=== PATIENT | male | born 1955 | race Caucasian/White ===

== ENCOUNTER 2017-10-18 12:24 | Inpatient (IN) | payer MEDICARE, SELFPAY ==
[2017-10-18] VITALS (15 sets, daily range): BP systolic 114–132; BP diastolic 56–67; PULSE 70–88; RESP 18–27; TEMP 36.5–37.1; O2SAT 87–94; BMI 20.9; BMI 19.6
--- NOTE | 2017-10-18 13:10 | EKG12_ITS ---
Test Reason : SOB Blood Pressure : / mmHG Vent. Rate : 078 BPM Atrial Rate : 078 BPM P-R Int : 126 ms QRS Dur : 072 ms QT Int : 394 ms P-R-T Axes : 058 000 065 degrees QTc Int : 449 ms Normal sinus rhythm Normal ECG Confirmed by NORM BARR, JARROD ([id number]), material expeditor DMITRI LOCKWOOD ([id number]) on 10/22/2017 3:07:42 PM Referred By: TINO Confirmed By:JARROD ZHENG MD
--- NOTE | 2017-10-18 13:15 | RAD_ITS ---
STUDY: X-RAY CHEST REASON FOR EXAM: Male, 62 years old. Shortness of breath/dyspnea. TECHNIQUE: Single AP portable view of the chest. COMPARISON: Comparison is made with prior study dated June 21, 2017. FINDINGS: EKG electrodes are seen. Mild increased linear markings with areas of confluence seen at both lung bases. This may represent bibasilar atelectasis and/or early infiltrates. Follow-up is recommended. There is no demonstrated pleural abnormality. Normal size heart. Normal mediastinum and shanna. Normal visualized pulmonary arteries. Normal visualized aortic arch and descending thoracic aorta. Normal visualized thoracic spine. Normal visualized ribs, clavicles, and shoulders. There is no demonstrated abnormality of the visualized soft tissue structures of the upper abdomen. RAD/Chest 1 View (Portable) IMPRESSION: Since prior study, there is evidence of increased linear markings with areas of confluence at the lung bases suggestive of bibasilar atelectasis and/or early infiltrates. Follow-up is recommended. Electronically Signed: García Landin MD at 14:38 EST Tel [phone], Service support ,
[2017-10-18] MEDS: 0.9% Normal Saline 1,000 ML 999 ML IV (13:29)
[2017-10-18] MEDS: Ipratropium/Albuterol Sulfate 3 ML AMPUL.NEB INHALATION ×3 (13:45→23:38)
[2017-10-18] MEDS: Albuterol 2.5 MG/3 ML VIAL.NEB. INHALATION ×2 (13:46→13:47)
[2017-10-18 13:53] LABS: Absolute Lymphocyte Count 0.96 X10^3/ul (0.83-4.51); Absolute Neutrophil Count 4.3 X10^3/uL (2.0-7.7); Basophil# 0.01 X10^3/uL; Basophil% 0.2 % (0-1); Hematocrit 41.7 % (40-54); Lymphocyte # 0.96 X10^3/ul (4.0); Mean Corp Hgb Conc 33.6 g/gl (32-36); Mean Corpuscular Hgb 34.4 pg (27.0-32.0); Mean Corpuscular Volume 102.5 fL (80-94); Mean Platelet Vol. 8.9 fl (6.2-12.0); Monocyte# 0.72 X10^3/uL; Neutrophil # 4.29 X10^3/uL (2.7-7.7); Neutrophil % 71.6 % (47-70); Platelet Count 157 K/mm3 (150-450); RBC Distribution Width CV 14.5 % (11.6-14.6); Red Blood Count 4.07 M/mm3 (4.6-6.2)
[2017-10-18 13:56] LABS: POSITIVE COUNT NO; POSITIVE DIFFERENTIAL NO; POSITIVE MORPHOLOGY NO
[2017-10-18 14:02] LABS: International Normalized Ratio 1.7; Prothrombin Time (Protime)PT. 18.9 SECONDS (11.7-14.9)
[2017-10-18 14:03] LABS: Partial Thromboplast Time 46.9 Seconds (24.1-36.2)
[2017-10-18 14:07] LABS: ALB/GLOB Ratio 0.8 RATIO (0.9-2.4); AST(SGOT) 30 U/L (15-37); Alanine Aminotransfer ALT/SGPT 23 U/L (12-78); Albumin, Serum 3.2 g/dL (3.4-5.0); Alkaline Phosphatase 52 U/L (45-117); Anion Gap 8 (5-15); BUN 22 mg/dL (7-18); BUN/Creat Ratio 20.8 RATIO (10-20); Calcium,Total 7.7 mg/dL (8.5-10.1); Chloride 108 mmol/L (98-107); Creatinine, Serum 1.06 mg/dL (0.70-1.30); EST Glomerular Filtration Rate 75 mL/min (>60); Est Glom Filt Rate - Afr Amer 90 mL/min (>60); Estimated Creatinine Clearance 64.03 ml/min; Globulin 3.9 g/dL (2.2-4.2); Glucose 97 mg/dL (70-110); Potassium 3.8 mmol/L (3.5-5.1); Protein, Total 7.1 g/dL (6.4-8.2); Sodium Level 140 mmol/L (136-145)
[2017-10-18 14:16] LABS: Lactic Acid 0.7 mmol/L (0.4-2.0)
[2017-10-18] MEDS: Oseltamivir Phosphate 75 MG Capsule PO ×2 (14:43→23:21)
[2017-10-18] MEDS: 0.9% Normal Saline 1,000 ML 150 ML IV (14:43)
[2017-10-18] MEDS: MethylPREDNISolone 125 MG/2 ML Vial IV (14:43)
[2017-10-18 15:10] LABS: Bacteria 0 SEEN /hpf (None Seen); Mucous, Urine 0 SEEN /hpf (<or=2+); Red Blood Cells-Urine 0 SEEN /hpf (0-5); Squamous Epithelial Cells - UA 0 SEEN /hpf (0-5); White Blood Cells 0 SEEN /hpf (0-5)
[2017-10-18 15:31] LABS: Color, Urine Yellow (Yellow); Glucose, Dipstick Normal (Normal); Ketone-Dipstick Negative (Negative); Leukocyte Esterase-Dipstick Negative /ul (Negative); Nitrite-Dipstick Negative (Negative); Occult Blood-Urine Negative /ul (Negative); Protein-Dipstick 30 mg/dl (Negative); Specific Gravity, Urine 1.025 (1.002-1.030); Urine Bilirubin Dipstick Negative (Negative); Urine Clarity Sl. Cloudy (Clear); Urine Urobilinogen 1 mg/dl (Normal)
--- NOTE | 2017-10-18 15:55 | ED.VISSUMM ---
- ER Visit Summary Date of Service: 10/18/17 Chief Complaint: Shortness of breath History of Present Illness: The patient is a 62 M who states that 4 days ago began to just feel weak. States he did not have any vomiting or diarrhea just felt like he did have an appetite. Started noticed that he had decreased urination. Then yesterday he began to have body aches and cough. He states by today he felt rattles in his chest. He denies any known fevers. Denies any rashes. He notes a history of COPD for which she wears 2 L of home O2. He is a smoker. He has had prior tracheostomy in the past due to traumatic brain injury. Physical Examination: 98.4 heart rate of 85 respirations are 22 blood pressure 132/65 pulse ox is 92% on 3 L Gen: Well-nourished well-developed appears frail and weak Head: Normocephalic atraumatic Eyes: Perrl EOMI ENT: TMs clear no rhinorrhea drains Neck: Supple no lymphadenopathy no JVD nontender CVS: Regular rate rhythm no murmurs normal S1-S2 Respiratory: No distress bilateral rhonchi and wheezing chest nontender Abdomen: Soft nontender nondistended normal bowel sounds no masses Back: Nontender Extremity: Nontender no edema Skin: Normal color no rash Neuro: alert orientated ?3 CN II-XII intact normal strength sensation reflexes gait cerebellar Test Results: Influenza swab was positive for a. Troponin 0 0.14. Lactic acid 0.7. White count of 6. EKG sinus at rate 78. Chest x-ray shows either atelectatic changes or bibasilar infiltrate. Emergency Department Course and Treatment: Cultures obtained. Patient received Rocephin and azithromycin. Patient received IV fluids. He also received breathing treatments include Tamiflu. Plan will be admission to the hospital. Impression: 1. Influenza A 2. Pneumonia 3. COPD exacerbation 4. Dehydration This note was generated with [employer] dictation software. It may contain incorrect words, spelling, and punctuation that were not noted in review of the chart prior to signing ED Disposition - Plan for ED Patient: Chief Complaint: Shortness of Breath Referrals: Phu Cooper MD [Primary Care Provider] -
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
--- NOTE | 2017-10-18 18:22 | ECHOD_ITS ---
Reason For Study: ARRHYTHMIA Procedure This was a 2D Doppler, Color Flow transthoracic echocardiogram. The exam was of fair technical quality due to diminished acoustic windows. The study was technically difficult. Exam performed portable in patient room. Left Ventricle Normal LV size. Left ventricular systolic function is normal. The estimated ejection fraction is 65 %. No regional wall motion abnormalities noted. Right Ventricle Normal RV size. Normal systolic function. Atria Normal left atrium. Normal right atrium. No doppler evidence for ASD. Mitral Valve There is no mitral annular calcification. Normal mitral valve. Trivial mitral valve insufficiency. Tricuspid Valve Normal tricuspid valve. Mild tricuspid valve insufficiency. Right ventricular systolic pressure estimated to be 28 mmHg. Aortic Valve Trisinus/trileaflet aortic valve. Mild focal aortic valve thickening. Pulmonic Valve The pulmonic valve is not well visualized. Trivial pulmonic valve insufficiency. Great Vessels Normal sized aortic root. Pericardium/Pleural No pericardial effusion. MMode/2D Measurements & Calculations LVIDd: 3.8 cm IVSd: 0.86 cm Ao root diam: 3.6 cm LVIDs: 1.9 cm LVPWd: 0.91 cm LA dimension: 3.9 cm FS: 49.7 % LAV(MOD-bp): 38.6 ml LA A4 area: 15.1 cm2 LAV(MOD-bp) Indexed: 21.7 ml/m2 LAV(MOD-sp2): 35.6 ml LAV(MOD-sp4): 34.8 ml Doppler Measurements & Calculations MV E max mamadou: 75.5 cm/sec Lat Peak E' Mamadou: 7.9 cm/sec Med Peak E' Mamadou: 8.6 cm/sec MV A max mamadou: 63.8 cm/sec E/E' lat: 9.5 E/E' med: 8.8 MV E/A: 1.2 Ao V2 max: 117.8 cm/sec LV V1 max: 96.4 cm/sec PA V2 max: 127.1 cm/sec Ao max P.5 mmHg LV V1 max P.7 mmHg TR max mamadou: 251.3 cm/sec TR max P.3 mmHg Interpretation Summary The study was technically difficult. Left ventricular systolic function is normal. The estimated ejection fraction is 65 %. Trivial mitral valve insufficiency. Mild tricuspid valve insufficiency. Mild focal aortic valve thickening. Trivial pulmonic valve insufficiency. Right ventricular systolic pressure estimated to be 28 mmHg. Ordering Physician: Juju Chew Referring Physician: CHAU ESCOBAR Performed By: Mariana Marcial RDCS, RVT
[2017-10-18 18:39] LABS: Cholesterol 99 mg/dL (200); High Density Lipoprotein 43 mg/dL; Magnesium 2.4 mg/dL (1.8-2.4); Triglycerides 62 mg/dL; Very Low Density Lipoprotein 12 mg/dL (5-40)
[2017-10-18] MEDS: APIXABAN 5 MG TABLET PO (23:20)
[2017-10-18] MEDS: Mirtazapine 15 MG Tablet PO (23:20)
[2017-10-18] MEDS: Famotidine 20 MG Tablet PO (23:20)
[2017-10-18] MEDS: guaiFENesin 600 MG Tablet 1200 MG PO (23:20)
[2017-10-18] MEDS: Gabapentin 300 MG Capsule PO (23:20)
[2017-10-18] MEDS: Senna/Docusate Sodium 1 Tablet PO (23:20)
[2017-10-18] MEDS: Atorvastatin Calcium 10 MG Tablet PO (23:21)
[2017-10-19] VITALS (14 sets, daily range): BP systolic 120–148; BP diastolic 56–76; PULSE 70–90; RESP 15–22; TEMP 36.1–36.7; O2SAT 88–93
[2017-10-19] MEDS: Ipratropium/Albuterol Sulfate 3 ML AMPUL.NEB INHALATION ×6 (03:16→22:54)
--- NOTE | 2017-10-19 05:55 | EKG12_ITS ---
Test Reason : AM EKG Blood Pressure : / mmHG Vent. Rate : 077 BPM Atrial Rate : 077 BPM P-R Int : 128 ms QRS Dur : 078 ms QT Int : 422 ms P-R-T Axes : 066 013 048 degrees QTc Int : 477 ms Normal sinus rhythm Normal ECG Confirmed by NORM BARR, JARROD ([id number]), features editor DMITRI LOCKWOOD ([id number]) on 10/22/2017 3:29:57 PM Referred By: JCARLOS Confirmed By:JARROD ZHENG MD
[2017-10-19] MEDS: 0.9% Normal Saline 1,000 ML 60 ML IV (06:27)
[2017-10-19] MEDS: Gabapentin 300 MG Capsule PO ×4 (07:46→22:49)
[2017-10-19] MEDS: Alendronate Sodium 70 MG Tablet PO (07:46)
[2017-10-19] MEDS: Senna/Docusate Sodium 1 Tablet PO ×2 (09:13→22:49)
[2017-10-19] MEDS: APIXABAN 5 MG TABLET PO ×2 (09:14→22:49)
[2017-10-19] MEDS: Oseltamivir Phosphate 75 MG Capsule PO ×2 (09:14→22:49)
[2017-10-19] MEDS: Famotidine 20 MG Tablet PO ×2 (09:14→22:49)
[2017-10-19] MEDS: guaiFENesin 600 MG Tablet 1200 MG PO ×2 (09:14→22:49)
[2017-10-19] MEDS: FLUoxetine 20 MG Capsule 40 MG PO (09:14)
--- NOTE | 2017-10-19 09:38 | CASEMGMT ---
Patient is from [facility]. FARHANA called [facility] and spoke with Bharati she had patient's insurance information and will fax it to FARHANA. FARHANA also called [facility] and notified them patient is here. Patient has [facility]. FARHANA to follow to assist in determining the appropriate d/c plan. Alisha BORGES
[2017-10-19] MEDS: Ceftriaxone 1 GM/50 ML BAG IV (10:24)
[2017-10-19] MEDS: 0.9% NaCl Peripheral Flush Adult/Peds IV (10:35)
--- NOTE | 2017-10-19 12:27 | PCM.PROGNOTE ---
<Promise Mckeon - Last Filed: 10/19/17 12:43> Subjective: Patient seen and examined. States he is feeling well. Denies shortness of breath. Denies fever, chills. Denies cough. Lungs with crackles and wheezes. Patient wishes to be discharged back to assisted living today however discussed with patient that I feel he would benefit for 1 more day in hospital for further antibiotic and steroid therapy. Patient is agreeable. - Physical Exam General: Alert, Oriented x3, Cooperative, No apparent distress HEENT: Atraumatic, PERRLA, EOMI, Normocephalic Neck: Supple, No JVD, Negative Carotid Bruits Lungs: Diminished, Wheezes, - - Crackles bases Cardiovascular: Regular rate, No murmurs Abdomen: Bowel Sounds Present, Soft, Non Tender, Non-Distended Extremities: No clubbing, No cyanosis, No edema, Capillary Refill Less than 3 Seconds Skin: No rashes, No breakdown Musculoskeletal: No Tenderness to Palpation of Joints or Extremities Neurological: Cranial nerves II-XII grossly intact Psych/Mental Status: Normal Affect, Appropriate Vital Signs Temp Pulse Resp BP Pulse Ox 98.0 F 86 16 123/60 H 93 10/19/17 09:00 10/19/17 11:12 10/19/17 11:12 10/19/17 09:00 10/19/17 11:12 Oxygen Flow Rate 5 Oxygen Delivery Method Nasal Cannula Weight: 60.4 kg Body Mass Index (BMI) 19.6 Intake and Output for Last 24 Hours 10/17/17 10/18/17 10/19/17 23:59 23:59 23:59 Intake Total 589 / 589 861 / 861 Output Total 275 / 275 200 / 200 Balance 314 / 314 661 / 661 Laboratory Tests Past 24 Hrs 10/18/17 10/18/17 10/19/17 19:04 22:50 04:46 Troponin I 0.10 H 0.08 H 0.06 Assessment/Plan 1. Acute COPD exacerbation secondary to acute influenza A and/or suspected community acquired pneumonia-patient positive for influenza A. Chest x-ray shows atelectatic changes or bibasilar infiltrates. Continue Tamiflu for 5 day course. Pulmonary consulted. Patient follows with Dr. Leigh. IV Zithromax and IV ceftriaxone discontinued and patient started on IV Levaquin per pulmonary recommendations. Continue albuterol and DuoNeb aerosols. Continue IV Solu-Medrol. Urine negative for strep and Legionella. Blood cultures pending. Oxygen 93% on 5 L nasal cannula. Continue oxygen supplementation to maintain O2 at or above 90%. Patient unable to produce sputum for sample. White count normal, patient afebrile. 2. Chronic hypoxic respiratory failure-treatment as noted above. Patient requiring more oxygen than he wears at baseline however patient is not in acute respiratory failure. 3. Hyperlipidemia-continue statin. 4. Depression-continue home Prozac, mirtazapine regimen. 5. GERD-continue omeprazole. 6. History of PE-continue Eliquis 7. Tobacco abuse-patient is a current pack per day smoker. Smoking cessation encouraged. Nicotine replacement patch if desired. 8. Osteoporosis-history of multiple vertebral fractures-continue Fosamax, vitamin D3 supplementation. 9. History of brain aneurysm status post TBI-history of possible clipping. 10. History of tracheostomy-status post TBI, resolved. 11. Chronic back pain secondary to suspected disc disease-continue Neurontin, PRN oxyir. 12. Indeterminate troponin- 0.14, 0.10, 0.08, 0.06. Patient denies chest pain. Suspect demand ischemia secondary to #1. EKG without evidence of ischemia. Echo pending. DVT prophylaxis-Eliquis. CODE STATUS-patient would like to remain full code. This patient was seen by IVIS Flores under the supervision of Dr. Vee. <Sally Vee - Last Filed: 10/19/17 16:14> - Physical Exam Vital Signs Temp Pulse Resp BP Pulse Ox 97.7 F L 89 20 H 126/56 H 92 10/19/17 15:00 10/19/17 15:00 10/19/17 15:00 10/19/17 15:00 10/19/17 15:00 Oxygen Flow Rate 5 Oxygen Delivery Method Nasal Cannula Weight: 60.4 kg Body Mass Index (BMI) 19.6 Intake and Output for Last 24 Hours 10/17/17 10/18/17 10/19/17 23:59 23:59 23:59 Intake Total 589 / 589 861 / 861 Output Total 275 / 275 200 / 200 Balance 314 / 314 661 / 661 Laboratory Tests Past 24 Hrs 10/18/17 10/18/17 10/19/17 19:04 22:50 04:46 Troponin I 0.10 H 0.08 H 0.06 Assessment/Plan Patient was seen and examined independently of next practitioner, Promise Mckeon. Patient complains of shortness of breath. Audible wheezes can be headphone the entrance to the room. Denies any dizziness or palpitation but admits to chest discomfort. Denies any fever or chills. Vitals reviewed, stable, remains on 4 L of oxygen. Labs reviewed, stable, influenza A positive, leukocytosis is due to steroids. Medications reviewed. Agree with Tamiflu, steroids, breathing treatments around the clock instead of as needed. Code Visit Inpatient E&M: 91120 Subs Hosp L2
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
--- NOTE | 2017-10-19 16:52 | CASEMGMT ---
Patient will likely be d/c tomorrow. FARHANA called [facility] and spoke with stan letting her know patient will likely be d/c over the weekend. She gave SW the phone number for RN to call report and asked that orders are faxed ahead of time. SW left a green sheet on chart as well as ambulette form. Plan: d/c back to [facility] [place]. Staff to set up transport. Ailsha ASHBY MSW
[2017-10-19] MEDS: Mirtazapine 15 MG Tablet PO (22:49)
[2017-10-19] MEDS: Atorvastatin Calcium 10 MG Tablet PO (22:49)
[2017-10-20] VITALS (18 sets, daily range): BP systolic 85–136; BP diastolic 43–76; PULSE 78–95; RESP 14–23; TEMP 36.4–37; O2SAT 92–95
[2017-10-20] MEDS: Ipratropium/Albuterol Sulfate 3 ML AMPUL.NEB INHALATION ×6 (03:19→22:11)
[2017-10-20] MEDS: 0.9% Normal Saline 1,000 ML 60 ML IV (03:20)
[2017-10-20 06:31] LABS: Hematocrit 36.6 % (40-54); Mean Corp Hgb Conc 32.8 g/gl (32-36); Mean Corpuscular Hgb 33.8 pg (27.0-32.0); Mean Corpuscular Volume 103.1 fL (80-94); Mean Platelet Vol. 8.9 fl (6.2-12.0); Platelet Count 157 K/mm3 (150-450); RBC Distribution Width CV 14.2 % (11.6-14.6); RBC Distribution Width SD 53.4 fl (35.1-43.9); Red Blood Count 3.55 M/mm3 (4.6-6.2); White Blood Count 11.3 K/mm3 (4.4-11.0)
[2017-10-20 06:46] LABS: Anion Gap 10 (5-15); BUN 23 mg/dL (7-18); BUN/Creat Ratio 27.7 RATIO (10-20); Calcium,Total 7.4 mg/dL (8.5-10.1); Chloride 116 mmol/L (98-107); Creatinine, Serum 0.83 mg/dL (0.70-1.30); EST Glomerular Filtration Rate 99 mL/min (>60); Est Glom Filt Rate - Afr Amer 120 mL/min (>60); Estimated Creatinine Clearance 76.81 ml/min; Glucose 140 mg/dL (70-110); Potassium 3.7 mmol/L (3.5-5.1); Sodium Level 147 mmol/L (136-145)
[2017-10-20 06:57] LABS: Scan Indicated on CBC? Y/N NO
[2017-10-20] MEDS: Famotidine 20 MG Tablet PO ×2 (09:37→22:14)
[2017-10-20] MEDS: guaiFENesin 600 MG Tablet 1200 MG PO ×2 (09:37→22:14)
[2017-10-20] MEDS: Gabapentin 300 MG Capsule PO ×4 (09:37→22:14)
[2017-10-20] MEDS: APIXABAN 5 MG TABLET PO ×2 (09:37→22:14)
[2017-10-20] MEDS: Senna/Docusate Sodium 1 Tablet PO ×2 (09:37→22:14)
[2017-10-20] MEDS: FLUoxetine 20 MG Capsule 40 MG PO (09:37)
[2017-10-20] MEDS: Oseltamivir Phosphate 75 MG Capsule PO ×2 (09:46→22:14)
--- NOTE | 2017-10-20 10:33 | PN_ITS ---
Patient Problems: Active and Suspected Problems Influenza A (Acute) Subjective: The patient was seen and examined at the bedside this morning. Events from the last 24 hours have been reviewed. The patient is currently afebrile, hemodynamically stable and maintaining appropriate oxygen saturations on 3 L/ min via nasal cannula. Objective: The patient's most recent lab work, culture data and imaging studies have all been personally reviewed. Echocardiogram from June 2016 revealed normal LV size and function with an ejection fraction of 65%. Pulmonary artery systolic pressure was estimated to be 51 mmHg. Blood and urine cultures are pending. Strep and urine Legionella antigens were both negative. Rapid influenza screen was notable for influenza A. Urine culture is positive for a gram-positive organism. Repeat surface echocardiogram completed October 19 revealed normal LV size and function with an ejection fraction of 65%. Right ventricular systolic pressure was estimated to be 28 mmHg. - Physical Exam General: Alert, Cooperative, No apparent distress HEENT: Atraumatic, PERRLA, Normocephalic Oral: Moist Mucosa Neck: Supple, No Nodes, Trachea Midline Lungs: No rhonchi, No wheeze, No rales, Diminished Cardiovascular: Regular rate, Regular Rhythm, Normal S1, Normal S2, No murmurs Abdomen: Bowel Sounds Present, Soft, Non Tender Extremities: No clubbing, No cyanosis, No edema Skin: No rashes, No breakdown Musculoskeletal: No Tenderness to Palpation of Joints or Extremities Lymphatic: No Cervical, Supraclavicular, or Inguinal Adenopathy Neurological: Neuro grossly intact Psych/Mental Status: Normal Affect Vital Signs Temp Pulse Resp BP Pulse Ox 97.5 F L 93 16 132/76 H 95 10/20/17 10:29 10/20/17 10:29 10/20/17 10:29 10/20/17 10:29 10/20/17 10:29 Oxygen Flow Rate 3 Oxygen Delivery Method Nasal Cannula Weight: 133 lb 2.547 oz Body Mass Index (BMI) 19.6 Intake and Output for Last 24 Hours 10/18/17 10/19/17 10/20/17 23:59 23:59 23:59 Intake Total 589 / 589 1525 / 1525 840 / 840 Output Total 275 / 275 200 / 200 400 / 400 Balance 314 / 314 1325 / 1325 440 / 440 Laboratory Tests Past 24 Hrs 10/20/17 10/20/17 05:20 05:20 WBC 11.3 H RBC 3.55 L Hgb 12.0 L Hct 36.6 L MCV 103.1 H MCH 33.8 H MCHC 32.8 RDW 14.2 RDW Differential 53.4 H Plt Count 157 MPV 8.9 Sodium 147 H Potassium 3.7 Chloride 116 H Carbon Dioxide 21.0 Anion Gap 10 BUN 23 H Creatinine 0.83 Estim Creat Clear Calc 76.81 Est GFR (MDRD) Af Amer 120 Est GFR (MDRD) Non-Af 99 BUN/Creatinine Ratio 27.7 H Glucose 140 H Calcium 7.4 L Clinical Impression(s) from Imaging Studies Chest X-Ray 10/18/17 13:15 IMPRESSION: Since prior study, there is evidence of increased linear markings with areas of confluence at the lung bases suggestive of bibasilar atelectasis and/or early infiltrates. Follow-up is recommended. Electronically Signed: García Landin MD at 14:38 EST Tel [phone], Service support , Assessment/Plan Active and Suspected Problems Influenza A (Acute) RECOMMENDATIONS: 1. Dual aerosol regimen, Tamiflu, antibiotics and steroids. 2. Wean supplemental oxygen as tolerated. 3. Perform walking oximetry study prior to consideration for discharge 4. Encourage incentive spirometer use and mobilize patient as tolerated 5. Please ensure that the patient follows up in the pulmonary medicine clinic within 2 weeks of his discharge from the hospital IMPRESSIONS: 1. Acute on chronic hypoxemic respiratory failure due to COPD with exacerbation secondary to influenza A/CAP Continue current supportive measures. Continue Levaquin to complete a 7 day treatment course. Continue Tamiflu ?5 days. Continue scheduled aerosol treatments along with steroids. The patient will likely require a prolonged steroid taper at discharge. Wean supplemental oxygen to maintain saturations at or above 90%. Encourage incentive spirometer use and mobilize patient as tolerated. A walking oximetry study should be completed prior to consideration for discharge from the hospital. The patient should follow-up with our nurse practitioner in the pulmonary medicine clinic within 2 weeks of his discharge. 2. Chronic tobacco dependence Smoking cessation strongly advised. Nicotine replacement therapy can be offered while inpatient. This note was generated with [employer] software. It may contain incorrect words, spelling, and punctuation that were not noted in checking the note before signing. Code Visit Inpatient E&M: 16350 Subs Hosp L2
--- NOTE | 2017-10-20 11:56 | PCM.PROGNOTE ---
<Promise Mckeon - Last Filed: 10/20/17 12:02> Patient Problems: Active and Suspected Problems Influenza A (Acute) Subjective: Patient seen and examined. States he is feeling well. Denies significant shortness of breath. Denies fever, chills. Denies productive cough. Denies chest pain. Denies other complaints. - Physical Exam General: Alert, Oriented x3, Cooperative, No apparent distress Neck: Supple, No JVD, Negative Carotid Bruits Lungs: Clear to auscultation, Diminished Cardiovascular: Regular rate, No murmurs Abdomen: Bowel Sounds Present, Soft, Non Tender, Non-Distended Extremities: No clubbing, No cyanosis, No edema, Capillary Refill Less than 3 Seconds Skin: No rashes, No breakdown Musculoskeletal: No Tenderness to Palpation of Joints or Extremities Neurological: Cranial nerves II-XII grossly intact, Neuro grossly intact Psych/Mental Status: Normal Affect, Appropriate Vital Signs Temp Pulse Resp BP Pulse Ox 97.5 F L 82 17 132/76 H 92 10/20/17 10:29 10/20/17 11:14 10/20/17 11:14 10/20/17 10:29 10/20/17 11:19 Oxygen Flow Rate 3 Oxygen Delivery Method Nasal Cannula Weight: 60.4 kg Body Mass Index (BMI) 19.6 Intake and Output for Last 24 Hours 10/18/17 10/19/17 10/20/17 23:59 23:59 23:59 Intake Total 589 / 589 1525 / 1525 840 / 840 Output Total 275 / 275 200 / 200 400 / 400 Balance 314 / 314 1325 / 1325 440 / 440 Laboratory Tests Past 24 Hrs 10/20/17 10/20/17 05:20 05:20 WBC 11.3 H RBC 3.55 L Hgb 12.0 L Hct 36.6 L MCV 103.1 H MCH 33.8 H MCHC 32.8 RDW 14.2 RDW Differential 53.4 H Plt Count 157 MPV 8.9 Sodium 147 H Potassium 3.7 Chloride 116 H Carbon Dioxide 21.0 Anion Gap 10 BUN 23 H Creatinine 0.83 Estim Creat Clear Calc 76.81 Est GFR (MDRD) Af Amer 120 Est GFR (MDRD) Non-Af 99 BUN/Creatinine Ratio 27.7 H Glucose 140 H Calcium 7.4 L Assessment/Plan Active and Suspected Problems Influenza A (Acute) 1. Acute COPD exacerbation secondary to acute influenza A and/or suspected community acquired pneumonia-patient positive for influenza A. Chest x-ray shows atelectatic changes or bibasilar infiltrates. Continue Tamiflu for 5 day course. Pulmonary consulted. Patient follows with Dr. Leigh. Continue IV Levaquin. Continue albuterol and DuoNeb aerosols. Continue IV Solu-Medrol. Urine negative for strep and Legionella. Blood cultures pending. Oxygen 92% on 3 L nasal cannula. Continue oxygen supplementation to maintain O2 at or above 90%. Patient unable to produce sputum for sample. Patient afebrile. White count previously normal, elevated today suspected due to IV steroids. 2. Chronic hypoxic respiratory failure-treatment as noted above. Patient requiring more oxygen than he wears at baseline however patient is not in acute respiratory failure. 3. Hyperlipidemia-continue statin. 4. Depression-continue home Prozac, mirtazapine regimen. 5. GERD-continue omeprazole. 6. History of PE-continue Eliquis 7. Tobacco abuse-patient is a current pack per day smoker. Smoking cessation encouraged. Nicotine replacement patch if desired. 8. Osteoporosis-history of multiple vertebral fractures-continue Fosamax, vitamin D3 supplementation. 9. History of brain aneurysm status post TBI-history of possible clipping. 10. History of tracheostomy-status post TBI, resolved. 11. Chronic back pain secondary to suspected disc disease-continue Neurontin, PRN oxyir. 12. Indeterminate troponin- 0.14, 0.10, 0.08, 0.06. Patient denies chest pain. Suspect demand ischemia secondary to #1. EKG without evidence of ischemia. Echocardiogram shows an estimated ejection fraction of 65%, mild tricuspid valve insufficiency, RVSP estimated to be 28. DVT prophylaxis-Eliquis. CODE STATUS-patient would like to remain full code. Discharge planning: Anticipate discharge back to assisted living facility tomorrow if continued clinical improvement. This patient was seen by IVIS Flores under the supervision of Dr. Vee. <Sally Vee - Last Filed: 10/20/17 14:30> - Physical Exam Vital Signs Temp Pulse Resp BP Pulse Ox 97.5 F L 82 17 132/76 H 92 10/20/17 10:29 10/20/17 11:14 10/20/17 11:14 10/20/17 10:29 10/20/17 11:19 Oxygen Flow Rate 3 Oxygen Delivery Method Nasal Cannula Weight: 60.4 kg Body Mass Index (BMI) 19.6 Intake and Output for Last 24 Hours 10/18/17 10/19/17 10/20/17 23:59 23:59 23:59 Intake Total 589 / 589 1525 / 1525 1540 / 1540 Output Total 275 / 275 200 / 200 400 / 400 Balance 314 / 314 1325 / 1325 1140 / 1140 Laboratory Tests Past 24 Hrs 10/20/17 10/20/17 05:20 05:20 WBC 11.3 H RBC 3.55 L Hgb 12.0 L Hct 36.6 L MCV 103.1 H MCH 33.8 H MCHC 32.8 RDW 14.2 RDW Differential 53.4 H Plt Count 157 MPV 8.9 Sodium 147 H Potassium 3.7 Chloride 116 H Carbon Dioxide 21.0 Anion Gap 10 BUN 23 H Creatinine 0.83 Estim Creat Clear Calc 76.81 Est GFR (MDRD) Af Amer 120 Est GFR (MDRD) Non-Af 99 BUN/Creatinine Ratio 27.7 H Glucose 140 H Calcium 7.4 L Assessment/Plan Patient was seen and examined independently of nurse practitioner. No new complaints. Feels his breathing is better. Vitals reviewed, stable, noted to be on 3 L of oxygen -which is his baseline. Physical exam and interval history as above. No wheezes heard on exam. We will reevaluate tomorrow and possibly discharge
[2017-10-20] MEDS: 0.9% NaCl Peripheral Flush Adult/Peds IV ×2 (15:47→22:14)
[2017-10-20] MEDS: Mirtazapine 15 MG Tablet PO (22:14)
[2017-10-20] MEDS: Atorvastatin Calcium 10 MG Tablet PO (22:14)
[2017-10-21] VITALS (8 sets, daily range): BP systolic 122–142; BP diastolic 60–69; PULSE 8–88; RESP 18–20; TEMP 36.7–36.8; O2SAT 92–93
[2017-10-21] MEDS: Ipratropium/Albuterol Sulfate 3 ML AMPUL.NEB INHALATION ×3 (02:46→10:39)
[2017-10-21] MEDS: 0.9% NaCl Peripheral Flush Adult/Peds IV (05:10)
[2017-10-21 07:32] LABS: Hematocrit 37.2 % (40-54); Hemoglobin 12.5 g/dl (13.0-16.5); Mean Corp Hgb Conc 33.6 g/gl (32-36); Mean Corpuscular Hgb 34.9 pg (27.0-32.0); Mean Corpuscular Volume 103.9 fL (80-94); Mean Platelet Vol. 9.2 fl (6.2-12.0); Platelet Count 162 K/mm3 (150-450); RBC Distribution Width CV 14.2 % (11.6-14.6); RBC Distribution Width SD 52.7 fl (35.1-43.9); Red Blood Count 3.58 M/mm3 (4.6-6.2); White Blood Count 12.5 K/mm3 (4.4-11.0)
[2017-10-21 07:47] LABS: Anion Gap 9 (5-15); BUN 26 mg/dL (7-18); BUN/Creat Ratio 33.1 RATIO (10-20); Calcium,Total 7.8 mg/dL (8.5-10.1); Chloride 116 mmol/L (98-107); Creatinine, Serum 0.79 mg/dL (0.70-1.30); EST Glomerular Filtration Rate 106 mL/min (>60); Est Glom Filt Rate - Afr Amer 128 mL/min (>60); Glucose 127 mg/dL (70-110); Potassium 3.7 mmol/L (3.5-5.1); Sodium Level 146 mmol/L (136-145)
[2017-10-21 07:52] LABS: Scan Indicated on CBC? Y/N NO
--- NOTE | 2017-10-21 08:14 | PN_ITS ---
Subjective: The patient was seen and examined at the bedside this morning. Events from the last 24 hours have been reviewed. The patient is currently afebrile, hemodynamically stable and maintaining appropriate oxygen saturations on 3-4 L/ min via nasal cannula. The patient is currently resting comfortably in his bedside recliner. No significant complaints. There are tentative plans for discharge home today. Objective: The patient's most recent lab work, culture data and imaging studies have all been personally reviewed. Echocardiogram from June 2016 revealed normal LV size and function with an ejection fraction of 65%. Pulmonary artery systolic pressure was estimated to be 51 mmHg. Blood cultures are pending. Urine culture revealed a gram-positive organism, which is yet to be speciated. Strep and urine Legionella antigens were both negative. Rapid influenza screen was notable for influenza A. Urine culture is positive for a gram-positive organism. Repeat surface echocardiogram completed October 19 revealed normal LV size and function with an ejection fraction of 65%. Right ventricular systolic pressure was estimated to be 28 mmHg. - Physical Exam General: Alert, Cooperative, No apparent distress HEENT: Atraumatic, PERRLA, Normocephalic Oral: Moist Mucosa, No Gingival or Mucosal Lesions/ Ulcerations Neck: Supple, No Nodes, Trachea Midline Lungs: No rhonchi, No wheeze, No rales, Diminished Cardiovascular: Regular rate, Regular Rhythm, Normal S1, Normal S2, No murmurs Abdomen: Bowel Sounds Present, Soft, Non Tender Extremities: No clubbing, No cyanosis, No edema Skin: No rashes, No breakdown Musculoskeletal: No Tenderness to Palpation of Joints or Extremities Lymphatic: No Cervical, Supraclavicular, or Inguinal Adenopathy Neurological: Neuro grossly intact Psych/Mental Status: Normal Affect, Appropriate Vital Signs Temp Pulse Resp BP Pulse Ox 98.0 F 88 18 135/68 H 92 10/21/17 05:10 10/21/17 07:00 10/21/17 05:10 10/21/17 05:10 10/21/17 05:10 Oxygen Flow Rate 4 Oxygen Delivery Method Nasal Cannula Weight: 133 lb 2.547 oz Body Mass Index (BMI) 19.6 Intake and Output for Last 24 Hours 10/19/17 10/20/17 10/21/17 23:59 23:59 23:59 Intake Total 1525 / 1525 1540 / 1540 180 / 180 Output Total 200 / 200 625 / 625 450 / 450 Balance 1325 / 1325 915 / 915 -270 / -270 Laboratory Tests Past 24 Hrs 10/21/17 10/21/17 06:15 06:15 WBC 12.5 H RBC 3.58 L Hgb 12.5 L Hct 37.2 L MCV 103.9 H MCH 34.9 H MCHC 33.6 RDW 14.2 RDW Differential 52.7 H Plt Count 162 MPV 9.2 Sodium 146 H Potassium 3.7 Chloride 116 H Carbon Dioxide 21.0 Anion Gap 9 BUN 26 H Creatinine 0.79 Estim Creat Clear Calc 80.70 Est GFR (MDRD) Af Amer 128 Est GFR (MDRD) Non-Af 106 BUN/Creatinine Ratio 33.1 H Glucose 127 H Calcium 7.8 L Clinical Impression(s) from Imaging Studies Chest X-Ray 10/18/17 13:15 IMPRESSION: Since prior study, there is evidence of increased linear markings with areas of confluence at the lung bases suggestive of bibasilar atelectasis and/or early infiltrates. Follow-up is recommended. Electronically Signed: García Landin MD at 14:38 EST Tel [phone], Service support , Assessment/Plan RECOMMENDATIONS: 1. Continue aerosol regimen, Tamiflu, antibiotics and steroids. Okay to transition to prednisone with plans for a taper at discharge. 2. Wean supplemental oxygen as tolerated. 3. Perform walking oximetry study prior to consideration for discharge 4. Encourage incentive spirometer use and mobilize patient as tolerated 5. Please ensure that the patient follows up in the pulmonary medicine clinic within 2 weeks of his discharge from the hospital IMPRESSIONS: 1. Acute on chronic hypoxemic respiratory failure due to COPD with exacerbation secondary to influenza A/CAP Continue current supportive measures. Continue Levaquin to complete a 7 day treatment course. Continue Tamiflu ?5 days. Continue scheduled aerosol treatments along with steroids. The patient can be transitioned over to prednisone with plans for a taper at discharge. Wean supplemental oxygen to maintain saturations at or above 90%. Encourage incentive spirometer use and mobilize patient as tolerated. A walking oximetry study should be completed prior to consideration for discharge from the hospital. The patient should follow-up with our nurse practitioner in the pulmonary medicine clinic within 2 weeks of his discharge. 2. Chronic tobacco dependence Smoking cessation strongly advised. Nicotine replacement therapy can be offered while inpatient. This note was generated with [facility] dictation software. It may contain incorrect words, spelling, and punctuation that were not noted in checking the note before signing. Code Visit Inpatient E&M: 39608 Subs Hosp L2
[2017-10-21] MEDS: Gabapentin 300 MG Capsule PO (09:02)
[2017-10-21] MEDS: guaiFENesin 600 MG Tablet 1200 MG PO (09:02)
[2017-10-21] MEDS: APIXABAN 5 MG TABLET PO (09:02)
[2017-10-21] MEDS: Famotidine 20 MG Tablet PO (09:03)
[2017-10-21] MEDS: Oseltamivir Phosphate 75 MG Capsule PO (09:03)
[2017-10-21] MEDS: FLUoxetine 20 MG Capsule 40 MG PO (09:03)
[2017-10-21] MEDS: Senna/Docusate Sodium 1 Tablet PO (09:03)
--- NOTE | 2017-10-21 10:24 | DCINST_ITS ---
- Discharge Diagnoses Current Active Problems: Current Active and Chronic Problems Influenza A (Acute) You will use the following diet at home:: Cardiac Discharge Activity: Return to Normal Activity Call your doctor if you observe: Fever of 101 or Higher, Shortness of breath, Dizziness, Fainting spells, Chest pain, Increased palpitations (irregular heartbeat) Additional Instructions: Continue supplemental oxygen to maintain O2 at or above 90%. Allergies/Adverse Reactions: Allergies latex Allergy (Verified 10/18/17 12:24) Rash naproxen sodium [From Aleve] Allergy (Verified 10/18/17 12:24) Rash Medications to take at Discharge Fluoxetine [Prozac] 40 mg PO DAILY 05/06/14 Gabapentin [Neurontin] 300 mg PO 4X/DAY 05/06/14 Omeprazole [Prilosec] 40 mg PO DAILY 03/15/16 Albuterol Aerosols [Ventolin Aerosols] 90 mcg INHALATION Q4H PRN PRN 04/02/16 Mirtazapine 30 mg PO QHS 04/02/16 Tiotropium [place] [Spiriva 18 MCG] 1 puff INHALATION DAILY 06/08/16 Acetaminophen [Tylenol] 500 - 1,000 mg PO Q6H PRN PRN 04/05/17 Alendronate Sodium [Fosamax] 70 mg PO FR 04/05/17 Apixaban [Eliquis] 5 mg PO BID 04/05/17 Atorvastatin Calcium [Lipitor] 10 mg PO QHS 04/05/17 Budesonide/Formoterol 160/4.5 [Symbicort 160/4.5 Mcg Inhaler (SP)] 2 puff IH BID 04/05/17 Oxycodone [Oxyir] 5 mg PO Q6H PRN PRN #20 tablet 04/07/17 Senna/Docusate Sodium [Senokot-S] 1 tablet PO BID 06/21/17 Umeclidinium [place] [Incruse Ellipta] 1 puff IH DAILY 06/21/17 Cholecalciferol (VIT D3) [Vitamin D3] 1,000 unit PO DAILYCM 10/18/17 Megestrol Acetate [Megace Suspension] 10 ml PO DAILY 10/18/17 Levofloxacin [Levaquin] 750 mg PO DAILY #4 tab 10/21/17 Oseltamivir Phosphate [Tamiflu] 75 mg PO BID #4 cap 10/21/17 Oxygen, Home [Home Oxygen] 2 lpm NASAL .CONT 10/21/17 Prednisone 10 mg PO DAILY #30 tab 10/21/17 The following prescriptions were given: Levofloxacin [Levaquin] 750 mg PO DAILY #4 tab Prednisone 10 mg PO DAILY #30 tab Oseltamivir Phosphate [Tamiflu] 75 mg PO BID #4 cap Primary Care Physician: Phu Cooper MD [Primary Care Provider] - Please follow up with your Primary Care Physician in: 1 Week Please Follow Up With: Nicolle Holman NP-C - Pulmonary Medicine [facility] When: 2 Weeks Proposed Discharge Date: 10/21/17
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
== END 2017-10-21 11:54 | disposition home or self-care (01) | DRG 194 ==
LOC: ED 14:05 → PCU 16:20
PROVIDERS: Nurse Practitioner Family; Admitting Provider Family Medicine; Emergency Provider Emergency Medicine; Family Provider Family Medicine; PCP Family Medicine; Visit Provider Internal Medicine
DX: J10.1 Influenza due to other identified influenza virus with other respiratory manifestations (principal); J96.11 Chronic respiratory failure with hypoxia; I24.8 Other forms of acute ischemic heart disease; J44.0 Chronic obstructive pulmonary disease with (acute) lower respiratory infection; J44.1 Chronic obstructive pulmonary disease with (acute) exacerbation; Z99.81 Dependence on supplemental oxygen; J18.9 Pneumonia, unspecified organism; E86.0 Dehydration; R62.7 Adult failure to thrive; E78.5 Hyperlipidemia, unspecified; M48.061 Spinal stenosis, lumbar region without neurogenic claudication; G89.29 Other chronic pain; M81.0 Age-related osteoporosis without current pathological fracture; K21.9 Gastro-esophageal reflux disease without esophagitis; F32.9 Major depressive disorder, single episode, unspecified; F41.9 Anxiety disorder, unspecified; F17.210 Nicotine dependence, cigarettes, uncomplicated; Z79.01 Long term (current) use of anticoagulants; Z79.899 Other long term (current) drug therapy; Z86.711 Personal history of pulmonary embolism; Z86.718 Personal history of other venous thrombosis and embolism; Z87.820 Personal history of traumatic brain injury
CPT/HCPCS: 36415; 71045; 80048; 80053; 80061; 81001; 83605; 83735; 84484; 85025; 85027; 85610; 85730; 87040; 87086; 87088; 87449; 87804; 93005; 93306; 94640; 94667; 94668; 97110; 97162; 97165; 97530; 97535; 97802; 99285; 99406; J7030; A4216; J0696

== ENCOUNTER 2017-12-19 14:02 | Emergency (ER) | payer MEDICARE, MEDICAID, SELFPAY ==
[2017-12-19 14:10] VITALS: BP 133/81; PULSE 76; RESP 20; TEMP 36.6; O2SAT 94; BMI 19.2
--- NOTE | 2017-12-19 14:13 | RAD_ITS ---
STUDY: X-RAY - PELVIS AND LEFT HIP REASON FOR EXAM: Male, 62 years old. Hip pain following a fall. TECHNIQUE: Radiological exam, hip, unilateral, with pelvis when performed; 2 or 3 views. COMPARISON: None. FINDINGS: There is a non-specific bowel gas pattern. Normal visualized soft tissue structures. Normal bilateral iliac wings, sacroiliac joints and visualized sacrum. Normal bilateral superior and inferior pubic rami. Normal pubic symphysis. Normal bilateral ischial tuberosities. The patient is status post right total hip replacement. There is good alignment. RAD/Hip 2-3 Views with Pelvis IMPRESSION: Status post right total hip replacement. No acute abnormality is seen. Electronically Signed: García Landin MD at 14:41 EST Tel [phone], Service support ,
--- NOTE | 2017-12-19 15:54 | ED.VISSUMM ---
- ER Visit Summary Date of Service: 12/19/17 Chief Complaint: Left hip pain after a fall History of Present Illness: The patient is a 62 M who presents with pain in his left hip that began after a fall 3 weeks ago. Patient states he lost his balance and fell onto his left side. Patient states he has been having some persistent pain in his left hip area. Patient states the pain is worse with any movement. Patient denies any weakness. Does admit to some tingling in his left foot. Patient denies any bowel or bladder changes. Patient denies any head injury or loss of consciousness. Patient denies any other injuries. Physical Examination: Vital signs are stable. Patient is afebrile. Patient is in no acute distress. There is tenderness over the left gluteal area and posterior left hip. There is no tenderness over the greater trochanter. There is no deformity noted. There is no shortening of the left lower extremity. Pedal pulses and posterior tibial pulses are equal bilaterally. There are no sensory deficits noted. Patient was able to roll onto his right hip and flex his left hip without any difficulty. Patient did have pain with internal and external rotation however of the left hip. Test Results: X-rays of the left hip and pelvis were obtained. There is no acute fracture noted. Emergency Department Course and Treatment: Patient was given an injection of 2 mg of morphine here. Patient was instructed to follow-up with his primary care physician at the [facility]. Patient understood and was agreeable with the plan. All questions were answered. Disposition: Discharged Impression: Left hip contusion This note was generated with [employer] dictation software. It may contain incorrect words, spelling, and punctuation that were not noted in review of the chart prior to signing ED Disposition - Plan for ED Patient: Disposition: Home or Assisted Living Chief Complaint: Lower Extremity Injury Diagnosis: Contusion of left hip region Referrals: Phu Cooper MD [Primary Care Provider] -
--- NOTE | 2017-12-19 16:04 | ED.DCSUM_ITS ---
- ER Visit Summary Date of Service: 12/19/17 Chief Complaint: Left hip pain after a fall History of Present Illness: The patient is a 62 M who presents with pain in his left hip that began after a fall 3 weeks ago. Patient states he lost his balance and fell onto his left side. Patient states he has been having some persistent pain in his left hip area. Patient states the pain is worse with any movement. Patient denies any weakness. Does admit to some tingling in his left foot. Patient denies any bowel or bladder changes. Patient denies any head injury or loss of consciousness. Patient denies any other injuries. Physical Examination: Vital signs are stable. Patient is afebrile. Patient is in no acute distress. There is tenderness over the left gluteal area and posterior left hip. There is no tenderness over the greater trochanter. There is no deformity noted. There is no shortening of the left lower extremity. Pedal pulses and posterior tibial pulses are equal bilaterally. There are no sensory deficits noted. Patient was able to roll onto his right hip and flex his left hip without any difficulty. Patient did have pain with internal and external rotation however of the left hip. Test Results: X-rays of the left hip and pelvis were obtained. There is no acute fracture noted. Emergency Department Course and Treatment: Patient was given an injection of 2 mg of morphine here. Patient was instructed to follow-up with his primary care physician at the [facility]. Patient understood and was agreeable with the plan. All questions were answered. Disposition: Discharged Impression: Left hip contusion This note was generated with [employer] dictation software. It may contain incorrect words, spelling, and punctuation that were not noted in review of the chart prior to signing ED Disposition - Plan for ED Patient: Disposition: Home or Assisted Living Chief Complaint: Lower Extremity Injury Diagnosis: Contusion of left hip region Referrals: Phu Cooper MD [Primary Care Provider] -
[2017-12-19 16:14] VITALS: BP 118/64; PULSE 67; RESP 14; O2SAT 96
== END 2017-12-19 17:01 | disposition home or self-care (01) ==
LOC: ED 16:25
PROVIDERS: Emergency Provider Emergency Medicine; Family Provider Family Medicine; PCP Family Medicine
DX: S70.02XA Contusion of left hip, initial encounter (principal); W19.XXXA Unspecified fall, initial encounter; Y93.9 Activity, unspecified; Y92.9 Unspecified place or not applicable; Y99.9 Unspecified external cause status; Z72.0 Tobacco use; Z79.899 Other long term (current) drug therapy
CPT/HCPCS: 73502; 96374; 99284

== ENCOUNTER → 2018-03-04 12:55 | Outpatient (CLI) | payer MEDICARE, MEDICAID, SELFPAY ==
[2017-10-20 10:29] VITALS: BP 132/76
[2017-11-16 10:14] VITALS: BP 135/78; BMI 19.2
--- NOTE | 2018-03-05 09:55 | PFT ---
INTRODUCTION: The patient is a 62-year-old male currently under the care of Dr. Leigh that presents for pulmonary function testing secondary to a diagnosis of COPD. Respiratory therapy reports good patient effort. Bronchodilators were used during testing. INTERPRETATION: Forced expiration spirometry demonstrates the presence of a moderately severe large airways obstructive ventilatory defect. There was no significant response to aerosolized bronchodilators. Spirograms are of good quality and do not plateau indicating slow emptying of the lungs. Body plethysmography was performed and reveals a decreased TLC to 4.6 L, 72% of predicted, indicative of a mild restrictive ventilatory impairment. The remainder of the lung volumes are symmetrically reduced. Diffusing capacity by single breath CO is severely reduced at 28% of predicted. IMPRESSION: These pulmonary function studies demonstrate the presence of an irreversible moderately severe mixed ventilatory defect with an associated severe reduction in diffusing capacity noted. When compared to previous pulmonary function studies dated October 2016 there has been significant improvement in the patient's FEV1, with little overall change in diffusing capacity.
--- NOTE | 2018-03-05 10:00 | PFT_ITS ---
INTRODUCTION: The patient is a 62-year-old male currently under the care of Dr. Leigh that presents for pulmonary function testing secondary to a diagnosis of COPD. Respiratory therapy reports good patient effort. Bronchodilators were used during testing. INTERPRETATION: Forced expiration spirometry demonstrates the presence of a moderately severe large airways obstructive ventilatory defect. There was no significant response to aerosolized bronchodilators. Spirograms are of good quality and do not plateau indicating slow emptying of the lungs. Body plethysmography was performed and reveals a decreased TLC to 4.6 L, 72% of predicted, indicative of a mild restrictive ventilatory impairment. The remainder of the lung volumes are symmetrically reduced. Diffusing capacity by single breath CO is severely reduced at 28% of predicted. IMPRESSION: These pulmonary function studies demonstrate the presence of an irreversible moderately severe mixed ventilatory defect with an associated severe reduction in diffusing capacity noted. When compared to previous pulmonary function studies dated October 2016 there has been significant improvement in the patient 's FEV1, with little overall change in diffusing capacity.
== END ==
PROVIDERS: Family Provider Family Medicine; PCP Family Medicine; Visit Provider Internal Medicine Critical Care Medicine
DX: J44.9 Chronic obstructive pulmonary disease, unspecified (principal); J96.11 Chronic respiratory failure with hypoxia
CPT/HCPCS: 94060; 94726; 94729

== ENCOUNTER → 2018-03-25 10:46 | Outpatient (CLI) | payer MEDICARE, MEDICAID, SELFPAY ==
[2017-10-20 10:29] VITALS: BP 132/76
[2017-11-16 10:14] VITALS: BP 135/78; BMI 19.2
--- NOTE | 2018-03-25 10:46 | DT_ITS ---
This patient was seen during an EMR downtime March 18, 2018 - March 25, 2018. This patient may have a combination of paper and electronic documentation or all paper documentation. All documentation is viewable within the e-chart portion of [facility] for each patient visit.
[2018-03-25 11:28] VITALS: PULSE 62; PULSE 67; PULSE 72; PULSE 82; PULSE 83; PULSE 84; PULSE 85; PULSE 86; O2SAT 91; O2SAT 92; O2SAT 95
--- NOTE | 2018-03-25 14:31 | WT_ITS ---
PSN 6 Minute Walk Test - 6 Minute Walk Test 6 Minute Walk Test: 6 Minute Walk Test PSN:6-Minute Walk Test Start: 03/25/18 11: 27 Freq: Status: Active Protocol: RESP.6MINW Document 03/25/18 11:28 SMB (Rec: 03/25/18 11:35 SMB [id number]) 6 Minute Walk Test Date Performed 03/25/18 Time Performed 10:54 Height 5 ft 9 in Weight: 58.967 kg Weight in Pounds 130.[address]: Epifanio Leigh Assistive device used: Walker Pre-test Oxygen Flow Rate (L/min) (L/min) 2 Oxygen Delivery Method Nasal Cannula Pulse Ox (%) 92 Pulse Rate (60-100 beats/min) 67 Dyspnea Juanito Scale (0-10) 0 Exertion Juanito Scale (6-20) 8 1st minute Oxygen Flow Rate (L/min) (L/min) 2 Oxygen Delivery Method Nasal Cannula Pulse Ox (%) 92 Pulse Rate (60-100 beats/min) 62 2nd minute Oxygen Flow Rate (L/min) (L/min) 2 Oxygen Delivery Method Nasal Cannula Pulse Ox (%) 92 Pulse Rate (60-100 beats/min) 82 3rd minute Oxygen Flow Rate (L/min) (L/min) 2 Oxygen Delivery Method Nasal Cannula Pulse Ox (%) 92 Pulse Rate (60-100 beats/min) 84 4th minute Oxygen Flow Rate (L/min) (L/min) 2 Oxygen Delivery Method Nasal Cannula Pulse Ox (%) 91 Pulse Rate (60-100 beats/min) 85 5th minute Oxygen Flow Rate (L/min) (L/min) 2 Oxygen Delivery Method Nasal Cannula Pulse Ox (%) 92 Pulse Rate (60-100 beats/min) 83 6th minute Oxygen Flow Rate (L/min) (L/min) 2 Oxygen Delivery Method Nasal Cannula Pulse Ox (%) 91 Pulse Rate (60-100 beats/min) 86 Post-test Oxygen Flow Rate (L/min) (L/min) 2 Oxygen Delivery Method Nasal Cannula Pulse Ox (%) 95 Pulse Rate (60-100 beats/min) 72 Dyspnea Juanito Scale (0-10) 0 Exertion Juanito Scale (6-20) 8 Full Laps Walked 10 Partial Lap, Number of Tiles Walked 30 Total Distance Walked (ft) 620 - Interpretation Interpretation: The patient was noted to be 88% on room air. The patient was then placed on 2 L nasal cannula with improvement in saturations to 92%. The patient then ambulated a total of 620 feet over the course of 6 minutes with the assistance of a walker in no breaks. No significant desaturation or tachycardia was noted. These findings are consistent with a respiratory limitation to exercise tolerance. - Recommendations Recommendations: The patient requires 2 L nasal cannula oxygen at all times.
== END ==
PROVIDERS: Family Provider Family Medicine; PCP Family Medicine; Visit Provider Internal Medicine Critical Care Medicine
DX: J44.9 Chronic obstructive pulmonary disease, unspecified (principal); J96.11 Chronic respiratory failure with hypoxia
CPT/HCPCS: 94618

== ENCOUNTER 2018-04-06 20:03 | Inpatient (IN) | payer MEDICARE, MEDICAID, SELFPAY ==
[2018-04-06] VITALS (11 sets, daily range): BP systolic 114–134; BP diastolic 64–84; PULSE 79–102; RESP 18–38; TEMP 36.3–36.7; O2SAT 90–98; BMI 22.0; BMI 21.2
--- NOTE | 2018-04-06 20:11 | EKG12_ITS ---
Test Reason : SOB Blood Pressure : / mmHG Vent. Rate : 083 BPM Atrial Rate : 083 BPM P-R Int : 138 ms QRS Dur : 084 ms QT Int : 362 ms P-R-T Axes : 058 -20 055 degrees QTc Int : 425 ms Normal sinus rhythm Normal ECG Confirmed by NICOLÁS BARR, RONAL ([id number]), editorial intern KAREN GAMBLE ([id number] on 04/09/2018 10:17:02 AM Referred By: DR MURRELL Confirmed By:RONAL MOZNON MD
--- NOTE | 2018-04-06 20:19 | ED.RN ---
NO OLD EKGS IN MUSE.
--- NOTE | 2018-04-06 20:21 | CT_ITS ---
STUDY: CTA CHEST REASON FOR EXAM: Male, 62 years old. Dyspnea and chest pain. RADIATION DOSAGE (If Supplied By Facility): CTDIvol = ( 9.16 ) mGy, DLP = ( 193.45 ) mGycm TECHNIQUE: The examination was performed with the intravenous administration of 100 ml of Isovue 370 contrast material. Post-processing of the angiographic images was performed, with multiplanar reformation and 3D reconstruction. Individualized dose optimization techniques were used for this CT. COMPARISON: Portable chest radiograph of October 18, 2017 FINDINGS: Normal enhancement of the main pulmonary artery and right and left pulmonary arteries. Normal enhancement of the bilateral peripheral pulmonary arteries. There is no demonstrated pulmonary embolism. Minimal plaque and mild elongation of the thoracic aorta without aneurysm or dissection. Normal heart and pericardium. Minimal coronary calcification. Minimal to shotty lymph nodes of the middle mediastinum and aortopulmonary window. Normal hilar regions. Bronchial thickening bilateral lower and middle lung zones. Severe emphysematous changes of the upper and mid lung jarvis. Focal broad linear atelectasis or fibrosis of the medial right middle lobe. Slight confluence infiltrates of the posterior right lower lobe and discrete transverse posterior linear opacity. Focal fibrotic changes of the lateral left upper lobe/lingula. Focal transverse linear opacity of the left lower lobe. Negative for pleural effusion. Normal chest wall structures. There are degenerative changes of thoracic spine. Demineralized osseous structures with 3 old mid thoracic compression deformities. Prior healed right upper rib fractures or sequelae of prior thoracotomy. Normal visualized upper abdomen. CT/CTA Chest W/WO Contrast IMPRESSION: Negative for pulmonary embolus. Atherosclerotic changes of the thoracic aorta without aneurysm or dissection. Atherosclerotic coronary calcifications. Minimal to shoddy lymph nodes of the middle mediastinum and aortopulmonary window. Severe emphysematous changes, fibrotic changes and bronchial thickening of the bilateral lower lobes. Focal broad linear atelectasis or fibrosis of the medial right middle lobe. Small confluent infiltrates of the posterior right lower lobe with additional linear atelectasis or scarring. Focal fibrotic changes of the left upper lobe/lingula. Focal transverse linear scarring or atelectasis of the left lower lobe. Negative for pleural effusion. Demineralized osseous structures with 3 old mid thoracic compression deformities. Prior healed or postsurgical left upper rib deformities. Electronically Signed: Ladonna Valle MD at 21:55 EDT , Service support ,
[2018-04-06 20:24] LABS: Absolute Lymphocyte Count 2.33 X10^3/ul (0.83-4.51); Absolute Neutrophil Count 5.4 X10^3/uL (2.0-7.7); Basophil# 0.02 X10^3/uL; Basophil% 0.2 % (0-1); Eosinophil# 0.27 X10^3/uL; Eosinophils% 3.1 % (0-5); Hematocrit 42.8 % (40-54); Hemoglobin 14.2 g/dl (13.0-16.5); Lymphocyte # 2.33 X10^3/ul (4.0); Lymphocyte % 26.9 % (19-41); Mean Corp Hgb Conc 33.2 g/gl (32-36); Mean Corpuscular Hgb 33.8 pg (27.0-32.0); Mean Corpuscular Volume 101.9 fL (80-94); Mean Platelet Vol. 8.9 fl (6.2-12.0); Monocyte# 0.63 X10^3/uL; Monocyte% 7.3 % (0-10); Neutrophil # 5.39 X10^3/uL (2.7-7.7); Neutrophil % 62.4 % (47-70); Platelet Count 204 K/mm3 (150-450); RBC Distribution Width CV 13.7 % (11.6-14.6); RBC Distribution Width SD 51.1 fl (35.1-43.9); White Blood Count 8.7 K/mm3 (4.4-11.0)
[2018-04-06 20:25] LABS: POSITIVE COUNT NO; POSITIVE DIFFERENTIAL NO; POSITIVE MORPHOLOGY NO
[2018-04-06] MEDS: Ipratropium/Albuterol Sulfate 3 ML AMPUL.NEB INHALATION ×2 (20:29→23:35)
[2018-04-06] MEDS: Albuterol 2.5 MG/3 ML VIAL.NEB. INHALATION ×2 (20:30→21:22)
[2018-04-06] MEDS: MethylPREDNISolone 125 MG/2 ML Vial IV (20:38)
[2018-04-06 20:48] LABS: Anion Gap 9 (5-15); BUN 22 mg/dL (7-18); BUN/Creat Ratio 16.2 RATIO (10-20); Calcium,Total 8.6 mg/dL (8.5-10.1); Chloride 108 mmol/L (98-107); Creatinine, Serum 1.36 mg/dL (0.70-1.30); EST Glomerular Filtration Rate 56 mL/min (>60); Est Glom Filt Rate - Afr Amer 68 mL/min (>60); Estimated Creatinine Clearance 52.62 ml/min; Glucose 103 mg/dL (74-106); Potassium 3.9 mmol/L (3.5-5.1); Sodium Level 144 mmol/L (136-145)
[2018-04-06 21:04] LABS: BNP,B-Type NATRIURETIC PEPTIDE 15.2 pg/mL (0-100)
[2018-04-06 21:11] LABS: Allen Test POS; Base Excess 0 mmol/L (-2 to +2); Bicarbonate 24.1 mmol/L (22-26); Blood Gas Specimen Type ART; O2 Delivery Device Nasal Can; PO2 60 mmHG (75-100); SITE R Radial; SO2 92 % (95-99); Time Given 2033; Total Carbon Dioxide 25 mmol/L; pCO2 35.8 mmHg (35-45); pH 7.44 (7.35-7.45)
[2018-04-06] MEDS: LORazepam 2 MG/ML Syringe 0.5 MG IV (21:13)
[2018-04-06 21:23] LABS: D-Dimer Quantitative (DVT/PE) < 0.27 FEU/ug/m (0.27-0.49)
[2018-04-06 21:29] LABS: International Normalized Ratio 1.1; Partial Thromboplast Time 32.4 Seconds (24.1-36.2); Prothrombin Time (Protime)PT. 13.9 SECONDS (11.7-14.9)
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
--- NOTE | 2018-04-06 22:21 | ED.VISSUMM ---
- ER Visit Summary Date of Service: 04/06/18 Chief Complaint: Chest pain History of Present Illness: The patient is a 62 M with increasing chest pain over the past 3 days. This is associated with shortness of breath and nausea. History is limited as the patient is short of breath. He has a history of AR, COPD, and high cholesterol. He is on home oxygen, 2 L. He is a smoker. EMS started him on CPAP, but he did not tolerate this. It hurt his head. This was discontinued on arrival to the emergency department. Physical Examination: Afebrile. Heart rate 102 and respiratory rate 37. 95% on 2 L nasal cannula. Normotensive. Patient is recumbent, but he is breathing rapidly and speaking in 1-2 word sentences. His 3 hours lungs are diminished throughout. Heart is tachycardic but regular. Skin is pale. Calves soft and supple. No edema. Strong equal pulses. Test Results: EKG showed sinus rhythm at a rate of 83. No sign of ischemia or infarction pattern. CBC unremarkable. BUN 22 and creatinine 1.36. Coags normal. Troponin normal. BNP normal. D-dimer negative. ABG showed a pH of 7.44, PO2 60, PCO2 35.8. CTA showed no evidence of PE or dissection. He has multiple degenerative and chronic findings. He does have a small right lower lobe infiltrate. Emergency Department Course and Treatment: Patient was placed on a monitor and nasal cannula oxygen. He was not tolerating CPAP and he was given a trial off of CPAP. He also received breathing treatments and Solu-Medrol while awaiting results. His workup started to come back and was all fairly unremarkable. He continued to breathe rapidly. He said that the medicines were not helping. He was given 0.5 mg of Ativan. The remainder of his labs and imaging came back unremarkable. I reevaluated the patient. He was sleeping comfortably. Breathing about 20/min. Vital signs otherwise remained stable. Patient will need further inpatient care. Hospitalist was contacted who will admit. I did cover him with Levaquin for COPD and pneumonia. He has remained stable and is not septic. Treatment Plan: As above Disposition: Admission Impression: 1. COPD 2. Community acquired pneumonia This note was generated with [employer] software. It may contain incorrect words, spelling, and punctuation that were not noted in review of the chart prior to signing ED Disposition - Plan for ED Patient: Chief Complaint: Shortness of Breath Referrals: Phu Cooper MD [Primary Care Provider] -
[2018-04-06] MEDS: 0.9% Normal Saline 1,000 ML 100 ML IV (23:27)
[2018-04-07] VITALS (15 sets, daily range): BP systolic 103–118; BP diastolic 51–67; PULSE 61–82; RESP 14–20; TEMP 36.3–36.6; O2SAT 92–96; BMI 21.3
[2018-04-07] MEDS: Ceftriaxone 1 GM/50 ML BAG IV (00:10)
[2018-04-07] MEDS: Ipratropium/Albuterol Sulfate 3 ML AMPUL.NEB INHALATION ×5 (03:48→20:28)
[2018-04-07] MEDS: Heparin Injection (Vial) 5,000 UNIT/ML VIAL 5000 UNIT SC (05:05)
[2018-04-07] MEDS: 0.9% NaCl Peripheral Flush Adult/Peds IV ×3 (05:06→21:44)
[2018-04-07 05:47] LABS: Color, Urine Yellow (Yellow); Glucose, Dipstick 100 mg/dl (Normal); Ketone-Dipstick 15 mg/dl (Negative); Leukocyte Esterase-Dipstick Negative /ul (Negative); Nitrite-Dipstick Negative (Negative); Occult Blood-Urine Negative /ul (Negative); Protein-Dipstick 15 mg/dl (Negative); Urine Bilirubin Dipstick Negative (Negative); Urine Clarity Clear (Clear); Urine Urobilinogen Normal (Normal)
--- NOTE | 2018-04-07 05:55 | RAD_ITS ---
STUDY: X-RAY CHEST REASON FOR EXAM: Male, 62 years old. Cough TECHNIQUE: 2 views COMPARISON: 10/18/2017 FINDINGS: Emphysematous changes in both lungs with no acute pneumonia or failure. There is blunting of the left costophrenic angle. The heart is normal in size. Normal visualized thoracic spine. Normal visualized ribs, clavicles, and shoulders. There is no demonstrated abnormality of the visualized soft tissue structures of the upper abdomen. RAD/Chest PA and Lateral IMPRESSION: Emphysematous changes in both lungs with blunting of the left costophrenic angle. No acute pneumonia. No failure Electronically Signed: Francis Alvarez, at 5:45 EDT Tel , Service support ,
[2018-04-07 06:30] LABS: ALB/GLOB Ratio 0.7 RATIO (0.9-2.4); AST(SGOT) 17 U/L (15-37); Alanine Aminotransfer ALT/SGPT 21 U/L (16-61); Alkaline Phosphatase 82 U/L (45-117); Anion Gap 9 (5-15); BUN 18 mg/dL (7-18); BUN/Creat Ratio 15.8 RATIO (10-20); Calcium,Total 8.1 mg/dL (8.5-10.1); Chloride 108 mmol/L (98-107); Creatinine, Serum 1.14 mg/dL (0.70-1.30); EST Glomerular Filtration Rate 69 mL/min (>60); Est Glom Filt Rate - Afr Amer 83 mL/min (>60); Estimated Creatinine Clearance 57.04 ml/min; Globulin 4.3 g/dL (2.2-4.2); Glucose 150 mg/dL (74-106); Protein, Total 7.3 g/dL (6.4-8.2); Sodium Level 142 mmol/L (136-145)
[2018-04-07 06:51] LABS: Absolute Lymphocyte Count 0.57 X10^3/ul (0.83-4.51); Basophil# 0.01 X10^3/uL; Basophil% 0.2 % (0-1); Hematocrit 38.7 % (40-54); Hemoglobin 13.2 g/dl (13.0-16.5); Lymphocyte # 0.57 X10^3/ul (4.0); Lymphocyte % 12.4 % (19-41); Mean Corp Hgb Conc 34.1 g/gl (32-36); Mean Corpuscular Hgb 34.7 pg (27.0-32.0); Mean Corpuscular Volume 101.8 fL (80-94); Mean Platelet Vol. 8.8 fl (6.2-12.0); Monocyte# 0.05 X10^3/uL; Monocyte% 1.1 % (0-10); Neutrophil # 3.95 X10^3/uL (2.7-7.7); Neutrophil % 86.3 % (47-70); Platelet Count 207 K/mm3 (150-450); RBC Distribution Width CV 13.3 % (11.6-14.6); RBC Distribution Width SD 48.3 fl (35.1-43.9); White Blood Count 4.6 K/mm3 (4.4-11.0)
[2018-04-07 06:57] LABS: Differential Indicated SCAN CRITERIA MET; POSITIVE COUNT NO; POSITIVE DIFFERENTIAL YES; POSITIVE MORPHOLOGY NO
[2018-04-07] MEDS: Budesonide Respules 0.5 MG/2 ML AMPUL.NEB. INHALATION ×2 (07:20→20:29)
[2018-04-07 07:45] LABS: Differential Comment SCANNED
[2018-04-07] MEDS: Gabapentin 300 MG Capsule PO ×4 (09:19→21:39)
[2018-04-07] MEDS: FLUoxetine 20 MG Capsule 40 MG PO (09:19)
[2018-04-07] MEDS: guaiFENesin 1,200 MG Tablet 1200 MG PO ×2 (09:20→21:39)
[2018-04-07] MEDS: Megestrol Acetate 400 MG/10 ML UDC PO (09:21)
[2018-04-07] MEDS: Pantoprazole Sodium 40 MG Tablet PO (09:23)
[2018-04-07] MEDS: Docusate Sodium 100 MG Capsule PO (09:23)
--- NOTE | 2018-04-07 10:50 | PN_ITS ---
Patient Problems: Active and Suspected Problems (Last Reviewed 04/02/18 @ 15:52 by IVIS Carrera) COPD exacerbation (Acute) Subjective: Patient seen and examined. Complains of shortness of breath and wet, nonproductive cough. Denies fever, chills. Denies other complaints. - Physical Exam General: Alert, Oriented x3, Cooperative HEENT: Atraumatic, PERRLA, EOMI, Normocephalic Oral: Moist Mucosa Neck: Supple, No JVD, Negative Carotid Bruits Lungs: Diminished, Rhonchi, Wheezes Cardiovascular: Regular rate, Regular Rhythm, Normal S1, Normal S2, No murmurs Abdomen: Bowel Sounds Present, Soft, Non Tender, Non-Distended Extremities: No clubbing, No cyanosis, No edema, Capillary Refill Less than 3 Seconds Skin: No rashes, No breakdown Musculoskeletal: No Tenderness to Palpation of Joints or Extremities Neurological: Cranial nerves II-XII grossly intact, Neuro grossly intact Psych/Mental Status: Normal Affect, Appropriate Vital Signs Temp Pulse Resp BP Pulse Ox 97.5 F L 72 18 110/55 L 94 04/07/18 09:10 04/07/18 09:10 04/07/18 09:10 04/07/18 09:10 04/07/18 09:10 Oxygen Flow Rate (L/min) 3 Oxygen Delivery Method Nasal Cannula Weight: 61.6 kg Body Mass Index (BMI) 21.2 Intake and Output for Last 24 Hours 04/05/18 04/06/18 04/07/18 23:59 23:59 23:59 Intake Total 77.2 / 77.2 662 / 662 Output Total 450 / 450 Balance 77.2 / 77.2 212 / 212 Microbiology Past 72 Hours 04/07/18 05:15 Streptococcus pneumoniae Antigen (M - Final Urine, Clean Catch 04/07/18 05:15 Legionella Antigen - Final Urine, Clean Catch 04/06/18 23:32 Influenza Types A,B Direct FA (MARIELY) - Final Mucosa - Nasopharyngeal Laboratory Tests Past 24 Hrs 04/07/18 04/07/18 04/07/18 05:15 05:45 05:45 WBC 4.6 RBC 3.80 L Hgb 13.2 Hct 38.7 L MCV 101.8 H MCH 34.7 H MCHC 34.1 RDW 13.3 RDW Differential 48.3 H Plt Count 207 MPV 8.8 Immature Gran % (Auto) 0.000 Neut % (Auto) 86.3 H Lymph % (Auto) 12.4 L [place] % (Auto) 1.1 Eos % (Auto) 0.0 Baso % (Auto) 0.2 Absolute Neuts (auto) 4.0 Absolute Lymphs (auto) 0.57 L Total Counted Not Reportable Differential Comment SCANNED Sodium 142 Potassium 4.0 Chloride 108 H Carbon Dioxide 25.0 Anion Gap 9 BUN 18 Creatinine 1.14 Estim Creat Clear Calc 57.04 Est GFR (MDRD) Af Amer 83 Est GFR (MDRD) Non-Af 69 BUN/Creatinine Ratio 15.8 Glucose 150 H Calcium 8.1 L Total Bilirubin 0.50 AST 17 ALT 21 Alkaline Phosphatase 82 Total Protein 7.3 Albumin 3.0 L Globulin 4.3 H Albumin/Globulin Ratio 0.7 L Urine Color Yellow Urine Clarity Clear Urine pH 5.0 Ur Specific [place] 1.010 Urine Protein 15 H Urine Glucose (UA) 100 H Urine Ketones 15 H Urine Occult Blood Negative Urine Nitrite Negative Urine Bilirubin Negative Urine Urobilinogen Normal Ur Leukocyte Esterase Negative Medical Necessity - Tobacco Use Smoking Status: Current every day smoker Assessment/Plan All Active Problems (Last Reviewed 04/02/18 @ 15:52 by Nicolle Holman, SAÚL-C) COPD exacerbation (Acute) Influenza A (Acute) Hip fracture requiring operative repair (Resolved) Pulmonary embolism (Resolved) Patient is a 62-year-old male admitted 04/06/2018 due to shortness of breath. He has a past medical history of stage III COPD, hyperlipidemia, chronic hypoxic respiratory failure, history of brain aneurysm status post TBI, depression, GERD, tobacco dependence, osteoporosis with multiple vertebral fractures, history of PE on chronic anticoagulation with Eliquis, history of tracheostomy secondary to TBI. 1. Acute on chronic hypoxic respiratory failure with exacerbation of COPD, secondary to community-acquired pneumonia-CT of chest on admission showed negative for pulmonary embolism, small infiltrate right lower lobe. Repeat chest x-ray this morning shows no acute infiltrate. Urine for strep and Legionella negative. Negative for influenza. Obtain complete respiratory panel. Blood culture pending. Obtain sputum culture if patient's cough becomes productive. Continue Mucinex 1200 mg twice daily. Albuterol and DuoNeb aerosols. IV Solu-Medrol. Patient chronically wears 2-3 L nasal cannula at baseline. Continue supplemental oxygen to maintain O2 at or above 90 %. Patient follows with Dr. Leigh/Nicolle Holman NP as outpatient. Continue IV azithromycin and IV Rocephin. IS/PEP. 2. Elevated creatinine-suspect secondary to mild dehydration, resolved with IV fluids. 3. Hyperlipidemia-continue statin. 4. Depression-continue home Prozac, mirtazapine regimen. 5. GERD-continue omeprazole. 6. History of PE-continue Eliquis. 7. Tobacco abuse-patient is a current pack per day smoker. Smoking cessation encouraged. Nicotine replacement patch. 8. Osteoporosis-history of multiple vertebral fractures-continue Fosamax, vitamin D3 supplementation. 9. History of brain aneurysm status post TBI-history of possible clipping. 10. History of tracheostomy-status post TBI, resolved. 11. Chronic back pain secondary to suspected disc disease-continue Neurontin. PT /OT. 12. Suspected protein calorie malnutrition-nutrition consult. DVT prophylaxis-Eliquis Discharge planning- CM consult regarding homegoing needs. At minimum, feel patient needs assistance with medications such as [facility]. PT/OT eval. This patient was seen by IVIS Flores under the supervision of Dr. Chew.
[2018-04-07] MEDS: APIXABAN 5 MG TABLET PO ×2 (13:16→21:40)
[2018-04-07] MEDS: 0.9% Normal Saline 1,000 ML 50 ML IV (16:12)
[2018-04-07] MEDS: Atorvastatin Calcium 10 MG Tablet PO (21:40)
[2018-04-07] MEDS: Mirtazapine 30 MG Tablet PO (21:40)
[2018-04-08] VITALS (12 sets, daily range): BP systolic 109–128; BP diastolic 54–77; PULSE 74–90; RESP 16–20; TEMP 36.3–36.6; O2SAT 91–94
[2018-04-08] MEDS: Ipratropium/Albuterol Sulfate 3 ML AMPUL.NEB INHALATION ×5 (03:45→19:45)
[2018-04-08] MEDS: 0.9% Normal Saline 1,000 ML 50 ML IV (06:13)
[2018-04-08 06:43] LABS: Anion Gap 7 (5-15); BUN 22 mg/dL (7-18); BUN/Creat Ratio 22.7 RATIO (10-20); Calcium,Total 8.6 mg/dL (8.5-10.1); Chloride 112 mmol/L (98-107); Creatinine, Serum 0.97 mg/dL (0.70-1.30); EST Glomerular Filtration Rate 83 mL/min (>60); Est Glom Filt Rate - Afr Amer 100 mL/min (>60); Estimated Creatinine Clearance 67.03 ml/min; Glucose 133 mg/dL (74-106); Sodium Level 144 mmol/L (136-145)
[2018-04-08] MEDS: Budesonide Respules 0.5 MG/2 ML AMPUL.NEB. INHALATION ×2 (07:12→19:54)
[2018-04-08] MEDS: Ceftriaxone 1 GM/50 ML BAG IV (09:43)
[2018-04-08] MEDS: guaiFENesin 1,200 MG Tablet 1200 MG PO ×2 (09:45→21:34)
[2018-04-08] MEDS: Gabapentin 300 MG Capsule PO ×4 (09:45→21:35)
[2018-04-08] MEDS: predniSONE 20 MG Tablet 40 MG PO (09:45)
[2018-04-08] MEDS: Pantoprazole Sodium 40 MG Tablet PO (09:46)
[2018-04-08] MEDS: APIXABAN 5 MG TABLET PO ×2 (09:46→21:34)
[2018-04-08] MEDS: FLUoxetine 20 MG Capsule 40 MG PO (09:46)
--- NOTE | 2018-04-08 12:45 | PCM.PROGNOTE ---
<Promise Mckeon - Last Filed: 04/08/18 12:57> Patient Problems: Active and Suspected Problems (Last Reviewed 04/02/18 @ 15:52 by Nicolle Holman NP-C) COPD exacerbation (Acute) Subjective: Patient seen and examined. Continues to complain of shortness of breath and persistent nonproductive cough. Denies fever, chills. Denies other complaints. - Physical Exam General: Alert, Oriented x3, Cooperative HEENT: Atraumatic, PERRLA, EOMI, Normocephalic Neck: Supple, No JVD, Negative Carotid Bruits Lungs: Diminished, Rhonchi, Wheezes Cardiovascular: Regular rate, Regular Rhythm, Normal S1, Normal S2, No murmurs Abdomen: Bowel Sounds Present, Soft, Non Tender, Non-Distended Extremities: No clubbing, No cyanosis, No edema, Capillary Refill Less than 3 Seconds Skin: No rashes, No breakdown Musculoskeletal: No Tenderness to Palpation of Joints or Extremities Neurological: Cranial nerves II-XII grossly intact, Neuro grossly intact Psych/Mental Status: Normal Affect, Appropriate Vital Signs Temp Pulse Resp BP Pulse Ox 97.3 F L 74 16 128/56 H 92 04/08/18 09:41 04/08/18 10:58 04/08/18 10:58 04/08/18 09:41 04/08/18 09:41 Oxygen Flow Rate (L/min) 4 Oxygen Delivery Method Nasal Cannula Weight: 61.6 kg Body Mass Index (BMI) 21.2 Intake and Output for Last 24 Hours 04/06/18 04/07/18 04/08/18 23:59 23:59 23:59 Intake Total 77.2 / 77.2 2103 / 2103 855 / 855 Output Total 675 / 675 550 / 550 Balance 77.2 / 77.2 1428 / 1428 305 / 305 Microbiology Past 72 Hours 04/07/18 10:52 Respiratory Panel (PCR) - Final Mucosa - Nose 04/07/18 05:15 Streptococcus pneumoniae Antigen (M - Final Urine, Clean Catch 04/07/18 05:15 Legionella Antigen - Final Urine, Clean Catch 04/06/18 23:32 Influenza Types A,B Direct FA (MARIELY) - Final Mucosa - Nasopharyngeal Laboratory Tests Past 24 Hrs 04/08/18 05:50 Sodium 144 Potassium 4.0 Chloride 112 H Carbon Dioxide 25.0 Anion Gap 7 BUN 22 H Creatinine 0.97 Estim Creat Clear Calc 67.03 Est GFR (MDRD) Af Amer 100 Est GFR (MDRD) Non-Af 83 BUN/Creatinine Ratio 22.7 H Glucose 133 H Calcium 8.6 Medical Necessity - Tobacco Use Smoking Status: Current every day smoker Assessment/Plan All Active Problems (Last Reviewed 04/02/18 @ 15:52 by Nicolle Holman NP-C) COPD exacerbation (Acute) Influenza A (Acute) Hip fracture requiring operative repair (Resolved) Pulmonary embolism (Resolved) Patient is a 62-year-old male admitted 04/06/2018 due to shortness of breath. He has a past medical history of stage III COPD, hyperlipidemia, chronic hypoxic respiratory failure, history of brain aneurysm status post TBI, depression, GERD, tobacco dependence, osteoporosis with multiple vertebral fractures, history of PE on chronic anticoagulation with Eliquis, history of tracheostomy secondary to TBI. 1. Acute on chronic hypoxic respiratory failure with exacerbation of COPD, secondary to community-acquired right lower lobe pneumonia and acute rhinovirus-CT of chest on admission showed negative for pulmonary embolism, small infiltrate right lower lobe. Repeat chest x-ray showed no acute infiltrate. Urine for strep and Legionella negative. Negative for influenza. Blood culture pending. Obtain sputum culture if patient's cough becomes productive. Continue Mucinex 1200 mg twice daily. Albuterol and DuoNeb aerosols. IV Solu-Medrol. Patient chronically wears 2-3 L nasal cannula at baseline. Continue supplemental oxygen to maintain O2 at or above 90%. Patient follows with Dr. Leigh/Nicolle Holman NP as outpatient. Continue IV Rocephin, IV azithromycin completed. IS/PEP. 2. Elevated creatinine-suspect secondary to mild dehydration, resolved with IV fluids. 3. Hyperlipidemia-continue statin. 4. Depression-continue home Prozac, mirtazapine regimen. 5. GERD-continue omeprazole. 6. History of PE-continue Eliquis. 7. Tobacco abuse-patient is a current pack per day smoker. Smoking cessation encouraged. Nicotine replacement patch. 8. Osteoporosis-history of multiple vertebral fractures-continue Fosamax, vitamin D3 supplementation. 9. History of brain aneurysm status post TBI-history of possible clipping. 10. History of tracheostomy-status post TBI, resolved. 11. Chronic back pain secondary to suspected disc disease-continue Neurontin. PT/OT. 12. Suspected protein calorie malnutrition-nutrition consult. DVT prophylaxis-Eliquis Discharge planning-currently resides at assisted living facility. May require additional care. Case management following. This patient was seen by Promise Mckeon NP-C under the supervision of Dr. Branch. <SarinaAsya E - Last Filed: 04/08/18 14:19> - Physical Exam Vital Signs Temp Pulse Resp BP Pulse Ox 97.3 F L 74 16 128/56 H 92 04/08/18 09:41 04/08/18 10:58 04/08/18 10:58 04/08/18 09:41 04/08/18 09:41 Oxygen Flow Rate (L/min) 4 Oxygen Delivery Method Nasal Cannula Weight: 135 lb 12.876 oz Body Mass Index (BMI) 21.2 Intake and Output for Last 24 Hours 04/06/18 04/07/18 04/08/18 23:59 23:59 23:59 Intake Total 77.2 / 77.2 2103 / 2103 855 / 855 Output Total 675 / 675 550 / 550 Balance 77.2 / 77.2 1428 / 1428 305 / 305 Microbiology Past 72 Hours 04/07/18 10:52 Respiratory Panel (PCR) - Final Mucosa - Nose 04/07/18 05:15 Streptococcus pneumoniae Antigen (M - Final Urine, Clean Catch 04/07/18 05:15 Legionella Antigen - Final Urine, Clean Catch 04/06/18 23:32 Influenza Types A,B Direct FA (MARIELY) - Final Mucosa - Nasopharyngeal Laboratory Tests Past 24 Hrs 04/08/18 05:50 Sodium 144 Potassium 4.0 Chloride 112 H Carbon Dioxide 25.0 Anion Gap 7 BUN 22 H Creatinine 0.97 Estim Creat Clear Calc 67.03 Est GFR (MDRD) Af Amer 100 Est GFR (MDRD) Non-Af 83 BUN/Creatinine Ratio 22.7 H Glucose 133 H Calcium 8.6 Assessment/Plan Hospitalist note: I am seeing this patient in conjunction with Promise Mckeon. I independently seen and examined the patient. Progress note above , laboratory data and imaging studies reviewed and I agree with above treatment plan. Patient seen and examined today. He is still complaining of shortness of breath and persistent nonproductive cough, no significant improvement. Denied chest pain or palpitations. He is still requiring 4 L of oxygen. His other vital signs are stable. - Physical Exam General: Alert, Oriented x3, Cooperative, dyspneic, tachypneic, shortness of breath. HEENT: Atraumatic, PERRLA, EOMI. Neck: Supple, No JVD, Negative Carotid Bruits, Trachea Midline, Thyroid Normal. Lungs: Decreased breath sounds bilateral, bilateral wheezes, rhonchi. Short of breath, dyspneic and tachypneic. Cardiovascular: Regular rate, Regular Rhythm, Normal S1, Normal S2, PMI Normal. Abdomen: Bowel Sounds Present, Soft, Non Tender, Non-Distended, No Hepato-splenomegaly. Extremities: No clubbing, No cyanosis, No edema Skin: No rashes, No breakdown Neurological: Neuro grossly intact Assessment and plan: #1 acute on chronic hypoxic respiratory failure: Secondary to COPD exacerbation and community acquired pneumonia. He is on IV antibiotics, bronchodilators and oral steroids. Still symptomatic, pulse ox is maintained on 4 L. He has been on 2 L oxygen at home. CTA chest negative for PE or dissection. Plan to continue same treatment. #2 community-acquired pneumonia: He is on IV Rocephin and Zithromax, completed course of IV Zithromax. Plan to continue same treatment. #3 COPD exacerbation: He is on bronchodilators, antibiotics and steroids. Plan as above. #4 other chronic medical problems: Stable, continue current medications as above. This note was generated with [employer] dictation software. It may contain incorrect words, spelling, and punctuation that were not noted in checking the note before signing. Code Visit Inpatient E&M: 55935 Subs Hosp L2
--- NOTE | 2018-04-08 12:57 | PN_ITS ---
<Promise Mckeon - Last Filed: 04/08/18 12:57> Patient Problems: Active and Suspected Problems (Last Reviewed 04/02/18 @ 15:52 by Nicolle Holman NP-C) COPD exacerbation (Acute) Subjective: Patient seen and examined. Continues to complain of shortness of breath and persistent nonproductive cough. Denies fever, chills. Denies other complaints. - Physical Exam General: Alert, Oriented x3, Cooperative HEENT: Atraumatic, PERRLA, EOMI, Normocephalic Neck: Supple, No JVD, Negative Carotid Bruits Lungs: Diminished, Rhonchi, Wheezes Cardiovascular: Regular rate, Regular Rhythm, Normal S1, Normal S2, No murmurs Abdomen: Bowel Sounds Present, Soft, Non Tender, Non-Distended Extremities: No clubbing, No cyanosis, No edema, Capillary Refill Less than 3 Seconds Skin: No rashes, No breakdown Musculoskeletal: No Tenderness to Palpation of Joints or Extremities Neurological: Cranial nerves II-XII grossly intact, Neuro grossly intact Psych/Mental Status: Normal Affect, Appropriate Vital Signs Temp Pulse Resp BP Pulse Ox 97.3 F L 74 16 128/56 H 92 04/08/18 09:41 04/08/18 10:58 04/08/18 10:58 04/08/18 09:41 04/08/18 09:41 Oxygen Flow Rate (L/min) 4 Oxygen Delivery Method Nasal Cannula Weight: 61.6 kg Body Mass Index (BMI) 21.2 Intake and Output for Last 24 Hours 04/06/18 04/07/18 04/08/18 23:59 23:59 23:59 Intake Total 77.2 / 77.2 2103 / 2103 855 / 855 Output Total 675 / 675 550 / 550 Balance 77.2 / 77.2 1428 / 1428 305 / 305 Microbiology Past 72 Hours 04/07/18 10:52 Respiratory Panel (PCR) - Final Mucosa - Nose 04/07/18 05:15 Streptococcus pneumoniae Antigen (M - Final Urine, Clean Catch 04/07/18 05:15 Legionella Antigen - Final Urine, Clean Catch 04/06/18 23:32 Influenza Types A,B Direct FA (MARIELY) - Final Mucosa - Nasopharyngeal Laboratory Tests Past 24 Hrs 04/08/18 05:50 Sodium 144 Potassium 4.0 Chloride 112 H Carbon Dioxide 25.0 Anion Gap 7 BUN 22 H Creatinine 0.97 Estim Creat Clear Calc 67.03 Est GFR (MDRD) Af Amer 100 Est GFR (MDRD) Non-Af 83 BUN/Creatinine Ratio 22.7 H Glucose 133 H Calcium 8.6 Medical Necessity - Tobacco Use Smoking Status: Current every day smoker Assessment/Plan All Active Problems (Last Reviewed 04/02/18 @ 15:52 by Nicolle Holman NP-C) COPD exacerbation (Acute) Influenza A (Acute) Hip fracture requiring operative repair (Resolved) Pulmonary embolism (Resolved) Patient is a 62-year-old male admitted 04/06/2018 due to shortness of breath. He has a past medical history of stage III COPD, hyperlipidemia, chronic hypoxic respiratory failure, history of brain aneurysm status post TBI, depression, GERD, tobacco dependence, osteoporosis with multiple vertebral fractures, history of PE on chronic anticoagulation with Eliquis, history of tracheostomy secondary to TBI. 1. Acute on chronic hypoxic respiratory failure with exacerbation of COPD, secondary to community-acquired right lower lobe pneumonia and acute rhinovirus- CT of chest on admission showed negative for pulmonary embolism, small infiltrate right lower lobe. Repeat chest x-ray showed no acute infiltrate. Urine for strep and Legionella negative. Negative for influenza. Blood culture pending. Obtain sputum culture if patient's cough becomes productive. Continue Mucinex 1200 mg twice daily. Albuterol and DuoNeb aerosols. IV Solu- Medrol. Patient chronically wears 2-3 L nasal cannula at baseline. Continue supplemental oxygen to maintain O2 at or above 90%. Patient follows with Dr. Leigh/Nicolle Holman NP as outpatient. Continue IV Rocephin, IV azithromycin completed. IS/PEP. 2. Elevated creatinine-suspect secondary to mild dehydration, resolved with IV fluids. 3. Hyperlipidemia-continue statin. 4. Depression-continue home Prozac, mirtazapine regimen. 5. GERD-continue omeprazole. 6. History of PE-continue Eliquis. 7. Tobacco abuse-patient is a current pack per day smoker. Smoking cessation encouraged. Nicotine replacement patch. 8. Osteoporosis-history of multiple vertebral fractures-continue Fosamax, vitamin D3 supplementation. 9. History of brain aneurysm status post TBI-history of possible clipping. 10. History of tracheostomy-status post TBI, resolved. 11. Chronic back pain secondary to suspected disc disease-continue Neurontin. PT /OT. 12. Suspected protein calorie malnutrition-nutrition consult. DVT prophylaxis-Eliquis Discharge planning-currently resides at assisted living facility. May require additional care. Case management following. This patient was seen by Promise Mckeon NP-C under the supervision of Dr. Branch. <SarinaAsya E - Last Filed: 04/08/18 14:19> - Physical Exam Vital Signs Temp Pulse Resp BP Pulse Ox 97.3 F L 74 16 128/56 H 92 04/08/18 09:41 04/08/18 10:58 04/08/18 10:58 04/08/18 09:41 04/08/18 09:41 Oxygen Flow Rate (L/min) 4 Oxygen Delivery Method Nasal Cannula Weight: 135 lb 12.876 oz Body Mass Index (BMI) 21.2 Intake and Output for Last 24 Hours 04/06/18 04/07/18 04/08/18 23:59 23:59 23:59 Intake Total 77.2 / 77.2 2103 / 2103 855 / 855 Output Total 675 / 675 550 / 550 Balance 77.2 / 77.2 1428 / 1428 305 / 305 Microbiology Past 72 Hours 04/07/18 10:52 Respiratory Panel (PCR) - Final Mucosa - Nose 04/07/18 05:15 Streptococcus pneumoniae Antigen (M - Final Urine, Clean Catch 04/07/18 05:15 Legionella Antigen - Final Urine, Clean Catch 04/06/18 23:32 Influenza Types A,B Direct FA (MARIELY) - Final Mucosa - Nasopharyngeal Laboratory Tests Past 24 Hrs 04/08/18 05:50 Sodium 144 Potassium 4.0 Chloride 112 H Carbon Dioxide 25.0 Anion Gap 7 BUN 22 H Creatinine 0.97 Estim Creat Clear Calc 67.03 Est GFR (MDRD) Af Amer 100 Est GFR (MDRD) Non-Af 83 BUN/Creatinine Ratio 22.7 H Glucose 133 H Calcium 8.6 Assessment/Plan Hospitalist note: I am seeing this patient in conjunction with Promise Mckeon. I independently seen and examined the patient. Progress note above , laboratory data and imaging studies reviewed and I agree with above treatment plan. Patient seen and examined today. He is still complaining of shortness of breath and persistent nonproductive cough, no significant improvement. Denied chest pain or palpitations. He is still requiring 4 L of oxygen. His other vital signs are stable. - Physical Exam General: Alert, Oriented x3, Cooperative, dyspneic, tachypneic, shortness of breath. HEENT: Atraumatic, PERRLA, EOMI. Neck: Supple, No JVD, Negative Carotid Bruits, Trachea Midline, Thyroid Normal. Lungs: Decreased breath sounds bilateral, bilateral wheezes, rhonchi. Short of breath, dyspneic and tachypneic. Cardiovascular: Regular rate, Regular Rhythm, Normal S1, Normal S2, PMI Normal. Abdomen: Bowel Sounds Present, Soft, Non Tender, Non-Distended, No Hepato- splenomegaly. Extremities: No clubbing, No cyanosis, No edema Skin: No rashes, No breakdown Neurological: Neuro grossly intact Assessment and plan: #1 acute on chronic hypoxic respiratory failure: Secondary to COPD exacerbation and community acquired pneumonia. He is on IV antibiotics, bronchodilators and oral steroids. Still symptomatic, pulse ox is maintained on 4 L. He has been on 2 L oxygen at home. CTA chest negative for PE or dissection. Plan to continue same treatment. #2 community-acquired pneumonia: He is on IV Rocephin and Zithromax, completed course of IV Zithromax. Plan to continue same treatment. #3 COPD exacerbation: He is on bronchodilators, antibiotics and steroids. Plan as above. #4 other chronic medical problems: Stable, continue current medications as above. This note was generated with [employer] dictation software. It may contain incorrect words, spelling, and punctuation that were not noted in checking the note before signing. Code Visit Inpatient E&M: 66259 Subs Hosp L2
[2018-04-08] MEDS: Atorvastatin Calcium 10 MG Tablet PO (21:34)
[2018-04-08] MEDS: Mirtazapine 30 MG Tablet PO (21:35)
[2018-04-09 03:20] VITALS: BP 117/61; PULSE 71; RESP 18; TEMP 37; O2SAT 93
[2018-04-09] MEDS: 0.9% Normal Saline 1,000 ML 50 ML IV (03:21)
[2018-04-09 03:25] VITALS: PULSE 84; RESP 20
[2018-04-09] MEDS: Ipratropium/Albuterol Sulfate 3 ML AMPUL.NEB INHALATION ×3 (03:25→11:01)
[2018-04-09 07:47] VITALS: PULSE 88; RESP 20; O2SAT 94
[2018-04-09] MEDS: Budesonide Respules 0.5 MG/2 ML AMPUL.NEB. INHALATION (07:47)
[2018-04-09] MEDS: FLUoxetine 20 MG Capsule 40 MG PO (07:56)
[2018-04-09] MEDS: Gabapentin 300 MG Capsule PO ×2 (07:56→13:22)
[2018-04-09] MEDS: Megestrol Acetate 400 MG/10 ML UDC PO (07:57)
[2018-04-09] MEDS: predniSONE 20 MG Tablet 40 MG PO (07:57)
[2018-04-09] MEDS: Pantoprazole Sodium 40 MG Tablet PO (07:57)
[2018-04-09] MEDS: APIXABAN 5 MG TABLET PO (07:57)
[2018-04-09] MEDS: guaiFENesin 1,200 MG Tablet 1200 MG PO (07:58)
[2018-04-09] MEDS: Ceftriaxone 1 GM/50 ML BAG IV (07:58)
[2018-04-09 09:20] VITALS: BP 123/65; PULSE 71; RESP 20; TEMP 36.5; O2SAT 92
[2018-04-09 11:01] VITALS: PULSE 71; RESP 16; O2SAT 93
--- NOTE | 2018-04-09 12:00 | CASEMGMT ---
Social Work: Met with patient in room. Introduced self and the role of the bilingual social worker. Patient lives at [facility] at plans to return there at D/C. Patient states that [facility] staff administers his medicines and he eats all of his meals in the dining area. Patient has a home health aid 2 x/week. Patient has a walker,shower chair, elevated toilet seat and home oxygen through [employer]. Patient has a local sister who is supportive and assists patient as needed with transportation and medical appointments. Patient giving this SW permission to call sister and [facility] to notify of patient D/C today. TC to sister Tati Miller. Tati aware of patient D/C and states that she will pick him up. TC to [facility]. Spoke with Yenny. Yenny aware that patient will be returning there today. TC to Arelis Gunter patient's PASSPORT casemanager. Arelis also aware that patient will be returning to [facility] today. PLAN: Patient to return to [facility] today with continued PASSPORT services. ROBERTO Coyle
--- NOTE | 2018-04-09 12:23 | PCM.DC ---
- Discharge Diagnoses Current Active Problems: Current Active and Chronic Problems (Last Reviewed 04/02/18 @ 15:52 by IVIS Carrera) COPD exacerbation (Acute) You will use the following diet at home:: Cardiac Discharge Activity: Return to Normal Activity Call your doctor if you observe: Shortness of breath, Dizziness, Fainting spells, Chest pain, Increased palpitations (irregular heartbeat) Additional Instructions: Continue supplemental oxygen to maintain O2 at or above 90%. Allergies/Adverse Reactions: Allergies latex Allergy (Verified 04/06/18 20:11) Rash naproxen sodium [From Aleve] Allergy (Verified 04/06/18 20:11) Rash Medications to take at Discharge Fluoxetine [Prozac] 40 mg PO DAILY 05/06/14 Gabapentin [Neurontin] 300 mg PO 4X/DAY 05/06/14 Albuterol Aerosols [Ventolin Aerosols] 90 mcg INHALATION Q4H PRN PRN 04/02/16 Mirtazapine 30 mg PO QHS 04/02/16 Budesonide/Formoterol 160/4.5 [Symbicort 160/4.5 Mcg Inhaler (SP)] 2 puff IH BID 04/05/17 Umeclidinium [place] [Incruse Ellipta] 1 puff IH DAILY 06/21/17 Megestrol Acetate [Megace Suspension] 10 ml PO DAILY 10/18/17 Oxygen, Home [Home Oxygen] 2 lpm NASAL .CONT 10/21/17 albuterol sulfate HFA 90 mcg/actuation aerosol inhaler 2 puff INHALATION Q4H PRN g 11/13/17 cholecalciferol (vitamin D3) 1,000 unit tablet 2,000 unit PO DAILY tab 11/13/17 albuterol sulfate 2.5 mg/3 mL (0.083 %) solution for nebulization 2.5 mg INHALATION Q4H PRN #180 vial 11/28/17 Atorvastatin Calcium [Lipitor] 10 mg PO QHS 04/06/18 Acetaminophen [Tylenol Extra Strength] 1 - 2 tab PO Q6H 04/07/18 Alendronate Sodium [Fosamax] 70 mg PO FR 04/07/18 Apixaban [Eliquis] 5 mg PO BID 04/07/18 Docusate Sodium [Colace] 100 mg PO BID 04/07/18 Lactose-Reduced Food [Boost] 237 ml PO BID 04/07/18 Omeprazole 40 mg PO DAILY 04/07/18 Tiotropium [place] [Spiriva] 1 cap PO DAILY 04/07/18 Benzonatate [Tessalon Perle] 100 mg PO TID PRN PRN #21 cap 04/09/18 Levofloxacin [Levaquin] 750 mg PO DAILY #5 tab 04/09/18 Prednisone See Taper PO DAILY #30 tab 04/09/18 The following prescriptions were given: Benzonatate [Tessalon Perle] 100 mg PO TID PRN PRN #21 cap PRN Reason: COUGH/CONGESTION Levofloxacin [Levaquin] 750 mg PO DAILY #5 tab Prednisone See Taper PO DAILY #30 tab Primary Care Physician: Phu Cooper MD [Primary Care Provider] - Please follow up with your Primary Care Physician in: 1 Week Please Follow Up With: Nicolle Holman NP-C When: 1 Week Proposed Discharge Date: 04/09/18
--- NOTE | 2018-04-09 12:28 | DCINST_ITS ---
- Discharge Diagnoses Current Active Problems: Current Active and Chronic Problems (Last Reviewed 04/02/18 @ 15:52 by IVIS Carrera) COPD exacerbation (Acute) You will use the following diet at home:: Cardiac Discharge Activity: Return to Normal Activity Call your doctor if you observe: Shortness of breath, Dizziness, Fainting spells , Chest pain, Increased palpitations (irregular heartbeat) Additional Instructions: Continue supplemental oxygen to maintain O2 at or above 90%. Allergies/Adverse Reactions: Allergies latex Allergy (Verified 04/06/18 20:11) Rash naproxen sodium [From Aleve] Allergy (Verified 04/06/18 20:11) Rash Medications to take at Discharge Fluoxetine [Prozac] 40 mg PO DAILY 05/06/14 Gabapentin [Neurontin] 300 mg PO 4X/DAY 05/06/14 Albuterol Aerosols [Ventolin Aerosols] 90 mcg INHALATION Q4H PRN PRN 04/02/16 Mirtazapine 30 mg PO QHS 04/02/16 Budesonide/Formoterol 160/4.5 [Symbicort 160/4.5 Mcg Inhaler (SP)] 2 puff IH BID 04/05/17 Umeclidinium [place] [Incruse Ellipta] 1 puff IH DAILY 06/21/17 Megestrol Acetate [Megace Suspension] 10 ml PO DAILY 10/18/17 Oxygen, Home [Home Oxygen] 2 lpm NASAL .CONT 10/21/17 albuterol sulfate HFA 90 mcg/actuation aerosol inhaler 2 puff INHALATION Q4H PRN g 11/13/17 cholecalciferol (vitamin D3) 1,000 unit tablet 2,000 unit PO DAILY tab albuterol sulfate 2.5 mg/3 mL (0.083 %) solution for nebulization 2.5 mg INHALATION Q4H PRN #180 vial 11/28/17 Atorvastatin Calcium [Lipitor] 10 mg PO QHS 04/06/18 Acetaminophen [Tylenol Extra Strength] 1 - 2 tab PO Q6H 04/07/18 Alendronate Sodium [Fosamax] 70 mg PO FR 04/07/18 Apixaban [Eliquis] 5 mg PO BID 04/07/18 Docusate Sodium [Colace] 100 mg PO BID 04/07/18 Lactose-Reduced Food [Boost] 237 ml PO BID 04/07/18 Omeprazole 40 mg PO DAILY 04/07/18 Tiotropium [place] [Spiriva] 1 cap PO DAILY 04/07/18 Benzonatate [Tessalon Perle] 100 mg PO TID PRN PRN #21 cap 04/09/18 Levofloxacin [Levaquin] 750 mg PO DAILY #5 tab 04/09/18 Prednisone See Taper PO DAILY #30 tab 04/09/18 The following prescriptions were given: Benzonatate [Tessalon Perle] 100 mg PO TID PRN PRN #21 cap PRN Reason: COUGH/CONGESTION Levofloxacin [Levaquin] 750 mg PO DAILY #5 tab Prednisone See Taper PO DAILY #30 tab Primary Care Physician: Phu Cooper MD [Primary Care Provider] - Please follow up with your Primary Care Physician in: 1 Week Please Follow Up With: Nicolle Holman NP-C When: 1 Week Proposed Discharge Date: 04/09/18
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
--- NOTE | 2018-04-09 13:18 | CASEMGMT ---
Pt is normally on 2 liters at Assisted living and is requiring 4liters at this time and is to be discharged today. [facility], pt uses [employer] for oxygen. New script for 4liters faxed to [facility] at this time. Nelda at [facility] [place] only new script needed at this time. [facility] to be updated when they return call to this RN CM. [facility]
[2018-04-09 13:19] VITALS: BP 136/72; PULSE 72; RESP 20; TEMP 36.2; O2SAT 92
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
--- NOTE | 2018-04-09 14:25 | NURSING ---
Called report to Tonja at [facility].
== END 2018-04-09 15:11 | disposition home or self-care (01) | DRG 194 ==
LOC: ED 21:25 → PCU 22:25
PROVIDERS: Nurse Practitioner Family; Admitting Provider Internal Medicine; Emergency Provider Emergency Medicine; Family Provider Family Medicine; PCP Family Medicine; Visit Provider Hospitalist
DX: J18.9 Pneumonia, unspecified organism (principal); J44.1 Chronic obstructive pulmonary disease with (acute) exacerbation; E44.0 Moderate protein-calorie malnutrition; J96.11 Chronic respiratory failure with hypoxia; J44.0 Chronic obstructive pulmonary disease with (acute) lower respiratory infection; Z86.711 Personal history of pulmonary embolism; Z79.01 Long term (current) use of anticoagulants; E78.5 Hyperlipidemia, unspecified; Z79.899 Other long term (current) drug therapy; Z68.21 Body mass index [BMI] 21.0-21.9, adult; F32.9 Major depressive disorder, single episode, unspecified; F41.9 Anxiety disorder, unspecified; M54.9 Dorsalgia, unspecified; G89.29 Other chronic pain; F17.210 Nicotine dependence, cigarettes, uncomplicated; Z99.81 Dependence on supplemental oxygen; K21.9 Gastro-esophageal reflux disease without esophagitis; Z87.820 Personal history of traumatic brain injury; E86.0 Dehydration; B97.89 Other viral agents as the cause of diseases classified elsewhere; M80.08XS Age-related osteoporosis with current pathological fracture, vertebra(e), sequela; Z79.83 Long term (current) use of bisphosphonates
CPT/HCPCS: 36415; 36600; 71046; 71275; 80048; 80053; 81002; 82803; 83880; 84484; 85025; 85379; 85610; 85730; 87040; 87449; 87633; 87804; 93005; 94640; 94667; 94668; 97116; 97162; 97166; 97530; 97802; 99285; J7030; Q9967; A4216

== ENCOUNTER → 2018-06-14 09:10 | Outpatient (CLI) | payer MEDICARE, MEDICAID, SELFPAY ==
[2018-06-14 10:16] VITALS: PULSE 71; PULSE 72; PULSE 85; PULSE 86; PULSE 87; PULSE 89; O2SAT 90; O2SAT 91; O2SAT 92; O2SAT 93
--- NOTE | 2018-06-14 10:19 | CPS ---
Patient came in on home O2 tank. SpO2 87% on room air. Had patient put their home O2 back on which was on 2 lpm demand dose, SpO2 flipped back and forth between 88%-89%. Patient was not generating enough flow for pulse dose. I switched patient to 2 lpm continuous flow, SpO2 93%. Patient performed entire test without breaks on 2 lpm continuous flow SpO2 >90%. Explained demand dose vs. continuous flow with patient and his sister.
--- NOTE | 2018-06-17 10:02 | PCM.PSN.6M ---
PSN 6 Minute Walk Test - 6 Minute Walk Test 6 Minute Walk Test: 6 Minute Walk Test PSN:6-Minute Walk Test Start: 06/14/18 10:16 Freq: Status: Active Protocol: [id number].6MINW Document 06/14/18 10:16 BILL (Rec: 06/14/18 10:34 BILL [id number]) 6 Minute Walk Test Date Performed 06/14/18 Time Performed 09:30 Height 5 ft 7 in Weight: 137 lb Weight in Pounds 137.[address]: Epifanio Leigh Assistive device used: Walker Pre-test Oxygen Flow Rate (L/min) (L/min) 2 Oxygen Delivery Method Nasal Cannula Pulse Ox (%) 93 Pulse Rate (60-100 beats/min) 72 Dyspnea Juanito Scale (0-10) 0 Exertion Juanito Scale (6-20) 6 1st minute Oxygen Flow Rate (L/min) (L/min) 2 Oxygen Delivery Method Nasal Cannula Pulse Ox (%) 92 Pulse Rate (60-100 beats/min) 85 2nd minute Oxygen Flow Rate (L/min) (L/min) 2 Oxygen Delivery Method Nasal Cannula Pulse Ox (%) 91 Pulse Rate (60-100 beats/min) 86 3rd minute Oxygen Flow Rate (L/min) (L/min) 2 Oxygen Delivery Method Nasal Cannula Pulse Ox (%) 90 Pulse Rate (60-100 beats/min) 86 4th minute Oxygen Flow Rate (L/min) (L/min) 2 Oxygen Delivery Method Nasal Cannula Pulse Ox (%) 90 Pulse Rate (60-100 beats/min) 87 5th minute Oxygen Flow Rate (L/min) (L/min) 2 Oxygen Delivery Method Nasal Cannula Pulse Ox (%) 91 Pulse Rate (60-100 beats/min) 89 6th minute Oxygen Flow Rate (L/min) (L/min) 2 Oxygen Delivery Method Nasal Cannula Pulse Ox (%) 91 Pulse Rate (60-100 beats/min) 89 Dyspnea Juanito Scale (0-10) 0 Exertion Juanito Scale (6-20) 12 Post-test Oxygen Flow Rate (L/min) (L/min) 2 Oxygen Delivery Method Nasal Cannula Pulse Ox (%) 93 Pulse Rate (60-100 beats/min) 71 Full Laps Walked 13 Partial Lap, Number of Tiles Walked 12 Total Distance Walked (ft) 779 06/14/18 10:19 Cardiopulmonary Services by Jie Andrews Patient came in on home O2 tank. SpO2 87% on room air. Had patient put their home O2 back on which was on 2 lpm demand dose, SpO2 flipped back and forth between 88%-89%. Patient was not generating enough flow for pulse dose. I switched patient to 2 lpm continuous flow, SpO2 93%. Patient performed entire test without breaks on 2 lpm continuous flow SpO2 >90%. Explained demand dose vs. continuous flow with patient and his sister. Initialized on 06/14/18 10:19 - END OF NOTE - Interpretation Interpretation: The patient ambulated 779 feet over the course of 6 minutes with use of a walker on supplemental oxygen. Pretesting oxygen saturation was noted to be 87% on room air. 2 L/min of supplemental oxygen was applied prior to testing. Pretesting oxygen saturation on 2 L/min was 93%. With ambulation, the eva oxygen saturation was 90%. There was evidence of both impaired walk distance and significant resting hypoxia. - Recommendations Recommendations: 2 L/min of supplemental oxygen should be utilized at rest and with exertion.
== END ==
PROVIDERS: Family Provider Family Medicine; PCP Family Medicine; Visit Provider Nurse Practitioner Acute Care
DX: J44.9 Chronic obstructive pulmonary disease, unspecified (principal)
CPT/HCPCS: 94618

== ENCOUNTER 2018-06-21 13:37 | Emergency (ER) | payer MEDICARE, MEDICAID, SELFPAY ==
[2018-06-21 13:37] VITALS: BP 118/63; PULSE 74; RESP 16; TEMP 36.7; O2SAT 94; BMI 19.0
--- NOTE | 2018-06-21 15:56 | ED.VISSUMM ---
- ER Visit Summary Date of Service: 06/21/18 Chief Complaint: Fall with closed head injury History of Present Illness: The patient is a 63 M was fishing. He finished and was trying to walk up some cement steps or where he was fishing slipped and fell landing on his face. Does not believe he lost consciousness. States he was days. Complaining of a mild headache, nasal pain and mild neck discomfort. He is on no blood thinners. He denies vomiting. He denies any other significant injuries. States before the fall he felt fine. Physical Examination: Male vital signs are stable afebrile. H EENT exam is abrasions to his forehead and proximal and mid nasal bridge. With the. Clinically appears of a nasal fracture. Nothing needs to be sent. Pupils round reactive light. He has false dentition but intact. He has no jaw deformity or tenderness. The top of his head and posterior scalp were unremarkable atraumatic and nontender. He has mild diffuse C-spine tenderness. Trachea is midline. Lungs are coarse with a few rhonchi that clear with coughing. He has underlying lung disease.. Heart regular rhythm no murmur. Abdomen is soft and nontender.. No peritoneal signs. Pelvic girdle intact. Moving all 4 extremities. Neurovascular intact. 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 Nontender. Back nontender. Neurologically is awake alert answering actions. GCS of 15. Moving all 4 extremities. Test Results: CT of the patient's brain without contrast no acute abnormality. No bleed. No acute stroke. 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 CT of the C-spine showed no acute abnormality. Chest x-ray showed chronic changes but no bony abnormalities or fractures. These were all read by the radiologist and reviewed by myself also. Emergency Department Course and Treatment: Clean the facial wounds. Treatment Plan: Repeat exam the patient is doing well at 1912. Will be discharged to home. Disposition: Discharge Impression: Acute fall Closed head injury Facial abrasions Left clavicle contusion This note was generated with [employer] dictation software. It may contain incorrect words, spelling, and punctuation that were not noted in review of the chart prior to signing ED Disposition - Plan for ED Patient: Chief Complaint: Head Injury Referrals: Phu Cooper MD [Primary Care Provider] -
--- NOTE | 2018-06-21 16:00 | ED.DCSUM_ITS ---
- ER Visit Summary Date of Service: 06/21/18 Chief Complaint: Fall with closed head injury History of Present Illness: The patient is a 63 M was fishing. He finished and was trying to walk up some cement steps or where he was fishing slipped and fell landing on his face. Does not believe he lost consciousness. States he was days. Complaining of a mild headache, nasal pain and mild neck discomfort. He is on no blood thinners. He denies vomiting. He denies any other significant injuries. States before the fall he felt fine. Physical Examination: Male vital signs are stable afebrile. H EENT exam is abrasions to his forehead and proximal and mid nasal bridge. With the. Clinically appears of a nasal fracture. Nothing needs to be sent. Pupils round reactive light. He has false dentition but intact. He has no jaw deformity or tenderness. The top of his head and posterior scalp were unremarkable atraumatic and nontender. He has mild diffuse C-spine tenderness. Trachea is midline. Lungs are coarse with a few rhonchi that clear with coughing. He has underlying lung disease.. Heart regular rhythm no murmur. Abdomen is soft and nontender.. No peritoneal signs. Pelvic girdle intact. Moving all 4 extremities. Neurovascular intact. 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 Nontender. Back nontender. Neurologically is awake alert answering actions. GCS of 15. Moving all 4 extremities. Test Results: CT of the patient's brain without contrast no acute abnormality. No bleed. No acute stroke. 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 CT of the C-spine showed no acute abnormality. Chest x-ray showed chronic changes but no bony abnormalities or fractures. These were all read by the radiologist and reviewed by myself also. Emergency Department Course and Treatment: Clean the facial wounds. Treatment Plan: Repeat exam the patient is doing well at 1912. Will be discharged to home. Disposition: Discharge Impression: Acute fall Closed head injury Facial abrasions Left clavicle contusion This note was generated with [employer] dictation software. It may contain incorrect words, spelling, and punctuation that were not noted in review of the chart prior to signing ED Disposition - Plan for ED Patient: Chief Complaint: Head Injury Referrals: Phu Cooper MD [Primary Care Provider] -
[2018-06-21] MEDS: Acetaminophen 500 MG Tablet 1000 MG PO (16:48)
--- NOTE | 2018-06-21 19:13 | ED.DEP ---
ED Disposition - Plan for ED Patient: Disposition: Home or Assisted Living Chief Complaint: Head Injury Instructions: ED Concussion Referrals: Phu Cooper MD [Primary Care Provider] - 3-5 Days if not improving Additional Instructions: Keep wounds clean. Ice to forehead. Tylenol for pain. Read and follow head injury instructions. Return if severe and intractable headache or intractable vomiting or not acting correctly.
[2018-06-21 19:23] VITALS: BP 125/72; PULSE 56; RESP 18; O2SAT 96
== END 2018-06-21 19:24 | disposition home or self-care (01) ==
PROVIDERS: Emergency Provider Emergency Medicine; Family Provider Family Medicine; PCP Family Medicine
DX: S00.33XA Contusion of nose, initial encounter (principal); S40.012A Contusion of left shoulder, initial encounter; S00.81XA Abrasion of other part of head, initial encounter; W10.9XXA Fall (on) (from) unspecified stairs and steps, initial encounter; Y93.01 Activity, walking, marching and hiking; Y92.9 Unspecified place or not applicable; Y99.9 Unspecified external cause status; I10 Essential (primary) hypertension; Z99.81 Dependence on supplemental oxygen; Z79.899 Other long term (current) drug therapy
CPT/HCPCS: 70450; 71046; 72125; 99283

== ENCOUNTER 2019-02-13 12:05 | Observation (INO) | payer MEDICARE, MEDICAID, SELFPAY ==
[2019-02-13] VITALS (12 sets, daily range): BP systolic 112–160; BP diastolic 58–80; PULSE 62–81; RESP 16–24; TEMP 36.3–37.2; O2SAT 89–96; BMI 19.2; BMI 20.2; BMI 19.0
--- NOTE | 2019-02-13 12:38 | EKG12_ITS ---
Test Reason : LOWER EXTREMITY Blood Pressure : / mmHG Vent. Rate : 064 BPM Atrial Rate : 064 BPM P-R Int : 150 ms QRS Dur : 084 ms QT Int : 416 ms P-R-T Axes : 055 -05 057 degrees QTc Int : 429 ms Sinus rhythm with Premature atrial complexes Otherwise normal ECG Confirmed by NICOLÁS BARR, RONAL ([id number]), art editor NOELLE CAMACHO ([id number]) on 02/18/2019 1:52:37 PM Referred By: DYLON Confirmed By:RONAL MONZON MD
--- NOTE | 2019-02-13 12:39 | RAD_ITS ---
STUDY: X-RAY - PELVIS AND LEFT HIP REASON FOR EXAM: Male, 63 years old. Left hip pain due to a fall. TECHNIQUE: 3 views of the pelvis and hip. COMPARISON: None. FINDINGS: There is a non-specific bowel gas pattern. Normal visualized soft tissue structures. The patient is status post right total hip replacement. The exams of a nondisplaced impacted fracture of the subcapital region of the left femur. RAD/HIP, UNI W/ Pelvis 2-3 Views IMPRESSION: Nondisplaced subcapital fracture of the proximal left femur. Electronically Signed: García Landin, at 14:00 EDT , Service support ,
[2019-02-13] MEDS: Ondansetron 4 MG/2 ML Vial IV (12:51)
[2019-02-13] MEDS: Morphine 4 MG/ML Syringe 6 MG IV (12:52)
[2019-02-13 13:02] LABS: Hematocrit 45.9 % (40-54); Hemoglobin 15.4 g/dl (13.0-16.5); Mean Corp Hgb Conc 33.6 g/gl (32-36); Mean Corpuscular Hgb 33.7 pg (27.0-32.0); Mean Corpuscular Volume 100.4 fL (80-94); Mean Platelet Vol. 8.6 fl (6.2-12.0); Platelet Count 251 K/mm3 (150-450); RBC Distribution Width CV 13.7 % (11.6-14.6); RBC Distribution Width SD 49.5 fl (35.1-43.9); Red Blood Count 4.57 M/mm3 (4.6-6.2); White Blood Count 6.9 K/mm3 (4.4-11.0)
[2019-02-13 13:03] LABS: Scan Indicated on CBC? Y/N NO
[2019-02-13 13:12] LABS: Anion Gap 6 (5-15); BUN 16 mg/dL (7-18); BUN/Creat Ratio 14.4 RATIO (10-20); Calcium,Total 8.9 mg/dL (8.5-10.1); Chloride 108 mmol/L (98-107); Creatinine, Serum 1.11 mg/dL (0.70-1.30); EST Glomerular Filtration Rate 71 mL/min (>60); Est Glom Filt Rate - Afr Amer 85 mL/min (>60); Estimated Creatinine Clearance 58.32 ml/min; Glucose 95 mg/dL (74-106); Potassium 4.2 mmol/L (3.5-5.1); Sodium Level 141 mmol/L (136-145)
--- NOTE | 2019-02-13 13:38 | ED.VISSUMM ---
- ER Visit Summary Date of Service: 02/13/19 Chief Complaint: Fall left hip pain History of Present Illness: The patient is a 63 M history of prior right hip replacement. Patient was going to sit down on a chair when it slipped out from under him and he fell landing awkwardly on his left hip. This occurred less than an hour ago. He is unable to bear weight on his left hip. He denies any head injury or LOC. Is not been ill recently. Physical Examination: Well-appearing older male. No acute distress. Vital signs are stable and afebrile. HEENT exam atraumatic. Neck nontender. Lungs clear to auscultation bilaterally. Heart regular rhythm no murmur. Chest wall nontender. Abdomen soft nontender. No inguinal intact. His left hip has pain on palpation laterally. He has decreased range of motion and pain with passive range of motion of the left hip. It is slightly shortened compared to the right. His left foot is neurovascularly intact. Calf is nontender with no edema. Neurologically he is awake and alert with no focal motor or sensory deficit. He does not want to move his left hip due to pain. Test Results: X-ray of the pelvis and left hip is questionable for a left hip nondisplaced fracture at the junction of the femoral head and neck. I did discuss the film with the radiologist who reviewed with me. Dr. Byron Hicks reviewed the film and was not convinced that there was a fracture. Initially wanted an MRI of the left hip but the patient had some type of prior brain surgery and we are unclear if the clips they use were MRI compatible so a CT of the left hip was obtained. CT shows no acute fracture according the radiologist.. Read both by myself the radiologist. CBC showed a white count of 6. Hemoglobin 15. Electrolytes unremarkable gap of 6. Creatinine 1.1. Emergency Department Course and Treatment: Treated with morphine and Zofran. On repeat exam he is doing well but having recurrent pain he will be given another dose of morphine. I have both the hospitalist and orthopedic physician on page. We attempted to ambulate the patient he was having too much pain to ambulate so he will be admitted for fall and left hip pain with inability to ambulate. Rule out occult fracture. Treatment Plan: Admitted to the hospitalist. Disposition: Admission Impression: Acute fall Acute left hip pain and unable to ambulate but no fracture seen at this time on either plain film or CAT scan This note was generated with [employer] dictation software. It may contain incorrect words, spelling, and punctuation that were not noted in review of the chart prior to signing ED Disposition - Plan for ED Patient: Disposition: Acute Care Hospital [facility]
--- NOTE | 2019-02-13 13:41 | ED.DCSUM_ITS ---
- ER Visit Summary Date of Service: 02/13/19 Chief Complaint: Fall left hip pain History of Present Illness: The patient is a 63 M history of prior right hip replacement. Patient was going to sit down on a chair when it slipped out from under him and he fell landing awkwardly on his left hip. This occurred less than an hour ago. He is unable to bear weight on his left hip. He denies any head injury or LOC. Is not been ill recently. Physical Examination: Well-appearing older male. No acute distress. Vital signs are stable and afebrile. HEENT exam atraumatic. Neck nontender. Lungs clear to auscultation bilaterally. Heart regular rhythm no murmur. Chest wall nontender. Abdomen soft nontender. No inguinal intact. His left hip has pain on palpation laterally. He has decreased range of motion and pain with passive range of motion of the left hip. It is slightly shortened compared to the right. His left foot is neurovascularly intact. Calf is nontender with no edema. Neurologically he is awake and alert with no focal motor or sensory deficit. He does not want to move his left hip due to pain. Test Results: X-ray of the pelvis and left hip is questionable for a left hip nondisplaced fracture at the junction of the femoral head and neck. I did discuss the film with the radiologist who reviewed with me. Dr. Byron Hicks reviewed the film and was not convinced that there was a fracture. Initially wanted an MRI of the left hip but the patient had some type of prior brain surgery and we are unclear if the clips they use were MRI compatible so a CT of the left hip was obtained. CT shows no acute fracture according the radiol ogist.. Read both by myself the radiologist. CBC showed a white count of 6. Hemoglobin 15. Electrolytes unremarkable gap of 6. Creatinine 1.1. Emergency Department Course and Treatment: Treated with morphine and Zofran. On repeat exam he is doing well but having recurrent pain he will be given another dose of morphine. I have both the hospitalist and orthopedic physician on page. We attempted to ambulate the patient he was having too much pain to ambulate so he will be admitted for fall and left hip pain with inability to ambulate. Rule out occult fracture. Treatment Plan: Admitted to the hospitalist. Disposition: Admission Impression: Acute fall Acute left hip pain and unable to ambulate but no fracture seen at this time on either plain film or CAT scan This note was generated with [employer] dictation software. It may contain incorrect words, spelling, and punctuation that were not noted in review of the chart prior to signing ED Disposition - Plan for ED Patient: Disposition: Acute Care Hospital [facility]
--- NOTE | 2019-02-13 13:48 | ED.RN ---
PT REQUESTS FOR THIS RN TO CALL HIS SISTER KYLIE HERNANDEZ AND UPDATE HER. TELEPHONE NUMBER PROVIDED OUT OF SERVICE.
--- NOTE | 2019-02-13 13:57 | ED.RN ---
GOT HEATH OF SISTER. AWARE PT TO E ADMITTED
--- NOTE | 2019-02-13 14:01 | ED.RN ---
TELEPHONE ORDER WITH READ BACK RECEIVED FROM DR. DANIEL LOCKWOOD FOR STAT MRI LEFT HIP. DR. ANDUJAR AWARE AND STATES HE WILL PUT ORDER IN.
--- NOTE | 2019-02-13 14:04 | CASEMGMT ---
RN CM Assessment Introduced role of RN CM to patient.? Patient is alert, oriented and able?to participate in RN CM Assessment. ?Care providers, pharmacy, and demographics verified. Presentation: Fall while attempting to sit, chair slipped out from under him. C/o pain to Left Hip. Admit Dx: Left Hip Fx Re-Admit: No Barriers/Issues: Patient has prior Right Hip replacement. Lives [facility]. States up to his Sister for Goal of DC Plan. PCP: Phu Cooper Specialists: None [facility] Insurance: Kalani DEMARCO, [facility] Community Plan [facility] Rx Benefit:?Yes LNOK: Sister, Tati Miller LW/HPOA: [facility] believes so, aware not on file at [facility] and to bring copy when available, HPOA-sister Tati Miller Living Arrangements:? Lives alone on 2nd floor apartment, takes elevator. No steps to enter. ADL?s: Ambulates with walker. Gets assistance at [facility] with bathing, House work. Meals provided at facility. [facility] has a Nurse and Nurse Aide at [facility]. Transportation: Private pay- [facility]?? or Sister DME: Walker, Shower Chair, Grab Bars, Home O2 continuous at 2L, Nebulizer, hospital Bed HHC: Past, [facility] SNF: None Goal: TBD, see above Issue. DC PLAN: Possible SNF for [facility] [place]
[2019-02-13] MEDS: morphine 8 MG/ML Syringe IV (14:12)
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
[2019-02-13] MEDS: 0.9% Normal Saline 1,000 ML 75 ML IV (17:00)
[2019-02-13] MEDS: Heparin Injection (Vial) 5,000 UNIT/ML VIAL 5000 UNIT SC ×2 (17:00→22:32)
[2019-02-13] MEDS: 0.9% NaCl Peripheral Flush Adult/Peds IV (17:01)
[2019-02-13] MEDS: Gabapentin 300 MG Capsule PO ×2 (17:01→22:32)
[2019-02-13 17:07] LABS: Prothrombin Time (Protime)PT. 13.2 SECONDS (11.7-14.9)
[2019-02-13] MEDS: Morphine 2 MG/ML Syringe IV (17:28)
--- NOTE | 2019-02-13 17:59 | NURSING ---
Dr Byron Hicks called, said he will not do surgery on pt, he does not have a hip fx. He may get up with assistance, with use of walker. He will sign off and consult should be cancelled and wanted the admitting notified he will be signing off. Dr. Branch was notified and said that he consulted Dr Hicks to assess pt and he needs to come do an assessment on pt, he knows what the rules are. He was consulted for a reason and he needs to come see the pt. Dr Hicks asked for the consult to be cancelled. needs to come see him. Dr Hicks was notified that Dr. Branch wants him to see him, Dr. Hicks said he would come see the pt.
[2019-02-13] MEDS: Ipratropium/Albuterol Sulfate 3 ML AMPUL.NEB INHALATION (19:00)
--- NOTE | 2019-02-13 19:15 | NURSING ---
Dr. Hicks seeing pt now. Tati lobato POA is present in the room.
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
--- NOTE | 2019-02-13 19:57 | NURSING ---
Checked vitals. Pt was at 89% on 3L. Increased to 4L, patient now 92%.
[2019-02-13] MEDS: oxyCODONE 5 MG Tablet 10 MG PO (19:59)
[2019-02-13] MEDS: Atorvastatin Calcium 10 MG Tablet PO (22:32)
[2019-02-13] MEDS: Mirtazapine 30 MG Tablet PO (22:32)
[2019-02-13] MEDS: Senna Tablet 1 TABLET PO (22:32)
[2019-02-14] VITALS (16 sets, daily range): BP systolic 107–129; BP diastolic 53–69; PULSE 66–100; RESP 16–20; TEMP 36.6–37.8; O2SAT 90–100
[2019-02-14] MEDS: Ipratropium/Albuterol Sulfate 3 ML AMPUL.NEB INHALATION ×4 (01:05→19:30)
[2019-02-14] MEDS: oxyCODONE 5 MG Tablet 10 MG PO (03:18)
[2019-02-14] MEDS: Heparin Injection (Vial) 5,000 UNIT/ML VIAL 5000 UNIT SC ×3 (05:02→22:14)
--- NOTE | 2019-02-14 08:15 | RAD_ITS ---
STUDY: X-RAY CHEST REASON FOR EXAM: Male, 63 years old. Cough and shortness of breath. TECHNIQUE: Frontal and lateral projections of the chest. COMPARISON: June 21, 2018. FINDINGS: Again seen is mild hyperexpansion with prominence of the interstitium bilaterally and diffusely. There is no focal alveolar opacification. There is no pleural effusion. There is no pneumothorax. There is a stable and unremarkable appearing cardiomediastinal silhouette. There is no acute osseous abnormality. There is stable appearing mild compression deformity of 2, mid thoracic vertebra with sclerotic margins. The sclerotic margins would suggest these changes are nonacute. There is no demonstrated abnormality of the visualized soft tissue structures of the upper abdomen. RAD/Chest PA and Lateral IMPRESSION: Stable examination. Probable COPD and interstitial lung disease. No plain film evidence of acute cardiopulmonary disease. Electronically Signed: Jackson Dominguez MD at 10:26 EDT , Service support ,
[2019-02-14] MEDS: Gabapentin 300 MG Capsule PO ×4 (08:19→22:14)
[2019-02-14] MEDS: Pantoprazole Sodium 40 MG Tablet PO (08:20)
[2019-02-14] MEDS: FLUoxetine 20 MG Capsule 40 MG PO (08:20)
--- NOTE | 2019-02-14 09:32 | PCM.PN.HOSP ---
Subjective: Patient seen and examined. Complains of a cough with associated pleuritic chest pain. Cough is now dry. He was requiring up to 4 L of oxygen overnight and this morning, though his baseline is 2 L of oxygen. He also complains of some right hip pain. Dr. Hicks on board. CAT scan done was negative for any fracture. He was unable to have an MRI. No surgery planned for now. Labs and vitals reviewed. Vitals/I&O's: Vital Signs Temp Pulse Resp BP Pulse Ox 100.1 F H 74 20 H 123/59 H 95 02/14/19 09:07 02/14/19 09:14 02/14/19 09:14 02/14/19 09:07 02/14/19 09:07 Oxygen Flow Rate (L/min) 4 Oxygen Delivery Method Nasal Cannula Weight: 128 lb 15.527 oz Body Mass Index (BMI) 19.0 Intake and Output for Last 24 Hours 02/12/19 02/13/19 02/14/19 23:59 23:59 23:59 Intake Total 830 / 830 Output Total 400 / 400 Balance 430 / 430 General: Alert, Oriented x3, Cooperative, No apparent distress HEENT: Atraumatic, PERRLA, EOMI, Normocephalic Oral: Dry Mucosa Neck: Supple, No JVD, Negative Carotid Bruits Lungs: - - Coarse crackles and wheezing in all lung jarvis bilaterally. On 4 L of oxygen. Cardiovascular: Regular rate, No murmurs Abdomen: Bowel Sounds Present, Soft, Non Tender, Non-Distended Extremities: No clubbing, No cyanosis, No edema, Capillary Refill Less than 3 Seconds Skin: No rashes, No breakdown Musculoskeletal: - - mild tenderness on palpation of right hip. Lymphatic: No Cervical, Supraclavicular, or Inguinal Adenopathy Neurological: Cranial nerves II-XII grossly intact, Neuro grossly intact Psych/Mental Status: Normal Affect, Appropriate, Alert and oriented to time, place, person, mood and affect Laboratory Results 02/13/19 12:04: WBC 6.9, RBC 4.57 L, Hgb 15.4, Hct 45.9, MCV 100.4 H, MCH 33.7 H, MCHC 33.6, RDW 13.7, RDW Differential 49.5 H, Plt Count 251, MPV 8.6 02/13/19 12:04: Sodium 141, Potassium 4.2, Chloride 108 H, Carbon Dioxide 27.0, Anion Gap 6, BUN 16, Creatinine 1.11, Estim Creat Clear Calc 58.32, Est GFR (MDRD) Af Amer 85, Est GFR (MDRD) Non-Af 71, BUN/Creatinine Ratio 14.4, Glucose 95, Calcium 8.9 02/13/19 12:04: PT 13.2, INR 1.0 Diagnostic Data Hip/Pelvis X-Ray 02/13/19 12:39 IMPRESSION: Nondisplaced subcapital fracture of the proximal left femur. Electronically Signed: García Landin, at 14:00 EDT , Service support , Lower Extremity CT 02/13/19 14:46 IMPRESSION: No fracture or dislocation is seen. Degenerative changes. 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 Electronically Signed: García Landin, at 15:33 EDT , Service support , Current Medications Acetaminophen (Tylenol) 650 mg PO Q6H PRN PRN PRN Reason: Mild Pain (1-3)/Temp > 100.7 F Albuterol Sulfate (Ventolin Aerosols) 2.5 mg INHALATION Q2H PRN PRN PRN Reason: Shortness of Breath/Wheezing Albuterol/Ipratropium (Duoneb) 3 ml INHALATION Q6H.RT [facility] Last Admin: 02/14/19 06:29 Dose: 3 ml Atorvastatin Calcium (Lipitor) 10 mg PO QHS [facility] Last Admin: 02/13/19 22:32 Dose: 10 mg Fluoxetine HCl (Prozac) 40 mg PO DAILY [facility] Last Admin: 02/14/19 08:20 Dose: 40 mg Gabapentin (Neurontin) 300 mg PO 4X/DAYCM [facility] Last Admin: 02/14/19 08:19 Dose: 300 mg Heparin Sodium (Porcine) (Heparin Na) 5,000 unit SC Q8 [facility] Last Admin: 02/14/19 05:02 Dose: 5,000 unit Sodium Chloride () 250 mls @ 15 mls/hr IV .[id number] PRN PRN Reason: SALINE FLUSH Magnesium Hydroxide (Milk Of Magnesia) 30 ml PO DAILY PRN PRN PRN Reason: Constipation Mirtazapine (Remeron) 30 mg PO QHS [facility] Last Admin: 02/13/19 22:32 Dose: 30 mg Morphine Sulfate () 2 mg IV Q3H PRN PRN PRN Reason: Severe pain (7-10/10) Last Admin: 02/13/19 17:28 Dose: 2 mg Nutritional Formula (Lactose Free) (Ensure Clear) 120 ml PO TIDCM [facility] Last Admin: 02/14/19 08:19 Dose: Not Given Ondansetron HCl (Zofran) 4 mg IV Q8H PRN PRN PRN Reason: NAUSEA/VOMITING Oxycodone HCl (Oxyir) 10 mg PO Q4H PRN PRN PRN Reason: Moderate Pain (4-6/10) Last Admin: 02/14/19 03:18 Dose: 10 mg Pantoprazole Sodium (Protonix) 40 mg PO DAILY [facility] Last Admin: 02/14/19 08:20 Dose: 40 mg Senna (Senokot) 1 tablet PO BID [facility] Last Admin: 02/14/19 08:21 Dose: Not Given Sodium Chloride () 5 - 15 ml IV UD PRN PRN Reason: SALINE FLUSH Last Admin: 02/13/19 17:01 Dose: 10 ml Medical Necessity - Tobacco Use Smoking Status: Current every day smoker Tobacco Use: Cigarettes Assessment/Plan 1. Debility due to mechanical fall was admitted with left hip pain after a fall. Left hip pain is much better now xray initially showed possible left hip fracture. However, CT of left hip showed no fracture and possible acute avascular necrosis of left femoral head orthopedic surgery on board and advocate conservative management now since there is no fracture PT/OT on board on tyelenol and oxycodone for pain 2. Acute on chronic hypoxic respiratory failure due to possible COPD exacerbation complains of a cough and shortness of breath. Usually on 2L of oxygen, but was requiring 4L of oxygen today will get stat CXR continue breathing treawtments. Will start steroids due to possible COPD exacerbation check respiratory panel 3. COPD: as under 2. 4. History of PE: currently stable. finished treatment with eliquis 5. Hyperlipidemia: Stable: On statin 6. GERD: PPI 7. Chronic back pain due to chronic vertebral fractures: Stable. On Neurontin and OxyIR as needed. 8. History of brain aneurysm status post traumatic brain injury: Stable 9. Depression: On Prozac and mirtazapine DVT prophylaxis: heparin Code Visit Inpatient E&M: 26585 Subs Hosp L3
--- NOTE | 2019-02-14 09:36 | PN_ITS ---
Subjective: Patient seen and examined. Complains of a cough with associated pleuritic chest pain. Cough is now dry. He was requiring up to 4 L of oxygen overnight and this morning, though his baseline is 2 L of oxygen. He also complains of some right hip pain. Dr. Hicks on board. CAT scan done was negative for any fracture. He was unable to have an MRI. No surgery planned for now. Labs and vitals reviewed. Vitals/I&O's: Vital Signs Temp Pulse Resp BP Pulse Ox 100.1 F H 74 20 H 123/59 H 95 02/14/19 09:07 02/14/19 09:14 02/14/19 09:14 02/14/19 09:07 02/14/19 09:07 Oxygen Flow Rate (L/min) 4 Oxygen Delivery Method Nasal Cannula Weight: 128 lb 15.527 oz Body Mass Index (BMI) 19.0 Intake and Output for Last 24 Hours 02/12/19 02/13/19 02/14/19 23:59 23:59 23:59 Intake Total 830 / 830 Output Total 400 / 400 Balance 430 / 430 General: Alert, Oriented x3, Cooperative, No apparent distress HEENT: Atraumatic, PERRLA, EOMI, Normocephalic Oral: Dry Mucosa Neck: Supple, No JVD, Negative Carotid Bruits Lungs: - - Coarse crackles and wheezing in all lung jarvis bilaterally. On 4 L of oxygen. Cardiovascular: Regular rate, No murmurs Abdomen: Bowel Sounds Present, Soft, Non Tender, Non-Distended Extremities: No clubbing, No cyanosis, No edema, Capillary Refill Less than 3 Seconds Skin: No rashes, No breakdown Musculoskeletal: - - mild tenderness on palpation of right hip. Lymphatic: No Cervical, Supraclavicular, or Inguinal Adenopathy Neurological: Cranial nerves II-XII grossly intact, Neuro grossly intact Psych/Mental Status: Normal Affect, Appropriate, Alert and oriented to time, place, person, mood and affect Laboratory Results 02/13/19 12:04: WBC 6.9, RBC 4.57 L, Hgb 15.4, Hct 45.9, MCV 100.4 H, MCH 33.7 H , MCHC 33.6, RDW 13.7, RDW Differential 49.5 H, Plt Count 251, MPV 8.6 02/13/19 12:04: Sodium 141, Potassium 4.2, Chloride 108 H, Carbon Dioxide 27.0, Anion Gap 6, BUN 16, Creatinine 1.11, Estim Creat Clear Calc 58.32, Est GFR (MDRD) Af Amer 85, Est GFR (MDRD) Non-Af 71, BUN/Creatinine Ratio 14.4, Glucose 95, Calcium 8.9 02/13/19 12:04: PT 13.2, INR 1.0 Diagnostic Data Hip/Pelvis X-Ray 02/13/19 12:39 IMPRESSION: Nondisplaced subcapital fracture of the proximal left femur. Electronically Signed: García Landin, at 14:00 EDT , Service support , Lower Extremity CT 02/13/19 14:46 IMPRESSION: No fracture or dislocation is seen. Degenerative changes. 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 Electronically Signed: García Landin, at 15:33 EDT , Service support , Current Medications Acetaminophen (Tylenol) 650 mg PO Q6H PRN PRN PRN Reason: Mild Pain (1-3)/Temp > 100.7 F Albuterol Sulfate (Ventolin Aerosols) 2.5 mg INHALATION Q2H PRN PRN PRN Reason: Shortness of Breath/Wheezing Albuterol/Ipratropium (Duoneb) 3 ml INHALATION Q6H.RT [facility] Last Admin: 02/14/19 06:29 Dose: 3 ml Atorvastatin Calcium (Lipitor) 10 mg PO QHS [facility] Last Admin: 02/13/19 22:32 Dose: 10 mg Fluoxetine HCl (Prozac) 40 mg PO DAILY [facility] Last Admin: 02/14/19 08:20 Dose: 40 mg Gabapentin (Neurontin) 300 mg PO 4X/DAYCM [facility] Last Admin: 02/14/19 08:19 Dose: 300 mg Heparin Sodium (Porcine) (Heparin Na) 5,000 unit SC Q8 [facility] Last Admin: 02/14/19 05:02 Dose: 5,000 unit Sodium Chloride () 250 mls @ 15 mls/hr IV .[id number] PRN PRN Reason: SALINE FLUSH Magnesium Hydroxide (Milk Of Magnesia) 30 ml PO DAILY PRN PRN PRN Reason: Constipation Mirtazapine (Remeron) 30 mg PO QHS [facility] Last Admin: 02/13/19 22:32 Dose: 30 mg Morphine Sulfate () 2 mg IV Q3H PRN PRN PRN Reason: Severe pain (7-10/10) Last Admin: 02/13/19 17:28 Dose: 2 mg Nutritional Formula (Lactose Free) (Ensure Clear) 120 ml PO TIDCM [facility] Last Admin: 02/14/19 08:19 Dose: Not Given Ondansetron HCl (Zofran) 4 mg IV Q8H PRN PRN PRN Reason: NAUSEA/VOMITING Oxycodone HCl (Oxyir) 10 mg PO Q4H PRN PRN PRN Reason: Moderate Pain (4-6/10) Last Admin: 02/14/19 03:18 Dose: 10 mg Pantoprazole Sodium (Protonix) 40 mg PO DAILY [facility] Last Admin: 02/14/19 08:20 Dose: 40 mg Senna (Senokot) 1 tablet PO BID [facility] Last Admin: 02/14/19 08:21 Dose: Not Given Sodium Chloride () 5 - 15 ml IV UD PRN PRN Reason: SALINE FLUSH Last Admin: 02/13/19 17:01 Dose: 10 ml Medical Necessity - Tobacco Use Smoking Status: Current every day smoker Tobacco Use: Cigarettes Assessment/Plan 1. Debility due to mechanical fall * was admitted with left hip pain after a fall. Left hip pain is much better now * xray initially showed possible left hip fracture. However, CT of left hip showed no fracture and possible acute avascular necrosis of left femoral head * orthopedic surgery on board and advocate conservative management now since there is no fracture * PT/OT on board * on tyelenol and oxycodone for pain * 2. Acute on chronic hypoxic respiratory failure due to possible COPD exacerbation * complains of a cough and shortness of breath. Usually on 2L of oxygen, but was requiring 4L of oxygen today * will get stat CXR * continue breathing treawtments. Will start steroids due to possible COPD exacerbation * check respiratory panel * 3. COPD: as under 2. 4. History of PE: currently stable. finished treatment with eliquis 5. Hyperlipidemia: Stable: On statin 6. GERD: PPI 7. Chronic back pain due to chronic vertebral fractures: Stable. On Neurontin and OxyIR as needed. 8. History of brain aneurysm status post traumatic brain injury: Stable 9. Depression: On Prozac and mirtazapine DVT prophylaxis: heparin Code Visit Inpatient E&M: 36285 Subs Hosp L3
[2019-02-14] MEDS: Acetaminophen 325 MG Tablet 650 MG PO (10:43)
--- NOTE | 2019-02-14 12:00 | CASEMGMT ---
Addendum entered by Petrona Bustamante 02/14/19 12:06: FARHANA placed a call to [facility], left message, updating staff that pt is going to TCU pending pre-cert before returning to [facility]. Original Note: Social Work Note SW spoke with PT/OT. PT/OT are recommending pt go to SNF for short term rehabilitation. SW met with pt, pt does have some confusion noted. Pt agreeable to SNF and agreeable to TCU. Pt gave this worker permission to call his sister Tati and update her. SW updated pt that this worker will have to check on bed availability and pt will need pre-cert. FARHANA placed a call to [facility] in TCU, states she does have beds and is able to accept pt and will submit for pre-cert. Jackelyn states she isn't sure if she will receive pre-cert today. FARHANA placed a call to pt's sister Tati, updated her on PT/OT recommendations and acceptance to TCU at [facility] pending pre-cert. Tati states understanding, is also agreeable to plan. SW updated pt on acceptance to TCU pending pre-cert. SW updated pt that if pre-cert isn't received today, pt will be at [facility] through weekend. Pt states understanding. Plan: TCU pending pre-cert Petrona Bustamante MANUFACTURING TEACHER, [employer]
[2019-02-14] MEDS: Ensure Clear 120 ML Liquid PO ×2 (12:54→16:53)
--- NOTE | 2019-02-14 12:58 | CASEMGMT ---
Addendum entered by Petrona Bustamante 02/14/19 15:24: FARHANA received call from [facility] in TCU stating pre-cert has been obtained and pt is able to discharge today. FARHANA updated physician, per physician pt is not medically cleared. FARHANA updated [facility] in TCU of this. Green sheet updated that pt is able to discharge to TCU over the weekend if medically cleared. Charge Nurse and RN updated. Original Note: Social Work Note Green sheet on chart in the event pre-cert is obtained. Plan: TCU pending pre-cert Petrona Bustamante ACCOUNT MANAGEMENT ASSISTANT, LEGAL NURSE CONSULTANT
[2019-02-14] MEDS: Atorvastatin Calcium 10 MG Tablet PO (22:13)
[2019-02-14] MEDS: Senna Tablet 1 TABLET PO (22:14)
[2019-02-14] MEDS: Mirtazapine 30 MG Tablet PO (22:14)
[2019-02-15 02:00] VITALS: PULSE 80; RESP 16
[2019-02-15] MEDS: Ipratropium/Albuterol Sulfate 3 ML AMPUL.NEB INHALATION ×2 (02:00→06:43)
[2019-02-15 04:05] VITALS: PULSE 70
[2019-02-15 04:56] VITALS: BP 120/56; PULSE 70; RESP 16; TEMP 36.6; O2SAT 96
[2019-02-15] MEDS: Heparin Injection (Vial) 5,000 UNIT/ML VIAL 5000 UNIT SC (06:17)
[2019-02-15 06:43] VITALS: PULSE 73; RESP 18; O2SAT 91
[2019-02-15 06:44] LABS: Absolute Lymphocyte Count 0.69 X10^3/ul (0.83-4.51); Absolute Neutrophil Count 8.6 X10^3/uL (2.0-7.7); Hemoglobin 12.2 g/dl (13.0-16.5); Lymphocyte # 0.69 X10^3/ul (4.0); Lymphocyte % 7.3 % (19-41); Mean Corp Hgb Conc 33.9 g/gl (32-36); Mean Corpuscular Hgb 33.6 pg (27.0-32.0); Mean Corpuscular Volume 99.2 fL (80-94); Monocyte# 0.23 X10^3/uL; Monocyte% 2.4 % (0-10); Neutrophil # 8.55 X10^3/uL (2.7-7.7); Neutrophil % 90.2 % (47-70); Platelet Count 166 K/mm3 (150-450); RBC Distribution Width CV 12.9 % (11.6-14.6); RBC Distribution Width SD 47.2 fl (35.1-43.9); Red Blood Count 3.63 M/mm3 (4.6-6.2); White Blood Count 9.5 K/mm3 (4.4-11.0)
[2019-02-15 06:56] LABS: POSITIVE COUNT NO; POSITIVE DIFFERENTIAL NO; POSITIVE MORPHOLOGY NO
[2019-02-15 06:59] LABS: Anion Gap 5 (5-15); BUN 20 mg/dL (7-18); BUN/Creat Ratio 21.2 RATIO (10-20); Calcium,Total 8.6 mg/dL (8.5-10.1); Chloride 109 mmol/L (98-107); Creatinine, Serum 0.94 mg/dL (0.70-1.30); EST Glomerular Filtration Rate 85 mL/min (>60); Est Glom Filt Rate - Afr Amer 103 mL/min (>60); Estimated Creatinine Clearance 64.83 ml/min; Glucose 141 mg/dL (74-106); Potassium 3.9 mmol/L (3.5-5.1); Sodium Level 139 mmol/L (136-145)
[2019-02-15] MEDS: Ensure Clear 120 ML Liquid PO (07:48)
[2019-02-15] MEDS: Gabapentin 300 MG Capsule PO (07:48)
--- NOTE | 2019-02-15 09:04 | PCM.TXEXTCAR ---
- Diet 02/13/19 17:59 Diet: Regular Diet Is pt able to select menu?: Yes - Routine Orders/Code Status Enema Type: Fleetz Enema Frequency: Daily PRN Suppository Type: Dulcolax 10mg Suppository Frequency: Daily PRN O2 Liters per Minute: 2 O2 Frequency: Continuous Keep PO Greater than or Equal to (%): 90 - Therapies Physical Therapy: Eval and Treat Occupational Therapy: Eval and Treat - Allergies/Procedures Done in Hospital Allergies/Adverse Reactions: Allergies latex Allergy (Verified 02/13/19 12:08) Rash naproxen sodium [From Aleve] Allergy (Verified 02/13/19 12:08) Rash Procedures: None - Type of Care/Length of Stay Estimated LOS: Convalescent Care Less Than 30 days Type of Care Needed: Skilled Rehab Potential: Fair Prognosis: Fair - Additional Orders/Day of Discharge Day of Discharge: 02/15/19 - Dietary and Speech Recommendations Dietitian Recommendations/Changes: Will provide mighty shake w/ lunch and dinner. Rec continue liberal regular diet d/t recent decrease in appetite/wt - once improved consider diet change to Cardiac - Follow Up Care Primary Care Physician: Phu Cooper MD [Primary Care Provider] - Please follow up with your Primary Care Physician in: one week Please Follow Up With: Byron Hicks MD When: 1-2 weeks
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
[2019-02-15] MEDS: Pantoprazole Sodium 40 MG Tablet PO (09:36)
[2019-02-15] MEDS: FLUoxetine 20 MG Capsule 40 MG PO (09:36)
[2019-02-15] MEDS: Senna Tablet 1 TABLET PO (09:36)
[2019-02-15 10:00] VITALS: BP 136/62; PULSE 74; PULSE 75; RESP 18; TEMP 36.3; O2SAT 97
== END 2019-02-15 11:05 | disposition skilled nursing facility (03) ==
LOC: ED 14:09 → MS3 14:18
PROVIDERS: Admitting Provider Hospitalist; Emergency Provider Emergency Medicine; Family Provider Family Medicine; PCP Family Medicine; Visit Provider Student in an Organized Health Care Education/Training Program
DX: S70.02XA Contusion of left hip, initial encounter (principal); J44.1 Chronic obstructive pulmonary disease with (acute) exacerbation; J96.11 Chronic respiratory failure with hypoxia; K21.9 Gastro-esophageal reflux disease without esophagitis; Z87.820 Personal history of traumatic brain injury; G62.9 Polyneuropathy, unspecified; W01.0XXA Fall on same level from slipping, tripping and stumbling without subsequent striking against object, initial encounter; Y93.89 Activity, other specified; Y92.9 Unspecified place or not applicable; Z96.641 Presence of right artificial hip joint; M81.0 Age-related osteoporosis without current pathological fracture; F32.9 Major depressive disorder, single episode, unspecified; Z86.711 Personal history of pulmonary embolism; Z79.899 Other long term (current) drug therapy; Z79.51 Long term (current) use of inhaled steroids; F17.210 Nicotine dependence, cigarettes, uncomplicated; E78.5 Hyperlipidemia, unspecified; G89.29 Other chronic pain; Z99.81 Dependence on supplemental oxygen
CPT/HCPCS: 36415; 71046; 73502; 73700; 80048; 85025; 85027; 85610; 87633; 93005; 94640; 94667; 94668; 97163; 97165; 97530; 97802; 99284; J7030; A4216; J2405

== ENCOUNTER 2019-02-15 11:42 | Inpatient (IN) | payer MEDICARE, MEDICAID, SELFPAY ==
[2019-02-13 16:42] VITALS: BMI 19.0
--- NOTE | 2019-02-15 11:55 | NURSING ---
pt arrived from [facility] via bed at 1142
[2019-02-15 12:43] VITALS: BMI 19.1
[2019-02-15 12:49] VITALS: BMI 19.1
[2019-02-15] MEDS: Gabapentin 300 MG Capsule PO ×3 (13:34→22:00)
[2019-02-15 15:55] VITALS: BP 115/47; PULSE 73; RESP 18; TEMP 36.6; O2SAT 90
[2019-02-15] MEDS: oxyCODONE 5 MG Tablet PO ×2 (17:37→22:00)
[2019-02-15] MEDS: Docusate Sodium 100 MG Capsule PO (17:38)
[2019-02-15] MEDS: Fluticasone/Salmeterol 232-14 Inhaler 1 PUFF IH (17:39)
[2019-02-15] MEDS: Mirtazapine 30 MG Tablet PO (22:00)
[2019-02-15] MEDS: Atorvastatin Calcium 10 MG Tablet PO (22:00)
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
[2019-02-16] MEDS: Fluticasone/Salmeterol 232-14 Inhaler 1 PUFF IH ×2 (05:29→16:33)
[2019-02-16] MEDS: Umeclidinium Bromide Inhaler 1 PUFF IH (05:29)
[2019-02-16] MEDS: FLUoxetine 20 MG Capsule 40 MG PO (05:30)
[2019-02-16] MEDS: Senna Tablet 1 TABLET PO (05:30)
[2019-02-16] MEDS: Pantoprazole Sodium 40 MG Tablet PO (05:30)
[2019-02-16] MEDS: Gabapentin 300 MG Capsule PO ×4 (05:30→20:45)
[2019-02-16 05:32] LABS: Absolute Lymphocyte Count 0.73 X10^3/ul (0.83-4.51); Absolute Neutrophil Count 10.5 X10^3/uL (2.0-7.7); Hematocrit 39.1 % (40-54); Lymphocyte # 0.73 X10^3/ul (4.0); Lymphocyte % 6.2 % (19-41); Mean Corp Hgb Conc 33.2 g/gl (32-36); Mean Corpuscular Hgb 33.7 pg (27.0-32.0); Mean Corpuscular Volume 101.3 fL (80-94); Mean Platelet Vol. 8.9 fl (6.2-12.0); Monocyte# 0.52 X10^3/uL; Monocyte% 4.4 % (0-10); Neutrophil # 10.53 X10^3/uL (2.7-7.7); Neutrophil % 89.2 % (47-70); Platelet Count 170 K/mm3 (150-450); RBC Distribution Width CV 13.6 % (11.6-14.6); RBC Distribution Width SD 50.2 fl (35.1-43.9); Red Blood Count 3.86 M/mm3 (4.6-6.2); White Blood Count 11.8 K/mm3 (4.4-11.0)
[2019-02-16] MEDS: oxyCODONE 5 MG Tablet PO ×2 (05:35→20:42)
[2019-02-16] MEDS: Enoxaparin 40 MG/0.4 ML Syringe SC (05:35)
[2019-02-16 05:36] LABS: POSITIVE COUNT NO; POSITIVE DIFFERENTIAL NO; POSITIVE MORPHOLOGY NO
[2019-02-16 05:43] LABS: Anion Gap 7 (5-15); BUN 26 mg/dL (7-18); BUN/Creat Ratio 24.5 RATIO (10-20); Calcium,Total 8.8 mg/dL (8.5-10.1); Chloride 107 mmol/L (98-107); Creatinine, Serum 1.06 mg/dL (0.70-1.30); EST Glomerular Filtration Rate 74 mL/min (>60); Est Glom Filt Rate - Afr Amer 90 mL/min (>60); Estimated Creatinine Clearance 57.49 ml/min; Glucose 97 mg/dL (74-106); Potassium 4.3 mmol/L (3.5-5.1); Sodium Level 142 mmol/L (136-145)
[2019-02-16 07:29] VITALS: O2SAT 89
--- NOTE | 2019-02-16 07:32 | NURSING ---
Pt with wheezes and non productive cough this AM. Will update Dr Carlos.
[2019-02-16] MEDS: predniSONE 20 MG Tablet 10 MG PO (08:10)
--- NOTE | 2019-02-16 09:41 | NURSING ---
pt [facility]isted living notified to verify TB test. Pt just received one on 01/16/19. will need x1 here.
[2019-02-16] MEDS: Tuberculin,Purif.prot.deriv. 50 TU/ML Vial 5 ML ID (10:43)
[2019-02-16 14:12] VITALS: BP 105/53; PULSE 88; RESP 16; TEMP 36.9; O2SAT 84
--- NOTE | 2019-02-16 14:13 | PCA ---
Patients o2 was stating at 84% RN Promise Espinoza notified
[2019-02-16 14:28] VITALS: RESP 18; O2SAT 91
[2019-02-16] MEDS: Atorvastatin Calcium 10 MG Tablet PO (20:45)
[2019-02-16] MEDS: Mirtazapine 30 MG Tablet PO (20:45)
[2019-02-17] MEDS: Polyethylene Glycol 3350 17 GM PACKET PO (06:37)
[2019-02-17] MEDS: oxyCODONE 5 MG Tablet PO (06:37)
[2019-02-17] MEDS: Umeclidinium Bromide Inhaler 1 PUFF IH (06:38)
[2019-02-17] MEDS: Fluticasone/Salmeterol 232-14 Inhaler 1 PUFF IH ×2 (06:39→16:56)
[2019-02-17] MEDS: Pantoprazole Sodium 40 MG Tablet PO (06:39)
[2019-02-17] MEDS: Gabapentin 300 MG Capsule PO ×4 (06:39→20:55)
[2019-02-17] MEDS: Senna Tablet 1 TABLET PO ×2 (06:39→16:57)
[2019-02-17] MEDS: FLUoxetine 20 MG Capsule 40 MG PO (06:39)
[2019-02-17] MEDS: Enoxaparin 40 MG/0.4 ML Syringe SC (06:40)
[2019-02-17 06:50] VITALS: O2SAT 92
[2019-02-17] MEDS: predniSONE 20 MG Tablet 10 MG PO (08:32)
--- NOTE | 2019-02-17 12:30 | PCM.PN.RX ---
<Brock Sung D - Last Filed: 02/17/19 12:30> Progress Note - Pharmacy Subjective: TCU Admission Objective: Allergies latex Allergy (Verified 02/13/19 12:08) Rash naproxen sodium [From Aleve] Allergy (Verified 02/13/19 12:08) Rash Current Medications Generic Name Dose Route Start Last Admin Trade Name Freq PRN Reason Stop Dose Admin Acetaminophen 1,000 mg 02/15/19 23:19 Tylenol PO Q6H PRN PRN MILD PAIN (1-310) Alendronate Sodium 70 mg 02/21/19 06:00 Fosamax PO FR VIMAL Atorvastatin Calcium 10 mg 02/15/19 22:00 02/16/19 20:45 Lipitor PO 10 mg QHS VIMAL Administration Bisacodyl 10 mg 02/15/19 23:20 Dulcolax PO DAILY PRN Constipation Cholecalciferol 2,000 unit 02/16/19 06:00 02/17/19 06:40 Vitamin D PO 2,000 unit DAILY VIMAL Administration Emollient Ointment 1 applic 02/16/19 22:00 02/16/19 20:46 Eucerin Intensive Repair TOPICAL 1 applicatio QHS VIMAL Administration Protocol Enoxaparin Sodium 40 mg 02/16/19 06:00 02/17/19 06:40 Lovenox SC 40 mg DAILY@0600 VIMAL Administration Fluoxetine HCl 40 mg 02/16/19 06:00 02/17/19 06:39 Prozac PO 40 mg DAILY VIMAL Administration Gabapentin 300 mg 02/15/19 12:00 02/17/19 11:44 Neurontin PO 300 mg 4X/DAY VIMAL Administration Mirtazapine 30 mg 02/15/19 22:00 02/16/19 20:45 Remeron PO 30 mg QHS VIMAL Administration Nutritional Formula (Lactose Free) 120 ml 02/17/19 12:00 02/17/19 11:41 Ensure Enlive PO 120 ml 4X/DAY VIMAL Administration Oxycodone HCl 5 mg 02/15/19 11:58 02/17/19 06:37 Oxyir PO 5 mg Q4H PRN PRN Administration SEVERE PAIN (6-10/10) Pantoprazole Sodium 40 mg 02/16/19 06:00 02/17/19 06:39 Protonix PO 40 mg DAILY VIMAL Administration Polyethylene Glycol 17 gm 02/16/19 06:00 02/17/19 06:37 Miralax PO 17 gm DAILY VIMAL Administration Prednisone 40 mg 02/16/19 08:00 02/17/19 08:32 PO 02/28/19 07:59 40 mg DAILY@0800 VIMAL Administration Taper Fluticasone/Salmeterol 1 puff 02/15/19 18:00 02/17/19 06:39 Fluticasone-Salmeterol 232-14 IH 1 puff Q12 VIMAL Administration Senna 1 tablet 02/16/19 06:00 02/17/19 06:39 Senokot PO 1 tablet BID VIMAL Administration Tuberculin PPD 5 tu 02/23/19 10:00 Tubersol, Aplisol, Ppd ID 02/23/19 10:01 X1 ONE Problem List (Last Updated 02/13/19 @ 13:50 by Asya Branch MD) Debility (Acute) Fall (Acute) Left hip pain (Acute) COPD exacerbation (Acute) Hypogonadism (Chronic) Depression (Chronic) Constipation (Chronic) Vital Signs Temp Pulse Resp BP Pulse Ox 98.4 F 88 18 105/53 L 92 02/16/19 14:12 02/16/19 14:12 02/16/19 14:28 02/16/19 14:12 02/17/19 06:50 Oxygen Flow Rate (L/min) 3 Oxygen Delivery Method Nasal Cannula Weight: 58.5 kg Body Mass Index (BMI) 19.1 Sodium 142 mmol/L (136-145) 02/16/19 05:20 Potassium 4.3 mmol/L (3.5-5.1) 02/16/19 05:20 Chloride 107 mmol/L (98-107) 02/16/19 05:20 Carbon Dioxide 28.0 mmol/L (21.0-32.0) 02/16/19 05:20 Anion Gap 7 (5-15) 02/16/19 05:20 BUN 26 mg/dL (7-18) H 02/16/19 05:20 Creatinine 1.06 mg/dL (0.70-1.30) 02/16/19 05:20 Est GFR (MDRD) Af Amer 90 mL/min (>60) 02/16/19 05:20 Est GFR (MDRD) Non-Af 74 mL/min (>60) 02/16/19 05:20 BUN/Creatinine Ratio 24.5 RATIO (10-20) H 02/16/19 05:20 Glucose 97 mg/dL (74-106) 02/16/19 05:20 Assessment/Plan: 1) Pain APAP for mild pain, oxycodone for severe pain, gabapentin. Continue to monitor prn medication use, daily pain scores. 2) Pulm Prednisone, umeclidinium, fluticasone/salmeterol. Continue to monitor for shortness of breath. 3) Lipids Atorvastatin. Continue to monitor lipids. 4) Osteoporosis Alendronate. Continue to monitor clinically 5) Lipids Atorvastatin. Continue to monitor lipids. 6) GI Pantoprazole. Continue to monitor s/s GI distress. 7DVT PPx Enoxaparin. Continue to monitor for bleeding/clot. 8) Nutrition D, Ensure. Continue to monitor clinically. Psychotropic Medications: 9) Depression/Insomnia Fluoxetine, mirtazapine. Continue to monitor s/s depression, s/s serotonin syndrome with dual serotonergic agent use. Unnecessary Medications: None Bowel Regimen: 10) Senna, PEG, prn bisacodyl. Continue to monitor prn medication use, for constipation/diarrhea. Date of Note:: 02/17/19 - Provider Comments Provider responsibility: Provider responsible to enter orders to implement recommendations <Jerel Carlos Chi - Last Filed: 02/17/19 17:44> Progress Note - Pharmacy Subjective: [] Objective: Allergies latex Allergy (Verified 02/13/19 12:08) Rash naproxen sodium [From Aleve] Allergy (Verified 02/13/19 12:08) Rash Current Medications Generic Name Dose Route Start Last Admin Trade Name Freq PRN Reason Stop Dose Admin Acetaminophen 1,000 mg 02/15/19 23:19 Tylenol PO Q6H PRN PRN MILD PAIN (1-3/10) Alendronate Sodium 70 mg 02/21/19 06:00 Fosamax PO FR VIMAL Atorvastatin Calcium 10 mg 02/15/19 22:00 02/16/19 20:45 Lipitor PO 10 mg QHS VIMAL Administration Bisacodyl 10 mg 02/15/19 23:20 Dulcolax PO DAILY PRN Constipation Cholecalciferol 2,000 unit 02/16/19 06:00 02/17/19 06:40 Vitamin D PO 2,000 unit DAILY VIMAL Administration Emollient Ointment 1 applic 02/16/19 22:00 02/16/19 20:46 Eucerin Intensive Repair TOPICAL 1 applicatio QHS VIMAL Administration Protocol Enoxaparin Sodium 40 mg 02/16/19 06:00 02/17/19 06:40 Lovenox SC 40 mg DAILY@0600 VIMAL Administration Fluoxetine HCl 40 mg 02/16/19 06:00 02/17/19 06:39 Prozac PO 40 mg DAILY VIMAL Administration Gabapentin 300 mg 02/15/19 12:00 02/17/19 16:56 Neurontin PO 300 mg 4X/DAY VIMAL Administration Mirtazapine 30 mg 02/15/19 22:00 02/16/19 20:45 Remeron PO 30 mg QHS VIMAL Administration Nutritional Formula (Lactose Free) 120 ml 02/17/19 12:00 02/17/19 16:56 Ensure Enlive PO 120 ml 4X/DAY VIMAL Administration Oxycodone HCl 5 mg 02/15/19 11:58 02/17/19 06:37 Oxyir PO 5 mg Q4H PRN PRN Administration SEVERE PAIN (6-1010) Pantoprazole Sodium 40 mg 02/16/19 06:00 02/17/19 06:39 Protonix PO 40 mg DAILY VIMAL Administration Polyethylene Glycol 17 gm 02/16/19 06:00 02/17/19 06:37 Miralax PO 17 gm DAILY VIMAL Administration Prednisone 40 mg 02/16/19 08:00 02/17/19 08:32 PO 02/28/19 07:59 40 mg DAILY@0800 VIMAL Administration Taper Fluticasone/Salmeterol 1 puff 02/15/19 18:00 02/17/19 16:56 Fluticasone-Salmeterol 232-14 IH 1 puff Q12 VIMAL Administration Senna 1 tablet 02/16/19 06:00 02/17/19 16:57 Senokot PO 1 tablet BID VIMAL Administration Tuberculin PPD 5 tu 02/23/19 10:00 Tubersol, Aplisol, Ppd ID 02/23/19 10:01 X1 ONE Problem List (Last Updated 02/13/19 @ 13:50 by Asya Barnch MD) Debility (Acute) Fall (Acute) Left hip pain (Acute) COPD exacerbation (Acute) Hypogonadism (Chronic) Depression (Chronic) Constipation (Chronic) Vital Signs Temp Pulse Resp BP Pulse Ox 98.8 F 65 18 105/52 L 88 02/17/19 15:57 02/17/19 15:57 02/17/19 15:57 02/17/19 15:57 02/17/19 15:57 Oxygen Flow Rate (L/min) 3.5 Oxygen Delivery Method Room Air Weight: 58.5 kg Body Mass Index (BMI) 19.1 Sodium 142 mmol/L (136-145) 02/16/19 05:20 Potassium 4.3 mmol/L (3.5-5.1) 02/16/19 05:20 Chloride 107 mmol/L (98-107) 02/16/19 05:20 Carbon Dioxide 28.0 mmol/L (21.0-32.0) 02/16/19 05:20 Anion Gap 7 (5-15) 02/16/19 05:20 BUN 26 mg/dL (7-18) H 02/16/19 05:20 Creatinine 1.06 mg/dL (0.70-1.30) 02/16/19 05:20 Est GFR (MDRD) Af Amer 90 mL/min (>60) 02/16/19 05:20 Est GFR (MDRD) Non-Af 74 mL/min (>60) 02/16/19 05:20 BUN/Creatinine Ratio 24.5 RATIO (10-20) H 02/16/19 05:20 Glucose 97 mg/dL (74-106) 02/16/19 05:20 Assessment/Plan: Psychotropic Medications: Unnecessary Medications: Bowel Regimen: - Provider Comments Provider responsibility: Provider responsible to enter orders to implement recommendations Provider Comments to Recommendations by Pharmacy: Agree
[2019-02-17 15:57] VITALS: BP 105/52; PULSE 65; RESP 18; TEMP 37.1; O2SAT 88
[2019-02-17] MEDS: Atorvastatin Calcium 10 MG Tablet PO (20:55)
[2019-02-17] MEDS: Mirtazapine 30 MG Tablet PO (20:55)
[2019-02-18] MEDS: oxyCODONE 5 MG Tablet PO (04:18)
[2019-02-18] MEDS: Fluticasone/Salmeterol 232-14 Inhaler 1 PUFF IH (04:19)
[2019-02-18] MEDS: Umeclidinium Bromide Inhaler 1 PUFF IH (04:19)
[2019-02-18] MEDS: FLUoxetine 20 MG Capsule 40 MG PO (04:20)
[2019-02-18] MEDS: Pantoprazole Sodium 40 MG Tablet PO (04:21)
[2019-02-18] MEDS: Enoxaparin 40 MG/0.4 ML Syringe SC (04:21)
[2019-02-18] MEDS: Senna Tablet 1 TABLET PO ×2 (04:21→16:28)
[2019-02-18] MEDS: Gabapentin 300 MG Capsule PO ×4 (04:22→21:35)
[2019-02-18] MEDS: predniSONE 20 MG Tablet 10 MG PO (07:44)
[2019-02-18 08:19] VITALS: O2SAT 87
[2019-02-18 09:09] VITALS: PULSE 78; RESP 20; O2SAT 88
--- NOTE | 2019-02-18 11:50 | NURSING ---
Addendum entered by Arlene Huynh 02/18/19 11:53: augustine states pt is to be full code Original Note: message left with sister Duffy regarding pts code status, awaiting return call.
--- NOTE | 2019-02-18 15:32 | NURSING ---
Addendum entered by Arlene Huynh 02/18/19 17:01: results back, new orders for ceftriaxone 1gm IV daily and azithromax IV 500mg iv daily. give first dose now. Original Note: Addendum entered by Arlene Huynh 02/18/19 16:30: back from xray sat 85% on nonrebreather. awaiting results Original Note: Addendum entered by Arlene Huynh 02/18/19 15:39: Dr Carlos new order to get chest xray, sched duonebs and albuterol PRN. Original Note: pt resting in bed, pulse ox 78% on 4 liters. pt denies SOB, Resp therapy here increased oxygen 5L on NC, no changed. Applied venturi mask at 50%. Dr carlos notified. Lungs slightly diminished, possible fine crackles in LLL.
[2019-02-18 15:52] VITALS: PULSE 71; RESP 22
[2019-02-18] MEDS: Ipratropium/Albuterol Sulfate 3 ML AMPUL.NEB INHALATION (15:52)
[2019-02-18 16:00] VITALS: BP 115/62; PULSE 63; RESP 20; TEMP 37.1; O2SAT 82
--- NOTE | 2019-02-18 16:03 | RAD_ITS ---
STUDY: X-RAY CHEST REASON FOR EXAM: Male, 63 years old. Low oxygen saturation TECHNIQUE: PA and lateral views of the chest. COMPARISON: February 14, 2019 FINDINGS: Lungs are mildly hyperinflated. Mild right basilar airspace disease with trace effusion. Left lung is clear. There is no demonstrated pleural abnormality. There is borderline cardiomegaly. Normal mediastinum and shanna. Normal visualized pulmonary arteries. Normal visualized aortic arch and descending thoracic aorta. There are diffuse degenerative changes of the visualized thoracic spine. Normal visualized ribs, clavicles, and shoulders. There is no demonstrated abnormality of the visualized soft tissue structures of the upper abdomen. RAD/Chest PA and Lateral IMPRESSION: COPD. Development of right lower lobe airspace disease and small effusion Electronically Signed: Jarrod Lopez DO at 16:43 EDT Tel , Service support ,
[2019-02-18 17:25] LABS: Allen Test POS; Base Excess -1 mmol/L (-2 to +2); Bicarbonate 22.7 mmol/L (22-26); Blood Gas Specimen Type ART; O2 Delivery Device NRB Mask; PO2 49 mmHG (75-100); SITE R Radial; SO2 88 % (95-99); Time Given 1712; Total Carbon Dioxide 24 mmol/L; pCO2 30.5 mmHg (35-45); pH 7.48 (7.35-7.45)
[2019-02-18] MEDS: Ceftriaxone 1 GM/50 ML BAG IV (17:36)
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
[2019-02-18] MEDS: 0.9% NaCl Peripheral Flush Adult/Peds IV (17:40)
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
[2019-02-18 17:46] VITALS: RESP 20; O2SAT 85
--- NOTE | 2019-02-18 17:47 | NURSING ---
pt eating supper, placed on NC 12l via NC. sat 85%. when done will reapply nonrebreather per resp therapy and then wean when possible per dr pickens
--- NOTE | 2019-02-18 17:49 | CPS ---
Blood gas results given to . Patient on NRB at time of gas. Discussed weaning oxygen to patient tolerance with . said to send patient to ER if condition worsens or signs of distress show.
--- NOTE | 2019-02-18 18:57 | NURSING ---
pt placed back on nonrebreather @ 15 liters per resp for now, sat 89%. vamshi RT will be up to check later for weaning
[2019-02-18 19:45] VITALS: PULSE 78; RESP 20
[2019-02-18] MEDS: Albuterol 2.5 MG/3 ML VIAL.NEB. INHALATION (19:50)
--- NOTE | 2019-02-18 21:11 | NURSING ---
Addendum entered by Rachael Butcher 02/18/19 23:42: Pt remains on 15L nonrebreather, oxygen sat 95%. Original Note: Addendum entered by Rachael Butcher 02/18/19 21:22: Dr Carlos updated on pt status. Pt remains in no distress, remains comfortable at this time. Per Dr Carlos, can send pt to ER if pt shows signs of distress. Original Note: Pt remains on 15L nonrebreather mask, oxygen saturation is 90%. Will continue to monitor.
[2019-02-18] MEDS: Atorvastatin Calcium 10 MG Tablet PO (21:35)
[2019-02-18] MEDS: Mirtazapine 30 MG Tablet PO (21:35)
--- NOTE | 2019-02-19 02:50 | NURSING ---
Pt continues to be on 15L nonrebreather, oxygen sats 99%. Will continue to monitor.
[2019-02-19] MEDS: FLUoxetine 20 MG Capsule 40 MG PO (06:27)
[2019-02-19] MEDS: Enoxaparin 40 MG/0.4 ML Syringe SC (06:27)
[2019-02-19] MEDS: Senna Tablet 1 TABLET PO ×2 (06:27→16:43)
[2019-02-19] MEDS: Gabapentin 300 MG Capsule PO ×4 (06:27→20:12)
[2019-02-19] MEDS: Pantoprazole Sodium 40 MG Tablet PO (06:27)
--- NOTE | 2019-02-19 06:37 | NURSING ---
Pt switched to 4L oxygen via nasal cannula at this time from nonrebreather. Pt's pulse ox 94%. Will continue to monitor.
--- NOTE | 2019-02-19 07:08 | NURSING ---
Pt voided 200ml dark yellow clear urine. Encouraged to drink more water. Voiced understanding of this. RN aware, continuing to monitor.
[2019-02-19 07:25] VITALS: PULSE 63; RESP 16; O2SAT 91
[2019-02-19] MEDS: Ipratropium/Albuterol Sulfate 3 ML AMPUL.NEB INHALATION ×2 (07:25→19:15)
[2019-02-19] MEDS: predniSONE 20 MG Tablet 10 MG PO (07:34)
[2019-02-19] MEDS: Ceftriaxone 1 GM/50 ML BAG IV (08:58)
[2019-02-19] MEDS: 0.9% NaCl Peripheral Flush Adult/Peds IV ×2 (09:00→20:55)
[2019-02-19 09:17] VITALS: RESP 18; O2SAT 94
--- NOTE | 2019-02-19 12:22 | CASEMGMT ---
Social Work: Clinical update sent through [employer] email. Auth # [id number]
--- NOTE | 2019-02-19 13:55 | CASEMGMT ---
Plan of care meeting held today with pt and sister present. Pt is receiving PT/OT and progressing with therapy. He is currently receiving IV ATB. Pt lives at home alone and attends [facility] 3x week. Pt plans to return home upon d/c. No d/c date set at this time. Pt and sister made aware that insurance update is due today and continued stay is not guaranteed. Will continue with treatment plan at this time. CLARIBEL Bowers
[2019-02-19 15:05] VITALS: BP 107/50; PULSE 65; RESP 18; TEMP 36.6; O2SAT 95
[2019-02-19 16:46] VITALS: O2SAT 95
[2019-02-19 19:15] VITALS: PULSE 62; RESP 18
[2019-02-19] MEDS: Mirtazapine 30 MG Tablet PO (20:12)
[2019-02-19] MEDS: Atorvastatin Calcium 10 MG Tablet PO (20:12)
[2019-02-20 01:06] VITALS: PULSE 62; RESP 18
[2019-02-20] MEDS: Ipratropium/Albuterol Sulfate 3 ML AMPUL.NEB INHALATION ×4 (01:06→18:55)
[2019-02-20] MEDS: Polyethylene Glycol 3350 17 GM PACKET PO (05:26)
[2019-02-20] MEDS: Acetaminophen 500 MG Tablet 1000 MG PO (05:31)
[2019-02-20] MEDS: Pantoprazole Sodium 40 MG Tablet PO (05:31)
[2019-02-20] MEDS: Senna Tablet 1 TABLET PO ×2 (05:31→17:32)
[2019-02-20] MEDS: Enoxaparin 40 MG/0.4 ML Syringe SC (05:32)
[2019-02-20] MEDS: Gabapentin 300 MG Capsule PO ×3 (05:32→20:35)
[2019-02-20] MEDS: FLUoxetine 20 MG Capsule 40 MG PO (05:32)
[2019-02-20 06:58] VITALS: PULSE 60; RESP 16; O2SAT 98
[2019-02-20] MEDS: predniSONE 20 MG Tablet 10 MG PO (08:28)
[2019-02-20] MEDS: Ceftriaxone 1 GM/50 ML BAG IV (10:11)
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
[2019-02-20 13:58] VITALS: PULSE 62; RESP 16; O2SAT 95
--- NOTE | 2019-02-20 15:15 | CASEMGMT ---
Insurance: Continued stay approved with update due 02/24. Auth# [id number] CLARIBEL Bowers
[2019-02-20 15:18] VITALS: BP 93/53; PULSE 63; RESP 16; TEMP 36.9; O2SAT 95
[2019-02-20 19:06] VITALS: PULSE 60; RESP 18
[2019-02-20] MEDS: 0.9% NaCl Peripheral Flush Adult/Peds IV (20:28)
[2019-02-20] MEDS: Mirtazapine 30 MG Tablet PO (20:35)
[2019-02-20] MEDS: Atorvastatin Calcium 10 MG Tablet PO (20:35)
[2019-02-21] MEDS: Polyethylene Glycol 3350 17 GM PACKET PO (06:25)
[2019-02-21] MEDS: Pantoprazole Sodium 40 MG Tablet PO (06:26)
[2019-02-21] MEDS: FLUoxetine 20 MG Capsule 40 MG PO (06:26)
[2019-02-21] MEDS: Gabapentin 300 MG Capsule PO ×4 (06:26→20:33)
[2019-02-21] MEDS: Senna Tablet 1 TABLET PO ×2 (06:26→16:58)
[2019-02-21] MEDS: Enoxaparin 40 MG/0.4 ML Syringe SC (06:26)
[2019-02-21] MEDS: Alendronate Sodium 70 MG Tablet PO (06:26)
[2019-02-21 06:40] VITALS: PULSE 58; RESP 20; O2SAT 95
[2019-02-21] MEDS: Ipratropium/Albuterol Sulfate 3 ML AMPUL.NEB INHALATION ×3 (06:40→18:51)
[2019-02-21] MEDS: predniSONE 20 MG Tablet 10 MG PO (09:43)
[2019-02-21] MEDS: Ceftriaxone 1 GM/50 ML BAG IV (09:44)
--- NOTE | 2019-02-21 12:42 | CASEMGMT ---
BIMS and PHQ9 interviews completed for MDS assessment. CLARIBEL Bowers
[2019-02-21 13:15] VITALS: PULSE 62; RESP 18
[2019-02-21 18:51] VITALS: PULSE 65; RESP 18
[2019-02-21] MEDS: Mirtazapine 30 MG Tablet PO (20:33)
[2019-02-21] MEDS: Atorvastatin Calcium 10 MG Tablet PO (20:33)
[2019-02-22 01:40] VITALS: PULSE 64; RESP 16
[2019-02-22] MEDS: Ipratropium/Albuterol Sulfate 3 ML AMPUL.NEB INHALATION ×4 (01:40→19:36)
[2019-02-22] MEDS: Enoxaparin 40 MG/0.4 ML Syringe SC (05:05)
[2019-02-22] MEDS: Gabapentin 300 MG Capsule PO ×4 (05:06→20:18)
[2019-02-22] MEDS: FLUoxetine 20 MG Capsule 40 MG PO (05:06)
[2019-02-22] MEDS: Senna Tablet 1 TABLET PO ×2 (05:06→17:27)
[2019-02-22] MEDS: Pantoprazole Sodium 40 MG Tablet PO (05:06)
[2019-02-22] MEDS: Polyethylene Glycol 3350 17 GM PACKET PO (05:07)
[2019-02-22 06:45] VITALS: PULSE 66; RESP 16; O2SAT 95
[2019-02-22] MEDS: Ceftriaxone 1 GM/50 ML BAG IV (09:38)
[2019-02-22] MEDS: predniSONE 20 MG Tablet 10 MG PO (09:38)
[2019-02-22 13:35] VITALS: PULSE 89; RESP 16
[2019-02-22 16:00] VITALS: BP 93/58; PULSE 52; RESP 20; TEMP 36.8; O2SAT 94
[2019-02-22 19:36] VITALS: PULSE 54; RESP 16; O2SAT 95
[2019-02-22 20:17] VITALS: PULSE 63; O2SAT 94
[2019-02-22] MEDS: Mirtazapine 30 MG Tablet PO (20:18)
[2019-02-22] MEDS: Atorvastatin Calcium 10 MG Tablet PO (20:18)
[2019-02-22] MEDS: 0.9% NaCl Peripheral Flush Adult/Peds IV (20:24)
[2019-02-23 00:52] VITALS: PULSE 62; RESP 18; O2SAT 95
[2019-02-23] MEDS: Ipratropium/Albuterol Sulfate 3 ML AMPUL.NEB INHALATION ×4 (00:52→18:38)
[2019-02-23] MEDS: Polyethylene Glycol 3350 17 GM PACKET PO (06:18)
[2019-02-23] MEDS: Enoxaparin 40 MG/0.4 ML Syringe SC (06:22)
[2019-02-23] MEDS: Gabapentin 300 MG Capsule PO ×4 (06:23→19:40)
[2019-02-23] MEDS: Pantoprazole Sodium 40 MG Tablet PO (06:23)
[2019-02-23] MEDS: FLUoxetine 20 MG Capsule 40 MG PO (06:23)
[2019-02-23] MEDS: Senna Tablet 1 TABLET PO ×2 (06:23→17:48)
[2019-02-23 06:45] VITALS: PULSE 48; RESP 19; O2SAT 95
[2019-02-23 07:08] LABS: Hematocrit 37.1 % (40-54); Hemoglobin 12.4 g/dl (13.0-16.5); Mean Corp Hgb Conc 33.4 g/gl (32-36); Mean Corpuscular Hgb 33.6 pg (27.0-32.0); Mean Corpuscular Volume 100.5 fL (80-94); Mean Platelet Vol. 8.7 fl (6.2-12.0); Platelet Count 250 K/mm3 (150-450); RBC Distribution Width CV 12.8 % (11.6-14.6); RBC Distribution Width SD 46.1 fl (35.1-43.9); Red Blood Count 3.69 M/mm3 (4.6-6.2); White Blood Count 10.8 K/mm3 (4.4-11.0)
[2019-02-23 07:09] LABS: Differential Indicated MANUAL DIFF; POSITIVE COUNT YES; POSITIVE DIFFERENTIAL NO; POSITIVE MORPHOLOGY YES
[2019-02-23 07:26] LABS: Anion Gap 7 (5-15); BUN 27 mg/dL (7-18); BUN/Creat Ratio 31.1 RATIO (10-20); Calcium,Total 8.5 mg/dL (8.5-10.1); Chloride 102 mmol/L (98-107); Creatinine, Serum 0.87 mg/dL (0.70-1.30); EST Glomerular Filtration Rate 94 mL/min (>60); Est Glom Filt Rate - Afr Amer 113 mL/min (>60); Estimated Creatinine Clearance 68.32 ml/min; Glucose 105 mg/dL (74-106); Sodium Level 138 mmol/L (136-145)
[2019-02-23 07:48] LABS: Lymphocyte 31 % (19-41); Monocyte 3 % (0-10); Neutrophil-Segmented 65 % (47-70); Plasma Cell 1 %; Total Cells Counted 100 (MANUAL DIFF)
[2019-02-23 07:49] LABS: Atypical Lymphocyte RARE %; Macrocytosis RARE; Platelet Estimate ADEQUATE (ADEQ)
[2019-02-23 07:51] LABS: Absolute Lymphocyte Count 3.34 X10^3/ul (0.83-4.51)
[2019-02-23] MEDS: Tuberculin,Purif.prot.deriv. 50 TU/ML Vial 5 ML ID (09:28)
[2019-02-23] MEDS: predniSONE 20 MG Tablet 10 MG PO (09:28)
[2019-02-23] MEDS: Ceftriaxone 1 GM/50 ML BAG IV (09:29)
[2019-02-23 13:35] VITALS: PULSE 48; RESP 20
[2019-02-23] MEDS: Acetaminophen 500 MG Tablet 1000 MG PO (14:27)
[2019-02-23] MEDS: 0.9% NaCl Peripheral Flush Adult/Peds IV (14:27)
[2019-02-23 15:39] VITALS: BP 102/56; PULSE 57; RESP 18; TEMP 36.8; O2SAT 95
[2019-02-23 18:38] VITALS: PULSE 61; RESP 16; O2SAT 96
[2019-02-23] MEDS: Mirtazapine 30 MG Tablet PO (19:40)
[2019-02-23] MEDS: Atorvastatin Calcium 10 MG Tablet PO (19:40)
[2019-02-24] MEDS: Bisacodyl 5 MG Tablet 10 MG PO (06:13)
[2019-02-24] MEDS: Gabapentin 300 MG Capsule PO ×4 (06:14→21:09)
[2019-02-24] MEDS: Polyethylene Glycol 3350 17 GM PACKET PO (06:14)
[2019-02-24] MEDS: FLUoxetine 20 MG Capsule 40 MG PO (06:14)
[2019-02-24] MEDS: Senna Tablet 1 TABLET PO ×2 (06:14→17:16)
[2019-02-24] MEDS: Pantoprazole Sodium 40 MG Tablet PO (06:14)
[2019-02-24] MEDS: Enoxaparin 40 MG/0.4 ML Syringe SC (06:17)
[2019-02-24 07:02] VITALS: PULSE 61; RESP 16; O2SAT 92
[2019-02-24] MEDS: Ipratropium/Albuterol Sulfate 3 ML AMPUL.NEB INHALATION ×2 (07:02→19:50)
[2019-02-24] MEDS: predniSONE 20 MG Tablet 10 MG PO (08:41)
[2019-02-24] MEDS: Ceftriaxone 1 GM/50 ML BAG IV (08:48)
--- NOTE | 2019-02-24 11:00 | NURSING ---
Reports LBM 02/19/19. States this is normal for him. received dulcolax this AM. Refusing offer of prune juice or anything more at this time. States Im ok.
--- NOTE | 2019-02-24 13:15 | CASEMGMT ---
Insurance: Clinical update sent via secure email. Auth # [id number] CLARIBEL Bowers
[2019-02-24 14:10] VITALS: BP 103/52; PULSE 55; RESP 18; TEMP 36.9; O2SAT 95
[2019-02-24 14:54] LABS: Pathologist Review Reviewed
[2019-02-24 20:00] VITALS: PULSE 68; RESP 16; O2SAT 92
[2019-02-24] MEDS: Mirtazapine 30 MG Tablet PO (21:09)
[2019-02-24] MEDS: 0.9% NaCl Peripheral Flush Adult/Peds IV (21:09)
[2019-02-24] MEDS: Atorvastatin Calcium 10 MG Tablet PO (21:09)
[2019-02-25] MEDS: Enoxaparin 40 MG/0.4 ML Syringe SC (06:25)
[2019-02-25] MEDS: Senna Tablet 1 TABLET PO ×2 (06:25→17:01)
[2019-02-25] MEDS: Polyethylene Glycol 3350 17 GM PACKET PO (06:25)
[2019-02-25] MEDS: Gabapentin 300 MG Capsule PO ×4 (06:25→20:22)
[2019-02-25] MEDS: Pantoprazole Sodium 40 MG Tablet PO (06:25)
[2019-02-25] MEDS: FLUoxetine 20 MG Capsule 40 MG PO (06:25)
[2019-02-25 07:12] VITALS: PULSE 65; RESP 16; O2SAT 96
[2019-02-25] MEDS: Ipratropium/Albuterol Sulfate 3 ML AMPUL.NEB INHALATION ×2 (07:12→19:20)
[2019-02-25] MEDS: Ceftriaxone 1 GM/50 ML BAG IV (09:03)
[2019-02-25] MEDS: predniSONE 20 MG Tablet 10 MG PO (09:03)
[2019-02-25 15:52] VITALS: BP 109/62; PULSE 60; RESP 20; TEMP 36.7; O2SAT 91
--- NOTE | 2019-02-25 16:15 | CHAPLAIN ---
Type of Pastoral Visit _x__ Initial Visit ___ Follow-up Visit ___ On-call Visit ___ General Patient Visit ___ Spiritual Assessment ___ Family Conference ___ Bereavement ___ Rapid Response ___ Code Blue ___ Other (describe below) Pastoral Care Referral From _x__ Patient ___ Family ___ Nurse ___ Physician ___ Machinery Dismantler ___ Histopathology Technician ___ Other (describe below) Sacrament/Intervention _x__ Active listening ___ Anointing ___ Orthodox ___ Bereavement ___ Communion ___ Jennifer exploration ___ _x__ Life review _x__ Prayer ___ Reconciliation ___ Sacrament of Sick _x__ Supportive presence ___ Wedding ___ Other (describe below) Pastoral Comments
--- NOTE | 2019-02-25 16:48 | CASEMGMT ---
Insurance Continued stay approved with next update due 02/27. Auth# [id number] Kelvin [place]
[2019-02-25 19:20] VITALS: PULSE 68; RESP 16; O2SAT 91
[2019-02-25] MEDS: Mirtazapine 30 MG Tablet PO (20:22)
[2019-02-25] MEDS: Atorvastatin Calcium 10 MG Tablet PO (20:22)
[2019-02-26] MEDS: Gabapentin 300 MG Capsule PO ×4 (06:07→21:12)
[2019-02-26] MEDS: Enoxaparin 40 MG/0.4 ML Syringe SC (06:07)
[2019-02-26] MEDS: FLUoxetine 20 MG Capsule 40 MG PO (06:07)
[2019-02-26] MEDS: Pantoprazole Sodium 40 MG Tablet PO (06:07)
[2019-02-26] MEDS: Senna Tablet 1 TABLET PO ×2 (06:07→17:56)
[2019-02-26] MEDS: Polyethylene Glycol 3350 17 GM PACKET PO (06:07)
[2019-02-26 06:38] VITALS: PULSE 58; RESP 19; O2SAT 92
[2019-02-26] MEDS: Ipratropium/Albuterol Sulfate 3 ML AMPUL.NEB INHALATION (06:38)
[2019-02-26] MEDS: predniSONE 20 MG Tablet 10 MG PO (07:38)
[2019-02-26] MEDS: 0.9% NaCl Peripheral Flush Adult/Peds IV (07:40)
[2019-02-26 16:00] VITALS: BP 113/63; PULSE 55; RESP 18; TEMP 36.8; O2SAT 93
[2019-02-26 18:40] VITALS: PULSE 74; RESP 18; O2SAT 93
[2019-02-26] MEDS: Atorvastatin Calcium 10 MG Tablet PO (21:12)
[2019-02-26] MEDS: Mirtazapine 30 MG Tablet PO (21:12)
[2019-02-26 21:18] VITALS: PULSE 64; O2SAT 96
[2019-02-27] MEDS: FLUoxetine 20 MG Capsule 40 MG PO (05:45)
[2019-02-27] MEDS: Enoxaparin 40 MG/0.4 ML Syringe SC (05:45)
[2019-02-27] MEDS: Polyethylene Glycol 3350 17 GM PACKET PO (05:45)
[2019-02-27] MEDS: Pantoprazole Sodium 40 MG Tablet PO (05:45)
[2019-02-27] MEDS: Senna Tablet 1 TABLET PO ×2 (05:45→17:16)
[2019-02-27] MEDS: Gabapentin 300 MG Capsule PO ×4 (05:45→20:40)
[2019-02-27] MEDS: predniSONE 20 MG Tablet 10 MG PO (08:29)
--- NOTE | 2019-02-27 12:16 | CASEMGMT ---
Insurance: Clinical update sent via secure email. AUth # [id number] CLARIBEL Bowers
[2019-02-27 13:30] VITALS: O2SAT 95
[2019-02-27 15:16] VITALS: BP 117/64; PULSE 60; RESP 16; TEMP 37.2; O2SAT 93
--- NOTE | 2019-02-27 15:30 | CASEMGMT ---
Insurance Continued stay denied with LCD 03/01 and D/C 03/02. Auth# [id number] CLARIBEL Bowers
--- NOTE | 2019-02-27 15:33 | CASEMGMT ---
Social Work Pt continued stay denied by insurance. FARHANA met with pt and he is agreeable to d/c on Sunday03/02/19. Pt lives in assisted living at [facility] and will return there. Therapy is recommended continued PT and pt could benefit from outpatient PT. VM left with pt sister to discuss d/c plans with request to return call to FARHANA. PT has home O2 and walker. No need for DME. FARHANA will continue to follow for d/c planning. CLARIBEL Bowers
--- NOTE | 2019-02-27 16:24 | PCM.DC ---
- Discharge Diagnoses Current Active Problems: Current Active and Chronic Problems (Last Updated 02/13/19 @ 13:50 by Asya Branch MD) Debility (Acute) Fall (Acute) Left hip pain (Acute) COPD exacerbation (Acute) Hypogonadism (Chronic) Depression (Chronic) Constipation (Chronic) Tinea unguium (Chronic) Toe pain, right (Chronic) Toe pain, left (Chronic) You will use the following diet at home:: No restrictions, Regular Your food should be the consistency of: Regular Your liquids should be the consistency of: Regular/Thin Discharge Activity: Return to Normal Activity, May Shower, Use Walker Weight Bearing Status: Weight bearing as tolerated Call your doctor if you observe: Fever of 101 or Higher, Inability to urinate, Inability to have a bowel movement, Shortness of breath, Chest pain, Uncontrolled pain Allergies/Adverse Reactions: Allergies latex Allergy (Verified 02/13/19 12:08) Rash naproxen sodium [From Aleve] Allergy (Verified 02/13/19 12:08) Rash Medications to take at Discharge Fluoxetine [Prozac] 40 mg PO DAILY 05/06/14 Gabapentin [Neurontin] 300 mg PO 4X/DAY 05/06/14 Mirtazapine 30 mg PO QHS 04/02/16 Budesonide/Formoterol 160/4.5 [Symbicort 160/4.5 Mcg Inhaler (SP)] 2 puff IH BID 04/05/17 cholecalciferol (vitamin D3) 1,000 unit tablet 2,000 unit PO DAILY tab 11/13/17 Atorvastatin Calcium [Lipitor] 10 mg PO QHS 04/06/18 Alendronate Sodium [Fosamax] 70 mg PO FR 04/07/18 Docusate Sodium [Colace] 100 mg PO BID 02/13/19 Omeprazole [Prilosec] 40 mg PO DAILY 02/13/19 Budesonide/Formoterol 160/4.5 [Symbicort 160/4.5 Mcg Inhaler (SP)] 2 puff INHALATION BID 02/15/19 Tiotropium [place] [Spiriva 18 MCG] 1 puff INHALATION DAILY 02/15/19 Acetaminophen [Tylenol] 1,000 mg PO Q6H PRN PRN tablet 02/27/19 Albuterol Aerosols [Ventolin Aerosols] 2.5 mg INHALATION Q2H PRN PRN vial.[facility]. 02/27/19 Ipratropium/Albuterol Sulfate [Duoneb] 3 ml INHALATION BID.RT #60 ampul.[facility] 02/27/19 The following prescriptions were given: Ipratropium/Albuterol Sulfate [Duoneb] 3 ml INHALATION BID.RT #60 ampul.[facility] Primary Care Physician: Phu Cooper MD [Primary Care Provider] - Please follow up with your Primary Care Physician in: 1 week. Test Results: Test results from this visit will be discussed in further detail at your follow-up appointment, if applicable. Please Follow Up With: Byron Hicks MD When: 2 weeks. Proposed Discharge Date: 03/02/19
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
[2019-02-27] MEDS: Atorvastatin Calcium 10 MG Tablet PO (20:40)
[2019-02-27] MEDS: Mirtazapine 30 MG Tablet PO (20:40)
[2019-02-27 21:55] VITALS: PULSE 56; RESP 18
[2019-02-27] MEDS: Ipratropium/Albuterol Sulfate 3 ML AMPUL.NEB INHALATION (21:55)
[2019-02-28] MEDS: Polyethylene Glycol 3350 17 GM PACKET PO (05:37)
[2019-02-28] MEDS: Gabapentin 300 MG Capsule PO ×4 (05:37→20:11)
[2019-02-28] MEDS: FLUoxetine 20 MG Capsule 40 MG PO (05:37)
[2019-02-28] MEDS: Pantoprazole Sodium 40 MG Tablet PO (05:37)
[2019-02-28] MEDS: Alendronate Sodium 70 MG Tablet PO (05:37)
[2019-02-28] MEDS: Senna Tablet 1 TABLET PO ×2 (05:37→16:51)
[2019-02-28] MEDS: Enoxaparin 40 MG/0.4 ML Syringe SC (05:39)
[2019-02-28 06:35] VITALS: PULSE 60; RESP 16; O2SAT 96
[2019-02-28] MEDS: Ipratropium/Albuterol Sulfate 3 ML AMPUL.NEB INHALATION ×2 (06:35→18:50)
--- NOTE | 2019-02-28 06:43 | MDS.RN ---
Information for the mds was obtained from review of the clinical record, interview of resident, staff, and direct observation of resident's care.
--- NOTE | 2019-02-28 12:58 | CASEMGMT ---
Addendum entered by Janeen Jackson 02/28/19 13:01: Order for home health PT to be faxed and Nelsy states they will set up home health through their agency. CLARIBEL Bowers Original Note: Social Work Phone call to [facility] and they are able to accept pt back on Sunday03/02/19. Pt is able to receive home health PT while there. Phone call to pt sister Tati and she is agreeable to d/c on 03/02 and will transport pt back to [place]. Pt does attend [facility] and sister will arrange for pt to go back there when she and pt feel ready. Orders faxed to Nelsy at [facility]. No further d/c needs. CLARIBEL Bowers
[2019-02-28 14:21] VITALS: BP 118/66; PULSE 66; RESP 18; TEMP 36.9; O2SAT 93
--- NOTE | 2019-02-28 17:50 | NURSING ---
removed personal alarm, pt has been using call light appropriately.Instructed pt to continue to call for assist.
[2019-02-28 18:50] VITALS: PULSE 63; RESP 20
[2019-02-28] MEDS: Mirtazapine 30 MG Tablet PO (20:11)
[2019-02-28] MEDS: Atorvastatin Calcium 10 MG Tablet PO (20:11)
[2019-03-01] MEDS: Senna Tablet 1 TABLET PO (05:32)
[2019-03-01] MEDS: Pantoprazole Sodium 40 MG Tablet PO (05:32)
[2019-03-01] MEDS: Gabapentin 300 MG Capsule PO ×4 (05:32→20:49)
[2019-03-01] MEDS: FLUoxetine 20 MG Capsule 40 MG PO (05:32)
[2019-03-01] MEDS: Polyethylene Glycol 3350 17 GM PACKET PO (05:33)
[2019-03-01] MEDS: Enoxaparin 40 MG/0.4 ML Syringe SC (05:33)
[2019-03-01] MEDS: Ipratropium/Albuterol Sulfate 3 ML AMPUL.NEB INHALATION ×2 (07:07→20:12)
[2019-03-01 07:08] VITALS: PULSE 62; RESP 20; O2SAT 90
[2019-03-01 14:38] VITALS: BP 102/56; PULSE 55; RESP 16; TEMP 36.9; O2SAT 95
[2019-03-01 20:12] VITALS: PULSE 66; RESP 18; O2SAT 91
[2019-03-01] MEDS: Atorvastatin Calcium 10 MG Tablet PO (20:49)
[2019-03-01] MEDS: Mirtazapine 30 MG Tablet PO (20:49)
[2019-03-02] MEDS: Enoxaparin 40 MG/0.4 ML Syringe SC (05:24)
[2019-03-02] MEDS: Pantoprazole Sodium 40 MG Tablet PO (05:25)
[2019-03-02] MEDS: Gabapentin 300 MG Capsule PO (05:25)
[2019-03-02] MEDS: FLUoxetine 20 MG Capsule 40 MG PO (05:25)
[2019-03-02 07:04] VITALS: PULSE 60; RESP 18; O2SAT 95
[2019-03-02] MEDS: Ipratropium/Albuterol Sulfate 3 ML AMPUL.NEB INHALATION (07:04)
[2019-03-02 07:10] LABS: Absolute Lymphocyte Count 2.13 X10^3/ul (0.83-4.51); Absolute Neutrophil Count 5.9 X10^3/uL (2.0-7.7); Basophil# 0.01 X10^3/uL; Basophil% 0.1 % (0-1); Eosinophil# 0.18 X10^3/uL; Hematocrit 38.8 % (40-54); Hemoglobin 12.8 g/dl (13.0-16.5); Lymphocyte # 2.13 X10^3/ul (4.0); Lymphocyte % 23.7 % (19-41); Mean Corpuscular Hgb 33.5 pg (27.0-32.0); Mean Corpuscular Volume 101.6 fL (80-94); Mean Platelet Vol. 8.5 fl (6.2-12.0); Monocyte# 0.67 X10^3/uL; Monocyte% 7.5 % (0-10); Neutrophil # 5.88 X10^3/uL (2.7-7.7); Neutrophil % 65.5 % (47-70); Platelet Count 234 K/mm3 (150-450); RBC Distribution Width CV 13.8 % (11.6-14.6); RBC Distribution Width SD 51.1 fl (35.1-43.9); Red Blood Count 3.82 M/mm3 (4.6-6.2)
[2019-03-02 07:12] LABS: POSITIVE COUNT NO; POSITIVE DIFFERENTIAL NO; POSITIVE MORPHOLOGY NO
[2019-03-02 07:29] LABS: Anion Gap 7 (5-15); BUN 20 mg/dL (7-18); BUN/Creat Ratio 20.9 RATIO (10-20); Calcium,Total 8.6 mg/dL (8.5-10.1); Chloride 106 mmol/L (98-107); Creatinine, Serum 0.96 mg/dL (0.70-1.30); EST Glomerular Filtration Rate 84 mL/min (>60); Est Glom Filt Rate - Afr Amer 101 mL/min (>60); Estimated Creatinine Clearance 64.14 ml/min; Glucose 88 mg/dL (74-106); Potassium 4.1 mmol/L (3.5-5.1); Sodium Level 143 mmol/L (136-145)
[2019-03-02 10:43] VITALS: BP 148/83; PULSE 77; RESP 18; TEMP 36.9; O2SAT 96
--- NOTE | 2019-03-04 10:27 | CASEMGMT ---
Insurance Insurance notified of pt d/c to [place] on 03/02/19. AUth # [id number] CLARIBEL Bowers
== END 2019-03-02 10:30 | disposition home health service (06) | DRG 948 ==
PROVIDERS: Admitting Provider Family Medicine Geriatric Medicine; Family Provider Family Medicine; PCP Family Medicine; Visit Provider Family Medicine Geriatric Medicine
DX: R53.81 Other malaise (principal); M87.852 Other osteonecrosis, left femur; J44.1 Chronic obstructive pulmonary disease with (acute) exacerbation; J96.11 Chronic respiratory failure with hypoxia; S70.02XA Contusion of left hip, initial encounter; F32.9 Major depressive disorder, single episode, unspecified; E78.5 Hyperlipidemia, unspecified; K21.9 Gastro-esophageal reflux disease without esophagitis; G62.9 Polyneuropathy, unspecified; F17.290 Nicotine dependence, other tobacco product, uncomplicated; M81.0 Age-related osteoporosis without current pathological fracture; W01.0XXA Fall on same level from slipping, tripping and stumbling without subsequent striking against object, initial encounter; Y93.89 Activity, other specified; Y92.9 Unspecified place or not applicable; M79.675 Pain in left toe(s); M79.674 Pain in right toe(s); B35.1 Tinea unguium; Z87.820 Personal history of traumatic brain injury; Z86.711 Personal history of pulmonary embolism; Z96.641 Presence of right artificial hip joint; Z79.51 Long term (current) use of inhaled steroids; Z79.899 Other long term (current) drug therapy; Z93.1 Gastrostomy status
CPT/HCPCS: 36415; 36600; 71046; 73502; 73700; 80048; 82803; 85025; 85027; 85610; 87633; 93005; 94640; 94667; 94668; 96372; 96374; 96375; 96376; 97110; 97116; 97162; 97163; 97165; 97166; 97530; 97535; 97802; 99218; 99284; J7030; A4216; G0378; J2405

== ENCOUNTER 2019-04-29 10:30 | Outpatient (RCR) | payer MEDICARE, SELFPAY ==
--- NOTE | 2019-03-19 16:48 | HP.PTEVAL ---
Patient's Visit Information JOSE DANIEL MAJOR Jr. is a 63 year old M referred to Physical Therapy by Byron Hicks MD with a diagnosis of LOW BACK PAIN ,LEFT HIP PAIN. Date of Evaluation: 03/19/19 Physical Therapist: Jerome Lee, PT, Cert MDT, OCS - Visit Plan Frequency: 2x /Week Duration: 4 Weeks Plan: * PRECAUTIONS LATEX ALLERGIC*. PT INTERVENTIONS ,HIPKNEE ROM /STRENGTHENING,BACK STRENGTHENING ,NUSTEP ,MODALTIES NEEDED - Subjective Findings: This 63 y/o male presents to physical therapy with left hip /groin pain. Patient developed left groin pain .Patient fell at Day 02/13/19 at care center had x-rays at hospital thought showed non-displaced impact fracture of subcapital femur but reviwed by DR Byron Hicks didnt see fracture.. Patient was admited to [facility] t[facility] 02/13/10 due to unable to walk .Patient had catscan of hip showed avasular necrosis. Patient was tranferred to TCU.Then d/c to home on 02/27/19. Patient symptoms worse with walking,standing less than 5 mins ,stairs crossing legs. Patient pain decribed as ache/sharp pain. Denies parathesia/tingling.Coughing/sneezing-.Bowel/bladder -.Sleeping okay at night. Patient lives at [facility] . Patient goes to day care during the day. Patient uses rollator for gait with 2l02. 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 PRECAUTION: ALLERGIC TO LATEX. VOCATION: disabled. SOCIAL: lives alone - Pain Left Hip Pain Intensity (Out of 10): 8 Pain Intensity Range: 10 - Objective POSTURE: mild foward posture. GAIT: ambulates with rollator mild foward posture reciprocal pattern with 02. BALANCE: fair with rollator. NEURO: intact. PROM HIP: flexion 85 degrees pain,ER 20 degrees,IR 0 degrees pain. FLEXABLITY: hams flexablity mod tight. LUMBAR ROM: extension severe loss ,side glides mod loss ,flexion mod loss. MMT: left hip flexion 3+/5,quads 3+/5 ,hip abd 3-/5,hams 4-/5 - Special Tests L/S Slump test left side: Negative L/S Slump test right side: Negative L/S Left Straight Leg Raise: Positive L/S Right Straight Leg Raise: Negative L Hip Scour: Positive L Hip XIMENA - Intraarticular Pathology: Positive L Hip Trendelenberg - Glut Medius: Negative - Goals Goal 1:: Independant with HEP Goal Time Frame: 4-6 Weeks Goal 2:: Patient decrease pain left groin region by 40% or greater to improve function with walking and standing. Goal Time Frame: 4-6 Weeks Goal 3:: Patient able to improve ambulation with rollators with less antalgic gait community distances. Goal Time Frame: 4-6 Weeks Goal 4:: Patient increase strength of hip 4-/5 to improve function with walking,. Goal Time Frame: 4-6 Weeks Goal 5:: Patient to improve LFES SCORE BY 5 POINTS to improve function. Goal Time Frame: 4-6 Weeks - Rehabilitation Potential Physical Therapy Diagnosis: This patient fell on left hip caused pain admitted to hospital due to unable to walk thus had PT in TCU . Impreession with patient having left hip groin pain witgh loss rom, strength ,increase pain with weightbearing causing difficulty to walk and stand impairs ADL'S. Rehabilitation Potential: Fair - Anticipated Interventions Patient/Client Instruction: Educate patient on: Condition, Plan of Care For the Purpose of:: To decrease pain, To increase ROM, To improve muscle performance and motor function, To increase tolerance to activity/condition/position, To improve ability of physical actions for home/community/work/leisure, To improve health of tissue, To decrease soft tissue restriction, To increase flexibility/ROM, To improve endurance, To improve ability to perform tasks related to life management Therapeutic Exercise to Include: Strength training, Postural training, Flexibilty training, Active ROM, Dynamic Lumbar Stabilization For the Purpose of:: To decrease pain, To increase ROM, To improve muscle performance and motor function, To increase tolerance to activity/condition/position, To improve ability of physical actions for home/community/work/leisure, To improve health of tissue, To decrease soft tissue restriction, To increase flexibility/ROM, To improve ability to perform tasks related to life management TENS: Yes IF ES: Yes Cryotherapy (ice pack, ice massage): Yes Thermo therapy (hot pack): Yes Ultrasound (thermal/non thermal): Yes For the Purpose of:: To decrease pain, To increase ROM Thank you for the opportunity to evaluate your patient. For Medicare and Medicare HMO plans, please review the plan of care and approve it. It will need to be FAXED BACK to us at [phone] for Medicare purposes. For Medicare only, by signing this I certify the plan of care. Please let me know if there are questions or concerns regarding this plan of care. Physician Signature: Date:
--- NOTE | 2019-04-29 10:47 | HP.PTDCSUM ---
HP - PT D/C Summary It has been my pleasure to treat JOSE DANIEL MAJOR Jr. under orders from Byron Hicks MD, for the diagnosis of LOW BACK PAIN ,LEFT HIP PAIN for a total of 6 visit(s). Discharge Date: 04/29/19 Please see the following information for a summary of their discharge status. - Subjective Subjective: Doing well .. pain is better - Pain Left Hip Pain Intensity (Out of 10): 0 - Overall Improvement % Improvement: 80 - Objective Objective/Function: POSTURE: mild foward posture. PALAPTION: unremarkable. NEURO: INTACT. MMT: quads/hams 4/5 ,4-/5 HIP ,ankle 4/5. LUMBAR ROM: flexion mod loss ,extension severe loss - Goals Goal 1:: Independant with HEP Goal Progress: Goal Met Goal 2:: Patient decrease pain left groin region by 40% or greater to improve function with walking and standing. Goal Progress: Goal Met Goal 3:: Patient able to improve ambulation with rollators with less antalgic gait community distances. Goal Progress: Goal Met Goal 4:: Patient increase strength of hip 4-/5 to improve function with walking,. Goal 5:: Patient to improve LFES SCORE BY 5 POINTS to improve function. Goal Progress: Goal Met - Plan Plan: D/C - D/C Information Discharge Comments: hep If there are questions or concerns regarding this patient's physical therapy, please feel free to call me at [phone]. Thank you for the referral of this patient. Sincerely, Jerome Lee, PT, Cert MDT, OCS
== END 2019-04-29 14:08 | disposition home or self-care (01) ==
LOC: PT 10:30
PROVIDERS: Family Provider Family Medicine; PCP Family Medicine; Referring Provider Orthopaedic Surgery; Visit Provider Orthopaedic Surgery
DX: M54.5 Low back pain (principal); M25.552 Pain in left hip
CPT/HCPCS: 97110; 97163; 97530

== ENCOUNTER 2019-05-01 05:43 | Day surgery (SDC) | payer MEDICARE, MEDICAID, SELFPAY ==
[2019-04-07 16:11] VITALS: BMI 20.4
--- NOTE | 2019-04-30 18:12 | HP.PCM_ITS ---
History and Physical Date of Admission: 05/01/19 HISTORY OF PRESENT ILLNESS 63 year old man presents for evaluation for TBSE. He has concerns about a lesion on his right lateral nasal sidewall just above the alar groove that has increased in size over the last several months and has developed irregular borders. Some redness had extended to the supramedial cheek junction which has resolved. He denies fever. He denies trauma. He denies any recent infection and denies any drainage. There is also an erythematous lesion on his mid dorsal radial right forearm that has also increased in size over the last several months and has developed irregular borders. He denies fever. He denies trauma. He denies drainage from the lesion. He presents at this time for further evaluation and treatment. PAST MEDICAL HISTORY Anxiety and depression Crohns disease GERD (gastroesophageal reflux disease) History of aneurysm History of skin cancer Osteoarthritis PAST SURGICAL HISTORY right hip replacement right knee joint replacement ALLERGIES latex MEDICATIONS Tylenol. Ventolin. Fosamax. Amlactin. Lipitor. Symbicort. Prozac. Neurontin. Ensure Plus. Mirtazapine. Prilosec. Spiriva. FAMILY HISTORY Other - Acute depression, Crohn disease, Skin cancer SOCIAL HISTORY Smoking Status: Current every day smoker REVIEW OF SYSTEMS General - Denies fever and weight loss. Has fatigue. Eyes - Denies cataracts and glaucoma. ENT - Denies nasal congestion and sore throat. Endocrine - Denies excessive thirst and urination. Skin - Has personal history of skin cancer. Has family history of skin cancer. Has enlarging lesion right lateral nasal sidewall just above alar groove. Has enlarging lesion mid dorsal radial right forearm. Musculoskeletal - Has joint pain, joint stiffness, weakness of muscles and joints, and arthritis. Denies back pain. Neuro - Denies headaches. Cardiovascular - Denies chest pain, fatigue, and shortness of breath with exertion. Psych - Denies anxiety. Has depression. Respiratory - Denies chronic cough and shortness of breath. Patient is a smoker. Gastrointestinal - Denies nausea, vomiting, diarrhea, and constipation. Hematologic - Denies abnormal bruising and bleeding. Genitourinary - Denies hematuria and urinary frequency. PHYSICAL EXAMINATION General - Alert and Oriented. HEENT - PERRL. EOMI. Throat is clear. On the right lateral nasal sidewall just above alar groove is a lesion that measures 12 mm. Has irregular borders. No ulceration. Lesion is nontender. No other suspicious lesions noted. Neck - Supple and nontender. No cervical adenopathy. No suspicious lesions noted. Lungs - Clear to auscultation. Heart - Regular rate and rhythm. Abdomen - Soft and nondistended. Extremities - FROM. No axillary adenopathy. Radial pulses are palpable. On the mid dorsal radial right forearm is a lesion that is erythematous. Measures 12 mm. It is scabby in the center. Has irregular borders. No ulceration. Lesion is nontender. No other suspicious lesions noted. Neuro - CN II-XII grossly intact. Psych - Normal mood and affect. ASSESSMENT 1. 12 mm lesion right lateral nasal sidewall just above alar groove. 2. 12 mm erythematous lesion mid dorsal radial right forearm. 3. Personal history of skin cancer. 4. Family history of skin cancer. 5. Smoker. PLAN The lesions on the right lateral nasal sidewall just above alar groove and the mid dorsal radial right forearm are both clinically consistent with skin carcinoma. Recommend excision of both these lesions and send them to Pathology as a frozen section for analysis to rule out carcinoma. If carcinoma is present, then further excision will be done followed by skin graft or skin flap reconstruction. Surgery will be done on an outpatient basis under local anesthesia and IV sedation. Patient was informed of the risks and complications of the procedure including alternatives to surgery. These were discussed with the patient personally. Patient voices understanding and wishes to proceed. Some of the risks and complications were included in a form from the [employer]. Encouraged patient to stop smoking as it may have deleterious effects on wound healing.
[2019-05-01] VITALS (9 sets, daily range): BP systolic 90–128; BP diastolic 54–63; PULSE 58–65; RESP 13–16; TEMP 36.2–36.9; O2SAT 94–97; BMI 18.6
--- NOTE | 2019-05-01 | LES_PTH ---
PATIENT: JOSE DANIEL MAJOR Jr. LOC: [facility] [place] U#:[id number] AGE/SX: 63/M ROOM: RE05/01/[address]: Dr. Jerome Barger MD : 1955 BED: DIS: 05/01/2019 SPEC #: [id number] RECD: 05/01/19 08:01 STATUS: LUCIANA REDonavan #: [id number] FAISAL: 05/01/19 00:[address]: Jerome Barger DEPT: SURGICAL PATHOLOGY RECD BY: Amparo Agustin ENTERED: 05/01/19 09:22 SP TYPE: Lesion OTHR DR: Dr. Phu Cooper MD Tissues: A - Skin of forearm, NOS B - Skin of nose, NOS C - Skin of arm D - Skin of nose, NOS Procedures: Frozen Section (charge) Surgery Specimen Level IV HEADER OPERATION: Excision lesion right lateral nasal sidewall at alar groove PRE-OP DIAGNOSIS: Erythematous lesion mid dorsal radial right forearm; lesion right lateral nasal sidewall just above alar groove TISSUE SUBMITTED: A - Erythematous lesion mid dorsal radial right forearm, FS at 0756; B - Lesion right lateral nasal sidewall above alar groove, FS at 0756, C - Additional tissue from radial right forearm, suture at 12 o'clock, D - Right lateral nasal sidewall actinic keratosis, stitch sharma 12 o'clock FROZEN SECTION DIAGNOSIS A. Erythematous lesion, mid dorsal radial right forearm, shave biopsy: Actinic keratosis and solar elastosis. Negative for malignancy. B. Right lateral nasal side wall lesion above alar groove, shave biopsy: Actinic keratosis and solar elastosis. Negative for malignancy. SJ:flip 05/01/19 MICROSCOPIC DIAGNOSIS A. Erythematous lesion, mid dorsal radial right forearm, shave biopsy: Actinic keratosis and solar elastosis. Dermal chronic inflammation. Negative for malignancy. B. Right lateral nasal side wall lesion above alar groove, shave biopsy: Actinic keratosis with moderate to severe atypia. Solar elastosis. Moderate dermal chronic inflammation. Negative for malignancy. C. Additional tissue, right radial forearm, excisional biopsy: Actinic keratosis with mild atypia. Solar elastosis. Focal hyperkeratosis and verrucous changes. Negative for malignancy. D. Right lateral nasal sidewall actinic keratosis, excisional biopsy: Actinic keratosis with moderate atypia. Solar elastosis. Dermal chronic inflammation. Negative for malignancy. KIRSTEN:flip 05/02/19 COMMENT Case has been reviewed in consultation with Dr. Bonilla who concurs with the above diagnosis. IDC:AM MICROSCOPIC DESCRIPTION Slides are reviewed. GROSS DESCRIPTION A - Received fresh for frozen section diagnosis labeled with the patient's name is a specimen designated erythematous lesion mid dorsal radial right forearm. The specimen consists of a shave biopsy of guy-white skin measuring 1.1 x 0.6 x 0.1 cm. The specimen is inked, bisected and submitted entirely in one cassette for frozen section diagnosis. / : 05/01/19 B - Received fresh for frozen section diagnosis labeled with the patient's name is a specimen designated lesion right lateral nasal sidewall above alar groove. The specimen consists of a shave biopsy of guy-white skin measuring 0.7 x 0.7 x 0.1 cm. The specimen is inked, bisected and submitted entirely in one cassette for frozen section diagnosis. / : 05/01/19 C - Received in fixative is one container labeled with the patient's name and designated additional tissue from radial right forearm, suture at 12 o'clock. The specimen consists of a round piece of guy-white skin measuring 1.5 x 1.5 cm and up to 0.2 cm in thickness. The specimen is oriented by a suture at 12 o'clock. The specimen is inked as follows: 12 to 3 o'clock - black, 3 to 6 o'clock - blue, 6 to 9 o'clock - green and 9 to 12 o'clock - yellow. The skin surface shows a focal area of ulceration consistent with site of specimen A. The specimen is serially sectioned and submitted entirely in one cassette. / KIRSTEN:flip 05/01/19 D - Received in fixative is one container labeled with the patient's name and designated right lateral nasal sidewall actinic keratosis, stitch sharma 12 o'clock. The specimen consists of a circular piece of guy-white skin measuring 1 x 0.7 cm. The specimen is oriented by a suture at 12 o'clock. The specimen is inked as follows: 12 to 3 o'clock - black, 3 to 6 o'clock - blue, 6 to 9 o'clock - green and 9 to 12 o'clock - yellow. The skin surface shows a focal area of ulceration measuring 0.7 cm in greatest dimension. The specimen is submitted in one cassette. It will be serially sectioned at the time of embedding. / KIRSTEN:flip 05/01/19 TC:5 CPT: 20253 x4, 04158 x2
[2019-05-01] MEDS: Mupirocin Ointment 22gm Tube 1 APPLIC (09:15)
--- NOTE | 2019-05-01 09:29 | PCM.OPRPT ---
Report of Operation Date of Procedure: 05/01/19 Pre-Operative Diagnosis: 1. 12 mm lesion right lateral nasal sidewall just above alar groove. 2. 12 mm erythematous lesion mid dorsal radial right forearm. 3. Personal history of skin cancer. 4. Family history of skin cancer. 5. Smoker. Post-Operative Diagnosis: 1. 12 mm actinic keratosis right lateral nasal sidewall just above alar groove. 2. 12 mm actinic keratosis mid dorsal radial right forearm. 3. Personal history of skin cancer. 4. Family history of skin cancer. 5. Smoker. Surgery/Procedure Performed:: 1. Excision 12 mm actinic keratosis right lateral nasal sidewall just above alar groove with FTSG reconstruction from right preauricular area (2.56 cm2). 2. Excision 12 mm actinic keratosis mid dorsal radial right forearm with bilobed transposition skin flap reconstruction (9 cm2). Description of Surgical Findings:: 63 year old man presents for evaluation for TBSE. He has concerns about a lesion on his right lateral nasal sidewall just above the alar groove that has increased in size over the last several months and has developed irregular borders. Some redness had extended to the supramedial cheek junction which has resolved. He denies fever. He denies trauma. He denies any recent infection and denies any drainage. There is also an erythematous lesion on his mid dorsal radial right forearm that has also increased in size over the last several months and has developed irregular borders. He denies fever. He denies trauma. He denies drainage from the lesion. Patient was informed of the risks and complications of the procedure including alternatives to surgery. These were discussed with the patient personally. Patient voices understanding and wishes to proceed. Some of the risks and complications were included in a form from the [employer]. Encouraged patient to stop smoking as it may have deleterious effects on wound healing. Frozen section right lateral nasal sidewall - actinic keratosis and no carcinoma seen. Frozen section dorsal radial mid right forearm - actinic keratosis and no carcinoma seen. collaborating supervising physician: Jimmie Hollingsworth. Type of Anesthesia:: Local MAC - xylocaine with epinephrine and IV sedation. Specimen's removed: 1. Lesion right lateral nasal sidewall just above alar groove to Pathology as a frozen section. 2. Erythematous lesion mid dorsal radial right forearm to Pathology as a frozen section. 3. Actinic keratosis right lateral nasal sidewall just above alar groove to Pathology. 4. Actinic keratosis mid dorsal radial right forearm to Pathology. Drains: None. Estimated Blood Loss (mL): 10 ml. Description of Procedure: Patient was taken to OR in supine position and was given IV sedation. The face, neck, right forearm, and right flank areas were prepped and draped in the usual fashion. SCD's were placed for DVT prophylaxis. Perioperative antibiotics were given intravenously. The lesions right lateral nasal sidewall just above the alar groove and mid dorsal radial right forearm were infiltrated with xylocaine and epinephrine. After waiting 5 minutes for the anesthetic to take effect, these lesions were excised in an intradermal fashion and sent to Pathology as a frozen section for analysis to rule out carcinoma. Frozen section showed both lesions (right lateral nasal sidewall just above the alar groove and mid dorsal radial right forearm) were actinic keratoses and no carcinoma seen. So further full thickness excisions will be done with a 2 mm margin in all directions. Circular excisions were done. A suture was marked at 12 oclock position for pathology orientation. The lesions were sent to Pathology for analysis to rule out carcinoma at the margins. For the defect right lateral nasal sidewall just above the alar groove, a skin graft will be done for reconstruction. The size of the defect for skin grafting was 1.6 x 1.6 cm or 2.56 cm2. Markings were made in the preauricular area for the skin graft. The markings were infiltrated with xylocaine and epinephrine. Incisions were made into the subcutaneous tissue and the subcutaneous tissue was removed from the undersurface of the dermis thus fashioning a full thickness skin graft. The skin graft was placed in saline. The donor incision was closed in a layered fashion after first obtaining hemostasis with electrocautery. The deep dermis and subcutaneous tissue was approximated with 5-0 Monocryl interrupted sutures. The skin was approximated with 5-0 Prolene simple interrupted sutures. Antibiotic ointment was applied to the suture line. The skin graft was then placed in the right nasal sidewall defect and secured to the skin edges with 5-0 Chromic interrupted sutures. 5-0 Chromic sutures were also used for central quilting stabilization. Antibiotic ointment was applied to the skin graft followed by Xeroform gauze and cotton balls soaked in saline and secured to the skin edges with 5-0 Nylon tie over stent suture dressings. For the defect mid dorsal radial right forearm, I designed a bilobed skin flap at 90 degree angle. After infiltrating with xylocaine and epinephrine, incisions were made on a subcutaneous pedicle at the level of the underlying muscular fascia. The bilobed flap was transposed into the defect with minimal tension and minimal distortion. Hemostasis was obtained with electrocautery. The flap was then transposed into the wound and closed in a layered fashion with 3-0 Monocryl interrupted sutures for the deep dermis and subcutaneous tissue. The skin was approximated with 4-0 Prolene simple interrupted sutures. No vascular compromise was noted on the skin flap. Antibiotic ointment was applied to the suture lines followed by gauze dressing and a compression meliton wrap. The size of the wound and the size of the flap needed to close the defect was 9 cm2. Patient tolerated the procedure well and was sent to PACU in satisfactory condition. Patient will be sent home on antibiotics and pain medication. He will keep his head and right arm elevated during the initial postop period. Patient will followup in a week for a wound check and skin graft check and for discussion of the pathology report and for removal of the sutures on his right preauricular area. The sutures on his mid dorsal radial right forearm will be removed in 2 weeks. Grafts/Implants Used: None. - Complications None. - Admit VTE Documentation VTE Present on Admission: No VTE Mechan Device Prophylaxis: SCD's VTE Pharm Prophylaxis ordered?: No Code Visit Surgery Charges CPT - 59530 ICD-10 - L57.0, D49.2, Z85.828, Z80.8, F17.200 45391 L57.0, D49.2, Z85.828, Z80.8, F17.200 94517 L57.0, D49.2, Z85.828, Z80.8, F17.200
--- NOTE | 2019-05-01 09:37 | DCINST_ITS ---
You will use the following diet at home:: No restrictions Discharge Activity: May Not Shower - until the operative dressing is removed in the office., - - keep right arm elevated. keep head elevated. no heavy lifting. May shower in (days): 5 - may shower after the operative dressing is removed in the offcie. May resume sexual activity in: 10-14 days Ice area for (Minutes): 5 - as needed for facial swelling. Weight Bearing Status: Weight bearing as tolerated Lifting Restrictions: 10 lbs. Keep extremity elevated above heart level: Right Arm, - - elevate head. Call your doctor if your incision/area has: Continuous Slow Oozing, Sudden Increased Bleeding, Increased Pain/ Swelling, Increased Redness, Foul Smelling Discharge, Swelling at the incision site Call your doctor if you observe: Fever of 101 or Higher, Coldness, Increased Pain, Shortness of breath, Chest pain, Calf discomfort, Uncontrolled pain Suture Line Care: - - after dressing removed in the office, apply antibiotic ointment to suture lines and skin graft daily. Remove Dressing in (days):: 5 - will remove operative dressings in office. Cleanse incision/area with: - - may get incisions wet in the shower after the operative dressings are removed in the office. Allergies/Adverse Reactions: Allergies latex Allergy (Verified 04/29/19 09:13) Rash naproxen sodium [From Aleve] Allergy (Verified 04/29/19 09:13) Rash Medications to take at Discharge Fluoxetine [Prozac] 40 mg PO DAILY 05/06/14 Gabapentin [Neurontin] 300 mg PO 4X/DAY 05/06/14 Mirtazapine 30 mg PO QHS 04/02/16 cholecalciferol (vitamin D3) 1,000 unit tablet 2,000 unit PO DAILY tab 11/13/17 Atorvastatin Calcium [Lipitor] 10 mg PO QHS 04/06/18 Alendronate Sodium [Fosamax] 70 mg PO FR 04/07/18 Omeprazole [Prilosec] 40 mg PO DAILY 02/13/19 Budesonide/Formoterol 160/4.5 [Symbicort 160/4.5 Mcg Inhaler (SP)] 2 puff INHALATION BID 02/15/19 Tiotropium Red House [Spiriva 18 MCG] 1 puff INHALATION DAILY 02/15/19 Acetaminophen [Tylenol] 1,000 mg PO Q6H PRN PRN tablet 02/27/19 Albuterol Inhaler [Ventolin Hfa] 2 puff INHALATION Q4H PRN PRN 04/29/19 Ammonium Lactate [Amlactin] 57 gm TP DAILY 04/29/19 Lactose-Reduced Food [Ensure Plus] 237 ml PO BID 04/29/19 Clindamycin HCl [Cleocin] 300 mg PO TID #18 cap 05/01/19 Lactobacillus Acidophilus/Fos [Acidophilus Probiotic Tablet] 1 ea PO BID #20 tab 05/01/19 Oxycodone HCl/Acetaminophen [Percocet 5/325] 1 tab PO 4X/DAY PRN PRN 5 Days #20 tab 05/01/19 The following prescriptions were given: Lactobacillus Acidophilus/Fos [Acidophilus Probiotic Tablet] 1 ea PO BID #20 tab Prescription Printed Clindamycin HCl [Cleocin] 300 mg PO TID #18 cap Prescription Printed Oxycodone HCl/Acetaminophen [Percocet 5/325] 1 tab PO 4X/DAY PRN PRN 5 Days #20 tab PRN Reason: Pain Prescription Printed Primary Care Physician: Phu Cooper MD [Primary Care Provider] - Test Results: Test results from this visit will be discussed in further detail at your follow- up appointment, if applicable. Please Follow Up With: Jerome Barger MD When: sunday05/07/19. call [phone] for appt. Proposed Discharge Date: 05/01/19
== END 2019-05-01 11:16 | disposition home or self-care (01) ==
LOC: SDC 05:46 → AC 05:47
PROVIDERS: Family Provider Family Medicine; PCP Family Medicine; Referring Provider Surgery; Visit Provider Surgery
PROC: (CPT 11442; principal; 2019-05-01 07:15)
DX: L57.0 Actinic keratosis (principal); L57.8 Other skin changes due to chronic exposure to nonionizing radiation; W89.9XXA Exposure to unspecified man-made visible and ultraviolet light, initial encounter; Y93.9 Activity, unspecified; Y92.9 Unspecified place or not applicable; Y99.9 Unspecified external cause status; J43.9 Emphysema, unspecified; K50.90 Crohn's disease, unspecified, without complications; K21.9 Gastro-esophageal reflux disease without esophagitis; M19.90 Unspecified osteoarthritis, unspecified site; F32.9 Major depressive disorder, single episode, unspecified; F41.9 Anxiety disorder, unspecified; F17.200 Nicotine dependence, unspecified, uncomplicated; I25.2 Old myocardial infarction; Z79.899 Other long term (current) drug therapy; Z86.79 Personal history of other diseases of the circulatory system; Z85.828 Personal history of other malignant neoplasm of skin; Z96.651 Presence of right artificial knee joint; Z96.641 Presence of right artificial hip joint
CPT/HCPCS: 11442; 14020; 15260; 88305; 88331; J7120

== ENCOUNTER 2019-07-22 18:01 | Inpatient (IN) | payer MEDICARE, MEDICAID, SELFPAY ==
[2019-05-21 13:46] VITALS: BMI 18.6
[2019-07-22] VITALS (17 sets, daily range): BP systolic 98–131; BP diastolic 55–71; PULSE 68–93; RESP 12–30; TEMP 36.3–37; O2SAT 89–97; BMI 18.8; BMI 18.3
--- NOTE | 2019-07-22 18:18 | EKG12_ITS ---
Test Reason : SOB Blood Pressure : / mmHG Vent. Rate : 080 BPM Atrial Rate : 080 BPM P-R Int : 136 ms QRS Dur : 080 ms QT Int : 384 ms P-R-T Axes : 054 007 054 degrees QTc Int : 442 ms Normal sinus rhythm Nonspecific ST abnormality Abnormal ECG Confirmed by KETURAH BALDERAS ([id number]), visual effects editor DMITRI LOCKWOOD ([id number] on 07/28/2019 3:37:47 PM Referred By: Humberto Yu Confirmed By:KETURAH BALDERAS
--- NOTE | 2019-07-22 18:20 | RAD_ITS ---
STUDY: X-RAY CHEST REASON FOR EXAM: Male, 64 years old. Shortness of breath TECHNIQUE: Single AP portable view of the chest. COMPARISON: February 18, 2019 FINDINGS: There is hyperinflation of the lungs consistent with chronic obstructive lung disease (COPD). Lungs are clear. There is no demonstrated pleural abnormality. Normal size heart. Normal mediastinum and shanna. Normal visualized pulmonary arteries. Normal visualized aortic arch and descending thoracic aorta. Normal visualized thoracic spine. Normal visualized ribs, clavicles, and shoulders. There is no demonstrated abnormality of the visualized soft tissue structures of the upper abdomen. RAD/Chest 1 View (Portable) IMPRESSION: No acute cardiopulmonary disease. Electronically Signed: Jarrod Lopez DO at 18:55 EDT Tel , Service support ,
[2019-07-22] MEDS: Albuterol 2.5 MG/3 ML VIAL.NEB. INHALATION ×3 (18:25→19:04)
[2019-07-22] MEDS: Ipratropium/Albuterol Sulfate 3 ML AMPUL.NEB INHALATION (18:25)
[2019-07-22 18:34] LABS: Absolute Lymphocyte Count 2.97 X10^3/uL (0.83-4.51); Absolute Neutrophil Count 5.7 X10^3/uL (2.0-7.7); Basophil# 0.03 X10^3/uL; Basophil% 0.3 % (0-1); Eosinophils% 1.1 % (0-5); Hematocrit 40.6 % (40-54); Hemoglobin 13.5 g/dL (13.0-16.5); Lymphocyte # 2.97 X10^3/ul (4.0); Lymphocyte % 31.5 % (19-41); Mean Corp Hgb Conc 33.3 g/dL (32-36); Mean Corpuscular Hgb 34.4 pg (27.0-32.0); Mean Corpuscular Volume 103.6 fL (80-94); Mean Platelet Vol. 8.6 fl (6.2-12.0); Monocyte# 0.62 X10^3/uL; Monocyte% 6.6 % (0-10); NRBC Flagged by Analyzer 0 % (0-5); Neutrophil # 5.67 X10^3/uL (2.7-7.7); Neutrophil % 60.1 % (47-70); Platelet Count 213 K/mm3 (150-450); RBC Distribution Width CV 13.6 % (11.6-14.6); RBC Distribution Width SD 52.3 fl (35.1-43.9); Red Blood Count 3.92 M/mm3 (4.6-6.2); White Blood Count 9.4 K/mm3 (4.4-11.0)
[2019-07-22 18:37] LABS: International Normalized Ratio 1.1; Prothrombin Time (Protime)PT. 13.9 SECONDS (11.7-14.9)
[2019-07-22 18:38] LABS: Partial Thromboplast Time 33.6 Seconds (24.1-36.2)
[2019-07-22] MEDS: MethylPREDNISolone 125 MG/2 ML Vial IV (18:41)
[2019-07-22] MEDS: 0.9% Normal Saline 1,000 ML 150 ML IV (18:41)
[2019-07-22 18:52] LABS: Lactic Acid 1.1 mmol/L (0.4-2.0)
[2019-07-22 18:54] LABS: AST(SGOT) 14 U/L (15-37); Alanine Aminotransfer ALT/SGPT 19 U/L (16-61); Albumin, Serum 3.4 g/dL (3.2-5.0); Alkaline Phosphatase 98 U/L (45-117); Bilirubin, Direct 0.24 mg/dL (0.00-0.30); Globulin 3.9 g/dL (2.2-4.2); Protein, Total 7.3 g/dL (6.4-8.2)
[2019-07-22 19:06] LABS: Allen Test POS; Base Excess -1 mmol/L (-2 to +2); Bicarbonate 23.5 mmol/L (22-26); Blood Gas Specimen Type ART; O2 Delivery Device Nasal Can; PO2 60 mmHG (75-100); SITE R Radial; SO2 91 % (95-99); Total Carbon Dioxide 25 mmol/L; pCO2 35.8 mmHg (35-45); pH 7.43 (7.35-7.45)
[2019-07-22 19:21] LABS: Anion Gap 5 (5-15); BUN 17 mg/dL (7-18); BUN/Creat Ratio 14.8 RATIO (10-20); Calcium,Total 8.7 mg/dL (8.5-10.1); Chloride 110 mmol/L (98-107); Creatinine, Serum 1.15 mg/dL (0.70-1.30); EST Glomerular Filtration Rate 68 mL/min (>60); Est Glom Filt Rate - Afr Amer 82 mL/min (>60); Estimated Creatinine Clearance 51.57 ml/min; Glucose 115 mg/dL (74-106); Potassium 3.7 mmol/L (3.5-5.1); Sodium Level 143 mmol/L (136-145)
--- NOTE | 2019-07-22 19:22 | ED.VISSUMM ---
- ER Visit Summary Date of Service: 07/22/19 Chief Complaint: Shortness of breath History of Present Illness: The patient is a 64 M who states that 3 to 4 days ago he began to develop runny nose and progressively worsening shortness of breath. He notes a cough but is unable to produce any sputum. He states he is progressively gotten weaker and is now not eating as much as normally. He denies any fevers. He wears home oxygen when he wants to. He continues to smoke. He is seen pulmonology here at [facility] before. History of COPD pulmonary embolism hypercholesterolemia as well as brain aneurysm with repair. He is no longer on any anticoagulants. Physical Examination: Afebrile at 98.7 heart rate of 80 respirations are 34 pulse ox is 97% on 6 L blood pressure 131/71 Gen: Well-nourished well-developed patient appears fatigued Head: Normocephalic atraumatic Eyes: Perrl EOMI ENT: TMs clear no rhinorrhea moist mucous membranes Neck: Supple no lymphadenopathy no JVD nontender CVS: Regular rate rhythm no murmurs normal S1-S2 Respiratory: Patient is tachypneic using accessory muscles lung sounds are diminished bilaterally with rhonchi and expiratory wheeze chest nontender Abdomen: Soft nontender nondistended normal bowel sounds no masses Back: Nontender Extremity: Nontender no edema Skin: Normal color no rash Neuro: alert orientated ?3 CN II-XII intact Psych: Normal affect normal mood Test Results: White count is normal at 9.4. Troponin negative. Lactic acid is 1.1. ABG showed a pH of 7.432 who he a O2 of 60 PCO2 of 35.8. Chest x-ray showed chronic changes but no acute infiltrate. EKG with a sinus rhythm at a rate of 80. CT Laura of the chest was obtained as the patient has had prior pulmonary embolism this is negative for PE or dissection. Emergency Department Course and Treatment: Blood cultures were obtained and the patient received Solu-Medrol breathing treatments and later azithromycin. After his breathing treatments patient still had a substantial work of breathing. We placed him on BiPAP and with the assistance of respiratory therapist placed him on Airvo. This significantly improved the patient's work of breathing. He is now coughing up some phlegm. Our plan is admission into the hospital. Impression: 1. Acute bronchitis with bronchospasm 2. Respiratory failure 3. COPD This note was generated with [employer] dictation software. It may contain incorrect words, spelling, and punctuation that were not noted in review of the chart prior to signing ED Disposition - Plan for ED Patient: Referrals: Phu Cooper MD [Primary Care Provider] -
--- NOTE | 2019-07-22 19:24 | CT_ITS ---
STUDY: CTA CHEST REASON FOR EXAM: Male, 64 years old. Shortness of breath. RADIATION DOSAGE (If Supplied By Facility): CTDIvol = ( 7.95 ) mGy, DLP = ( 315.48 ) mGycm TECHNIQUE: The examination was performed with the intravenous administration of IV Isovue 370 75ml. Post-processing of the angiographic images was performed, with multiplanar reformation and 3D reconstruction. Individualized dose optimization techniques were used for this CT. COMPARISON: 04/06/2018 FINDINGS: Heterogeneous thyroid Normal enhancement of the main pulmonary artery and right and left pulmonary arteries. Normal enhancement of the bilateral peripheral pulmonary arteries. There is no demonstrated pulmonary embolism. Normal thoracic aorta and visualized great vessels. There is no demonstrated aortic dissection. Normal heart and pericardium. Stable mild soft tissue prominence in the right hilar region with a subcarinal lymph node. Normal visualized trachea and bronchi. The lungs are hyper expanded, with flattening of the hemidiaphragms. Stable diffuse emphysematous changes with intraseptal thickening. Normal pleura. No acute airspace disease. No suspicious masses or nodules. Normal chest wall structures. There are degenerative changes of thoracic spine. Normal visualized upper abdomen. CT/CTA Chest W/WO Contrast IMPRESSION: Negative for pulmonary embolism or thoracic aortic dissection. Again noted is COPD and severe emphysema with intraseptal thickening. Stable subcarinal lymph node and mild soft tissue prominence in the right hilar region Electronically Signed: Jarrod Lopez DO at 20:35 EDT Tel , Service support ,
--- NOTE | 2019-07-22 19:35 | CPS ---
PT PLACED ON AIRVO
--- NOTE | 2019-07-22 20:50 | CPS ---
increased flow to 60 L/M for pt comfort
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
--- NOTE | 2019-07-22 21:56 | RAD_ITS ---
HISTORY: LUQ PAIN SOB NAUSEA AND VOMITTING. HX OF COPD EXAM: Abdominal series COMPARISON: Comparison CT scan of the chest performed less than 2 hours earlier imaged as low as below the spleen FINDINGS: # of images incl. paperwork: 2 XR Abdomen W/ Decub and/or Erect Views: The urinary bladder contains excreted contrast. The kidneys are excreting contrast into nondilated collecting systems. Right total hip arthroplasty. Left hip osteoarthritis. Decreased bone mineral density. Insufficiency compression fracture to L4 of unknown acuity. Wedge compression fracture of L1 of unknown acuity. The loss of vertebral body height T12 and L1 does not appear to be acute and is better demonstrated on the recent CT. Atherosclerotic calcific plaque within the common iliac arteries. Lung bases are clear. RAD/Abd Inc Decub and/or Erect IMPRESSION: Normal bowel gas pattern. Both kidneys are excreting contrast into nondilated systems. The bladder is becoming distended with excreted contrast. No free air. No organomegaly. No bowel obstruction. Osteoporosis. Previous insufficiency fracture suggested at T12 and L1. Insufficiency fracture at L4 of unknown acuity. at 2242 Reported and signed by: Abdulaziz Mario MD Electronically Signed: Abdulaziz Mario MD at 22:41 EDT Tel , Service support ,
[2019-07-22] MEDS: 0.9% NaCl IVPB Med Flush (250 mL) 15 ML IV (23:20)
[2019-07-22] MEDS: Mirtazapine 30 MG Tablet PO (23:22)
[2019-07-22] MEDS: Gabapentin 300 MG Capsule PO (23:22)
[2019-07-22] MEDS: Atorvastatin Calcium 10 MG Tablet PO (23:22)
[2019-07-22] MEDS: Enoxaparin 40 MG/0.4 ML Syringe SC (23:57)
[2019-07-22] MEDS: 0.9% Normal Saline 1,000 ML 75 ML IV (23:58)
[2019-07-22] MEDS: guaiFENesin 1,200 MG Tablet 1200 MG PO (23:58)
[2019-07-23] VITALS (20 sets, daily range): BP systolic 100–119; BP diastolic 53–66; PULSE 64–106; RESP 14–24; TEMP 36.4–36.8; O2SAT 87–97
[2019-07-23 00:11] LABS: Bedside Glucose 137 mg/dL (70-110)
[2019-07-23] MEDS: Ipratropium/Albuterol Sulfate 3 ML AMPUL.NEB INHALATION ×6 (02:15→22:21)
[2019-07-23] MEDS: 0.9% NaCl Peripheral Flush Adult/Peds IV ×2 (05:07→21:36)
[2019-07-23 06:55] LABS: Absolute Lymphocyte Count 0.57 X10^3/uL (0.83-4.51); Absolute Neutrophil Count 4.1 X10^3/uL (2.0-7.7); Lymphocyte # 0.57 X10^3/ul (4.0); Lymphocyte % 12.1 % (19-41); Mean Corp Hgb Conc 33.3 g/dL (32-36); Mean Corpuscular Hgb 34.4 pg (27.0-32.0); Mean Corpuscular Volume 103.2 fL (80-94); Mean Platelet Vol. 8.7 fl (6.2-12.0); Monocyte# 0.06 X10^3/uL; Monocyte% 1.3 % (0-10); NRBC Flagged by Analyzer 0 % (0-5); Neutrophil # 4.07 X10^3/uL (2.7-7.7); Neutrophil % 86.2 % (47-70); POSITIVE DIFFERENTIAL YES; Platelet Count 192 K/mm3 (150-450); RBC Distribution Width CV 13.3 % (11.6-14.6); RBC Distribution Width SD 50.3 fl (35.1-43.9); Red Blood Count 3.49 M/mm3 (4.6-6.2); White Blood Count 4.7 K/mm3 (4.4-11.0)
[2019-07-23 07:03] LABS: Differential Indicated SCAN CRITERIA MET
[2019-07-23 07:12] LABS: Bedside Glucose 133 mg/dL (70-110)
[2019-07-23 07:20] LABS: Anion Gap 6 (5-15); BUN 15 mg/dL (7-18); BUN/Creat Ratio 17.4 RATIO (10-20); Calcium,Total 7.9 mg/dL (8.5-10.1); Chloride 112 mmol/L (98-107); Creatinine, Serum 0.86 mg/dL (0.70-1.30); EST Glomerular Filtration Rate 94 mL/min (>60); Est Glom Filt Rate - Afr Amer 114 mL/min (>60); Estimated Creatinine Clearance 67.16 ml/min; Glucose 138 mg/dL (74-106); Potassium 4.2 mmol/L (3.5-5.1); Sodium Level 143 mmol/L (136-145)
[2019-07-23] MEDS: Gabapentin 300 MG Capsule PO ×4 (08:22→21:36)
[2019-07-23] MEDS: Pantoprazole Sodium 40 MG Tablet PO (08:23)
[2019-07-23] MEDS: Enoxaparin 40 MG/0.4 ML Syringe SC (08:23)
[2019-07-23] MEDS: FLUoxetine 20 MG Capsule 40 MG PO (08:23)
[2019-07-23] MEDS: Ammonium Lactate 225 gm Bottle 1 APPLIC TOPICAL (08:23)
[2019-07-23] MEDS: guaiFENesin 1,200 MG Tablet 1200 MG PO ×2 (08:24→21:36)
--- NOTE | 2019-07-23 09:38 | CASEMGMT ---
As per admitting RN, pt does not have LW/POA and declined any additional information in regard to this. ROBERTO Feliz
[2019-07-23] MEDS: Insulin Lispro 100 UNIT/ML INSULN.PEN SC ×2 (11:10→16:48)
[2019-07-23 11:20] LABS: Bedside Glucose 176 mg/dL (70-110)
--- NOTE | 2019-07-23 13:02 | PCM.PROGNOTE ---
<Eddie Laguna - Last Filed: 07/23/19 13:02> Patient Problems: Active and Suspected Problems (This Medical Record has been edited. Action required.) Acute and chronic respiratory failure with hypoxia (Acute) Subjective: Pt has seen Dr. Leigh and Nicolle for pulmonology in the past however he did not remember this. He has ongoing SOB at rest. Non productive cough. No fever/chills. He c/o midepigastric pressure. No hx ulcer/gastritis. No LE edema. - Physical Exam General: Alert, Oriented x3, Cooperative HEENT: Atraumatic, PERRLA, EOMI, Normocephalic Neck: Supple, No JVD, Negative Carotid Bruits Lungs: Rhonchi, Wheezes Cardiovascular: Regular rate, No murmurs Abdomen: Bowel Sounds Present, Soft, Non Tender Extremities: No edema, Capillary Refill Less than 3 Seconds Skin: No rashes, No breakdown Musculoskeletal: No Tenderness to Palpation of Joints or Extremities Neurological: Cranial nerves II-XII grossly intact Psych/Mental Status: Normal Affect, Appropriate, Alert and oriented to time, place, person, mood and affect Vital Signs Temp Pulse Resp BP Pulse Ox 98.3 F 106 H 22 H 113/65 87 07/23/19 09:45 07/23/19 10:58 07/23/19 10:58 07/23/19 09:45 07/23/19 10:57 Oxygen Flow Rate (L/min) 6 Oxygen Delivery Method Nasal Cannula Weight: 123 lb 14.397 oz Body Mass Index (BMI) 18.3 Intake and Output for Last 24 Hours 07/21/19 07/22/19 07/23/19 23:59 23:59 23:59 Intake Total 573.75 / 573.75 1016.75 / 1016.75 Output Total 0 / 0 200 / 200 Balance 573.75 / 573.75 816.75 / 816.75 Microbiology Past 72 Hours 07/22/19 21:43 Respiratory Panel (PCR) - Final Mucosa - Nasopharyngeal Rhinovirus Laboratory Tests Past 24 Hrs 07/22/19 07/22/19 07/22/19 18:13 18:13 18:13 WBC 9.4 RBC 3.92 L Hgb 13.5 Hct 40.6 MCV 103.6 H MCH 34.4 H MCHC 33.3 RDW Std Deviation 52.3 H RDW Coeff of Bindu 13.6 Plt Count 213 MPV 8.6 Immature Gran % (Auto) 0.400 Neut % (Auto) 60.1 Lymph % (Auto) 31.5 Prentiss % (Auto) 6.6 Eos % (Auto) 1.1 Baso % (Auto) 0.3 Absolute Neuts (auto) 5.7 Absolute Lymphs (auto) 2.97 Nucleated RBC % 0 PT INR APTT Specimen Type Sample Site pH Bicarbonate Actual POC Total CO2 Base Excess O2 Saturation ABG pCO2 ABG pO2 Jorge Test O2 Delivery Device Liter Flow Blood Gas Notified Whom Sodium Potassium Chloride Carbon Dioxide Anion Gap BUN Creatinine Estim Creat Clear Calc Est GFR (MDRD) Af Amer Est GFR (MDRD) Non-Af BUN/Creatinine Ratio Glucose Lactic Acid 1.1 Calcium Total Bilirubin 0.70 Direct Bilirubin 0.24 AST 14 L ALT 19 Alkaline Phosphatase 98 Troponin I Total Protein 7.3 Albumin 3.4 Globulin 3.9 07/22/19 07/22/19 07/22/19 18:13 18:13 18:13 WBC RBC Hgb Hct MCV MCH MCHC RDW Std Deviation RDW Coeff of Bindu Plt Count MPV Immature Gran % (Auto) Neut % (Auto) Lymph % (Auto) Prentiss % (Auto) Eos % (Auto) Baso % (Auto) Absolute Neuts (auto) Absolute Lymphs (auto) Nucleated RBC % PT 13.9 INR 1.1 APTT 33.6 Specimen Type Sample Site pH Bicarbonate Actual POC Total CO2 Base Excess O2 Saturation ABG pCO2 ABG pO2 Jorge Test O2 Delivery Device Liter Flow Blood Gas Notified Whom Sodium 143 Potassium 3.7 Chloride 110 H Carbon Dioxide 28.0 Anion Gap 5 BUN 17 Creatinine 1.15 Estim Creat Clear Calc 51.57 Est GFR (MDRD) Af Amer 82 Est GFR (MDRD) Non-Af 68 BUN/Creatinine Ratio 14.8 Glucose 115 H Lactic Acid Calcium 8.7 Total Bilirubin Direct Bilirubin AST ALT Alkaline Phosphatase Troponin I < 0.015 Total Protein Albumin Globulin 07/22/19 07/23/19 07/23/19 19:03 06:30 06:30 WBC 4.7 RBC 3.49 L Hgb 12.0 L Hct 36.0 L MCV 103.2 H MCH 34.4 H MCHC 33.3 RDW Std Deviation 50.3 H RDW Coeff of Bindu 13.3 Plt Count 192 MPV 8.7 Immature Gran % (Auto) 0.400 Neut % (Auto) 86.2 H Lymph % (Auto) 12.1 L Prentiss % (Auto) 1.3 Eos % (Auto) 0.0 Baso % (Auto) 0.0 Absolute Neuts (auto) 4.1 Absolute Lymphs (auto) 0.57 L Nucleated RBC % 0 PT INR APTT Specimen Type ART Sample Site R Radial pH 7.43 Bicarbonate Actual 23.5 POC Total CO2 25 Base Excess -1 O2 Saturation 91 L ABG pCO2 35.8 ABG pO2 60 L Jorge Test POS O2 Delivery Device Nasal Can Liter Flow 4.0 Blood Gas Notified Whom ED MD Sodium 143 Potassium 4.2 Chloride 112 H Carbon Dioxide 25.0 Anion Gap 6 BUN 15 Creatinine 0.86 Estim Creat Clear Calc 67.16 Est GFR (MDRD) Af Amer 114 Est GFR (MDRD) Non-Af 94 BUN/Creatinine Ratio 17.4 Glucose 138 H Lactic Acid Calcium 7.9 L Total Bilirubin Direct Bilirubin AST ALT Alkaline Phosphatase Troponin I Total Protein Albumin Globulin POC Glucose 07/23/19 07/23/19 07/22/19 11:04 06:40 23:50 POC Glucose 176 H 133 H 137 H Medical Necessity - Tobacco Use Smoking Status: Current every day smoker Tobacco Use: Cigarettes Assessment/Plan All Active Problems (This Medical Record has been edited. Action required.) Acute and chronic respiratory failure with hypoxia (Acute) COPD exacerbation (Acute) 1. Acute on chronic hypoxic respiratory failure secondary to acute rhinovirus infection and associated COPD exacerbation-respiratory panel positive for rhinovirus. Continue Solu-Medrol, duo nebs, aerosols. The patient was 87% on 6 L of oxygen via nasal cannula, so he was placed on high flow oxygen at 45 L/min, and is now satting well. He has seen Dr. Leigh in [facility] in the past, if he fails to improve will consider further consultation. CTA of the chest was done and did not demonstrate the PE, it was suggestive of severe emphysema. Continue empiric azithromycin. Blood and sputum cultures pending. 2. Avascular necrosis of the left hip-currently controlled, has plans for follow-up with orthopedics as an outpatient. 3. Midepigastric and left upper quadrant pain-felt to be related to gastritis or GERD-continue PPI. KUB is unremarkable. May be 2/2 fosamax. 4. History of PEs-previously on Eliquis, no longer on, CTA negative. 5. Chronic back pain-stable 6. History of brain aneurysm status post TBI-no current issues. 7. Depression-Prozac, Remeron. DVT prophylaxis: Lovenox DC planning: PT OT This patient was seen by Eddie Laguna PA-C under the supervision of Doctor Analisa. <Agatha Hauser - Last Filed: 07/23/19 16:17> - Physical Exam Vital Signs Temp Pulse Resp BP Pulse Ox 97.7 F L 81 14 115/53 L 94 07/23/19 14:51 07/23/19 15:00 07/23/19 14:51 07/23/19 14:51 07/23/19 14:51 Oxygen Flow Rate (L/min) 40 Oxygen Delivery Method CPAP Weight: 123 lb 14.397 oz Body Mass Index (BMI) 18.3 Intake and Output for Last 24 Hours 07/21/19 07/22/19 07/23/19 23:59 23:59 23:59 Intake Total 573.75 / 573.75 1016.75 / 1016.75 Output Total 0 / 0 200 / 200 Balance 573.75 / 573.75 816.75 / 816.75 Microbiology Past 72 Hours 07/22/19 21:43 Respiratory Panel (PCR) - Final Mucosa - Nasopharyngeal Rhinovirus Laboratory Tests Past 24 Hrs 07/22/19 07/22/19 07/22/19 18:13 18:13 18:13 WBC 9.4 RBC 3.92 L Hgb 13.5 Hct 40.6 MCV 103.6 H MCH 34.4 H MCHC 33.3 RDW Std Deviation 52.3 H RDW Coeff of Bindu 13.6 Plt Count 213 MPV 8.6 Immature Gran % (Auto) 0.400 Neut % (Auto) 60.1 Lymph % (Auto) 31.5 Prentiss % (Auto) 6.6 Eos % (Auto) 1.1 Baso % (Auto) 0.3 Absolute Neuts (auto) 5.7 Absolute Lymphs (auto) 2.97 Nucleated RBC % 0 PT INR APTT Specimen Type Sample Site pH Bicarbonate Actual POC Total CO2 Base Excess O2 Saturation ABG pCO2 ABG pO2 Jorge Test O2 Delivery Device Liter Flow Blood Gas Notified Whom Sodium Potassium Chloride Carbon Dioxide Anion Gap BUN Creatinine Estim Creat Clear Calc Est GFR (MDRD) Af Amer Est GFR (MDRD) Non-Af BUN/Creatinine Ratio Glucose Lactic Acid 1.1 Calcium Total Bilirubin 0.70 Direct Bilirubin 0.24 AST 14 L ALT 19 Alkaline Phosphatase 98 Troponin I Total Protein 7.3 Albumin 3.4 Globulin 3.9 07/22/19 07/22/19 07/22/19 18:13 18:13 18:13 WBC RBC Hgb Hct MCV MCH MCHC RDW Std Deviation RDW Coeff of Bindu Plt Count MPV Immature Gran % (Auto) Neut % (Auto) Lymph % (Auto) Prentiss % (Auto) Eos % (Auto) Baso % (Auto) Absolute Neuts (auto) Absolute Lymphs (auto) Nucleated RBC % PT 13.9 INR 1.1 APTT 33.6 Specimen Type Sample Site pH Bicarbonate Actual POC Total CO2 Base Excess O2 Saturation ABG pCO2 ABG pO2 Jorge Test O2 Delivery Device Liter Flow Blood Gas Notified Whom Sodium 143 Potassium 3.7 Chloride 110 H Carbon Dioxide 28.0 Anion Gap 5 BUN 17 Creatinine 1.15 Estim Creat Clear Calc 51.57 Est GFR (MDRD) Af Amer 82 Est GFR (MDRD) Non-Af 68 BUN/Creatinine Ratio 14.8 Glucose 115 H Lactic Acid Calcium 8.7 Total Bilirubin Direct Bilirubin AST ALT Alkaline Phosphatase Troponin I < 0.015 Total Protein Albumin Globulin 07/22/19 07/23/19 07/23/19 19:03 06:30 06:30 WBC 4.7 RBC 3.49 L Hgb 12.0 L Hct 36.0 L MCV 103.2 H MCH 34.4 H MCHC 33.3 RDW Std Deviation 50.3 H RDW Coeff of Bindu 13.3 Plt Count 192 MPV 8.7 Immature Gran % (Auto) 0.400 Neut % (Auto) 86.2 H Lymph % (Auto) 12.1 L Prentiss % (Auto) 1.3 Eos % (Auto) 0.0 Baso % (Auto) 0.0 Absolute Neuts (auto) 4.1 Absolute Lymphs (auto) 0.57 L Nucleated RBC % 0 PT INR APTT Specimen Type ART Sample Site R Radial pH 7.43 Bicarbonate Actual 23.5 POC Total CO2 25 Base Excess -1 O2 Saturation 91 L ABG pCO2 35.8 ABG pO2 60 L Jorge Test POS O2 Delivery Device Nasal Can Liter Flow 4.0 Blood Gas Notified Whom ED Sodium 143 Potassium 4.2 Chloride 112 H Carbon Dioxide 25.0 Anion Gap 6 BUN 15 Creatinine 0.86 Estim Creat Clear Calc 67.16 Est GFR (MDRD) Af Amer 114 Est GFR (MDRD) Non-Af 94 BUN/Creatinine Ratio 17.4 Glucose 138 H Lactic Acid Calcium 7.9 L Total Bilirubin Direct Bilirubin AST ALT Alkaline Phosphatase Troponin I Total Protein Albumin Globulin POC Glucose 07/23/19 07/23/19 07/22/19 11:04 06:40 23:50 POC Glucose 176 H 133 H 137 H Assessment/Plan Patient seen by Eddie Laguna PA-C under my supervision Patient is a 64 y/o male admitted with a complaint of shortness of breath, nasal congestion and sinus pressure for 4 days prior to admission. He had no associated fever and chills and he had a cough but could not expectorate to the sputum. In the ED, he was found to be short of breath and was saturating at 92% on 4 L of oxygen breathing at 24 breaths/min. Blood gas done showed pH of 7.43 with PCO2 of 30.5 and PO2 of 60.12. EKG showed no acute ST changes. Chest CT did not show any acute cardiopulmonary process but showed chronic changes of COPD. He was admitted to be managed for acute on chronic hypoxic respiratory insufficiency due to COPD exacerbation. Patient was admitted and started on BiPAP and subsequently transitioned to oxygen. Patient seen and examined. Still complained of shortness of breath and difficulty expectorating sputum. He denied any chest pain or palpitations, dizziness, abdominal pain, diarrhea vomiting. Review of systems otherwise negative. o/e: Vital Signs Height 5 ft 9 in Weight: 123 lb 14.397 oz Weight in Pounds 123.9 lbs Pulse Ox 94 Temperature 97.7 F Pulse Rate 81 Respiratory Rate 14 Blood Pressure 115/53 Blood Pressure Position Semi-Fowlers General: Alert, Oriented x3, Cooperative HEENT: Atraumatic, PERRLA, EOMI, Normocephalic Neck: Supple, No JVD, Negative Carotid Bruits Lungs: decreased breath sounds bibasally, few coarse crackles bibasally, no wheezes. on BIPAP Cardiovascular: Regular rate, Regular Rhythm, Normal S1, Normal S2, No murmurs Abdomen: Bowel Sounds Present, Soft, nontender Extremities: No edema, Capillary Refill Less than 3 Seconds Skin: No rashes, No breakdown Musculoskeletal: No Tenderness to Palpation of Joints or Extremities, Arthritic Changes Lymphatic: No Cervical, Supraclavicular, or Inguinal Adenopathy Neurological: Cranial nerves II-XII grossly intact, Deep Tendon Reflexes 2+/4 and Symmetrical, Neuro grossly intact Psych/Mental Status: Normal Affect, Appropriate Patient tested positive for rhinovirus so he is being treated for acute COPD exacerbation due to rhinovirus infection, upper respiratory tract infection due to rhinovirus infection and acute on chronic hypoxic respiratory insufficiency due to rhinovirus infection. He is continue breathing treatments. He is on azithromycin, will continue for now. Blood and sputum cultures pending. Continue guaifenesin to help with sputum expectoration. Titrate oxygen to maintain saturation above 80%. Rest of management as per Eddie Laguna PA-C's notes which I reviewed and endorsed. Code Visit Inpatient E&M: 39778 Subs Hosp L3
[2019-07-23 16:50] LABS: Bedside Glucose 169 mg/dL (70-110)
[2019-07-23] MEDS: Atorvastatin Calcium 10 MG Tablet PO (21:36)
[2019-07-23] MEDS: Azithromycin 250 MG Tablet 500 MG PO (21:36)
[2019-07-23] MEDS: Mirtazapine 30 MG Tablet PO (21:36)
[2019-07-23 22:21] LABS: Bedside Glucose 123 mg/dL (70-110)
--- NOTE | 2019-07-23 22:27 | EKG12_ITS ---
Test Reason : ADM EKG Blood Pressure : / mmHG Vent. Rate : 070 BPM Atrial Rate : 070 BPM P-R Int : 146 ms QRS Dur : 086 ms QT Int : 414 ms P-R-T Axes : 058 013 053 degrees QTc Int : 447 ms Normal sinus rhythm Normal ECG When compared with ECG of 13-FEB-2019 12:49, Premature atrial complexes are no longer Present Confirmed by EDNA BARR, KARLA ([id number]), newspaper or periodical editor DMITRI LOCKWOOD ([id number]) on 07/30/2019 10:30:45 AM Referred By: Humberto Yu Confirmed By:NIKOLAY BISHOP MD
[2019-07-24] VITALS (18 sets, daily range): BP systolic 99–114; BP diastolic 44–56; PULSE 60–79; RESP 16–22; TEMP 36.2–36.8; O2SAT 90–95
[2019-07-24] MEDS: 0.9% NaCl Peripheral Flush Adult/Peds IV ×4 (05:44→21:39)
[2019-07-24] MEDS: Ipratropium/Albuterol Sulfate 3 ML AMPUL.NEB INHALATION ×5 (06:54→22:11)
[2019-07-24 07:01] LABS: Bedside Glucose 135 mg/dL (70-110)
[2019-07-24] MEDS: Enoxaparin 40 MG/0.4 ML Syringe SC (09:02)
[2019-07-24] MEDS: Gabapentin 300 MG Capsule PO ×4 (09:02→21:39)
[2019-07-24] MEDS: guaiFENesin 1,200 MG Tablet 1200 MG PO ×2 (09:02→21:39)
[2019-07-24] MEDS: Pantoprazole Sodium 40 MG Tablet PO (09:02)
[2019-07-24] MEDS: Ammonium Lactate 225 gm Bottle 1 APPLIC TOPICAL (09:02)
[2019-07-24] MEDS: FLUoxetine 20 MG Capsule 40 MG PO (09:02)
--- NOTE | 2019-07-24 12:17 | PCM.PROGNOTE ---
<Promise Mckeon - Last Filed: 07/24/19 12:22> Patient Problems: Active and Suspected Problems (This Medical Record has been edited. Action required.) Acute and chronic respiratory failure with hypoxia (Acute) Subjective: Patient seen and examined. Continues to have shortness of breath and persistent productive cough. Denies fever, chills. Continues to require increased oxygen above baseline requirements. - Physical Exam General: Alert, Oriented x3, Cooperative HEENT: Atraumatic, PERRLA, EOMI, Normocephalic Neck: Supple, No JVD, Negative Carotid Bruits Lungs: Diminished, - - Coarse breath sounds throughout. Cardiovascular: Regular rate, Regular Rhythm, Normal S1, Normal S2, No murmurs Abdomen: Bowel Sounds Present, Soft, Non Tender, Non-Distended Extremities: No clubbing, No cyanosis, No edema, Capillary Refill Less than 3 Seconds Skin: No rashes, No breakdown Musculoskeletal: No Tenderness to Palpation of Joints or Extremities Neurological: Cranial nerves II-XII grossly intact, Neuro grossly intact Psych/Mental Status: Normal Affect, Appropriate Vital Signs Temp Pulse Resp BP Pulse Ox 97.2 F L 72 18 110/44 L 94 07/24/19 08:50 07/24/19 11:07 07/24/19 11:07 07/24/19 08:50 07/24/19 10:49 Oxygen Flow Rate (L/min) 6 Oxygen Delivery Method Nasal Cannula Weight: 123 lb 14.397 oz Body Mass Index (BMI) 18.3 Intake and Output for Last 24 Hours 07/22/19 07/23/19 07/24/19 23:59 23:59 23:59 Intake Total 573.75 / 573.75 1066.75 / 1066.75 50 / 50 Output Total 0 / 0 200 / 200 Balance 573.75 / 573.75 866.75 / 866.75 50 / 50 Microbiology Past 72 Hours 07/23/19 11:10 Gram Stain - Final Sputum, Expectorated/Coughed Respiratory Culture - Preliminary Appears to be normal respiratory miguelito. Further studies to follow. 07/22/19 21:43 Respiratory Panel (PCR) - Final Mucosa - Nasopharyngeal Rhinovirus POC Glucose 07/24/19 07/23/19 07/23/19 06:51 21:39 16:44 POC Glucose 135 H 123 H 169 H Medical Necessity - Tobacco Use Smoking Status: Current every day smoker Tobacco Use: Cigarettes Assessment/Plan All Active Problems (This Medical Record has been edited. Action required.) Acute and chronic respiratory failure with hypoxia (Acute) COPD exacerbation (Acute) 1. Acute on chronic hypoxic respiratory failure secondary to acute COPD exacerbation as a result of acute rhinovirus-respiratory panel positive for rhinovirus. Continue IV Solu-Medrol. Albuterol and DuoNeb aerosols. Patient wears 2 to 4 L continuous supplemental oxygen at baseline. Continue supplement oxygen to maintain O2 at or above 90%. CTA of chest without evidence of PE. Continue course of azithromycin. Sputum culture with normal respiratory miguelito. Blood culture pending. 2. Avascular necrosis of the left hip-outpatient follow-up with orthopedics. PT/OT. PRN pain regimen. 3. Suspected gastritis/GERD-symptoms improved on PPI. KUB unremarkable. 4. History of PE-completed Eliquis prior. CTA negative as noted above. 5. Chronic back pain 6. History of brain aneurysm status post TBI 7. Depression-continue Prozac, Remeron regimen. DVT prophylaxis-Lovenox subcu This patient was seen by IVIS Flores under the supervision of Dr. Hauser. <Agatha Hauser - Last Filed: 07/24/19 15:37> - Physical Exam Vital Signs Temp Pulse Resp BP Pulse Ox 97.1 F L 69 16 110/56 L 94 07/24/19 15:08 07/24/19 15:12 07/24/19 15:08 07/24/19 15:08 07/24/19 15:08 Oxygen Flow Rate (L/min) 6 Oxygen Delivery Method CPAP Weight: 123 lb 14.397 oz Body Mass Index (BMI) 18.3 Intake and Output for Last 24 Hours 07/22/19 07/23/19 07/24/19 23:59 23:59 23:59 Intake Total 573.75 / 573.75 1066.75 / 1066.75 50 / 50 Output Total 0 / 0 200 / 200 Balance 573.75 / 573.75 866.75 / 866.75 50 / 50 Microbiology Past 72 Hours 07/23/19 11:10 Gram Stain - Final Sputum, Expectorated/Coughed Respiratory Culture - Preliminary Appears to be normal respiratory miguelito. Further studies to follow. 07/22/19 21:43 Respiratory Panel (PCR) - Final Mucosa - Nasopharyngeal Rhinovirus POC Glucose 07/24/19 07/24/19 07/23/19 13:06 06:51 21:39 POC Glucose 157 H 135 H 123 H 07/23/19 16:44 POC Glucose 169 H Assessment/Plan Patient seen by Promise LANGSTON under my supervision Patient seen and examined. Patient feels much better today. Shortness of breath has improved. Review of systems otherwise negative. Still complained of shortness of breath and difficulty expectorating sputum. He denied any chest pain or palpitations, dizziness, abdominal pain, diarrhea vomiting. Review of systems otherwise negative. o/e: Vital Signs Height 5 ft 9 in Weight: 123 lb 14.397 oz Weight in Pounds 123.9 lbs Pulse Ox 94 Temperature 97.1 F Pulse Rate 69 Respiratory Rate 16 Blood Pressure 110/56 Blood Pressure Position Sitting General: Alert, Oriented x3, Cooperative HEENT: Atraumatic, PERRLA, EOMI, Normocephalic Neck: Supple, No JVD, Negative Carotid Bruits Lungs: decreased breath sounds bibasally, few coarse crackles bibasally, no wheezes. on oxygen by nasal canula Cardiovascular: Regular rate, Regular Rhythm, Normal S1, Normal S2, No murmurs Abdomen: Bowel Sounds Present, Soft, nontender Extremities: No edema, Capillary Refill Less than 3 Seconds Skin: No rashes, No breakdown Musculoskeletal: No Tenderness to Palpation of Joints or Extremities, Arthritic Changes Lymphatic: No Cervical, Supraclavicular, or Inguinal Adenopathy Neurological: Cranial nerves II-XII grossly intact, Deep Tendon Reflexes 2+/4 and Symmetrical, Neuro grossly intact Psych/Mental Status: Normal Affect, Appropriate Patient is being treated for acute COPD exacerbation due to acute rhinovirus infection. Continue breathing treatments. Sputum cultures negative and blood cultures are pending. Titrate oxygen to maintain saturation above 90%. Will discontinue azithromycin. For likely DC tomorrow Rest of management as per IVIS Flores's notes which I reviewed and endorsed. Code Visit Inpatient E&M: 83347 Subs Hosp L2
[2019-07-24] MEDS: Insulin Lispro 100 UNIT/ML INSULN.PEN SC (13:09)
[2019-07-24 13:25] LABS: Bedside Glucose 157 mg/dL (70-110)
[2019-07-24 17:20] LABS: Bedside Glucose 116 mg/dL (70-110)
[2019-07-24] MEDS: Atorvastatin Calcium 10 MG Tablet PO (21:39)
[2019-07-24] MEDS: Azithromycin 250 MG Tablet 500 MG PO (21:39)
[2019-07-24] MEDS: Mirtazapine 30 MG Tablet PO (21:39)
[2019-07-24 21:45] LABS: Bedside Glucose 148 mg/dL (70-110)
[2019-07-25] VITALS (17 sets, daily range): BP systolic 104–114; BP diastolic 57–59; PULSE 60–88; RESP 16–20; TEMP 36.4–36.7; O2SAT 86–97
[2019-07-25] MEDS: Ipratropium/Albuterol Sulfate 3 ML AMPUL.NEB INHALATION ×5 (03:17→19:30)
[2019-07-25] MEDS: 0.9% NaCl Peripheral Flush Adult/Peds IV ×5 (05:15→21:57)
[2019-07-25] MEDS: Alendronate Sodium 70 MG Tablet PO (05:15)
[2019-07-25 06:50] LABS: Bedside Glucose 138 mg/dL (70-110)
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
[2019-07-25] MEDS: Gabapentin 300 MG Capsule PO ×4 (10:38→21:49)
[2019-07-25] MEDS: Ammonium Lactate 225 gm Bottle 1 APPLIC TOPICAL (10:39)
[2019-07-25] MEDS: Pantoprazole Sodium 40 MG Tablet PO (10:39)
[2019-07-25] MEDS: FLUoxetine 20 MG Capsule 40 MG PO (10:39)
[2019-07-25] MEDS: guaiFENesin 1,200 MG Tablet 1200 MG PO ×2 (10:39→21:49)
[2019-07-25] MEDS: Enoxaparin 40 MG/0.4 ML Syringe SC (10:39)
[2019-07-25 11:40] LABS: Bedside Glucose 157 mg/dL (70-110)
--- NOTE | 2019-07-25 12:06 | PCM.PROGNOTE ---
<Promise Mckeon - Last Filed: 07/25/19 12:09> Patient Problems: Active and Suspected Problems (This Medical Record has been edited. Action required.) Acute and chronic respiratory failure with hypoxia (Acute) Subjective: Patient seen and examined. Reports improvement in breathing and cough. Continues to require increased oxygen demand. Pulmonary medicine consulted. - Physical Exam General: Alert, Oriented x3, Cooperative HEENT: Atraumatic, PERRLA, EOMI, Normocephalic Neck: Supple, No JVD, Negative Carotid Bruits Lungs: Diminished, - - Scattered rhonchi. Cardiovascular: Regular rate, Regular Rhythm, Normal S1, Normal S2, No murmurs Abdomen: Bowel Sounds Present, Soft, Non Tender, Non-Distended Extremities: No clubbing, No cyanosis, No edema, Capillary Refill Less than 3 Seconds Skin: No rashes, No breakdown Musculoskeletal: No Tenderness to Palpation of Joints or Extremities Neurological: Cranial nerves II-XII grossly intact, Neuro grossly intact Psych/Mental Status: Normal Affect, Appropriate Vital Signs Temp Pulse Resp BP Pulse Ox 97.5 F L 67 16 114/58 L 86 07/25/19 09:10 07/25/19 11:17 07/25/19 10:52 07/25/19 09:10 07/25/19 11:04 Oxygen Flow Rate (L/min) 6 Oxygen Delivery Method Room Air Weight: 123 lb 14.397 oz Body Mass Index (BMI) 18.3 Intake and Output for Last 24 Hours 07/23/19 07/24/19 07/25/19 23:59 23:59 23:59 Intake Total 1066.75 / 1066.75 150 / 150 50 / 50 Output Total 200 / 200 150 / 150 150 / 150 Balance 866.75 / 866.75 0 / 0 -100 / -100 Microbiology Past 72 Hours 07/23/19 11:10 Gram Stain - Final Sputum, Expectorated/Coughed Respiratory Culture - Final Mixed normal respiratory miguelito. No Haemophilus, Streptococcus pneumoniae, beta-hemolytic Streptococcus or Staphylococcus aureus isolated. 07/22/19 18:52 Blood Culture - Preliminary Blood Culture (Wb) #2 - Left Wrist No growth in 48 hours. 07/22/19 18:32 Blood Culture - Preliminary Blood Culture (Wb) - Anticubital Left No growth in 48 hours. 10/08/19 21:43 Respiratory Panel (PCR) - Final Mucosa - Nasopharyngeal Rhinovirus POC Glucose 07/25/19 07/25/19 07/24/19 11:29 06:47 21:29 POC Glucose 157 H 138 H 148 H 07/24/19 07/24/19 16:55 13:06 POC Glucose 116 H 157 H Medical Necessity - Tobacco Use Smoking Status: Current every day smoker Tobacco Use: Cigarettes Assessment/Plan All Active Problems (This Medical Record has been edited. Action required.) Acute and chronic respiratory failure with hypoxia (Acute) COPD exacerbation (Acute) 1. Acute on chronic hypoxic respiratory failure secondary to acute COPD exacerbation as a result of acute rhinovirus-respiratory panel positive for rhinovirus. Continue IV Solu-Medrol. Albuterol and DuoNeb aerosols. Patient wears 2 to 4 L continuous supplemental oxygen at baseline. Continue supplement oxygen to maintain O2 at or above 88%. CTA of chest without evidence of PE. Continue course of azithromycin empirically. Sputum culture with normal respiratory miguelito. Blood culture shows no growth. Given slow improvement, consult placed to pulmonary medicine. She will need outpatient follow-up with pulmonary medicine in 2 weeks. 2. Avascular necrosis of the left hip-outpatient follow-up with orthopedics. PT/OT. PRN pain regimen. 3. Suspected gastritis/GERD-symptoms improved on PPI. KUB unremarkable. 4. History of PE-completed Eliquis prior. CTA negative as noted above. 5. Chronic back pain 6. History of brain aneurysm status post TBI 7. Depression-continue Prozac, Remeron regimen. DVT prophylaxis-Lovenox subcu This patient was seen by IVIS Flores under the supervision of Dr. Hauser. <Agatha Hauser - Last Filed: 07/25/19 16:03> - Physical Exam Vital Signs Temp Pulse Resp BP Pulse Ox 97.7 F L 65 17 112/57 L 92 07/25/19 15:10 07/25/19 15:11 07/25/19 15:10 07/25/19 15:10 07/25/19 15:10 Oxygen Flow Rate (L/min) 6 Oxygen Delivery Method Nasal Cannula Weight: 123 lb 14.397 oz Body Mass Index (BMI) 18.3 Intake and Output for Last 24 Hours 10/09/19 10/10/19 10/11/19 23:59 23:59 23:59 Intake Total 1066.75 / 1066.75 150 / 150 410 / 410 Output Total 200 / 200 150 / 150 650 / 650 Balance 866.75 / 866.75 0 / 0 -240 / -240 Microbiology Past 72 Hours 07/23/19 11:10 Gram Stain - Final Sputum, Expectorated/Coughed Respiratory Culture - Final Mixed normal respiratory miguelito. No Haemophilus, Streptococcus pneumoniae, beta-hemolytic Streptococcus or Staphylococcus aureus isolated. 07/22/19 18:52 Blood Culture - Preliminary Blood Culture (Wb) #2 - Left Wrist No growth in 48 hours. 07/22/19 18:32 Blood Culture - Preliminary Blood Culture (Wb) - Anticubital Left No growth in 48 hours. 07/22/19 21:43 Respiratory Panel (PCR) - Final Mucosa - Nasopharyngeal Rhinovirus POC Glucose 07/25/19 07/25/19 07/24/19 11:29 06:47 21:29 POC Glucose 157 H 138 H 148 H 07/24/19 16:55 POC Glucose 116 H Assessment/Plan Patient seen by Promise Mckeon NP-C under my supervision Patient seen and examined. He feels better today and states cough and shortness of breath has improved. However patient still requiring up to 6 L of oxygen though his baseline is 2 L of oxygen. Review of systems otherwise negative. Labs and vitals reviewed. o/e: Vital Signs Height 5 ft 9 in Weight: 123 lb 14.397 oz Weight in Pounds 123.9 lbs Pulse Ox 92 Temperature 97.7 F Pulse Rate 65 Respiratory Rate 17 Blood Pressure 112/57 Blood Pressure Position Sitting General: Alert, Oriented x3, Cooperative HEENT: Atraumatic, PERRLA, EOMI, Normocephalic Neck: Supple, No JVD, Negative Carotid Bruits Lungs: decreased breath sounds bibasally, few coarse crackles bibasally, no wheezes. on 6L oxygen by nasal canula Cardiovascular: Regular rate, Regular Rhythm, Normal S1, Normal S2, No murmurs Abdomen: Bowel Sounds Present, Soft, nontender Extremities: No edema, Capillary Refill Less than 3 Seconds Skin: No rashes, No breakdown Musculoskeletal: No Tenderness to Palpation of Joints or Extremities, Arthritic Changes Lymphatic: No Cervical, Supraclavicular, or Inguinal Adenopathy Neurological: Cranial nerves II-XII grossly intact, Deep Tendon Reflexes 2+/4 and Symmetrical, Neuro grossly intact Psych/Mental Status: Normal Affect, Appropriate Plan is consult pulmonary medicine on account of increasing requirements of oxygen though patient subjectively feels better. Continue breathing treatments continue titrating oxygen to maintain saturation above 90%. We will continue monitoring patient. For likely discharge tomorrow. He may need to go home on a higher amount of oxygen by nasal cannula from his baseline until his lungs recovered sufficiently. Continue p.o. azithromycin. Rest of management as per IVIS Flores's notes which I reviewed and endorsed. Code Visit Inpatient E&M: 54945 Subs Hosp L2
--- NOTE | 2019-07-25 13:26 | CASEMGMT ---
FARHANA called [facility] and left a message letting them know patient will not be discharged today, but possibly over the weekend. FARHANA spoke with patient and his plan is to return to [facility] and his sister will transport him via private vehicle. Alisha ASHBY MSW
--- NOTE | 2019-07-25 13:45 | NURSING ---
Called and spoke with patient's sister, Tati and informed her that patient is not going home today. Tati asked that we try to find a specialist close by that he can be referred to for pockets found on his pancreas. Patient was to follow up in [facility]. Tati states that imaging was obtained at [place] per his PCP Dr. Cooper. SAÚL Virgen aware. Request for medical records placed.
[2019-07-25] MEDS: Insulin Lispro 100 UNIT/ML INSULN.PEN SC ×2 (13:49→21:48)
[2019-07-25 16:20] LABS: Bedside Glucose 116 mg/dL (70-110)
[2019-07-25] MEDS: Azithromycin 250 MG Tablet 500 MG PO (21:49)
[2019-07-25] MEDS: Mirtazapine 30 MG Tablet PO (21:50)
[2019-07-25] MEDS: Atorvastatin Calcium 10 MG Tablet PO (21:50)
[2019-07-25 22:00] LABS: Bedside Glucose 192 mg/dL (70-110)
[2019-07-26] VITALS (11 sets, daily range): BP systolic 115–122; BP diastolic 54–63; PULSE 60–85; RESP 16–20; TEMP 36.7–36.8; O2SAT 87–95
[2019-07-26] MEDS: Ipratropium/Albuterol Sulfate 3 ML AMPUL.NEB INHALATION ×4 (00:14→11:08)
[2019-07-26] MEDS: 0.9% NaCl Peripheral Flush Adult/Peds IV ×2 (06:44→06:45)
[2019-07-26 07:00] LABS: Bedside Glucose 126 mg/dL (70-110)
--- NOTE | 2019-07-26 08:07 | PN_ITS ---
Patient Problems: Active and Suspected Problems (This Medical Record has been edited. Action required.) Acute and chronic respiratory failure with hypoxia (Acute) Subjective: The patient was seen and examined at the bedside this morning. Events from the last 24 hours have been reviewed. The patient is currently afebrile, hemodyn amically stable and maintaining appropriate oxygen saturations on 6 L/min. The patient is currently resting in bed and is in no form of distress. He appears comfortable and is without any specific complaints. Nursing staff is preparing to ambulate him in the hallway to assess his exertional oxygen requirement. Objective: The patient's most recent lab work, culture data and imaging studies have all been personally reviewed. Respiratory viral panel was positive for rhinovirus. The remainder of the infectious work-up has been unrevealing to date. - Physical Exam General: Alert, Oriented x3, Cooperative, No apparent distress HEENT: Atraumatic, PERRLA, Normocephalic Oral: Moist Mucosa, No Gingival or Mucosal Lesions/ Ulcerations Neck: Supple, No Nodes, Trachea Midline Lungs: No rhonchi, No wheeze, No rales, Diminished Cardiovascular: Regular rate, Regular Rhythm, Normal S1, Normal S2 Abdomen: Bowel Sounds Present, Soft, Non Tender Extremities: No clubbing, No cyanosis, No edema Skin: No breakdown Musculoskeletal: No Tenderness to Palpation of Joints or Extremities Lymphatic: No Cervical, Supraclavicular, or Inguinal Adenopathy Neurological: Cranial nerves II-XII grossly intact, Neuro grossly intact Psych/Mental Status: Alert and oriented to time, place, person, mood and affect Vital Signs Temp Pulse Resp BP Pulse Ox 98.2 F 65 20 H 122/63 H 94 07/26/19 03:10 07/26/19 07:05 07/26/19 06:56 07/26/19 03:10 07/26/19 06:56 Oxygen Flow Rate (L/min) 6 Oxygen Delivery Method CPAP Weight: 123 lb 14.397 oz Body Mass Index (BMI) 18.3 Intake and Output for Last 24 Hours 07/24/19 07/25/19 07/26/19 23:59 23:59 23:59 Intake Total 150 / 150 610 / 610 Output Total 150 / 150 925 / 925 225 / 225 Balance 0 / 0 -315 / -315 -225 / -225 Microbiology Past 72 Hours 07/23/19 11:10 Gram Stain - Final Sputum, Expectorated/Coughed Respiratory Culture - Final Mixed normal respiratory miguelito. No Haemophilus, Streptococcus pneumoniae, beta-hemolytic Streptococcus or Staphylococcus aureus isolated. 07/22/19 18:52 Blood Culture - Preliminary Blood Culture (Wb) #2 - Left Wrist No growth in 48 hours. 07/22/19 18:32 Blood Culture - Preliminary Blood Culture (Wb) - Anticubital Left No growth in 48 hours. 07/22/19 21:43 Respiratory Panel (PCR) - Final Mucosa - Nasopharyngeal Rhinovirus POC Glucose 07/26/19 07/25/19 07/25/19 06:39 21:41 16:06 POC Glucose 126 H 192 H 116 H 07/25/19 11:29 POC Glucose 157 H Clinical Impression(s) from Imaging Studies Chest X-Ray 07/22/19 18:20 IMPRESSION: No acute cardiopulmonary disease. Electronically Signed: Jarrod Lopez DO at 18:55 EDT Tel , Service support , Chest CTA 07/22/19 19:24 IMPRESSION: Negative for pulmonary embolism or thoracic aortic dissection. Again noted is COPD and severe emphysema with intraseptal thickening. Stable subcarinal lymph node and mild soft tissue prominence in the right hilar region Electronically Signed: Jarrod Lopez DO at 20:35 EDT Tel , Service support , Abdomen X-Ray 07/22/19 21:56 IMPRESSION: Normal bowel gas pattern. Both kidneys are excreting contrast into nondilated systems. The bladder is becoming distended with excreted contrast. No free air. No organomegaly. No bowel obstruction. Osteoporosis. Previous insufficiency fracture suggested at T12 and L1. Insufficiency fracture at L4 of unknown acuity. at 1402 Reported and signed by: Abdulaziz Mario MD Electronically Signed: Abdulaziz Mario MD at 22:41 EDT Tel , Service support , Medical Necessity - Tobacco Use Smoking Status: Current every day smoker Tobacco Use: Cigarettes Assessment/Plan All Active Problems (This Medical Record has been edited. Action required.) Acute and chronic respiratory failure with hypoxia (Acute) COPD exacerbation (Acute) RECOMMENDATIONS: 1. Continue to wean supplemental oxygen to maintain saturations at or above 88%. 2. Continue current supportive measures including scheduled bronchodilators and steroids. Plan for a prolonged steroid taper at discharge. 3. Perform walking oximetry study prior to consideration for discharge. 4. Close outpatient pulmonary follow-up within 2 weeks of discharge is warranted. 5. Smoking cessation is advisable. This was discussed with the patient. IMPRESSIONS: 1. Acute on chronic hypoxemic respiratory failure due to COPD exacerbation secondary to rhinovirus infection The patient has a baseline 2 L/min supplemental oxygen requirement. In addition, he does have evidence of advanced stage COPD on his most recent PFTs and does continue to smoke cigarettes daily. Recommend continuing scheduled bronchodilators and steroids. CTA chest revealed no evidence for pulmonary embolism or pulmonary consolidation. Respiratory cultures have not shown any growth to date. Continue bronchopulmonary hygiene and wean supplemental oxygen to maintain saturations at or above 88%. Mobilize patient as tolerated. Perform walking oximetry study. If the patient is able to maintain oxygen saturations with exertion on 6 L/min or less of supplemental oxygen, he could be considered for discharge home with plans to follow-up in the pulmonary medicine clinic within 2 weeks. Given the severity of the patient's lung disease, he may require additional time to recover to the point that he can be safely discharged home. 2. Continued tobacco dependency The patient was counseled regarding the deleterious effects of continued tobacco use, including modalities which could be utilized to achieve a smoke-free lifestyle. The patient is not yet ready to quit. Nicotine replacement therapy can be offered to the patient while admitted to the hospital. As above, recommend outpatient pulmonary follow-up. 3. History of avascular necrosis of the left hip/GERD/chronic back pain/depression Complicates care, management, recovery and prognosis. Okay to continue home medications from my perspective. This note was generated with Emidaation software. It may contain incorrect words, spelling, and punctuation that were not noted in checking the note before signing. Code Visit Inpatient E&M: 54366 Subs Hosp L2
[2019-07-26] MEDS: Gabapentin 300 MG Capsule PO ×2 (09:12→11:48)
[2019-07-26] MEDS: Ammonium Lactate 225 gm Bottle 1 APPLIC TOPICAL (09:12)
[2019-07-26] MEDS: FLUoxetine 20 MG Capsule 40 MG PO (09:13)
[2019-07-26] MEDS: Enoxaparin 40 MG/0.4 ML Syringe SC (09:13)
[2019-07-26] MEDS: Pantoprazole Sodium 40 MG Tablet PO (09:13)
[2019-07-26] MEDS: guaiFENesin 1,200 MG Tablet 1200 MG PO (09:19)
--- NOTE | 2019-07-26 10:02 | PCM.PROGNOTE ---
<Promise Mckeon - Last Filed: 07/26/19 10:05> Subjective: Patient seen and examined. Continues to reports improvement in shortness of breath and cough. Patient's oxygen 87% with ambulation on 6 L this morning. Will reassess later today. - Physical Exam General: Alert, Oriented x3, Cooperative HEENT: Atraumatic, PERRLA, EOMI, Normocephalic Neck: Supple, No JVD, Negative Carotid Bruits Lungs: Clear to auscultation, Diminished Cardiovascular: Regular rate, Regular Rhythm, Normal S1, Normal S2, No murmurs Abdomen: Bowel Sounds Present, Soft, Non Tender, Non-Distended Extremities: No clubbing, No cyanosis, No edema, Capillary Refill Less than 3 Seconds Skin: No rashes, No breakdown Musculoskeletal: No Tenderness to Palpation of Joints or Extremities Neurological: Cranial nerves II-XII grossly intact, Neuro grossly intact Psych/Mental Status: Normal Affect, Appropriate Vital Signs Temp Pulse Resp BP Pulse Ox 98.0 F 76 16 115/54 L 93 07/26/19 09:10 07/26/19 09:10 07/26/19 09:10 07/26/19 09:10 07/26/19 09:10 Oxygen Flow Rate (L/min) [ 6 AMBULATION with Oxygen] Oxygen Flow Rate (L/min) [At 6 REST on Room Air] Oxygen Flow Rate (L/min) 6 Oxygen Delivery Method Nasal Cannula Weight: 123 lb 14.397 oz Body Mass Index (BMI) 18.3 Intake and Output for Last 24 Hours 07/24/19 07/25/19 07/26/19 23:59 23:59 23:59 Intake Total 150 / 150 610 / 610 Output Total 150 / 150 925 / 925 225 / 225 Balance 0 / 0 -315 / -315 -225 / -225 Microbiology Past 72 Hours 07/23/19 11:10 Gram Stain - Final Sputum, Expectorated/Coughed Respiratory Culture - Final Mixed normal respiratory miguelito. No Haemophilus, Streptococcus pneumoniae, beta-hemolytic Streptococcus or Staphylococcus aureus isolated. 07/22/19 18:52 Blood Culture - Preliminary Blood Culture (Wb) #2 - Left Wrist No growth in 48 hours. 07/22/19 18:32 Blood Culture - Preliminary Blood Culture (Wb) - Anticubital Left No growth in 48 hours. 07/22/19 21:43 Respiratory Panel (PCR) - Final Mucosa - Nasopharyngeal Rhinovirus POC Glucose 07/26/19 07/25/19 07/25/19 06:39 21:41 16:06 POC Glucose 126 H 192 H 116 H 07/25/19 11:29 POC Glucose 157 H Medical Necessity - Tobacco Use Smoking Status: Current every day smoker Tobacco Use: Cigarettes Assessment/Plan All Active Problems (This Medical Record has been edited. Action required.) Acute and chronic respiratory failure with hypoxia (Acute) COPD exacerbation (Acute) 1. Acute on chronic hypoxic respiratory failure secondary to acute COPD exacerbation as a result of acute rhinovirus-respiratory panel positive for rhinovirus. Continue IV Solu-Medrol. Albuterol and DuoNeb aerosols. Patient wears 2 to 4 L continuous supplemental oxygen at baseline. Continue supplement oxygen to maintain O2 at or above 88%. CTA of chest without evidence of PE. Continue course of azithromycin empirically. Sputum culture with normal respiratory miguelito. Blood culture shows no growth. Pulmonary medicine following. He will need outpatient follow-up with pulmonary medicine in 2 weeks. 2. Avascular necrosis of the left hip-outpatient follow-up with orthopedics. PT/OT. PRN pain regimen. 3. Suspected gastritis/GERD-symptoms improved on PPI. KUB unremarkable. 4. History of PE-completed Eliquis prior. CTA negative as noted above. 5. Chronic back pain 6. History of brain aneurysm status post TBI 7. Depression-continue Prozac, Remeron regimen. DVT prophylaxis-Lovenox subcu This patient was seen by IVIS Flores under the supervision of Dr. Hauser. <Agatha Hauser - Last Filed: 07/26/19 13:28> - Physical Exam Vital Signs Temp Pulse Resp BP Pulse Ox 98.0 F 85 18 115/54 L 91 07/26/19 09:10 07/26/19 11:08 07/26/19 11:08 07/26/19 09:10 07/26/19 11:08 Oxygen Flow Rate (L/min) [ 6 AMBULATION with Oxygen] Oxygen Flow Rate (L/min) [At 0 REST on Room Air] Oxygen Flow Rate (L/min) 6 Oxygen Delivery Method Nasal Cannula Weight: 123 lb 14.397 oz Body Mass Index (BMI) 18.3 Intake and Output for Last 24 Hours 07/24/19 07/25/19 07/26/19 23:59 23:59 23:59 Intake Total 150 / 150 610 / 610 Output Total 150 / 150 925 / 925 225 / 225 Balance 0 / 0 -315 / -315 -225 / -225 Microbiology Past 72 Hours 07/23/19 11:10 Gram Stain - Final Sputum, Expectorated/Coughed Respiratory Culture - Final Mixed normal respiratory miguelito. No Haemophilus, Streptococcus pneumoniae, beta-hemolytic Streptococcus or Staphylococcus aureus isolated. 07/22/19 18:52 Blood Culture - Preliminary Blood Culture (Wb) #2 - Left Wrist No growth in 48 hours. 07/22/19 18:32 Blood Culture - Preliminary Blood Culture (Wb) - Anticubital Left No growth in 48 hours. 07/22/19 21:43 Respiratory Panel (PCR) - Final Mucosa - Nasopharyngeal Rhinovirus POC Glucose 07/26/19 07/26/19 07/25/19 11:47 06:39 21:41 POC Glucose 220 H 126 H 192 H 07/25/19 16:06 POC Glucose 116 H Assessment/Plan Patient seen by Promise Mckeon NP-Julian under my supervision Patient seen and examined. He feels better today and states cough and shortness of breath has improved. However patient still requiring up to 6 L of oxygen, and desaturates to 83% on his baseline 2L of oxygen and on room air. Review of systems otherwise negative. Labs and vitals reviewed. o/e: Vital Signs Height 5 ft 9 in Weight: 123 lb 14.397 oz Weight in Pounds 123.9 lbs Pulse Ox [AMBULATION with 91 Oxygen] Pulse Ox [At REST on Room Air] 87 Pulse Ox 91 Temperature 98.0 F Pulse Rate 85 Respiratory Rate 18 Blood Pressure 115/54 Blood Pressure Position Sitting General: Alert, Oriented x3, Cooperative HEENT: Atraumatic, PERRLA, EOMI, Normocephalic Neck: Supple, No JVD, Negative Carotid Bruits Lungs: decreased breath sounds bibasally, . on 6L oxygen by nasal canula Cardiovascular: Regular rate, Regular Rhythm, Normal S1, Normal S2, No murmurs Abdomen: Bowel Sounds Present, Soft, nontender Extremities: No edema, Capillary Refill Less than 3 Seconds Skin: No rashes, No breakdown Musculoskeletal: No Tenderness to Palpation of Joints or Extremities, Arthritic Changes Lymphatic: No Cervical, Supraclavicular, or Inguinal Adenopathy Neurological: Cranial nerves II-XII grossly intact, Deep Tendon Reflexes 2+/4 and Symmetrical, Neuro grossly intact Psych/Mental Status: Normal Affect, Appropriate Plan is to DC home today on 6 L of oxygen. Continue breathing treatments. He is follow-up with pulmonology and primary care. Rest of management as per IVIS Flores's notes which I reviewed and endorsed. Code Visit Inpatient E&M: 49509 Subs Hosp L2
--- NOTE | 2019-07-26 10:41 | DCINST_ITS ---
- Discharge Diagnoses Current Active Problems: Current Active and Chronic Problems (This Medical Record has been edited. Action required.) Acute and chronic respiratory failure with hypoxia (Acute) You will use the following diet at home:: No restrictions Discharge Activity: Return to Normal Activity Call your doctor if you observe: Shortness of breath, Dizziness, Fainting spells, Chest pain Additional Instructions: Continue 6 L oxygen nasal cannula continuously. Allergies/Adverse Reactions: Allergies latex Allergy (Verified 07/22/19 18:06) Rash naproxen sodium [From Aleve] Allergy (Verified 07/22/19 18:06) Rash Medications to take at Discharge Fluoxetine [Prozac] 40 mg PO DAILY 05/06/14 Gabapentin [Neurontin] 300 mg PO 4X/DAY 05/06/14 Mirtazapine 30 mg PO QHS 04/02/16 cholecalciferol (vitamin D3) 1,000 unit (25 mcg) tablet 2,000 unit PO DAILY tab 11/13/17 Atorvastatin Calcium [Lipitor] 10 mg PO QHS 04/06/18 Alendronate Sodium [Fosamax] 70 mg PO FR 04/07/18 Omeprazole [Prilosec] 40 mg PO DAILY 02/13/19 Budesonide/Formoterol 160/4.5 [Symbicort 160/4.5 Mcg Inhaler (SP)] 2 puff INHALATION BID 02/15/19 Tiotropium [place] [Spiriva 18 MCG] 1 puff INHALATION DAILY 02/15/19 Acetaminophen [Tylenol] 1,000 mg PO Q6H PRN PRN tab 02/27/19 Albuterol Inhaler [Ventolin Hfa] 2 puff INHALATION Q4H PRN PRN 04/29/19 Ammonium Lactate [Amlactin] 57 gm TP DAILY 04/29/19 Lactose-Reduced Food [Ensure Plus] 237 ml PO BID 04/29/19 Lactobacillus Acidophilus/Fos [Acidophilus Probiotic Tablet] 1 ea PO BID #20 tab 05/01/19 Prednisone See Taper PO DAILY #30 tab 07/26/19 The following prescriptions were given: Prednisone See Taper PO DAILY #30 tab Transmission Status: Pending to [facility]30 Primary Care Physician: Phu Cooper MD [Primary Care Provider] - Please follow up with your Primary Care Physician in: 1 Week Test Results: Test results from this visit will be discussed in further detail at your follow- up appointment, if applicable. Please Follow Up With: Nicolle Holman NP-C When: 2 Weeks Proposed Discharge Date: 07/26/19
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
[2019-07-26] MEDS: Insulin Lispro 100 UNIT/ML INSULN.PEN SC (11:49)
[2019-07-26 11:55] LABS: Bedside Glucose 220 mg/dL (70-110)
== END 2019-07-26 14:16 | disposition home or self-care (01) | DRG 189 ==
LOC: ED 21:13 → PCU 21:54
PROVIDERS: Admitting Provider Internal Medicine; Emergency Provider Emergency Medicine; Family Provider Family Medicine; PCP Family Medicine; Referring Provider Internal Medicine; Visit Provider Student in an Organized Health Care Education/Training Program
DX: J96.21 Acute and chronic respiratory failure with hypoxia (principal); J44.1 Chronic obstructive pulmonary disease with (acute) exacerbation; M87.9 Osteonecrosis, unspecified; Z86.711 Personal history of pulmonary embolism; G89.29 Other chronic pain; M54.9 Dorsalgia, unspecified; F32.9 Major depressive disorder, single episode, unspecified; F17.210 Nicotine dependence, cigarettes, uncomplicated; Z96.641 Presence of right artificial hip joint; Z99.81 Dependence on supplemental oxygen; K29.70 Gastritis, unspecified, without bleeding; K21.9 Gastro-esophageal reflux disease without esophagitis; J06.9 Acute upper respiratory infection, unspecified; B97.89 Other viral agents as the cause of diseases classified elsewhere; Z86.79 Personal history of other diseases of the circulatory system; Z87.820 Personal history of traumatic brain injury
CPT/HCPCS: 36415; 36600; 71045; 71275; 74019; 80048; 80076; 82803; 82962; 83605; 84484; 85025; 85610; 85730; 87040; 87070; 87205; 87633; 93005; 94003; 94640; 94660; 94667; 94668; 97110; 97116; 97162; 97166; 97530; 97535; 97802; 99285; J7030; J7050; Q9967; A4216

== ENCOUNTER 2019-11-08 14:11 | Inpatient (IN) | payer MEDICARE, MEDICAID, SELFPAY ==
[2019-09-02 07:24] VITALS: BMI 19.2
[2019-11-08] VITALS (10 sets, daily range): BP systolic 101–142; BP diastolic 60–76; PULSE 65–73; RESP 18–28; TEMP 36–36.7; O2SAT 87–97; BMI 19.5; BMI 28.5; BMI 90.5
--- NOTE | 2019-11-08 14:15 | EKG12_ITS ---
Test Reason : SOB Blood Pressure : / mmHG Vent. Rate : 066 BPM Atrial Rate : 066 BPM P-R Int : 150 ms QRS Dur : 080 ms QT Int : 402 ms P-R-T Axes : 050 -05 056 degrees QTc Int : 421 ms Normal sinus rhythm Normal ECG Confirmed by NICOLÁS BARR, RONAL ([id number]), photo editor MAYCOL ALMONTE ([id number]) on 11/10/2019 12:23:51 PM Referred By: JUAN/DYLON Confirmed By:RONAL MONZON MD
--- NOTE | 2019-11-08 14:15 | RAD_ITS ---
STUDY: X-RAY CHEST REASON FOR EXAM: Male, 64 years old. chest pain TECHNIQUE: AP COMPARISON: 07/22/2019 FINDINGS: EKG leads project over the chest. Lungs are less expanded as compared to the prior study with bibasilar atelectasis. There is no demonstrated pleural abnormality. Normal size heart. Normal mediastinum and shanna. Normal visualized pulmonary arteries. Normal visualized aortic arch and descending thoracic aorta. No acute bony process. There is no demonstrated abnormality of the visualized soft tissue structures of the upper abdomen. RAD/Chest 1 View (Portable) IMPRESSION: Hypoinflation with bibasilar atelectasis. Electronically Signed: Huber Ignacio MD ([place]) at 14:40 EST , Service support ,
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
[2019-11-08 14:25] LABS: Absolute Neutrophil Count 4.5 X10^3/uL (2.0-7.7); Basophil# 0.03 X10^3/uL; Basophil% 0.4 % (0-1); Eosinophil# 0.06 X10^3/uL; Eosinophils% 0.8 % (0-5); Hematocrit 39.3 % (40-54); Hemoglobin 13.2 g/dL (13.0-16.5); Lymphocyte % 30.8 % (19-41); Mean Corp Hgb Conc 33.6 g/dL (32-36); Mean Corpuscular Hgb 34.6 pg (27.0-32.0); Mean Corpuscular Volume 103.1 fL (80-94); Mean Platelet Vol. 8.5 fl (6.2-12.0); Monocyte# 0.55 X10^3/uL; Monocyte% 7.4 % (0-10); NRBC Flagged by Analyzer 0 % (0-5); Neutrophil # 4.51 X10^3/uL (2.7-7.7); Neutrophil % 60.3 % (47-70); Platelet Count 198 K/mm3 (150-450); RBC Distribution Width CV 13.6 % (11.6-14.6); RBC Distribution Width SD 52.3 fl (35.1-43.9); Red Blood Count 3.81 M/mm3 (4.6-6.2); White Blood Count 7.5 K/mm3 (4.4-11.0)
[2019-11-08] MEDS: Ipratropium/Albuterol Sulfate 3 ML AMPUL.NEB INHALATION ×3 (14:33→23:35)
[2019-11-08 14:43] LABS: Anion Gap 3 (5-15); BUN 16 mg/dL (7-18); BUN/Creat Ratio 11.8 RATIO (10-20); Chloride 111 mmol/L (98-107); Creatinine, Serum 1.36 mg/dL (0.70-1.30); EST Glomerular Filtration Rate 56 mL/min (>60); Est Glom Filt Rate - Afr Amer 67 mL/min (>60); Estimated Creatinine Clearance 46.63 ml/min; Glucose 101 mg/dL (74-106); Potassium 3.8 mmol/L (3.5-5.1); Sodium Level 143 mmol/L (136-145)
[2019-11-08 14:51] LABS: BNP,B-Type NATRIURETIC PEPTIDE 15.9 pg/mL (0-100)
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
[2019-11-08 17:31] LABS: Bedside Glucose 104 mg/dL (70-110)
[2019-11-08] MEDS: 0.9% Normal Saline 1,000 ML 125 ML IV (18:02)
[2019-11-08] MEDS: Pantoprazole Sodium 20 MG Tablet PO (21:32)
[2019-11-08] MEDS: Docusate Sodium 100 MG Capsule PO (21:32)
[2019-11-08] MEDS: guaiFENesin 1,200 MG Tablet 1200 MG PO (21:32)
[2019-11-08] MEDS: Atorvastatin Calcium 10 MG Tablet PO (21:32)
[2019-11-08] MEDS: Mirtazapine 30 MG Tablet PO (21:32)
[2019-11-08] MEDS: Gabapentin 300 MG Capsule PO (21:32)
[2019-11-08 21:45] LABS: Bedside Glucose 148 mg/dL (70-110)
[2019-11-09] VITALS (10 sets, daily range): BP systolic 115–121; BP diastolic 49–65; PULSE 71–90; RESP 12–20; TEMP 36.2–36.8; O2SAT 91–96
[2019-11-09] MEDS: 0.9% Normal Saline 1,000 ML 125 ML IV ×3 (02:09→18:42)
[2019-11-09] MEDS: Ipratropium/Albuterol Sulfate 3 ML AMPUL.NEB INHALATION ×6 (02:55→23:05)
[2019-11-09] MEDS: Gabapentin 300 MG Capsule PO ×3 (05:20→20:56)
[2019-11-09 06:50] LABS: Bedside Glucose 153 mg/dL (70-110)
[2019-11-09 07:06] LABS: ALB/GLOB Ratio 0.9 RATIO (0.9-2.4); AST(SGOT) 13 U/L (15-37); Alanine Aminotransfer ALT/SGPT 19 U/L (16-61); Albumin, Serum 2.9 g/dL (3.2-5.0); Alkaline Phosphatase 72 U/L (45-117); Anion Gap 5 (5-15); BUN 16 mg/dL (7-18); Calcium,Total 8.4 mg/dL (8.5-10.1); Chloride 115 mmol/L (98-107); Creatinine, Serum 1.07 mg/dL (0.70-1.30); EST Glomerular Filtration Rate 73 mL/min (>60); Est Glom Filt Rate - Afr Amer 89 mL/min (>60); Estimated Creatinine Clearance 70.12 ml/min; Globulin 3.4 g/dL (2.2-4.2); Glucose 146 mg/dL (74-106); Phosphorus 2.3 mg/dL (2.5-4.9); Potassium 4.4 mmol/L (3.5-5.1); Protein, Total 6.3 g/dL (6.4-8.2); Sodium Level 143 mmol/L (136-145)
[2019-11-09] MEDS: guaiFENesin 1,200 MG Tablet 1200 MG PO ×2 (08:05→20:56)
[2019-11-09] MEDS: FLUoxetine 20 MG Capsule 40 MG PO (08:05)
[2019-11-09] MEDS: Docusate Sodium 100 MG Capsule PO ×2 (08:05→20:56)
[2019-11-09] MEDS: Enoxaparin 40 MG/0.4 ML Syringe SC (08:06)
[2019-11-09] MEDS: Pantoprazole Sodium 20 MG Tablet PO ×2 (08:06→20:56)
--- NOTE | 2019-11-09 10:20 | PN_ITS ---
Patient Problems: Active and Suspected Problems (Last Reviewed 11/08/19 @ 17:13 by Arlene Ahumada DO) ARF (acute renal failure) (Acute) COPD exacerbation (Acute) Reason for Visit: COPD exacerbation. Subjective: Breathing better. No new events. Vitals/I&O's: Vital Signs Temp Pulse Resp BP Pulse Ox 36.4 C L 85 20 H 115/65 93 11/09/19 07:55 11/09/19 07:55 11/09/19 07:55 11/09/19 07:55 11/09/19 07:55 Oxygen Flow Rate (L/min) 2 Oxygen Delivery Method Nasal Cannula Weight: 90.492 kg Body Mass Index (BMI) 28.5 Intake and Output for Last 24 Hours 11/07/19 11/08/19 11/09/19 23:59 23:59 23:59 Intake Total 620 / 620 1517.92 / 1517.92 Output Total 200 / 200 Balance 420 / 420 1517.92 / 1517.92 General: Alert, No apparent distress HEENT: Atraumatic, Normocephalic Oral: Moist Mucosa, No Gingival or Mucosal Lesions/ Ulcerations Neck: No Nodes, Trachea Midline Lungs: Diminished, - - faint wheeze Cardiovascular: Regular rate, Regular Rhythm, Normal S1, Normal S2, No murmurs Abdomen: Bowel Sounds Present, Soft, Non Tender, Non-Distended, No Hepato- splenomegaly Extremities: No edema, No Calf Tenderness Skin: No rashes, No breakdown Musculoskeletal: No Tenderness to Palpation of Joints or Extremities, No Muscle Wasting Psych/Mental Status: Normal Affect, Appropriate Microbiology Past 72 Hours 11/08/19 19:18 Mucosa - Nasopharyngeal Influenza Types A,B Direct FA (MARIELY) - Final Laboratory Results 11/08/19 14:15: WBC 7.5, RBC 3.81 L, Hgb 13.2, Hct 39.3 L, MCV 103.1 H, MCH 34.6 H, MCHC 33.6, RDW Std Deviation 52.3 H, RDW Coeff of Bindu 13.6, Plt Count 198, MPV 8.5, Immature Gran % (Auto) 0.300, Neut % (Auto) 60.3, Lymph % (Auto) 30.8, [place] % (Auto) 7.4, Eos % (Auto) 0.8, Baso % (Auto) 0.4, Absolute Neuts (auto) 4.5, Absolute Lymphs (auto) 2.30, Nucleated RBC % 0 11/08/19 14:15: Sodium 143, Potassium 3.8, Chloride 111 H, Carbon Dioxide 29.0, Anion Gap 3 L, BUN 16, Creatinine 1.36 H, Estim Creat Clear Calc 46.63, Est GFR (MDRD) Af Amer 67, Est GFR (MDRD) Non-Af 56 L, BUN/Creatinine Ratio 11.8, Glucose 101, Calcium 9.0, Troponin I < 0.015 11/08/19 14:15: B-Natriuretic Peptide 15.9 11/08/19 17:22: POC Glucose 104 11/08/19 21:30: POC Glucose 148 H 11/09/19 06:00: Sodium 143, Potassium 4.4, Chloride 115 H, Carbon Dioxide 23.0, Anion Gap 5, BUN 16, Creatinine 1.07, Estim Creat Clear Calc 70.12, Est GFR (MDRD) Af Amer 89, Est GFR (MDRD) Non-Af 73, BUN/Creatinine Ratio 15.0, Glucose 146 H, Calcium 8.4 L, Phosphorus 2.3 L, Magnesium 2.0, Total Bilirubin 0.70, AST 13 L, ALT 19, Alkaline Phosphatase 72, Total Protein 6.3 L, Albumin 2.9 L, Globulin 3.4, Albumin/Globulin Ratio 0.9 11/09/19 06:45: POC Glucose 153 H Current Medications Acetaminophen (Tylenol) 650 mg PO Q6H PRN PRN PRN Reason: Pain Score 1-3/Temp > 100.7 F Al Hydroxide/Mg Hydroxide (Mylanta Ii) 30 ml PO Q6H PRN PRN PRN Reason: Gastric Burning Albuterol Sulfate (Ventolin Aerosols) 2.5 mg INHALATION Q2H PRN PRN PRN Reason: Shortness of Breath/Wheezing Albuterol/Ipratropium (Duoneb) 3 ml INHALATION Q4H.RT VIMAL Last Admin: 11/09/19 07:15 Dose: 3 ml Documented by: Alendronate Sodium (Fosamax) 70 mg PO FR VIMAL Atorvastatin Calcium (Lipitor) 10 mg PO QHS VIMAL Last Admin: 11/08/19 21:32 Dose: 10 mg Documented by: Cholecalciferol (Vitamin D) 2,000 unit PO DAILY [facility] Last Admin: 11/09/19 08:05 Dose: 2,000 unit Documented by: Docusate Sodium (Colace) 100 mg PO BID [facility] Last Admin: 11/09/19 08:05 Dose: 100 mg Documented by: Enoxaparin Sodium (Lovenox) 40 mg SC DAILY [facility] Last Admin: 11/09/19 08:06 Dose: 40 mg Documented by: Fluoxetine HCl (Prozac) 40 mg PO DAILY [facility] Last Admin: 11/09/19 08:05 Dose: 40 mg Documented by: Gabapentin (Neurontin) 300 mg PO TID [facility] Last Admin: 11/09/19 05:20 Dose: 300 mg Documented by: Glucagon () 1 mg IM .X1 PRN PRN Reason: Hypoglycemia Guaifenesin (Mucinex) 1,200 mg PO BID [facility] Last Admin: 11/09/19 08:05 Dose: 1,200 mg Documented by: Sodium Chloride () 250 mls @ 15 mls/hr IV .[id number] PRN PRN Reason: Saline Flush Sodium Chloride () 250 mls @ 15 mls/hr IV .[id number] PRN PRN Reason: Additional IVPB Infusion Sodium Chloride () 1,000 mls @ 125 mls/hr IV .Q8H [facility] Last Infusion: 11/09/19 05:20 Dose: 125 mls/hr Documented by: Dextrose (Dextrose 10%-Water) 250 mls @ 999 mls/hr IV .Q16M PRN; Protocol PRN Reason: HYPOGLYCEMIA Insulin Human Lispro (Humalog Kwikpen (Bkc)) 0 unit SC ACHS [facility]; Protocol Last Admin: 11/09/19 06:49 Dose: Not Given Documented by: Magnesium Hydroxide (Milk Of Magnesia) 30 ml PO DAILY PRN PRN PRN Reason: Constipation Melatonin (Melatonin) 3 mg PO QHS PRN PRN PRN Reason: INSOMNIA Methylprednisolone (Solu-Medrol) 40 mg IV Q8 [facility] Stop: 11/09/19 22:01 Last Admin: 11/09/19 05:20 Dose: 40 mg Documented by: Mirtazapine (Remeron) 30 mg PO QHS [facility] Last Admin: 11/08/19 21:32 Dose: 30 mg Documented by: Nicotine (Nicoderm Cq (Pbkc)) 21 mg TRANSDERM. DAILY [facility] Last Admin: 11/09/19 08:06 Dose: Not Given Documented by: Nutritional Formula (Lactose Free) (Ensure Enlive) 120 ml PO 4X/DAY [facility] Last Admin: 11/09/19 08:06 Dose: 120 ml Documented by: Oxycodone HCl (Oxyir) 5 mg PO Q4H PRN PRN PRN Reason: Pain Score 4-10/10 Pantoprazole Sodium (Protonix) 20 mg PO BID [facility] Last Admin: 11/09/19 08:06 Dose: 20 mg Documented by: Prednisone () 40 mg PO DAILY@0800 [facility] Prochlorperazine Edisylate (Compazine Iv) 5 mg IV Q4H PRN PRN PRN Reason: Breakthrough nausea/vomiting Sodium Chloride () 10 - 40 ml IV UD PRN PRN Reason: SALINE FLUSH STROKE Vital Signs/Narrative: Vital Signs Temp Pulse Resp BP Pulse Ox 11/09/19 07:55 36.4 C L 85 20 H 115/65 93 11/09/19 07:15 81 18 91 Medical Necessity - Tobacco Use Smoking Status: Current every day smoker Tobacco Use: Cigarettes Assessment/Plan All Active Problems (Last Reviewed 11/08/19 @ 17:13 by Arlene Ahumada DO) ARF (acute renal failure) (Acute) COPD exacerbation (Acute) 1. AECOPD * overall improving * On Methylprednisolone through this evening, then prednisone starting 11/10. Along with BDs * If stable on 2 liters/m (home oxygen) then could be discharged 11/10 * CXR reviewed and showed no acute process. 2. VTE proph with enoxaparin. Code Visit Inpatient E&M: 31663 Subs Hosp L2
[2019-11-09 11:26] LABS: Bedside Glucose 190 mg/dL (70-110)
[2019-11-09] MEDS: Insulin Lispro 100 UNIT/ML INSULN.PEN SC ×3 (11:32→21:01)
[2019-11-09] MEDS: oxyCODONE 5 MG Tablet PO (11:37)
[2019-11-09] MEDS: 0.9% Saline Lock 10 ML Syringe IV (13:28)
[2019-11-09] MEDS: Acetaminophen 325 MG Tablet 650 MG PO (13:32)
[2019-11-09 17:20] LABS: Bedside Glucose 175 mg/dL (70-110)
[2019-11-09] MEDS: Atorvastatin Calcium 10 MG Tablet PO (20:56)
[2019-11-09] MEDS: Mirtazapine 30 MG Tablet PO (20:56)
[2019-11-10 00:41] LABS: Bedside Glucose 198 mg/dL (70-110)
[2019-11-10] MEDS: 0.9% Normal Saline 1,000 ML 125 ML IV (03:00)
[2019-11-10 03:15] VITALS: PULSE 80; RESP 16
[2019-11-10] MEDS: Ipratropium/Albuterol Sulfate 3 ML AMPUL.NEB INHALATION ×3 (03:15→11:13)
[2019-11-10 04:00] VITALS: BP 111/57; PULSE 79; RESP 16; TEMP 36.6; O2SAT 93
[2019-11-10] MEDS: Gabapentin 300 MG Capsule PO (05:51)
[2019-11-10 07:00] LABS: Bedside Glucose 139 mg/dL (70-110)
[2019-11-10 07:07] VITALS: PULSE 85; RESP 16; O2SAT 91
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
[2019-11-10] MEDS: predniSONE 20 MG Tablet 40 MG PO (08:57)
[2019-11-10 09:20] LABS: Absolute Lymphocyte Count 0.82 X10^3/uL (0.83-4.51); Absolute Neutrophil Count 12.8 X10^3/uL (2.0-7.7); Basophil# 0.01 X10^3/uL; Basophil% 0.1 % (0-1); Hemoglobin 11.8 g/dL (13.0-16.5); Lymphocyte # 0.82 X10^3/ul (4.0); Lymphocyte % 5.7 % (19-41); Mean Corp Hgb Conc 32.8 g/dL (32-36); Mean Corpuscular Hgb 34.7 pg (27.0-32.0); Mean Corpuscular Volume 105.9 fL (80-94); Mean Platelet Vol. 8.8 fl (6.2-12.0); Monocyte# 0.68 X10^3/uL; Monocyte% 4.7 % (0-10); NRBC Flagged by Analyzer 0 % (0-5); Neutrophil # 12.81 X10^3/uL (2.7-7.7); Neutrophil % 88.9 % (47-70); Platelet Count 198 K/mm3 (150-450); RBC Distribution Width CV 13.4 % (11.6-14.6); RBC Distribution Width SD 52.2 fl (35.1-43.9); White Blood Count 14.4 K/mm3 (4.4-11.0)
[2019-11-10] MEDS: FLUoxetine 20 MG Capsule 40 MG PO (09:26)
[2019-11-10] MEDS: Docusate Sodium 100 MG Capsule PO (09:26)
[2019-11-10] MEDS: Pantoprazole Sodium 20 MG Tablet PO (09:26)
[2019-11-10] MEDS: guaiFENesin 1,200 MG Tablet 1200 MG PO (09:26)
[2019-11-10] MEDS: Enoxaparin 40 MG/0.4 ML Syringe SC (09:27)
[2019-11-10 09:41] LABS: Anion Gap 4 (5-15); BUN 19 mg/dL (7-18); BUN/Creat Ratio 18.8 RATIO (10-20); Calcium,Total 8.1 mg/dL (8.5-10.1); Chloride 114 mmol/L (98-107); Creatinine, Serum 1.01 mg/dL (0.70-1.30); EST Glomerular Filtration Rate 79 mL/min (>60); Est Glom Filt Rate - Afr Amer 95 mL/min (>60); Estimated Creatinine Clearance 74.28 ml/min; Glucose 127 mg/dL (74-106); Potassium 4.1 mmol/L (3.5-5.1); Sodium Level 142 mmol/L (136-145)
[2019-11-10 09:58] VITALS: O2SAT 90
[2019-11-10 10:00] VITALS: BP 118/63; PULSE 73; RESP 16; TEMP 36.6; O2SAT 95
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
[2019-11-10 11:13] VITALS: PULSE 86; RESP 18
--- NOTE | 2019-11-10 11:35 | CASEMGMT ---
Social Work Note Pt is listed as being from [facility]. FARHANA placed a call to [facility] and spoke with NIRAV Calabrese. Bharati states that pt is on 2 L of Oxygen at night and PRN oxygen during the day. Bharati states pt's oxygen is through [employer]. NIRAV DAVENPORT placed a call to [facility] [place] and apparently pt's oxygen is through [employer] and pt is on 6 Liters continuously. FARHANA placed a call to pt's sister Tati who is listed as guardian for pt per documents on pt's chart. Tati confirms pt is from [facility] and plan is to return. Tati states she is sick today and unable to transport pt. FARHANA spoke with RN who states pt is able to transport via wheelchair van and will need to be on 2 liter oxygen. FARHANA placed a call to [facility] and arranged transportation via wheelchair van. [facility] states they will send someone over to [facility] now. FARHANA updated RN. FARHANA faxed discharge summary and instructions to [facility]. FARHANA placed a call to Bharati at [facility] and updated her that pt is going to be discharged today and [facility] is on way to transport pt. FARHANA placed a call to Tati and updated her that transportation has been arranged and pt will be leaving [facility] shortly. Plan: Return to [facility] with [facility] transporting via wheelchair van. [facility] is on way to [facility] at this time. Petrona Bustamante [employer], [employer] PROFESSIONAL
== END 2019-11-10 12:01 | disposition home or self-care (01) | DRG 191 ==
LOC: ED 15:20 → MS3 17:00
PROVIDERS: Admitting Provider Internal Medicine; Emergency Provider Emergency Medicine; PCP Family Medicine; Visit Provider Family Medicine
DX: J44.1 Chronic obstructive pulmonary disease with (acute) exacerbation (principal); J96.11 Chronic respiratory failure with hypoxia; N28.9 Disorder of kidney and ureter, unspecified; E86.0 Dehydration; K50.90 Crohn's disease, unspecified, without complications; E78.5 Hyperlipidemia, unspecified; G62.9 Polyneuropathy, unspecified; M19.90 Unspecified osteoarthritis, unspecified site; K21.9 Gastro-esophageal reflux disease without esophagitis; F32.9 Major depressive disorder, single episode, unspecified; F41.9 Anxiety disorder, unspecified; F17.210 Nicotine dependence, cigarettes, uncomplicated; Z99.81 Dependence on supplemental oxygen; Z79.51 Long term (current) use of inhaled steroids; Z79.83 Long term (current) use of bisphosphonates; Z79.899 Other long term (current) drug therapy; Z85.828 Personal history of other malignant neoplasm of skin; Z87.820 Personal history of traumatic brain injury; Z86.711 Personal history of pulmonary embolism; Z86.79 Personal history of other diseases of the circulatory system; Z96.651 Presence of right artificial knee joint; Z96.641 Presence of right artificial hip joint
CPT/HCPCS: 36415; 71045; 80048; 80053; 82962; 83735; 83880; 84100; 84484; 85025; 87633; 87804; 93005; 94640; 94667; 94668; 94770; 97802; 99251; 99285; 99406; J7030; J7040; A4216; G0463

== ENCOUNTER 2019-12-15 18:59 | Inpatient (IN) | payer MEDICARE, MEDICAID, SELFPAY ==
[2019-11-26 06:02] VITALS: BMI 18.8
[2019-12-15] VITALS (11 sets, daily range): BP systolic 119–124; BP diastolic 59–67; PULSE 67–81; RESP 12–40; TEMP 36.8; O2SAT 90–96; BMI 21.4; BMI 18.8; BMI 18.9
--- NOTE | 2019-12-15 19:00 | EKG12_ITS ---
Test Reason : DYSRHYTHMIA Blood Pressure : / mmHG Vent. Rate : 077 BPM Atrial Rate : 077 BPM P-R Int : 138 ms QRS Dur : 076 ms QT Int : 380 ms P-R-T Axes : 065 -08 058 degrees QTc Int : 430 ms Normal sinus rhythm Normal ECG Confirmed by NORM BARR, JARROD ([id number]), design editor MAYCOL ALMONTE ([id number]) on 12/17/2019 1:34:29 PM Referred By: AMILCAR Confirmed By:JARROD ZHENG MD
--- NOTE | 2019-12-15 19:00 | RAD_ITS ---
STUDY: X-RAY CHEST REASON FOR EXAM: Male, 64 years old. Worsening shortness of breath TECHNIQUE: 2 AP portable views COMPARISON: 11/08/2019 FINDINGS: EKG leads overlie the chest The lungs are clear and expanded. There is no demonstrated pleural abnormality. Normal size heart. Normal mediastinum and shanna. Normal visualized pulmonary arteries. Normal visualized aortic arch and descending thoracic aorta. Normal visualized thoracic spine. Normal visualized ribs, clavicles, and shoulders. There is no demonstrated abnormality of the visualized soft tissue structures of the upper abdomen. RAD/Chest 1 View (Portable) IMPRESSION: No acute pulmonary process Electronically Signed: Pancho Proctor MD at 19:18 EST , Service support ,
[2019-12-15 19:13] LABS: Absolute Neutrophil Count 5.6 X10^3/uL (2.0-7.7); Basophil# 0.03 X10^3/uL; Basophil% 0.3 % (0-1); Eosinophil# 0.18 X10^3/uL; Eosinophils% 1.8 % (0-5); Hematocrit 41.4 % (40-54); Hemoglobin 14.1 g/dL (13.0-16.5); Lymphocyte % 33.7 % (19-41); Mean Corp Hgb Conc 34.1 g/dL (32-36); Mean Corpuscular Hgb 35.5 pg (27.0-32.0); Mean Corpuscular Volume 104.3 fL (80-94); Mean Platelet Vol. 8.7 fl (6.2-12.0); Monocyte# 0.89 X10^3/uL; Monocyte% 8.8 % (0-10); NRBC Flagged by Analyzer 0 % (0-5); Neutrophil # 5.56 X10^3/uL (2.7-7.7); Neutrophil % 55.1 % (47-70); Platelet Count 236 K/mm3 (150-450); RBC Distribution Width CV 13.5 % (11.6-14.6); RBC Distribution Width SD 51.9 fl (35.1-43.9); Red Blood Count 3.97 M/mm3 (4.6-6.2); White Blood Count 10.1 K/mm3 (4.4-11.0)
[2019-12-15] MEDS: Ipratropium/Albuterol Sulfate 3 ML AMPUL.NEB INHALATION (19:17)
[2019-12-15] MEDS: 0.9% Normal Saline 1,000 ML 150 ML IV (19:19)
[2019-12-15 19:31] LABS: Anion Gap 4 (5-15); BUN 21 mg/dL (7-18); BUN/Creat Ratio 19.1 RATIO (10-20); Calcium,Total 8.7 mg/dL (8.5-10.1); Chloride 111 mmol/L (98-107); EST Glomerular Filtration Rate 71 mL/min (>60); Est Glom Filt Rate - Afr Amer 86 mL/min (>60); Estimated Creatinine Clearance 61.48 ml/min; Glucose 111 mg/dL (74-106); Potassium 3.8 mmol/L (3.5-5.1); Sodium Level 143 mmol/L (136-145)
[2019-12-15] MEDS: Albuterol 2.5 MG/3 ML VIAL.NEB. INHALATION ×3 (19:39)
[2019-12-15 19:42] LABS: Lactic Acid 2.2 mmol/L (0.4-1.9)
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
--- NOTE | 2019-12-15 20:22 | CPS ---
x3 Albuterol given to pt. as well in ER
[2019-12-15 20:25] LABS: BNP,B-Type NATRIURETIC PEPTIDE 15.1 pg/mL (0-100)
[2019-12-15 21:40] LABS: Base Excess -1 mmol/L (-2 to +2); Bicarbonate 23.7 mmol/L (22-26); Blood Gas Specimen Type ART; EPAP 6; FI02 30; IPAP 14; PO2 64 mmHG (75-100); RR 12; SITE R Radial; SO2 93 % (95-99); Time Given 2135; Total Carbon Dioxide 25 mmol/L; pCO2 36.1 mmHg (35-45); pH 7.43 (7.35-7.45)
[2019-12-15] MEDS: Mirtazapine 30 MG Tablet PO (22:58)
[2019-12-15] MEDS: Atorvastatin Calcium 10 MG Tablet PO (22:58)
[2019-12-15] MEDS: Gabapentin 300 MG Capsule PO (22:58)
[2019-12-15] MEDS: Docusate Sodium 100 MG Capsule PO (22:58)
[2019-12-15 23:09] LABS: Reflex Lactate? Y
[2019-12-15 23:25] LABS: Lactic Acid 1.7 mmol/L (0.4-1.9)
[2019-12-16] VITALS (17 sets, daily range): BP systolic 109–130; BP diastolic 54–77; PULSE 62–86; RESP 12–24; TEMP 35.8–36.7; O2SAT 90–98
[2019-12-16] MEDS: 0.9% Saline Lock 10 ML Syringe IV ×3 (06:15→21:12)
[2019-12-16 06:50] LABS: Absolute Lymphocyte Count 0.57 X10^3/uL (0.83-4.51); Absolute Neutrophil Count 3.7 X10^3/uL (2.0-7.7); Basophil# 0.01 X10^3/uL; Basophil% 0.2 % (0-1); Hematocrit 36.3 % (40-54); Hemoglobin 12.1 g/dL (13.0-16.5); Lymphocyte # 0.57 X10^3/ul (4.0); Lymphocyte % 13.3 % (19-41); Mean Corp Hgb Conc 33.3 g/dL (32-36); Mean Corpuscular Hgb 34.5 pg (27.0-32.0); Mean Corpuscular Volume 103.4 fL (80-94); Mean Platelet Vol. 8.8 fl (6.2-12.0); Monocyte# 0.04 X10^3/uL; Monocyte% 0.9 % (0-10); NRBC Flagged by Analyzer 0 % (0-5); Neutrophil # 3.65 X10^3/uL (2.7-7.7); Neutrophil % 84.9 % (47-70); POSITIVE DIFFERENTIAL YES; POSITIVE MORPHOLOGY YES; Platelet Count 212 K/mm3 (150-450); RBC Distribution Width CV 13.3 % (11.6-14.6); RBC Distribution Width SD 50.7 fl (35.1-43.9); Red Blood Count 3.51 M/mm3 (4.6-6.2); White Blood Count 4.3 K/mm3 (4.4-11.0)
[2019-12-16 07:10] LABS: Anion Gap 5 (5-15); BUN 16 mg/dL (7-18); BUN/Creat Ratio 17.4 RATIO (10-20); Calcium,Total 7.8 mg/dL (8.5-10.1); Chloride 111 mmol/L (98-107); Creatinine, Serum 0.92 mg/dL (0.70-1.30); EST Glomerular Filtration Rate 88 mL/min (>60); Est Glom Filt Rate - Afr Amer 106 mL/min (>60); Estimated Creatinine Clearance 64.68 ml/min; Glucose 142 mg/dL (74-106); Potassium 4.3 mmol/L (3.5-5.1); Sodium Level 142 mmol/L (136-145)
[2019-12-16] MEDS: Ipratropium/Albuterol Sulfate 3 ML AMPUL.NEB INHALATION ×4 (07:10→18:35)
[2019-12-16 07:15] LABS: Differential Indicated SCAN CRITERIA MET
[2019-12-16 07:17] LABS: Anisocytosis RARE; Differential Comment SCANNED; Ovalocyte RARE; Platelet Estimate ADEQUATE (ADEQ)
[2019-12-16] MEDS: Docusate Sodium 100 MG Capsule PO ×2 (08:47→21:12)
[2019-12-16] MEDS: FLUoxetine 20 MG Capsule 40 MG PO (08:48)
[2019-12-16] MEDS: Enoxaparin 40 MG/0.4 ML Syringe SC (08:48)
[2019-12-16] MEDS: Gabapentin 300 MG Capsule PO ×4 (08:48→21:13)
[2019-12-16] MEDS: Pantoprazole Sodium 40 MG Tablet PO (08:48)
--- NOTE | 2019-12-16 09:54 | CASEMGMT ---
Patient's sister, Tati Miller is his legal guardian. Paperwork placed in the front of his chart. Patient is from [facility]. SW will follow for d/c plan. Alisha BORGES
--- NOTE | 2019-12-16 14:25 | PCM.PN.HOSP ---
Reason for Visit: AECOPD Subjective: breathing better. back on his home level of oxygen at 4l/m Vitals/I&O's: Vital Signs Temp Pulse Resp BP Pulse Ox 36.3 C L 76 20 H 110/60 95 12/16/19 09:05 12/16/19 11:14 12/16/19 11:14 12/16/19 09:05 12/16/19 11:14 Oxygen Flow Rate (L/min) 4 Oxygen Delivery Method Nasal Cannula Weight: 57.9 kg Body Mass Index (BMI) 18.8 Intake and Output for Last 24 Hours 12/14/19 12/15/19 12/16/19 23:59 23:59 23:59 Intake Total 330 / 330 1520 / 1520 Output Total 0 / 0 0 / 0 Balance 330 / 330 1520 / 1520 General: Cooperative HEENT: Atraumatic, Normocephalic Oral: Moist Mucosa, No Gingival or Mucosal Lesions/ Ulcerations Neck: No Nodes, Trachea Midline Lungs: Diminished, Wheezes - faint Cardiovascular: Regular rate, Regular Rhythm, Normal S1, Normal S2 Abdomen: Bowel Sounds Present, Soft, Non Tender, Non-Distended Extremities: No edema, No Calf Tenderness Psych/Mental Status: Normal Affect, Appropriate Microbiology Past 72 Hours 12/15/19 19:10 Mucosa - Nasopharyngeal Influenza Types A,B Direct FA (MARIELY) - Final Laboratory Results 12/15/19 19:00: WBC 10.1, RBC 3.97 L, Hgb 14.1, Hct 41.4, MCV 104.3 H, MCH 35.5 H, MCHC 34.1, RDW Std Deviation 51.9 H, RDW Coeff of Bindu 13.5, Plt Count 236, MPV 8.7, Immature Gran % (Auto) 0.300, Neut % (Auto) 55.1, Lymph % (Auto) 33.7, [place] % (Auto) 8.8, Eos % (Auto) 1.8, Baso % (Auto) 0.3, Absolute Neuts (auto) 5.6, Absolute Lymphs (auto) 3.40, Nucleated RBC % 0 12/15/19 19:00: Sodium 143, Potassium 3.8, Chloride 111 H, Carbon Dioxide 28.0, Anion Gap 4 L, BUN 21 H, Creatinine 1.10, Estim Creat Clear Calc 61.48, Est GFR (MDRD) Af Amer 86, Est GFR (MDRD) Non-Af 71, BUN/Creatinine Ratio 19.1, Glucose 111 H, Calcium 8.7, Troponin I < 0.015 12/15/19 19:00: Lactic Acid 2.2 H* 12/15/19 19:00: B-Natriuretic Peptide 15.1 12/15/19 21:36: Specimen Type ART, Sample Site R Radial, pH 7.43, Bicarbonate Actual 23.7, POC Total CO2 25, Base Excess -1, O2 Saturation 93 L, O2 % 30, ABG pCO2 36.1, ABG pO2 64 L, Jorge Test NA, Respiration Rate 12, O2 Delivery Device Bi / C PAP, EPAP 6, IPAP 14, Blood Gas Notified Whom BALTAZAR BARR, Blood Gas Notified Time 213412/15/19 22:40: Lactic Acid 1.7 12/16/19 06:03: WBC 4.3 L, RBC 3.51 L, Hgb 12.1 L, Hct 36.3 L, MCV 103.4 H, MCH 34.5 H, MCHC 33.3, RDW Std Deviation 50.7 H, RDW Coeff of Bindu 13.3, Plt Count 212, MPV 8.8, Immature Gran % (Auto) 0.700, Neut % (Auto) 84.9 H, Lymph % (Auto) 13.3 L, [place] % (Auto) 0.9, Eos % (Auto) 0.0, Baso % (Auto) 0.2, Absolute Neuts (auto) 3.7, Absolute Lymphs (auto) 0.57 L, Nucleated RBC % 0, Differential Comment SCANNED, Platelet Estimate ADEQUATE, Anisocytosis RARE, Ovalocytes RARE 12/16/19 06:03: Sodium 142, Potassium 4.3, Chloride 111 H, Carbon Dioxide 26.0, Anion Gap 5, BUN 16, Creatinine 0.92, Estim Creat Clear Calc 64.68, Est GFR (MDRD) Af Amer 106, Est GFR (MDRD) Non-Af 88, BUN/Creatinine Ratio 17.4, Glucose 142 H, Calcium 7.8 L Current Medications Acetaminophen (Tylenol) 650 mg PO Q6H PRN PRN PRN Reason: Pain Score 1-10/Temp > 100.7 F Albuterol Sulfate (Ventolin Aerosols) 2.5 mg INHALATION Q2H PRN PRN PRN Reason: SHORTNESS OF BREATH Albuterol/Ipratropium (Duoneb) 3 ml INHALATION Q4HWA.RT [facility] Last Admin: 12/16/19 14:23 Dose: 3 ml Documented by: Alendronate Sodium (Fosamax) 70 mg PO FR [facility] Atorvastatin Calcium (Lipitor) 10 mg PO QHS [facility] Last Admin: 12/15/19 22:58 Dose: 10 mg Documented by: Cholecalciferol (Vitamin D (25mcg)) 2,000 unit PO DAILY [facility] Last Admin: 12/16/19 08:49 Dose: 2,000 unit Documented by: Docusate Sodium (Colace) 100 mg PO BID [facility] Last Admin: 12/16/19 08:47 Dose: 100 mg Documented by: Enoxaparin Sodium (Lovenox) 40 mg SC DAILY [facility] Last Admin: 12/16/19 08:48 Dose: 40 mg Documented by: Fluoxetine HCl (Prozac) 40 mg PO DAILY [facility] Last Admin: 12/16/19 08:48 Dose: 40 mg Documented by: Gabapentin (Neurontin) 300 mg PO 4X/DAY [facility] Last Admin: 12/16/19 13:35 Dose: 300 mg Documented by: Glucagon () 1 mg IM .X1 PRN PRN Reason: Hypoglycemia Guaifenesin (Robitussin) 20 ml PO Q4H PRN PRN PRN Reason: COUGH Azithromycin 500 mg/ Dextrose 255 mls @ 250 mls/hr IV Q24H [facility] Dextrose (Dextrose 10%-Water) 250 mls @ 999 mls/hr IV .Q16M PRN; Protocol PRN Reason: HYPOGLYCEMIA Sodium Chloride () 250 mls @ 15 mls/hr IV .[id number] PRN PRN Reason: Saline Flush Sodium Chloride () 250 mls @ 15 mls/hr IV .[id number] PRN PRN Reason: Additional IVPB Infusion Methylprednisolone (Solu-Medrol) 40 mg IV Q8 [facility] Last Admin: 12/16/19 13:35 Dose: 40 mg Documented by: Mirtazapine (Remeron) 30 mg PO QHS [facility] Last Admin: 12/15/19 22:58 Dose: 30 mg Documented by: Nicotine (Nicoderm Cq (Pbkc)) 21 mg TRANSDERM. DAILY [facility] Last Admin: 12/16/19 10:22 Dose: 21 mg Documented by: Nutritional Formula (Lactose Free) (Ensure Enlive) 120 ml PO 4X/DAY [facility] Last Admin: 12/16/19 13:35 Dose: 120 ml Documented by: Ondansetron HCl (Zofran) 4 mg IV Q8H PRN PRN PRN Reason: NAUSEA/VOMITING Pantoprazole Sodium (Protonix) 40 mg PO DAILY [facility] Last Admin: 12/16/19 08:48 Dose: 40 mg Documented by: Sodium Chloride () 10 - 40 ml IV UD PRN PRN Reason: SALINE FLUSH Last Admin: 12/16/19 13:35 Dose: 10 ml Documented by: STROKE Vital Signs/Narrative: Vital Signs Pulse Resp Pulse Ox 12/16/19 11:14 76 20 H 95 Medical Necessity - Tobacco Use Smoking Status: Current every day smoker Assessment/Plan All Active Problems (Last Reviewed 12/15/19 @ 23:[address] Edmund Auguste MD) Hx of gastrostomy (Resolved) COPD exacerbation (Acute) History of tracheostomy (Resolved) 1. AECOPD stable wean steroids continue BDs, azithromycin 2. acute hypoxic respiratory failure 2/2 AECOPD weaned off BiPAP improving. 3. lactic acidosis likely 2/2 above no further work up 4. VTE prophylaxis: LMWH. Code Visit Inpatient E&M: 03474 Subs Hosp L2
[2019-12-16] MEDS: Atorvastatin Calcium 10 MG Tablet PO (21:13)
[2019-12-16] MEDS: Mirtazapine 30 MG Tablet PO (21:13)
[2019-12-17] VITALS (9 sets, daily range): BP systolic 112–119; BP diastolic 50–57; PULSE 63–88; RESP 12–20; TEMP 36.4–36.8; O2SAT 93–97
[2019-12-17] MEDS: Ipratropium/Albuterol Sulfate 3 ML AMPUL.NEB INHALATION ×2 (07:17→10:52)
[2019-12-17] MEDS: Enoxaparin 40 MG/0.4 ML Syringe SC (08:52)
[2019-12-17] MEDS: Pantoprazole Sodium 40 MG Tablet PO (08:52)
[2019-12-17] MEDS: FLUoxetine 20 MG Capsule 40 MG PO (08:52)
[2019-12-17] MEDS: Gabapentin 300 MG Capsule PO (08:52)
[2019-12-17] MEDS: 0.9% Saline Lock 10 ML Syringe IV (09:00)
--- NOTE | 2019-12-17 11:55 | PCM.DC ---
You will use the following diet at home:: No restrictions Your food should be the consistency of: Regular Your liquids should be the consistency of: Regular/Thin Discharge Activity: Return to Normal Activity Call your doctor if you observe: Fever of 101 or Higher, Shortness of breath Instructions: Care for COPD, COPD: Using Inhalers, Treatments for COPD, What Is COPD? Allergies/Adverse Reactions: Allergies latex Allergy (Verified 11/26/19 09:15) Rash naproxen sodium [From Aleve] Allergy (Verified 11/26/19 09:15) Rash Medications to take at Discharge Fluoxetine [Prozac] 40 mg PO DAILY 05/06/14 cholecalciferol (vitamin D3) 25 mcg (1,000 unit) tablet 2,000 unit PO DAILY tab 11/13/17 Alendronate Sodium [Fosamax] 70 mg PO FR 04/07/18 Tiotropium [place] [Spiriva 18 MCG] 1 puff INHALATION DAILY 02/15/19 omeprazole 40 mg capsule,delayed release 40 mg PO DAILY cap 09/02/19 Atorvastatin Calcium [Lipitor] 10 mg PO QHS 11/08/19 Docusate Sodium [Docusil] 100 mg PO BID 11/08/19 Gabapentin [Neurontin] 300 mg PO 4X/DAY 11/08/19 Mirtazapine [Remeron] 30 mg PO QHS 11/08/19 budesonide-formoterol HFA 160 mcg-4.5 mcg/actuation aerosol inhaler 2 puff INHALATION BID #10.2 g 12/03/19 Albuterol Inhaler [Ventolin Hfa] 1 - 2 puff INHALATION Q4H PRN PRN #1 inhaler 12/17/19 Azithromycin 250 mg PO DAILY #3 tab 12/17/19 Prednisone 4 tab PO DAILY #20 tab 12/17/19 The following prescriptions were given: Azithromycin 250 mg PO DAILY #3 tab Transmission Status: Pending to [facility] [place] Prednisone 4 tab PO DAILY #20 tab Transmission Status: Pending to [facility] [place] Albuterol Inhaler [Ventolin Hfa] 1 - 2 puff INHALATION Q4H PRN PRN #1 inhaler PRN Reason: Shortness Of Breath Transmission Status: Pending to [facility] [place] Primary Care Physician: Phu Cooper MD [Primary Care Provider] - Within 2 Weeks Test Results: Test results from this visit will be discussed in further detail at your follow-up appointment, if applicable. Please Follow Up With: Phu Cooper MD Please Follow Up With: Nicolle Holman NP-C When: 02/26/2020, already scheduled. Proposed Discharge Date: 12/17/19
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
--- NOTE | 2019-12-17 13:02 | CASEMGMT ---
Patient is from [facility] and is ready for discharge. FARHANA spoke with patient and he said his sister will come pick him up. He said the nurse just needs to call her. She won't come upstairs to get him they will have to take him to the main entrance. FARHANA told patient some new prescriptions were sent to [facility] and he said that is fine, he and his sister can stop and pick them up. FARHANA called [facility] and let them know patient is being discharged today, his new medications were sent to [facility] and he and his sister will pick them up. FARHANA also faxed d/c instructions to [facility]. Plan: d/c back to [facility]. Patient's sister transported patient. Alisha BORGES
--- NOTE | 2019-12-17 14:10 | PCA ---
Spoke with patients sister, Tati, on the phone notified her of discharge and told her to make sure to bring the patients portable oxygen. Sister said ok, it would be about 15minutes and she would call when she was at the entrance. Aide reports when she took patient downstairs the sister didn't have his portable oxygen, sister left with patient anyway.
--- NOTE | 2019-12-18 13:41 | CASEMGMT ---
SW called [facility] and answered their questions on patient's d/c meds (diagnosis for meds and length of time.) FARHANA spoke with physician and obtained answers. Alisha BORGES
== END 2019-12-17 13:50 | disposition home or self-care (01) | DRG 189 ==
LOC: ED 19:23 → PCU 22:00
PROVIDERS: Admitting Provider Hospitalist; Emergency Provider Emergency Medicine; PCP Family Medicine
DX: J96.21 Acute and chronic respiratory failure with hypoxia (principal); J44.1 Chronic obstructive pulmonary disease with (acute) exacerbation; E87.2 Acidosis; K50.90 Crohn's disease, unspecified, without complications; M81.0 Age-related osteoporosis without current pathological fracture; Z79.83 Long term (current) use of bisphosphonates; F32.9 Major depressive disorder, single episode, unspecified; Z99.81 Dependence on supplemental oxygen; K21.9 Gastro-esophageal reflux disease without esophagitis; F17.210 Nicotine dependence, cigarettes, uncomplicated; F41.9 Anxiety disorder, unspecified
CPT/HCPCS: 36415; 36600; 71045; 80048; 82803; 83605; 83880; 84484; 85025; 87040; 87804; 93005; 94002; 94003; 94640; 97162; 97166; 97802; 99251; 99285; 99406; J7030; J7050; A4216; G0463

== ENCOUNTER → 2020-03-03 08:19 | Outpatient (CLI) | payer MEDICARE, MEDICAID, SELFPAY ==
[2019-12-15 21:14] VITALS: BMI 18.8
--- NOTE | 2020-03-03 | IMM_PTH ---
PATIENT: JOSE DANIEL MAJOR Jr. LOC: [facility] U#:[id number] AGE/SX: 70/M ROOM: RE03/03/[address]: Dr. Moe Coleman MD : 1955 BED: DIS: SPEC #: [id number] RECD: 03/04/20 12:16 STATUS: LUCIANA REQ #: [id number] FAISAL: 03/03/20 00:[address]: Moe Coleman DEPT: IMMUNOHISTOCHEMISTRY RECD BY: Amparo Agustin ENTERED: 03/04/20 12:18 SP TYPE: IMMUNO OTHR DR: Dr. Phu Cooper MD Tissues: Preauricular region Procedures: CD10 (add) CK14 (add) CK5-6 (add) KI-67 (add) P16 (add) P53 (add) TTF1 (add) Vimentin (add) 34BE12 (add) Pankeratin (initial) P40 (add) S-100 (add) PHYSICIAN & [place] [id number] SPECIMEN INFORMATION: Tissue Source: Fine needle aspiration, right preauricular mass Clinical Info: Right preauricular mass Specimen Number: [id number] CPT code: 42078, 39799 x11 METHODOLOGY: Deparaffinized sections of prefer/formalin-fixed tissue or PAP/DQ stained slides are incubated with monoclonal/polyclonal antibodies/oligonucleotide probes. Localization is made via biotin free immunoperoxidase method. Appropriate controls are performed and reacted as expected. Results on target cell population are indicated in the following table: RESULTS: ANTIBODY / CLONE RESULT AE1-3 (AE1/AE3/PCK26) positive CD10 (56C6) negative Vimentin (V9) negative 34BE12 (34BE12) positive S-100 (4C4.9) negative TTF-1 (8G7G3/1) negative CK5-6 (D5 & 1684) positive CK14 (LL002) positive, occasional P40 (BC28) positive P16 (E6H4) positive P53 (DO-7) positive, >95% Ki-67 (30-9) positive, 35% These tests were developed and their performance characteristics determined by [facility]. They may not have been cleared or approved by the U.S. Food and Drug Administration. The FDA has determined that such clearance or approval is not necessary. The above immunohistochemical/dualISH markers are ordered and reviewed by the Pathologist. INTERPRETATION: Right preauricular mass, fine needle aspiration: Consistent with squamous cell carcinoma. AM:flip 03/05/20 Case has been reviewed in consultation with Dr. Luong who concurs with the above diagnosis. IDC:SJ
--- NOTE | 2020-03-03 10:00 | ASPOS_PTH ---
PATIENT: JOSE DANIEL MAJOR Jr. LOC: [facility] U#:[id number] AGE/SX: 70/M ROOM: RE03/03/[address]: Dr. Moe Coleman MD : 1955 BED: DIS: SPEC #: [id number] RECD: 03/03/20 10:53 STATUS: LUCIANA REDonavan #: [id number] FIASAL: 03/03/20 10:[address]: Moe Coleman DEPT: CYTOLOGY RECD BY: Jersey Hidalgo ENTERED: 03/03/20 10:54 SP TYPE: ASP HERE OTHR DR: Dr. Phu Cooper MD Tissues: Auricular region Procedures: Surgery Specimen Level IV Cytology Other Fine Needle Asp on Site HEADER OPERATION: FNA right preauricular mass PRE-OP DIAGNOSIS: Right preauricular mass TISSUE SUBMITTED: FNA right preauricular mass DIAGNOSIS CYTOLOGY Fine needle aspiration, right preauricular mass (smears and cell block): Non-small cell carcinoma, squamous cell carcinoma. See comment. AM:flip 03/04/20 COMMENT The specimen is evaluated at the time of FNA by Dr. Bonilla. Immediate Evaluation = Positive for malignant cells, non-small cell carcinoma, squamous cell carcinoma. Immunohistochemistry ([id number]) supports the above diagnosis. Case has been reviewed in consultation with Dr. Luong who concurs with the above diagnosis. IDC:SJ CYTOLOGY STUDY Slides are reviewed. CYTOLOGY GROSS Received is 0.2 ml of guy fluid labeled with the patient's name, and designated right preauricular mass. Four imprints and two paps are made from the submitted fluid and the rest is added to CytoLyt for cell block preparation. Submitted for cytology study. / AM:flip 03/03/20 TC:0 CPT: 06716, 40876, 50473, 41965 ADDENDUM ADDENDUM ADDENDUM ADDENDUM ADDENDUM ADDENDUM 08/30/2020 09:23 ADDENDUM 08/31/2020 09:48 ADDENDUM 08/30/2020 09:23 ADDENDUM 08/30/2020 09:23 ADDENDUM 08/30/2020 09:23 ADDENDUM 08/30/2020 09:23 HPV (HUMAN PAPILLOMAVIRUS) IN SITU HYBRIDIZATION FROM [employer] RESULTS: HPV High Risk: Negative Please see complete report in e-chart or EMR for further details This addendum is added to incorporate an outside pathology consultation report. The case was examined at [facility] (#[id number]) and the following diagnosis was rendered. Right preauricular mass, fine needle aspiration: Malignant cells derived from squamous cell carcinoma. Please see complete above mentioned consultation report in EMR
== END ==
PROVIDERS: PCP Family Medicine; Referring Provider Otolaryngology; Visit Provider Otolaryngology
DX: C44.292 Other specified malignant neoplasm of skin of right ear and external auricular canal (principal)
CPT/HCPCS: 10021; 88161; 88305; 88341; 88342

== ENCOUNTER → 2020-06-01 12:45 | Outpatient (CLI) | payer MEDICARE, MEDICAID, SELFPAY ==
[2019-12-15 21:14] VITALS: BMI 18.8
--- NOTE | 2020-06-01 13:00 | PET_ITS ---
EXAMINATION: FDG PET-CT INDICATIONS: A 64-year-old male with reported history of head and neck carcinoma presenting for initial staging examination. COMPARISON EXAMINATION: None available INDEX LESION SIZE SUV INTERPRETATION Right parotid space-periauricular region 19.8-mm (frame 237) 4.9 Most consistent with site of histologically confirmed primary head and neck malignancy Right lateral neck level IIA (n=1) 14.8-mm (frame 227) 9.6 Fulfills quantitative criteria for viable neoplasm TECHNIQUE: Following the intravenous administration of 11.6 mCi of F-18 deoxyglucose via the right antecubital fossa, multiplanar image acquisitions of the neck, chest, abdomen and pelvis to level of mid thigh, obtained at one hour post radiopharmaceutical administration contemporaneously interpreted with the current CT of the neck, chest, abdomen and pelvis, to level of mid thigh, dated 06/01/2020 via coregistration reveals: BLOOD GLUCOSE LEVEL:?? 91 mg/dl?HEIGHT:?69 inches?WEIGHT: 130 lbs. FINDINGS: 1. Multifocal increased glucose metabolism is heterogeneously defined in the right periauricular region-right parotid space. The calculated maximal standard uptake value is 4.9. The maximal axial diameter of the largest metabolic, morphologic abnormality on review of CT of the neck dated 06/01/2020 is 19.8-mm (transverse). 2. Asymmetric increased fluorine labeled glucose uptake is defined in the right lateral neck involving level II-A. The calculated maximal standard uptake value is 9.6. The maximal axial diameter of the corresponding soft tissue nodule on review of CT of the neck dated 06/01/2020 is 14.8-mm (transverse). 3. Normal physiologic distribution of the radiopharmaceutical is apparent in the hepatic (1.3) and splenic parenchyma, both renal units, bladder and visualized intestinal tract. The visualized portion of the cerebral cortex demonstrate symmetric and preserved glucose metabolism. Diffuse radiopharmaceutical concentration is noted in all four quadrants of the abdomen and pelvis. Pertinent CT findings are as follows: CHEST: There is atherosclerotic calcification defined in the thoracic aorta without evidence of dilatation-aneurysm formation. Coronary arterial calcification is observed. Left axillary subcentimeter soft tissue densities are ametabolic. Emphysematous change is noted in the bilateral upper-mid lung zones. There are no parenchymal densities-nodules defined in the right and left hemithorax with discernible increased FDG concentration. A linear density defined in the left lower lateral lung-left upper lobe is ametabolic. ABDOMEN AND PELVIS: There is atherosclerotic calcification defined in the abdominal aorta without evidence of dilatation-aneurysm formation. Pelvic arterial calcification is observed. A fat containing left inguinal, as well as paraumbilical hernia is defined. Right and left inguinal soft tissue densities, subcentimeter in presentation, are ametabolic. Beam hardening artifact attributed to a right hip arthroplasty compromises evaluation of the lower pelvic CT acquisition. There appears to be evidence of calcification within the prostate gland without evidence of facilitated FDG uptake. SKELETAL: Degenerative changes are noted in the cervical, thoracic and lumbar spine. A compression deformity is noted at the level of the fourth lumbar vertebra without evidence of facilitated uptake. PET/PET/CT Tumor Base -Thigh Init IMPRESSION: 1. ABNORMAL EXAMINATION INDICATIVE OF MALIGNANT VIABLE NEOPLASM. 2. Increased glucose concentration observed in the right parotid space, periauricular region fulfills quantitative criteria for viable neoplasm. 3. The right lateral neck hypermetabolic focus fulfills quantitative criteria for viable metastatic disease. 4. No other quantitatively significant hypermetabolic abnormalities are noted. There is no definitive scintigraphic evidence of distant metastatic disease. Electronic Signature Earl Cassidy D.O. Accurate Quantification of SUVs for this report are calculated using the exclusive [employer]. Electronically Signed: Earl Cassidy DO at 22:34 EDT Tel , Service support ,
== END ==
PROVIDERS: PCP Family Medicine; Referring Provider Otolaryngology; Visit Provider Otolaryngology
DX: C07 Malignant neoplasm of parotid gland (principal)
CPT/HCPCS: 78815; A9552

== ENCOUNTER 2020-09-08 06:56 | Day surgery (SDC) | payer MEDICARE, MEDICAID, SELFPAY ==
[2020-08-27 09:24] VITALS: BMI 17.6
[2020-09-03 13:22] VITALS: BMI 16.7
[2020-09-06 11:16] VITALS: BMI 19.9
[2020-09-08] VITALS (7 sets, daily range): BP systolic 103–119; BP diastolic 54–61; PULSE 54–57; RESP 12–16; TEMP 36.3–36.6; O2SAT 94–100; BMI 18.4
[2020-09-08] MEDS: Lactated Ringers 1,000 ML 100 ML IV (07:42)
[2020-09-08] MEDS: Cefazolin 2 GM in 0.9% Normal Saline 100 ML IV (07:58)
[2020-09-08] MEDS: Bupiv/Epi 0.5% Mpf 30 ML Vial (08:12)
--- NOTE | 2020-09-08 08:35 | PCM.OPRPT ---
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 Ultrasound was used to evaluate both IJs and the right IJ was selected. Next, using a needle, the right IJ was accessed and a guidewire was passed on into the superior vena cava under fluoroscopy guidance. A small incision was made over the puncture site and the dilator introducer was placed over the guidewire. Next this was capped and the pocket was made for the port. 1% lidocaine with epinephrine was injected in the proposed port site. An incision was made with scalpel. Electrocautery was used to make a pocket under the skin and subcutaneous tissue. Hemostasis was obtained. Next, the catheter was tunneled up to the neck incision site and placed through the introducer. The peel-away introducer was removed and the position of the catheter was confirmed on fluoroscopy. Next, the catheter was trimmed and attached to the port with the locking device. Interrupted 2-0 Vicryl sutures were used to anchor the port to the chest wall and then the port was placed inside the pocket. The pocket was then flushed with saline and the port irrigated with saline. There was good blood return and the port flushed easily. Next, heparin was injected into the port. The skin was closed with subcutaneous interrupted 3-0 Vicryl sutures. A single 3-0 Vicryl sutures placed under the skin at the neck incision site. Steri-Strips were placed as well as op sites. Patient tolerated procedure well, was taken to PACU in stable condition. Chest x-ray will be obtained. Grafts/Implants Used: 8 [place] [employer] - Admit VTE Documentation VTE Mechan Device Prophylaxis: SCD's
--- NOTE | 2020-09-08 08:37 | RAD_ITS ---
EXAM DESCRIPTION: PORTABLE AP CHEST CLINICAL HISTORY: 65 years Male, Post op port placement. Post op port placement. COMPARISON: Previous portable chest obtained on 12/15/2019 FINDINGS: A right IJ CVP line catheter is noted in place with its tip in the superior vena cava. The rest of the thorax is intact. The heart and mediastinum appear to be within normal limits. The lungs appear to be well areated without evidence of pneumonic consolidation or pleural effusion. RAD/CXR for Line Placement IMPRESSION: No acute pathology. Electronically Signed: Masoud Moss, at 9:03 EST Tel , Service support ,
--- NOTE | 2020-09-08 08:38 | PCM.DC.POR ---
Discharge Diet: No Restrictions - Pain medication may cause nausea. You should typically eat light foods as you take your pain medication. Discharge Activity: Return to Normal Activity, May Shower - with your bandage in place in 1-2 days after surgery. DO NOT SHOWER WHEN YOUR PORT IS ACCESSED. Call your doctor if your incision/area has: Continuous Slow Oozing, Sudden Increased Bleeding, Increased Pain/ Swelling, Increased Redness Call your doctor if you observe: Fever of 101 or Higher Remove Dressing in (days):: 3 - When you remove the bandage, leave the steri-strips intact until they fall off. Allergies/Adverse Reactions: Allergies latex Allergy (Intermediate, Verified 09/08/20 07:21) Rash naproxen sodium [From Aleve] Allergy (Intermediate, Verified 09/08/20 07:21) Rash Medications to take at Discharge Fluoxetine [Prozac] 40 mg PO DAILY 05/06/14 cholecalciferol (vitamin D3) 25 mcg (1,000 unit) tablet 2,000 unit PO DAILY tab 11/13/17 Alendronate Sodium [Fosamax] 70 mg PO TH 04/07/18 Tiotropium [place] [Spiriva 18 MCG] 1 puff INHALATION DAILY 02/15/19 Atorvastatin Calcium [Lipitor] 10 mg PO QHS 11/08/19 Docusate Sodium [Docusil] 100 mg PO BID 11/08/19 Gabapentin [Neurontin] 300 mg PO 4X/DAY 11/08/19 Mirtazapine [Remeron] 30 mg PO QHS 11/08/19 Albuterol Inhaler [Ventolin Hfa] 1 - 2 puff INHALATION Q4H PRN PRN #1 inhaler 12/17/19 Acetaminophen [Aphen] 650 mg PO 4X/DAY 08/27/20 Aspirin [Lite Coat Aspirin] 325 mg PO DAILY 08/27/20 Bisacodyl [Laxative Suppository] 10 mg RC DAILY PRN 08/27/20 Magnesium Hydroxide [Milk Of Magnesia] 30 ml PO DAILY PRN PRN 08/27/20 Mineral Oil [Ready To Use Enema] 1 ea RECTALLY DAILY PRN 08/27/20 Multivit-Minerals/Folic Acid [Adult One Daily Multivit Tab] 0.4 mg PO DAILY 08/27/20 Oxycodone HCl [Roxicodone] 5 mg PO Q4H PRN 08/27/20 Peg 400/Hypromellose/Glycerin [Artificial Tears] 2 drp RIGHT EYE Q4H 08/27/20 Phenyleph/Mineral Oil/Petrolat [Eq Hemorrhoidal Ointment] 57 gm RC DAILY 08/27/20 Sennosides/Docusate Sodium [Senna Plus 8.6-50 mg Softgel] 1 tab PO Q12H PRN 08/27/20 Lidocaine/Prilocaine [Lidocaine-Prilocaine Cream] 1 applicatio TP DAILY PRN 30 Days #1 tube 09/02/20 Ondansetron [Zofran] 8 mg PO Q8H PRN PRN 30 Days #30 tab 09/02/20 Test Results: Test results from this visit will be discussed in further detail at your follow-up appointment, if applicable. Please Follow Up With: Raji Mcgraw MD When: Please call to schedule 2 week follow up appointment. [phone]
--- NOTE | 2020-09-08 10:00 | HP_ITS ---
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 Is patient in pain?: Yes (right neck) Allergies latex Allergy (Intermediate, Verified 09/03/20 13:22) Rash naproxen sodium [From Aleve] Allergy (Intermediate, Verified 09/03/20 13:22) Rash Medications Fluoxetine [Prozac] 40 mg PO DAILY 05/06/14 [History Confirmed 09/03/20] cholecalciferol (vitamin D3) 25 mcg (1,000 unit) tablet 2,000 unit PO DAILY tab 11/13/17 [History Confirmed 09/03/20] Alendronate Sodium [Fosamax] 70 mg PO FR 04/07/18 [History Confirmed 09/03/20] Tiotropium [place] [Spiriva 18 MCG] 1 puff INHALATION DAILY 02/15/19 [History Confirmed 09/03/20] Atorvastatin Calcium [Lipitor] 10 mg PO QHS 11/08/19 [History Confirmed 09/03/20] Docusate Sodium [Docusil] 100 mg PO BID 11/08/19 [History Confirmed 09/03/20] Gabapentin [Neurontin] 300 mg PO 4X/DAY 11/08/19 [History Confirmed 09/03/20] Mirtazapine [Remeron] 30 mg PO QHS 11/08/19 [History Confirmed 09/03/20] budesonide-formoterol HFA 160 mcg-4.5 mcg/actuation aerosol inhaler 2 puff INHALATION BID #10.2 g 12/03/19 [Rx Confirmed 09/03/20] Albuterol Inhaler [Ventolin Hfa] 1 - 2 puff INHALATION Q4H PRN PRN #1 inhaler 12/17/19 [Rx Confirmed 09/03/20] Acetaminophen [Aphen] 650 mg PO 4X/DAY 08/27/20 [History Confirmed 09/03/20] Aspirin [Lite Coat Aspirin] 325 mg PO DAILY 08/27/20 [History Confirmed 09/03/20] Bisacodyl [Laxative Suppository] 10 mg RC DAILY PRN 08/27/20 [History Confirmed 09/03/20] Magnesium Hydroxide [Milk Of Magnesia] 30 ml PO DAILY PRN PRN 08/27/20 [History Confirmed 09/03/20] Mineral Oil [Ready To Use Enema] 1 ea RECTALLY DAILY PRN 08/27/20 [History Confirmed 09/03/20] Multivit-Minerals/Folic Acid [Adult One Daily Multivit Tab] 0.4 mg PO DAILY 08/27/20 [History Confirmed 09/03/20] Oxycodone HCl [Roxicodone] 5 mg PO Q4H PRN 08/27/20 [History Confirmed 09/03/20] Peg 400/Hypromellose/Glycerin [Artificial Tears] 2 drp RIGHT EYE Q4H 08/27/20 [History Confirmed 09/03/20] Phenyleph/Mineral Oil/Petrolat [Eq Hemorrhoidal Ointment] 57 gm RC DAILY 08/27/20 [History Confirmed 09/03/20] Sennosides/Docusate Sodium [Senna Plus 8.6-50 mg Softgel] 1 tab PO Q12H PRN 08/27/20 [History Confirmed 09/03/20] Lidocaine/Prilocaine [Lidocaine-Prilocaine Cream] 1 applicatio TP DAILY PRN 30 Days #1 tube 09/02/20 [Rx Confirmed 09/03/20] Ondansetron [Zofran] 8 mg PO Q8H PRN PRN 30 Days #30 tab 09/02/20 [Rx Confirmed 09/03/20] PFSH Medical History Stage 3 severe COPD by GOLD classification (Chronic) Pulmonary embolism (Inactive) Depression (Chronic) History of skin cancer (Chronic) Anxiety and depression (Chronic) Crohns disease (Chronic) Osteoarthritis (Chronic) GERD (gastroesophageal reflux disease) (Chronic) History of aneurysm (Chronic) Hyperlipemia (Inactive) RUPTURED BRAIN ANEURYSM (Chronic) Traumatic brain injury (Chronic) GERD (gastroesophageal reflux disease) (Chronic) Osteoporosis (Chronic) Lumbar canal stenosis (Chronic) multiple vertebral fractures (Inactive) Surgical History Hx of gastrostomy (Resolved) History of right hip replacement (Chronic) History of right knee joint replacement (Chronic) History of tracheostomy (Resolved) Family History Sister Cancer Other Acute depression Crohn disease Skin cancer Social History (Updated 09/03/20 @ 13:[address] Raji Mcgraw MD) Smoking Status: Current every day smoker tobacco type: cigarettes second hand exposure: Yes counseling given: provider counseling, counseling >10 minutes alcohol intake: never substance use type: does not use caffeine: Yes Type: carbonated beverages, coffee what type of physical activity do you participate in: none HPI HPI HPI: JOSE DANIEL MAJOR, is a 65 M who presents to the office today for HPI HPI Surgical H&P: Yes HPI: JOSE DANIEL MAJOR, is a 65 M who presents to the office today for port placement. 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 The patient did have surgical treatment and is having radiation and chemotherapy for adjuvant therapy. ROS General General: Yes weight change, appetite and fatigue; no colon cancer, breast cancer or weakness HEENT HEENT: Yes swollen glands; no difficulty swallowing, eye injury, eye surgery or hoarseness Endo Endocrine: No thyroid disease, diabetes mellitus, thyroid cancer, Hair loss, heat intolerance or cold intolerance Skin Skin: No rash or changing moles Breast Breast: No left breast lump, right breast lump, nipple discharge, breast pain, abnormal mammogram, abnormal US or breast enlargement Musc Musculoskeletal: No back problems, arthritis, rheumatoid arthritis, gout or joint pain Cardio Cardiovascular: No murmur, pacemaker, heart disease, atrial fibrillation, high blood pressure, heart attack, heart stent, palpitations, shortness of breat with exertion or chest pain Psych Psychiatric: No depression, anxiety or hearing voices Resp Respiratory: Yes shortness of breath, No sleep apnea, Yes cough, Yes COPD, Yes asthma, No emphysema, No wheezing Gastro Gastrointestinal: No abdominal pain, Yes nausea or vomiting, No diarrhea, No constipation, No blood in stool, No acid reflux, Yes hemorrhoids, No ulcers, No gallbladder problem, No black,tarry stools Asif Hematologic: No blood thinners, No blood disorders, Yes bleeding, No anemia, Yes blood clots Neuro Neurologic: No system reviewed and no additional complaints, except as docu, No as per HPI, No abnormal walking, No abnormal hearing, No abnormal movements, No abnormal speech, No behavioral changes, No burning sensations, No confusion, No seizure-like activity, No unsteadiness, No dizziness, No localized weakness, No frequent falls, No headache(s), No lack of coordination, No loss of vision, No memory loss, Yes numbness, No other visual disturbances, No radiating pain, No restless legs, No sensory deficit, No fainting, Yes tingling, No tremor(s), No weakness, No other Exam Const General: cooperative Orientation: alert, oriented x3 HENMT Head: other (Swelling of the right face with incision at the jawline) Chest Breast Palpation: No nipple discharge Resp Effort & Inspection: normal respiratory effort Auscultation: clear to auscultation bilaterally Cardio Rate: regular rate Rhythm: regular rhythm Heart Sounds: no murmurs GI Inspection: non-distended Palpation: soft, nontender Assessment & Plan Problems 1. Encounter for insertion of venous access port Z45.2 2. 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 I discussed this with him in detail. I discussed the risks of the procedure including but not limited to bleeding, infection, pneumothorax, line infection or DVT. Patient understands the risks and is willing to proceed. We discussed the current risks associated with COVID-19. While it is understood that there is a community spread of COVID-19, the risk of vanessa COVID-19 while at [facility] ([facility]) is very low; however, the risk cannot be completely mitigated because of the community spread of the disease. We discussed in detail the risk of exposure to and/or potential harm posed by the COVID-19 virus with having a surgery/procedure at this time versus the risk of delaying the surgery/procedure. It is not possible to know either the risk of delaying the surgery or procedure or chance of getting an infection with perfect accuracy, but a joint decision was made to proceed at this time with the scheduled surgery/procedure as indicated on the consent form. Patient was notified that we will need to comply with any screening or testing [facility] wishes to perform or that surgery may be delayed for any positive results. 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 There are no clinical changes since date of exam.
== END 2020-09-08 09:44 | disposition skilled nursing facility (03) ==
LOC: SDC 06:58 → AC 06:58
PROVIDERS: PCP Family Medicine; Referring Provider Surgery; Visit Provider Surgery
PROC: (CPT 36561; principal; 2020-09-08 08:15)
DX: C80.1 Malignant (primary) neoplasm, unspecified (principal); C79.89 Secondary malignant neoplasm of other specified sites; K50.90 Crohn's disease, unspecified, without complications; M19.90 Unspecified osteoarthritis, unspecified site; K21.9 Gastro-esophageal reflux disease without esophagitis; E78.5 Hyperlipidemia, unspecified; F17.210 Nicotine dependence, cigarettes, uncomplicated; Z79.899 Other long term (current) drug therapy; Z79.82 Long term (current) use of aspirin; J44.9 Chronic obstructive pulmonary disease, unspecified; F32.9 Major depressive disorder, single episode, unspecified; F41.9 Anxiety disorder, unspecified; Z87.820 Personal history of traumatic brain injury; Z86.711 Personal history of pulmonary embolism; Z85.828 Personal history of other malignant neoplasm of skin
CPT/HCPCS: 36561; 71045; 77001; J7120; C1788

== ENCOUNTER 2020-10-28 15:12 | Inpatient (IN) | payer MEDICARE, MEDICAID, SELFPAY ==
[2020-08-27 09:24] VITALS: BMI 17.6
[2020-10-27 14:40] VITALS: BMI 17.7
[2020-10-28 15:17] VITALS: BMI 15.7
[2020-10-28 15:23] VITALS: BP 125/66; PULSE 61; RESP 18; TEMP 37.2; O2SAT 99
[2020-10-28] MEDS: Gabapentin 300 MG Capsule PO ×2 (18:38→20:15)
[2020-10-28] MEDS: Acetaminophen 325 MG Tablet 650 MG PO (18:38)
[2020-10-28] MEDS: Docusate Sodium 100 MG Capsule PO (18:38)
[2020-10-28 19:48] VITALS: O2SAT 98
[2020-10-28] MEDS: Atorvastatin Calcium 10 MG Tablet PO (20:15)
[2020-10-28] MEDS: Mirtazapine 30 MG Tablet PO (20:15)
[2020-10-28] MEDS: Glycerin/Hypromellose/PEG400 15 ml Bottle 2 DRP RIGHT EYE (20:18)
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
[2020-10-29 05:00] VITALS: BP 100/56; PULSE 54; RESP 18; TEMP 36.6; O2SAT 97
[2020-10-29 06:06] LABS: Absolute Lymphocyte Count 0.43 X10^3/uL (0.83-4.51); Absolute Neutrophil Count 0.6 X10^3/uL (2.0-7.7); Eosinophil# 0.02 X10^3/uL; Eosinophils% 1.8 % (0-5); Hemoglobin 9.1 g/dL (13.0-16.5); Lymphocyte # 0.43 X10^3/ul (4.0); Lymphocyte % 37.7 % (19-41); Mean Corp Hgb Conc 33.7 g/dL (32-36); Mean Corpuscular Hgb 35.7 pg (27.0-32.0); Mean Corpuscular Volume 105.9 fL (80-94); Mean Platelet Vol. 10.1 fl (6.2-12.0); Monocyte% 8.8 % (0-10); NRBC Flagged by Analyzer 0 % (0-5); Neutrophil # 0.59 X10^3/uL (2.7-7.7); Neutrophil % 51.7 % (47-70); POSITIVE COUNT YES; POSITIVE DIFFERENTIAL YES; Platelet Count 56 K/mm3 (150-450); RBC Distribution Width CV 14.2 % (11.6-14.6); RBC Distribution Width SD 53.1 fl (35.1-43.9); Red Blood Count 2.55 M/mm3 (4.6-6.2)
[2020-10-29 06:12] LABS: Differential Indicated SCAN CRITERIA MET
[2020-10-29 06:30] LABS: Anion Gap 2 (5-15); BUN 15 mg/dL (7-18); Calcium,Total 8.8 mg/dL (8.5-10.1); Chloride 111 mmol/L (98-107); Creatinine, Serum 0.72 mg/dL (0.70-1.30); EST Glomerular Filtration Rate 117 mL/min (>60); Est Glom Filt Rate - Afr Amer 141 mL/min (>60); Estimated Creatinine Clearance 48.89 ml/min; Glucose 83 mg/dL (74-106); Potassium 4.2 mmol/L (3.5-5.1); Sodium Level 142 mmol/L (136-145)
[2020-10-29 06:32] LABS: White Blood Count 1.1 K/mm3 (4.4-11.0)
[2020-10-29 06:33] LABS: Differential Comment SCANNED
[2020-10-29] MEDS: Docusate Sodium 100 MG Capsule PO ×2 (06:35→17:23)
[2020-10-29] MEDS: FLUoxetine 20 MG Capsule 40 MG PO (06:35)
[2020-10-29] MEDS: Acetaminophen 325 MG Tablet 650 MG PO ×4 (06:35→22:13)
[2020-10-29] MEDS: Gabapentin 300 MG Capsule PO ×4 (06:35→22:13)
[2020-10-29] MEDS: Fluconazole 100 MG Tablet PO (06:36)
[2020-10-29 08:12] VITALS: O2SAT 96
[2020-10-29] MEDS: Multivitamins,Ther W-Minerals Tablet 1 TABLET PO (08:50)
[2020-10-29] MEDS: Aspirin 325 MG Tablet PO (08:50)
[2020-10-29] MEDS: Glycerin/Hypromellose/PEG400 15 ml Bottle 2 DRP RIGHT EYE (08:53)
--- NOTE | 2020-10-29 10:37 | CASEMGMT ---
Addendum entered by Lilibeth Lopez 10/29/20 10:47: Completed Palliative Screen. Explained Palliative services to sister. Sister agreeable to services. Will make referral closer to [place]. Original Note: Social Work Patient has guardian - sister - paperwork on file. Pt was deemed incompetent in 2011. Contacted sister to completed initial assessment. Pt resides at [facility] and has Stephanie C.M. at [facility]. Left message with Stephanie for notification of admit. Explained insurance information to sister. Will continue to follow. KATERINA GonzalezW
[2020-10-29] MEDS: Tuberculin,Purif.prot.deriv. 50 TU/ML Vial 5 ML ID (11:43)
[2020-10-29 12:47] LABS: Pathologist Review Reviewed
[2020-10-29 13:39] VITALS: PULSE 81; RESP 18
[2020-10-29] MEDS: Ipratropium 0.5 MG/2.5 ML SOLUTION INHALATION ×2 (13:39→20:20)
--- NOTE | 2020-10-29 13:40 | NURSING ---
Addendum entered by Stella Hicks 10/29/20 14:48: Pt back to floor from radiation treatment. New order for daily weights and 6 ensures daily. Original Note: Pt off floor for radiation treatment.
--- NOTE | 2020-10-29 14:42 | PHA.CONS_ITS ---
<ManzoEliz - Last Filed: 10/29/20 14:42> Progress Note - Pharmacy Subjective: TCU Admission Objective: Allergies latex Allergy (Intermediate, Verified 10/26/20 09:45) Rash naproxen sodium [From Aleve] Allergy (Intermediate, Verified 10/26/20 09:45) Rash Current Medications Generic Name Dose Route Start Last Admin Trade Name Freq PRN Reason Stop Dose Admin Acetaminophen 650 mg 10/28/20 17:00 10/29/20 11:45 Acetaminophen 325 Mg Tablet PO 650 mg 4X/DAY VIMAL Administration Albuterol Sulfate 2.5 mg 10/28/20 16:42 Albuterol 2.5 Mg/3 Ml Vial.Neb. INHALATION Q4H PRN SOB AND/OR WHEEZING Alendronate Sodium 70 mg 11/04/20 06:00 Alendronate Sodium 70 Mg Tablet PO Th@0600 [facility] Aspirin 325 mg 10/29/20 08:00 10/29/20 08:50 Aspirin 325 Mg Tablet PO 325 mg DAILYCM VIMAL Administration Atorvastatin Calcium 10 mg 10/28/20 22:00 10/28/20 20:15 Atorvastatin Calcium 10 Mg Tablet PO 10 mg QHS VIMAL Administration Bisacodyl 10 mg 10/28/20 16:01 Bisacodyl 10 Mg Suppository RECTAL DAILY PRN Constipation Cholecalciferol 2,000 unit 10/29/20 06:00 10/29/20 06:35 Cholecalciferol (Vit D3) 1,000 Unit (25mcg) PO 2,000 unit DAILY VIMAL Administration Dibucaine 1 applic 10/29/20 06:00 10/29/20 06:36 Dibucaine 30 Gm Tube TOPICAL Not Given DAILY [facility] Docusate Sodium 100 mg 10/28/20 18:00 10/29/20 06:35 Docusate Sodium 100 Mg Capsule PO 100 mg BID VIMAL Administration Fluconazole 100 mg 10/29/20 06:00 10/29/20 06:36 Fluconazole 100 Mg Tablet PO 11/04/20 06:01 100 mg DAILY VIMAL Administration Fluoxetine HCl 40 mg 10/29/20 06:00 10/29/20 06:35 Fluoxetine 20 Mg Capsule PO 40 mg DAILY VIMAL Administration Gabapentin 300 mg 10/28/20 17:00 10/29/20 11:45 Gabapentin 300 Mg Capsule PO 300 mg 4X/DAY VIMAL Administration Ipratropium Mona 0.5 mg 10/28/20 16:45 10/29/20 13:39 Ipratropium 0.5 Mg/2.5 Ml Solution INHALATION 0.5 mg Q6HWA.RT VIMAL Administration Magnesium Hydroxide 30 ml 10/28/20 16:01 Magnesium Hydroxide 30 Ml Udc PO DAILY PRN PRN Constipation Mineral Oil 1 bottle 10/28/20 16:43 Mineral Oil 1 Bottle Enema RECTAL DAILY PRN Constipation Mirtazapine 30 mg 10/28/20 22:00 10/28/20 20:15 Mirtazapine 30 Mg Tablet PO 30 mg QHS VIMAL Administration Multivitamins/Minerals 1 tablet 10/29/20 08:00 10/29/20 08:50 Multivitamins,Ther W-Minerals Tablet PO 1 tablet DAILYCM VIMAL Administration Ondansetron HCl 8 mg 10/28/20 16:01 Ondansetron 8 Mg Tablet PO Q8H PRN PRN NAUSEA Oxycodone HCl 5 mg 10/28/20 16:01 Oxycodone 5 Mg Tablet PO Q4H PRN Pain Score 6-10 Senna/Docusate Sodium 1 tablet 10/28/20 16:35 Senna/Docusate Sodium 1 Tablet PO Q12H PRN Constipation Tuberculin PPD 5 tu 11/05/20 10:00 Tuberculin,Purif.Prot.Deriv. 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 (Acute) Dementia (Chronic) Debility (Acute) Iron deficiency anemia (Chronic) Chronic obstructive pulmonary disease (Chronic) Brain aneurysm (Chronic) Anxiety (Chronic) Pulmonary embolism (Chronic) Depression (Chronic) Hyperlipemia (Chronic) Traumatic brain injury (Chronic) GERD (gastroesophageal reflux disease) (Chronic) Osteoporosis (Chronic) Vital Signs Temp Pulse Resp BP Pulse Ox 97.8 F 81 18 100/56 L 96 10/29/20 05:00 10/29/20 13:39 10/29/20 13:39 10/29/20 05:00 10/29/20 08:12 Oxygen Flow Rate (L/min) 2 Oxygen Delivery Method Nasal Cannula Weight: 48.223 kg Body Mass Index (BMI) 15.7 Sodium 142 mmol/L (136-145) 10/29/20 05:20 Potassium 4.2 mmol/L (3.5-5.1) 10/29/20 05:20 Chloride 111 mmol/L (98-107) H 10/29/20 05:20 Carbon Dioxide 29.0 mmol/L (21.0-32.0) 10/29/20 05:20 Anion Gap 2 (5-15) L 10/29/20 05:20 BUN 15 mg/dL (7-18) 10/29/20 05:20 Creatinine 0.72 mg/dL (0.70-1.30) 10/29/20 05:20 Est GFR (MDRD) Af Amer 141 mL/min (>60) 10/29/20 05:20 Est GFR (MDRD) Non-Af 117 mL/min (>60) 10/29/20 05:20 BUN/Creatinine Ratio 21.0 RATIO (10-20) H 10/29/20 05:20 Glucose 83 mg/dL (74-106) 10/29/20 05:20 Assessment/Plan: 1. Pain: acetaminophen 650mg PO 4X/DAY and oxycodone 5mg PO Q4H PRN pain 6- 07/24. Please continue to monitor for increased pain, PRN usage, constipation, a nd respiratory depression. 2. COPD: albuterol nebulized soln 2.5mg Q4H PRN SOB and wheezing and ipratropium 0.5mg Q6HWA.RT. Please continue to monitor for S/S of COPD, anticholinergic side effects, and PRN usage. 3. Osteoporosis: alendronate 70mg PO every . Please continue to monitor bone mineral density and jaw pain. Please administer on an empty stomach and remain in an upright position for at least 30 minutes after administration. 4. CV Prophylaxis: aspirin 325mg PO daily. Please continue to monitor for S/S of bleeding, hemoglobin and platelets. 5. Thrush: fluconazole 100mg PO daily through 11/04/20. Please continue to monitor for S/S of thrush and renal function. 6. Neuropathic pain: gabapentin 300mg 4X/day. Please continue to monitor for neuropathic pain and renal function. *7. Hyperlipidemia: atorvastatin 10mg PO QHS. Please consider ordering a lipid panel now and then annually as clinically appropriate. Last level from 10/2017. Thanks. Please continue to monitor for muscle pain. 8. Nausea: Zofran 8mg PO Q8H PRN nausea. Please continue to monitor for nausea/vomiting and PRN usage. 9. Dry eyes: Artificial Tears 2 drops in right eye Q4H. Please continue to christa tor for dry eyes. *10. Vitamin D Deficiency/overall nutrition: cholecalciferol 2000units PO daily and multivitamin 1T PO DAILYCM. Please consider ordering a vitamin D level (last 2015). Thanks. Psychotropic Medications: 1. Depression/insomnia/appetite loss: mirtazapine 30mg PO QHS and fluoxetine 40mg PO daily. Please see physician note regarding GDR. Please continue to m onitor renal function. Unnecessary Medications: None Bowel Regimen: docusate 100mg PO BID, Senna/docusate 1T PO Q12H PRN constipation, MOM 30ml PO daily PRN constipation, and bisacodyl 10mg HI daily PRN constipation, mineral oil 1 bottle rectally daily PRN constipation. Please continue to monitor for constipation and PRN usage. Date of Note:: 10/29/20 - Provider Comments Provider responsibility: Provider responsible to enter orders to implement recommendations <Jerel Carlos Chi - Last Filed: 10/29/20 15:20> Progress Note - Pharmacy Subjective: [] Objective: Allergies latex Allergy (Intermediate, Verified 10/26/20 09:45) Rash naproxen sodium [From Aleve] Allergy (Intermediate, Verified 10/26/20 09:45) Rash Current Medications Generic Name Dose Route Start Last Admin Trade Name Freq PRN Reason Stop Dose Admin Acetaminophen 650 mg 10/28/20 17:00 10/29/20 11:45 Acetaminophen 325 Mg Tablet PO 650 mg 4X/DAY VIMAL Administration Albuterol Sulfate 2.5 mg 10/28/20 16:42 Albuterol 2.5 Mg/3 Ml Vial.Neb. INHALATION Q4H PRN SOB AND/OR WHEEZING Alendronate Sodium 70 mg 11/04/20 06:00 Alendronate Sodium 70 Mg Tablet PO Th@0600 VIMAL Aspirin 325 mg 10/29/20 08:00 10/29/20 08:50 Aspirin 325 Mg Tablet PO 325 mg DAILYCM VIMAL Administration Atorvastatin Calcium 10 mg 10/28/20 22:00 10/28/20 20:15 Atorvastatin Calcium 10 Mg Tablet PO 10 mg QHS [facility] Administration Bisacodyl 10 mg 10/28/20 16:01 Bisacodyl 10 Mg Suppository RECTAL DAILY PRN Constipation Cholecalciferol 2,000 unit 10/29/20 06:00 10/29/20 06:35 Cholecalciferol (Vit D3) 1,000 Unit (25mcg) PO 2,000 unit DAILY [facility] Administration Dibucaine 1 applic 10/29/20 06:00 10/29/20 06:36 Dibucaine 30 Gm Tube TOPICAL Not Given DAILY [facility] Docusate Sodium 100 mg 10/28/20 18:00 10/29/20 06:35 Docusate Sodium 100 Mg Capsule PO 100 mg BID VIMAL Administration Fluconazole 100 mg 10/29/20 06:00 10/29/20 06:36 Fluconazole 100 Mg Tablet PO 11/04/20 06:01 100 mg DAILY [facility] Administration Fluoxetine HCl 40 mg 10/29/20 06:00 10/29/20 06:35 Fluoxetine 20 Mg Capsule PO 40 mg DAILY [facility] Administration Gabapentin 300 mg 10/28/20 17:00 10/29/20 11:45 Gabapentin 300 Mg Capsule PO 300 mg 4X/DAY [facility] Administration Ipratropium Mona 0.5 mg 10/28/20 16:45 10/29/20 13:39 Ipratropium 0.5 Mg/2.5 Ml Solution INHALATION 0.5 mg Q6HWA.RT [facility] Administration Magnesium Hydroxide 30 ml 10/28/20 16:01 Magnesium Hydroxide 30 Ml Udc PO DAILY PRN PRN Constipation Mineral Oil 1 bottle 10/28/20 16:43 Mineral Oil 1 Bottle Enema RECTAL DAILY PRN Constipation Mirtazapine 30 mg 10/28/20 22:00 10/28/20 20:15 Mirtazapine 30 Mg Tablet PO 30 mg QHS [facility] Administration Multivitamins/Minerals 1 tablet 10/29/20 08:00 10/29/20 08:50 Multivitamins,Ther W-Minerals Tablet PO 1 tablet DAILYCM [facility] Administration Nutritional Formula (Lactose Free) 120 ml 10/29/20 15:00 Ensure Enlive 120 Ml Liquid PO 6X/DAY [facility] Ondansetron HCl 8 mg 10/28/20 16:01 Ondansetron 8 Mg Tablet PO Q8H PRN PRN NAUSEA Oxycodone HCl 5 mg 10/28/20 16:01 Oxycodone 5 Mg Tablet PO Q4H PRN Pain Score 6-10 Senna/Docusate Sodium 1 tablet 10/28/20 16:35 Senna/Docusate Sodium 1 Tablet PO Q12H PRN Constipation Tuberculin PPD 5 tu 11/05/20 10:00 Tuberculin,Purif.Prot.Deriv. 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 (Acute) Dementia (Chronic) Debility (Acute) Iron deficiency anemia (Chronic) Chronic obstructive pulmonary disease (Chronic) Brain aneurysm (Chronic) Anxiety (Chronic) Pulmonary embolism (Chronic) Depression (Chronic) Hyperlipemia (Chronic) Traumatic brain injury (Chronic) GERD (gastroesophageal reflux disease) (Chronic) Osteoporosis (Chronic) Vital Signs Temp Pulse Resp BP Pulse Ox 97.8 F 53 L 16 100/56 L 100 10/29/20 05:00 10/29/20 14:49 10/29/20 14:49 10/29/20 05:00 10/29/20 14:49 Oxygen Flow Rate (L/min) 2 Oxygen Delivery Method Nasal Cannula Weight: 48.223 kg Body Mass Index (BMI) 15.7 Sodium 142 mmol/L (136-145) 10/29/20 05:20 Potassium 4.2 mmol/L (3.5-5.1) 10/29/20 05:20 Chloride 111 mmol/L (98-107) H 10/29/20 05:20 Carbon Dioxide 29.0 mmol/L (21.0-32.0) 10/29/20 05:20 Anion Gap 2 (5-15) L 10/29/20 05:20 BUN 15 mg/dL (7-18) 10/29/20 05:20 Creatinine 0.72 mg/dL (0.70-1.30) 10/29/20 05:20 Est GFR (MDRD) Af Amer 141 mL/min (>60) 10/29/20 05:20 Est GFR (MDRD) Non-Af 117 mL/min (>60) 10/29/20 05:20 BUN/Creatinine Ratio 21.0 RATIO (10-20) H 10/29/20 05:20 Glucose 83 mg/dL (74-106) 10/29/20 05:20 Assessment/Plan: Psychotropic Medications: Unnecessary Medications: Bowel Regimen: - Provider Comments Provider responsibility: Provider responsible to enter orders to implement recommendations Provider Comments to Recommendations by Pharmacy: Agree
[2020-10-29 14:49] VITALS: PULSE 53; RESP 16; O2SAT 100
[2020-10-29 15:27] VITALS: BP 92/50; PULSE 50; RESP 18; TEMP 36.3; O2SAT 100
[2020-10-29] MEDS: CLARIFY ORDER NOTE (17:26)
[2020-10-29 20:20] VITALS: PULSE 49; RESP 18
[2020-10-29] MEDS: Atorvastatin Calcium 10 MG Tablet PO (22:13)
[2020-10-29] MEDS: Mirtazapine 30 MG Tablet PO (22:13)
[2020-10-30 04:36] VITALS: BP 96/52; PULSE 52; RESP 18; TEMP 36.7; O2SAT 98
[2020-10-30] MEDS: Docusate Sodium 100 MG Capsule PO (06:16)
[2020-10-30] MEDS: Fluconazole 100 MG Tablet PO (06:17)
[2020-10-30] MEDS: Gabapentin 300 MG Capsule PO ×4 (06:18→20:15)
[2020-10-30] MEDS: FLUoxetine 20 MG Capsule 40 MG PO (06:18)
[2020-10-30] MEDS: Acetaminophen 325 MG Tablet 650 MG PO ×4 (06:18→20:15)
[2020-10-30 07:40] VITALS: O2SAT 92
[2020-10-30] MEDS: Multivitamins,Ther W-Minerals Tablet 1 TABLET PO (07:57)
[2020-10-30] MEDS: Aspirin 325 MG Tablet PO (07:57)
[2020-10-30] MEDS: Senna/Docusate Sodium 1 Tablet PO (12:17)
[2020-10-30 13:42] VITALS: BP 90/53; PULSE 61; RESP 18; TEMP 36.9; O2SAT 97
[2020-10-30 19:35] VITALS: PULSE 61; RESP 18
[2020-10-30] MEDS: Ipratropium 0.5 MG/2.5 ML SOLUTION INHALATION (19:35)
[2020-10-30] MEDS: Mirtazapine 30 MG Tablet PO (20:15)
[2020-10-30] MEDS: Atorvastatin Calcium 10 MG Tablet PO (20:15)
[2020-10-31 05:00] VITALS: BP 101/47; PULSE 60; RESP 16; TEMP 36.8; O2SAT 98
[2020-10-31] MEDS: Acetaminophen 325 MG Tablet 650 MG PO ×4 (05:54→20:40)
[2020-10-31] MEDS: FLUoxetine 20 MG Capsule 40 MG PO (05:54)
[2020-10-31] MEDS: Gabapentin 300 MG Capsule PO ×4 (05:54→20:40)
[2020-10-31] MEDS: Fluconazole 100 MG Tablet PO (05:54)
[2020-10-31 06:55] VITALS: PULSE 57; RESP 18; O2SAT 99
[2020-10-31] MEDS: Ipratropium 0.5 MG/2.5 ML SOLUTION INHALATION ×3 (06:55→19:32)
[2020-10-31] MEDS: Multivitamins,Ther W-Minerals Tablet 1 TABLET PO (08:26)
[2020-10-31] MEDS: Aspirin 325 MG Tablet PO (08:26)
--- NOTE | 2020-10-31 12:15 | NURSING ---
dr pickens updated on pt needing toenails trimmed, pt is not a diabetic, dr pickens would like pt to follow as outpt with podiatry.
[2020-10-31 13:29] VITALS: BP 90/45; PULSE 63; RESP 18; TEMP 36.9; O2SAT 95
[2020-10-31 13:30] VITALS: PULSE 61; RESP 16
[2020-10-31] MEDS: Docusate Sodium 100 MG Capsule PO (16:27)
[2020-10-31 19:32] VITALS: PULSE 58; RESP 16; O2SAT 100
[2020-10-31] MEDS: Atorvastatin Calcium 10 MG Tablet PO (20:40)
[2020-10-31] MEDS: Mirtazapine 30 MG Tablet PO (20:40)
[2020-11-01 05:00] VITALS: BP 103/56; PULSE 59; RESP 16; TEMP 36.8; O2SAT 97
[2020-11-01] MEDS: Gabapentin 300 MG Capsule PO ×4 (05:03→20:40)
[2020-11-01] MEDS: Acetaminophen 325 MG Tablet 650 MG PO ×4 (05:03→20:40)
[2020-11-01] MEDS: Fluconazole 100 MG Tablet PO (05:04)
[2020-11-01] MEDS: Docusate Sodium 100 MG Capsule PO (05:04)
[2020-11-01] MEDS: FLUoxetine 20 MG Capsule 40 MG PO (05:05)
[2020-11-01 06:40] VITALS: PULSE 68; RESP 20; O2SAT 98
[2020-11-01] MEDS: Ipratropium 0.5 MG/2.5 ML SOLUTION INHALATION ×2 (06:40→18:57)
[2020-11-01] MEDS: Multivitamins,Ther W-Minerals Tablet 1 TABLET PO (08:34)
[2020-11-01] MEDS: Aspirin 325 MG Tablet PO (08:35)
[2020-11-01 14:55] VITALS: BP 100/53; PULSE 63; RESP 16; TEMP 36.7; O2SAT 98
--- NOTE | 2020-11-01 15:58 | NURSING ---
Pt stated he was getting chemotherapy along with radiation on Mondays, Wednesdays, and Fridays. Cancer center was called to confirm if pt is receiving chemo, [facility] told this nurse pt is not getting chemotherapy that pt is only receiving radiation. RN updated
[2020-11-01 18:57] VITALS: PULSE 65; RESP 16; O2SAT 97
[2020-11-01] MEDS: Atorvastatin Calcium 10 MG Tablet PO (20:40)
[2020-11-01] MEDS: Mirtazapine 30 MG Tablet PO (20:40)
[2020-11-02 05:32] VITALS: BP 104/55; PULSE 64; RESP 16; TEMP 36.5; O2SAT 96
[2020-11-02] MEDS: Fluconazole 100 MG Tablet PO (05:34)
[2020-11-02] MEDS: Gabapentin 300 MG Capsule PO ×4 (05:34→20:19)
[2020-11-02] MEDS: Acetaminophen 325 MG Tablet 650 MG PO ×4 (05:34→20:19)
[2020-11-02] MEDS: FLUoxetine 20 MG Capsule 40 MG PO (05:35)
[2020-11-02 07:17] VITALS: PULSE 56; RESP 18
[2020-11-02] MEDS: Multivitamins,Ther W-Minerals Tablet 1 TABLET PO (08:05)
[2020-11-02] MEDS: Aspirin 325 MG Tablet PO (08:05)
[2020-11-02 12:49] VITALS: BP 97/54; PULSE 66; RESP 18; TEMP 36.6; O2SAT 97
--- NOTE | 2020-11-02 14:16 | NURSING ---
off unit to radiation via WC w/oxygen 2 liters.
[2020-11-02] MEDS: 0.9% Saline Lock 10 ML Syringe IV ×2 (16:28→20:34)
[2020-11-02] MEDS: 0.9% Normal Saline 1,000 ML 250 ML IV (16:29)
--- NOTE | 2020-11-02 16:34 | NURSING ---
Addendum entered by Arlene Huynh 11/02/20 18:02: ONCOLOGY DR CALLED WITH ORDERS TO START 0.9NS 1 LITER OVER 3-4 HRS DAILY X7 DAYS. PT & SISTER UPDATED. Original Note: CHEST PORT REACCESSED TODAY BY ONCOLOGY.
[2020-11-02] MEDS: Docusate Sodium 100 MG Capsule PO (17:43)
[2020-11-02 19:05] VITALS: PULSE 62; RESP 18; O2SAT 96
[2020-11-02] MEDS: Ipratropium 0.5 MG/2.5 ML SOLUTION INHALATION (19:05)
[2020-11-02] MEDS: Mirtazapine 30 MG Tablet PO (20:20)
[2020-11-02] MEDS: Atorvastatin Calcium 10 MG Tablet PO (20:21)
[2020-11-03 06:20] VITALS: BP 102/55; PULSE 62; RESP 16; TEMP 36.5; O2SAT 95
[2020-11-03] MEDS: 0.9% Normal Saline 1,000 ML 250 ML IV (06:22)
[2020-11-03] MEDS: 0.9% Saline Lock 10 ML Syringe IV ×2 (06:27→11:01)
[2020-11-03] MEDS: Docusate Sodium 100 MG Capsule PO ×2 (06:28→16:57)
[2020-11-03] MEDS: Acetaminophen 325 MG Tablet 650 MG PO ×4 (06:28→21:18)
[2020-11-03] MEDS: Fluconazole 100 MG Tablet PO (06:28)
[2020-11-03] MEDS: Gabapentin 300 MG Capsule PO ×4 (06:28→21:19)
[2020-11-03] MEDS: FLUoxetine 20 MG Capsule 40 MG PO (06:28)
[2020-11-03] MEDS: Aspirin 325 MG Tablet PO (08:45)
[2020-11-03] MEDS: Multivitamins,Ther W-Minerals Tablet 1 TABLET PO (08:45)
[2020-11-03] MEDS: Ondansetron 8 MG Tablet PO (09:31)
--- NOTE | 2020-11-03 10:53 | NURSING ---
Addendum entered by Stella Hicks 11/03/20 19:01: After dressing change port no longer bleeding. will continue to monitor. Original Note: Bleeding noted around port. Changed dressing will continue to monitor if actively bleeding.
[2020-11-03 12:56] VITALS: PULSE 64; RESP 16; O2SAT 96
[2020-11-03] MEDS: Ipratropium 0.5 MG/2.5 ML SOLUTION INHALATION ×2 (12:56→20:20)
--- NOTE | 2020-11-03 13:13 | CASEMGMT ---
Social Work IDT met with patient and sister via conference call for care plan meeting. Discussed patient's progress in therapy. See therapy notes. Pt is making progress, just fatigues quickly. Pt continues to receive radiation treatments and receives IV fluids after treatments to assist with hydration. Bass Mechanism Maker discussed pt's weight loss and adjusting with supplements and fortified foods. Explained [facility] insurance with [facility] 11/09 with [facility] 11/12, but continued stay is not guaranteed. Explained and provided [facility] care plan to pt. The goal is for pt to return to [facility]. Will confirm return closer to [place]. SW to refer to Palliative Care at [place] as well. Will continue to follow. Lilibeth Lopez, KATERINA MAKIW
[2020-11-03 13:51] VITALS: BP 102/61; PULSE 70; RESP 18; TEMP 37.3; O2SAT 93
--- NOTE | 2020-11-03 15:05 | NURSING ---
Addendum entered by Stella Hicks 11/03/20 19:13: Dr. Carlos made aware new orders were entered. Original Note: Pt temp 99.4 orally. Pt was vomiting this am but no c/o of nausea at this time. Will update Dr. Carlos and continue to monitor.
[2020-11-03 18:22] LABS: Absolute Lymphocyte Count 0.25 X10^3/uL (0.83-4.51); Absolute Neutrophil Count 0.3 X10^3/uL (2.0-7.7); Hematocrit 27.3 % (40-54); Hemoglobin 9.3 g/dL (13.0-16.5); Lymphocyte # 0.25 X10^3/ul (4.0); Lymphocyte % 35.7 % (19-41); Mean Corp Hgb Conc 34.1 g/dL (32-36); Mean Corpuscular Hgb 35.4 pg (27.0-32.0); Mean Corpuscular Volume 103.8 fL (80-94); Mean Platelet Vol. 9.8 fl (6.2-12.0); Monocyte# 0.14 X10^3/uL; NRBC Flagged by Analyzer 0 % (0-5); Neutrophil % 42.9 % (47-70); POSITIVE COUNT YES; POSITIVE DIFFERENTIAL YES; POSITIVE MORPHOLOGY YES; Platelet Count 60 K/mm3 (150-450); RBC Distribution Width CV 14.1 % (11.6-14.6); RBC Distribution Width SD 51.9 fl (35.1-43.9); Red Blood Count 2.63 M/mm3 (4.6-6.2)
--- NOTE | 2020-11-03 18:25 | RAD_ITS ---
STUDY: X-RAY CHEST REASON FOR EXAM: Male, 65 years old. FEVER. SQUAMOUS CELL CA. TECHNIQUE: PA and lateral views of the chest. COMPARISON: 07/29/2020. FINDINGS: Cardiac silhouette unremarkable. Pulmonary vascularity unremarkable. Aorta unremarkable.. Port-A-Cath tip is in the inferior SVC. No focal airspace opacities. No pleural effusions. Upper abdomen unremarkable. Osseous structures intact. No pneumothorax. RAD/Chest PA and Lateral IMPRESSION: No acute cardiopulmonary process identified. Electronically Signed: Dhruv Pang MD at 20:08 EST Tel , Service support ,
[2020-11-03 18:28] LABS: Anion Gap 5 (5-15); BUN 21 mg/dL (7-18); BUN/Creat Ratio 21.9 RATIO (10-20); Calcium,Total 8.8 mg/dL (8.5-10.1); Chloride 110 mmol/L (98-107); Creatinine, Serum 0.96 mg/dL (0.70-1.30); EST Glomerular Filtration Rate 83 mL/min (>60); Est Glom Filt Rate - Afr Amer 100 mL/min (>60); Glucose 122 mg/dL (74-106); Potassium 3.8 mmol/L (3.5-5.1); Sodium Level 142 mmol/L (136-145)
[2020-11-03 18:37] LABS: Differential Indicated SCAN CRITERIA MET; White Blood Count 0.7 K/mm3 (4.4-11.0)
--- NOTE | 2020-11-03 18:38 | NURSING ---
Addendum entered by Stella Hicks 11/03/20 19:14: updated Dr. Carlos would like us to forward results to Dr. Lowery and make a appt with him. Original Note: Lab called and reported critical WBC count of 0.7 to this nurse, this nurse updated RN
[2020-11-03 18:50] LABS: Differential Comment SCANNED; Platelet Estimate MOD DEC (ADEQ)
[2020-11-03 20:20] VITALS: PULSE 76; RESP 20; O2SAT 92
[2020-11-03] MEDS: Atorvastatin Calcium 10 MG Tablet PO (21:18)
[2020-11-03] MEDS: Mirtazapine 30 MG Tablet PO (21:19)
[2020-11-03 22:14] LABS: Bacteria 0 SEEN /hpf (None Seen); Color, Urine Yellow (Yellow); Glucose, Dipstick Normal (Normal); Ketone-Dipstick 15 mg/dl (Negative); Leukocyte Esterase-Dipstick 25 /ul (Negative); Mucous, Urine 0 SEEN /hpf (<or=2+); Nitrite-Dipstick Negative (Negative); Occult Blood-Urine 25 /ul (Negative); Protein-Dipstick 15 mg/dl (Negative); Specific Gravity, Urine 1.015 (1.002-1.030); Urine Bilirubin Dipstick Negative (Negative); Urine Clarity Clear (Clear); Urine Urobilinogen Normal (Normal); White Blood Cells 0 SEEN /hpf (0-5)
[2020-11-03 22:24] LABS: Red Blood Cells-Urine 0-5 SEEN /hpf (0-5); Squamous Epithelial Cells - UA 0-5 SEEN /hpf (0-5)
[2020-11-04] MEDS: 0.9% Normal Saline 1,000 ML 250 ML IV (05:37)
[2020-11-04] MEDS: Acetaminophen 325 MG Tablet 650 MG PO (05:40)
[2020-11-04] MEDS: Alendronate Sodium 70 MG Tablet PO (05:41)
[2020-11-04] MEDS: Fluconazole 100 MG Tablet PO (05:41)
[2020-11-04] MEDS: Gabapentin 300 MG Capsule PO (05:41)
[2020-11-04] MEDS: Docusate Sodium 100 MG Capsule PO (05:41)
[2020-11-04] MEDS: FLUoxetine 20 MG Capsule 40 MG PO (05:41)
[2020-11-04 05:46] VITALS: BP 106/56; PULSE 78; RESP 16; TEMP 37.2; O2SAT 95
[2020-11-04 07:34] VITALS: O2SAT 93
[2020-11-04] MEDS: Aspirin 325 MG Tablet PO (07:39)
[2020-11-04] MEDS: Multivitamins,Ther W-Minerals Tablet 1 TABLET PO (07:40)
--- NOTE | 2020-11-04 08:30 | NURSING ---
Called Dr. Lowery and spoke with Nurse to let them know of his WBC. Dr. Hill looked over labs and wanted him to go down to the ER d/t low WBC's. Sent to ER and Updated Dr. Carlos.
[2020-11-04 10:13] LABS: Pathologist Review Reviewed
--- NOTE | 2020-11-04 11:42 | MDS.RN ---
Resident off unit, will complete staff pain assesssment.
--- NOTE | 2020-11-04 15:29 | CASEMGMT ---
Social Work Pt transferred to ED prior to completing MDS assessment. Staff assessment completed. KATERINA GonzalezW
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
--- NOTE | 2020-11-09 13:27 | MDS.RN ---
Information for the mds was obtained from review of the clinical record, interview of resident, staff, and direct observation of resident's care.
== END 2020-11-04 09:00 | disposition short-term general hospital (02) | DRG 844 ==
PROVIDERS: Student in an Organized Health Care Education/Training Program; Admitting Provider Family Medicine Geriatric Medicine; PCP Family Medicine; Visit Provider Family Medicine Geriatric Medicine
DX: C80.1 Malignant (primary) neoplasm, unspecified (principal); J96.11 Chronic respiratory failure with hypoxia; K50.90 Crohn's disease, unspecified, without complications; C79.89 Secondary malignant neoplasm of other specified sites; F32.9 Major depressive disorder, single episode, unspecified; F41.9 Anxiety disorder, unspecified; D50.9 Iron deficiency anemia, unspecified; J44.9 Chronic obstructive pulmonary disease, unspecified; F03.90 Unspecified dementia, unspecified severity, without behavioral disturbance, psychotic disturbance, mood disturbance, and anxiety; E78.5 Hyperlipidemia, unspecified; K21.9 Gastro-esophageal reflux disease without esophagitis; M19.90 Unspecified osteoarthritis, unspecified site; F17.210 Nicotine dependence, cigarettes, uncomplicated; B37.9 Candidiasis, unspecified; E55.9 Vitamin D deficiency, unspecified; K64.9 Unspecified hemorrhoids; M81.0 Age-related osteoporosis without current pathological fracture; Z86.711 Personal history of pulmonary embolism; B35.1 Tinea unguium; D70.9 Neutropenia, unspecified; R50.81 Fever presenting with conditions classified elsewhere
CPT/HCPCS: 36415; 71046; 80048; 81001; 85025; 87040; 87086; 87088; 87426; 87633; 87635; 92523; 94640; 97110; 97116; 97162; 97166; 97530; 97535; 97802; J7030; A4216; U0002; U0003

== ENCOUNTER 2020-10-29 09:27 | Outpatient (RCR) | payer MEDICARE, MEDICAID, SELFPAY ==
[2020-08-27 09:24] VITALS: BMI 17.6
[2020-10-28 15:17] VITALS: BMI 15.7
== END 2020-11-14 23:59 ==
LOC: LABSPEC 09:27
PROVIDERS: PCP Family Medicine; Referring Provider Family Medicine Geriatric Medicine; Visit Provider Family Medicine Geriatric Medicine
DX: Z03.818 Encounter for observation for suspected exposure to other biological agents ruled out (principal)

== ENCOUNTER 2020-11-03 14:30 | Outpatient (RCR) | payer MEDICARE, MEDICAID, SELFPAY ==
[2020-08-27 09:24] VITALS: BMI 17.6
[2020-09-21 08:52] VITALS: BMI 17.5
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
== END 2020-11-03 19:00 | disposition home or self-care (01) ==
LOC: SP 14:30
PROVIDERS: PCP Family Medicine; Referring Provider Student in an Organized Health Care Education/Training Program; Visit Provider Student in an Organized Health Care Education/Training Program
DX: C77.0 Secondary and unspecified malignant neoplasm of lymph nodes of head, face and neck (principal); C80.1 Malignant (primary) neoplasm, unspecified
CPT/HCPCS: 92507; 92526; 92610

== ENCOUNTER 2020-11-04 08:56 | Inpatient (IN) | payer MEDICARE, MEDICAID, SELFPAY ==
[2020-08-27 09:24] VITALS: BMI 17.6
[2020-11-02 15:01] VITALS: BMI 14.6
[2020-11-04] VITALS (35 sets, daily range): BP systolic 82–126; BP diastolic 44–71; PULSE 63–87; RESP 12–25; TEMP 35.9–38.7; O2SAT 75–100; BMI 15.9; BMI 16.2
--- NOTE | 2020-11-04 09:00 | ED.RN ---
ATTEMPTED TO CONTACT NURSE ON TCU FOR CODE STATUS.
--- NOTE | 2020-11-04 09:18 | ED.RN ---
PT STATES I'M TIRED. I FEEL LIKE I JUST NEED TO GO TO SLEEP. PT C/O NAUSEA AND ABD TENDERNESS.
--- NOTE | 2020-11-04 09:27 | RAD_ITS ---
STUDY: X-RAY CHEST REASON FOR EXAM: Male, 65 years old. Bradycardia, hypotension TECHNIQUE: Single AP portable view of the chest. COMPARISON: 11/03/2020 FINDINGS: EKG leads overlie the chest. Stable appearance of a right subclavian port. The lungs are hyperexpanded with chronic interstitial changes, no superimposed acute process or significant interval change. There is no demonstrated pleural abnormality. Normal size heart. Normal mediastinum and shanna. Normal visualized pulmonary arteries. Normal visualized aortic arch and descending thoracic aorta. There are diffuse degenerative changes of the visualized thoracic spine. There is degenerative osteoarthritis of the bilateral shoulders. There is no demonstrated abnormality of the visualized soft tissue structures of the upper abdomen. RAD/Chest 1 View (Portable) IMPRESSION: Mildly hyperexpanded lungs without a superimposed acute pulmonary process Electronically Signed: Pancho Proctor MD at 10:20 EST , Service support ,
--- NOTE | 2020-11-04 09:27 | EKG12_ITS ---
Test Reason : Blood Pressure : / mmHG Vent. Rate : 072 BPM Atrial Rate : 072 BPM P-R Int : 138 ms QRS Dur : 078 ms QT Int : 402 ms P-R-T Axes : 059 012 053 degrees QTc Int : 440 ms Normal sinus rhythm Normal ECG Confirmed by NORM BARR, JARROD ([id number]), news videotape editor MAYCOL ALMONTE ([id number]) on 11/09/2020 10:41:20 AM Referred By: SANTIAGO Confirmed By:JARROD ZHENG MD
--- NOTE | 2020-11-04 09:29 | ED.VISSUMM ---
- ER Visit Summary Date of Service: 11/04/20 Chief Complaint: Sent to the ER for low white blood cell count from the TCU History of Present Illness: The patient is a 65 M history of neck cancer with prior surgery. Also COPD and prior intracranial bleed from a ruptured aneurysm. Patient was sent down from the transitional care unit today due to low cell count and when he arrived here he also had a low pulse ox and low blood pressure. Patient states he had some nausea but denies any vomiting. No diarrhea. No dysuria. Physical Examination: Older male 82/49 temperature 98. He is dieting 9% on nonrebreather. Without oxygen he was a the 60s and 70s. HEENT exam unremarkable. Moist mucous membranes. Neck nontender. Right-sided mass. Lungs clear to auscultation bilaterally. Heart regular rhythm rate about 75 no murmur. Chest were nontender. Abdomen soft. Mild lower abdominal tenderness. Nondistended. No signs of obstruction. No obvious organomegaly. No pulsatile mass. Patient moving all 4 extremities. Thin. No edema. Neurologically is awake and alert with no focal motor deficits. Test Results: Chest x-ray portable 1 view interpreted myself also by the radiologist shows no acute abnormality. He does have a right-sided MediPort. CTA chest no PE there is suspicious nodule that will need further evaluation in the future. CAT scan abdomen pelvis shows constipation otherwise not remarkable. EKG normal sinus rhythm rate of 72 no signs of my ischemia. CBC white count of 1 which is his baseline hemoglobin 8 again baseline. 54,000 platelets again baseline. Chemistries unremarkable BUN 23 creatinine 0.9. Gap is 6 PT/INR unremarkable UA normal troponin normal lactate 1.9 D-dimer 0.56. Emergency Department Course and Treatment: Older male from TCU with low pulse ox and low blood pressure. Will undergo a septic work-up. Receive IV fluids to improve his pressure. He is on nonrebreather mask for his low pulse ox. He will obviously need to be admitted. Patient had 2 L of fluid current blood pressure is 93/60. Third liter be started. Treatment Plan: Spoke to the hospitalist. She is come down to evaluate the patient. Most likely is in need to be admitted to the ICU for hypoxia and hypotension. Currently we have no source. Patient does have a port. Hospice I will discuss if they need a central line. Disposition: Admission Impression: Acute hypoxia of uncertain etiology Acute hypotension Anemia of chronic disease. Pancytopenia. Suspicious lung nodule seen on CAT scan will need further evaluation in future History of neck CA This note was generated with [email or web address] dictation software. It may contain incorrect words, spelling, and punctuation that were not noted in review of the chart prior to signing ED Disposition - Plan for ED Patient: Referrals: Phu Cooper MD [Primary Care Provider] -
[2020-11-04] MEDS: 0.9% Normal Saline 1,000 ML 999 ML IV ×3 (09:30→14:20)
--- NOTE | 2020-11-04 09:34 | CT_ITS ---
STUDY: CT ABDOMEN AND PELVIS WITH CONTRAST REASON FOR EXAM: Male, 65 years old. LOWER ABD PAIN, nausea, low wbc RADIATION DOSAGE (If Supplied By Facility): CTDIvol = ( 8.54 ) mGy, DLP = ( 324.29 ) mGycm TECHNIQUE: Transaxial images were obtained from the dome of the diaphragm to the symphysis pubis without oral contrast. IV 100mL Isovue-300 was administered. Sagittal and coronal images were reconstructed. Individualized dose optimization techniques were used for this CT. COMPARISON: None. FINDINGS: There are chronic interstitial fibrotic changes of the lung bases with small left pleural effusion and atelectasis.. The visualized portions of the heart are within normal limits. Normal liver. Normal gallbladder and extrahepatic biliary system. Normal spleen. Normal pancreas. Normal bilateral adrenal glands. Normal right kidney. Normal left kidney. Normal visualized stomach. Normal small intestine. Retained stool throughout the colon The appendix is visualized and appears normal. Appendix best seen on axial images 69 through 72 There is diffuse atherosclerotic calcification of the abdominal aorta, without a demonstrated aneurysm. Normal inferior vena cava. No free intraperitoneal fluid, air, or suspicious adenopathy Bladder contains a KOCH catheter Normal abdominal wall. There are diffuse degenerative changes of the visualized lumbar spine, and pelvis. Replaced right hip joint free of complication CT/Abdomen/Pelvis W IV Cont ONLY IMPRESSION: No suspicious solid organ abnormality Retained stool throughout the colon which may be impacted Normal appendix visualized Diffuse atherosclerosis Degenerative bony changes, replaced right hip joint free of complication Electronically Signed: Pancho Proctor MD at 11:13 EST , Service support ,
[2020-11-04 09:40] LABS: Absolute Lymphocyte Count 0.47 X10^3/uL (0.83-4.51); Absolute Neutrophil Count 0.4 X10^3/uL (2.0-7.7); Hematocrit 24.5 % (40-54); Hemoglobin 8.2 g/dL (13.0-16.5); Lymphocyte # 0.47 X10^3/ul (4.0); Mean Corp Hgb Conc 33.5 g/dL (32-36); Mean Corpuscular Hgb 35.2 pg (27.0-32.0); Mean Corpuscular Volume 105.2 fL (80-94); Mean Platelet Vol. 9.7 fl (6.2-12.0); Monocyte# 0.09 X10^3/uL; Monocyte% 9.2 % (0-10); NRBC Flagged by Analyzer 0 % (0-5); Neutrophil # 0.41 X10^3/uL (2.7-7.7); Neutrophil % 41.8 % (47-70); POSITIVE COUNT YES; POSITIVE DIFFERENTIAL YES; POSITIVE MORPHOLOGY YES; Platelet Count 54 K/mm3 (150-450); RBC Distribution Width CV 14.3 % (11.6-14.6); RBC Distribution Width SD 52.8 fl (35.1-43.9); Red Blood Count 2.33 M/mm3 (4.6-6.2)
[2020-11-04 09:50] LABS: Lactic Acid 1.9 mmol/L (0.4-1.9)
[2020-11-04 09:51] LABS: ALB/GLOB Ratio 0.8 RATIO (0.9-2.4); AST(SGOT) 9 U/L (15-37); Alanine Aminotransfer ALT/SGPT 16 U/L (16-61); Albumin, Serum 2.7 g/dL (3.2-5.0); Alkaline Phosphatase 52 U/L (45-117); Anion Gap 6 (5-15); BUN 23 mg/dL (7-18); BUN/Creat Ratio 24.9 RATIO (10-20); Calcium,Total 8.5 mg/dL (8.5-10.1); Chloride 112 mmol/L (98-107); Creatinine, Serum 0.92 mg/dL (0.70-1.30); EST Glomerular Filtration Rate 87 mL/min (>60); Est Glom Filt Rate - Afr Amer 105 mL/min (>60); Estimated Creatinine Clearance 53.99 ml/min; Globulin 3.4 g/dL (2.2-4.2); Glucose 120 mg/dL (74-106); Potassium 3.5 mmol/L (3.5-5.1); Protein, Total 6.1 g/dL (6.4-8.2); Sodium Level 144 mmol/L (136-145)
[2020-11-04 09:54] LABS: Differential Indicated SCAN CRITERIA MET
--- NOTE | 2020-11-04 09:56 | ED.RN ---
lab called critical value oif wbc 1.0. dr britton
[2020-11-04 09:57] LABS: International Normalized Ratio 1.4; Prothrombin Time (Protime)PT. 16.2 SECONDS (11.7-14.9)
[2020-11-04 10:07] LABS: D-Dimer Quantitative (DVT/PE) 0.56 FEU/ug/m (0.27-0.49); Differential Comment SCANNED; Platelet Estimate MKD DEC (ADEQ)
--- NOTE | 2020-11-04 10:08 | ED.RN ---
d-dimer 0.56 dr britton
[2020-11-04 10:19] LABS: Bacteria 0 SEEN /hpf (None Seen); Mucous, Urine 0 SEEN /hpf (<or=2+); Red Blood Cells-Urine 0 SEEN /hpf (0-5)
[2020-11-04 10:27] LABS: Color, Urine Yellow (Yellow); Glucose, Dipstick Normal (Normal); Ketone-Dipstick Negative (Negative); Leukocyte Esterase-Dipstick 25 /ul (Negative); Nitrite-Dipstick Negative (Negative); Occult Blood-Urine Negative /ul (Negative); Protein-Dipstick 15 mg/dl (Negative); Specific Gravity, Urine 1.015 (1.002-1.030); Urine Bilirubin Dipstick Negative (Negative); Urine Clarity Clear (Clear); Urine Urobilinogen 1 mg/dl (Normal)
--- NOTE | 2020-11-04 10:43 | CT_ITS ---
STUDY: CTA CHEST REASON FOR EXAM: Male, 65 years old. Hypoxia, hypotensive, elevated D-dimer. Hx COPD, asthma, emphysema. RADIATION DOSAGE (If Supplied By Facility): CTDIvol = ( 4.43 ) mGy, DLP = ( 151.43 ) mGycm TECHNIQUE: The examination was performed with the intravenous administration of IV 75mL Isovue-370. Post-processing of the angiographic images was performed, with multiplanar reformation and 3D reconstruction. Individualized dose optimization techniques were used for this CT. COMPARISON: None. FINDINGS: Normal enhancement of the main pulmonary artery and right and left pulmonary arteries. Normal enhancement of the bilateral peripheral pulmonary arteries. There is no demonstrated pulmonary embolism. There is atherosclerotic calcification of the aortic arch with tortuosity. There is no demonstrated aortic dissection. Normal heart and pericardium. There are calcifications of the coronary arteries. Normal mediastinum. Normal hilar regions. There is peribronchial thickening. The lungs are hyper expanded, with flattening of the hemidiaphragms. Chronic interstitial changes in both lung jarvis. No organized infiltrate. There is a new pleural-based 1.06 cm nodule in the posterior right upper lobe. No organized infiltrate, or groundglass opacifications, there is bibasilar atelectasis. Normal pleura. Normal chest wall structures. There are degenerative changes of thoracic spine. Normal visualized upper abdomen. CT/CTA Chest W/WO Contrast IMPRESSION: No demonstrated PE, or thoracic aortic aneurysm or dissection Severe underlying emphysema with bleb formation throughout both lung jarvis. Chronic interstitial changes in both lung jarvis. There is a concerning 1.06 cm pleural-based nodule in the posterior right upper lobe. Short-term follow-up recommended to assure stability. No organized infiltrate, bibasilar atelectasis Calcified coronary vessels Degenerative bony changes Electronically Signed: Pancho Proctor MD at 11:54 EST , Service support ,
[2020-11-04 10:53] LABS: Squamous Epithelial Cells - UA 0-5 SEEN /hpf (0-5); White Blood Cells 0-5 SEEN /hpf (0-5)
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
--- NOTE | 2020-11-04 14:51 | PCS.PANDOC ---
PANDEMIC DOCUMENTATION INITIATED: Date: 11/04/2020 Time: 7241
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
--- NOTE | 2020-11-04 17:13 | PCM.NTREPORT ---
Nutrition Therapy Report - History Nutrition Services has been consulted to:: Manage nutrient details of diet order Current diet / nutrition support order:: regular, 120mL ensure enlive 4x/day - Anthropometric Measurements Height:: 5 ft 9 in Weight:: 48.988 kg Body Mass Index (BMI):: 15.9 - Relevant Labs Relevant Labs:: WBC 1.0 K/mm3 (4.4-11.0) L* 11/04/20 09:04 RBC 2.33 M/mm3 (4.6-6.2) L 11/04/20 09:04 Hgb 8.2 g/dL (13.0-16.5) L 11/04/20 09:04 Hct 24.5 % (40-54) L 11/04/20 09:04 MCV 105.2 fL (80-94) H 11/04/20 09:04 MCH 35.2 pg (27.0-32.0) H 11/04/20 09:04 RDW Std Deviation 52.8 fl (35.1-43.9) H 11/04/20 09:04 Plt Count 54 K/mm3 (150-450) L 11/04/20 09:04 Immature Gran % (Auto) 1.000 % (0.0-0.9) H 11/04/20 09:04 Neut % (Auto) 41.8 % (47-70) L 11/04/20 09:04 Lymph % (Auto) 48.0 % (19-41) H 11/04/20 09:04 Absolute Neuts (auto) 0.4 X10^3/uL (2.0-7.7) L 11/04/20 09:04 Absolute Lymphs (auto) 0.47 X10^3/uL (0.83-4.51) L 11/04/20 09:04 PT 16.2 SECONDS (11.7-14.9) H 11/04/20 09:04 APTT 41.0 Seconds (24.1-36.2) H 11/04/20 09:04 D-Dimer Quant (PE/DVT) 0.56 FEU/ug/m (0.27-0.49) H* 11/04/20 09:04 Chloride 112 mmol/L (98-107) H 11/04/20 09:04 BUN 23 mg/dL (7-18) H 11/04/20 09:04 BUN/Creatinine Ratio 24.9 RATIO (10-20) H 11/04/20 09:04 Glucose 120 mg/dL (74-106) H 11/04/20 09:04 AST 9 U/L (15-37) L 11/04/20 09:04 Total Protein 6.1 g/dL (6.4-8.2) L 11/04/20 09:04 Albumin 2.7 g/dL (3.2-5.0) L 11/04/20 09:04 Albumin/Globulin Ratio 0.8 RATIO (0.9-2.4) L 11/04/20 09:04 - Assessment Food / Nutrition-Related History:: Was on [facility]. Information gathered from EMR. Recently underwent chemotherapy w/ last chemo 10/18/20. Chronically poor appetite/intake. Per TCU documentation, was eating mostly poor at meals, refusing at times. Followed by [employer] and on regular, mechanical soft diet w/ fortified foods, ensure enlive w/ medpass/meals. Recently started on appetite stimulant per TCU RDN documentation. Wt hx reviewed in EMR. Was 136# on 11/08/19, last wt on TCU was 106.3# on 10/28/20- 29.7#/21.8% wt loss x 1 year, significant for chronic malnutrition. - Nutrition Diagnosis Problem / Etiology / Signs & Symptoms (PES):: Pt w/ severe, chronic malnutrition related to inadequate energy intake in context of metastatic cancer as evidenced by reported inadequate PO intake estimated to meet less than 75% of estimated nutritional needs >3 months, wt loss of 29.7#/21.8% x 1 year. Evidence of Malnutrition Exists:: Yes Severe PCM:: Chronic Illness - Nutrition Intervention Nutrition Prescription:: For wt gain: 4850-0910 calories, 65-75 g protein/day - Food / Nutrient Delivery Interventions Summary of nutrition intervention:: Pt likes strawberry flavored Ensure. Has been agreeable to strawberry milkshakes during TCU stay. Will add mechanical soft to diet order per recent [employer] eval- will likely need ongoing ST during acute stay. Nutrition support ordered as / adjusted to:: Regular diet- will add fortified foods w/ all meals; strawberry milkshake w/ lunches. Will add mechanical soft to diet order per TCU evaluation- recommend [employer]PA[employer] consult for ongoing ST when appropriate. - MNT Monitoring Further MNT monitoring and evaluation required?: Yes MNT Follow-up in:: 1-2 days
[2020-11-04] MEDS: TBO-FILGRASTIM 300 MCG/0.5 ML ML SC (18:05)
[2020-11-04] MEDS: 0.9% Saline Lock 10 ML Syringe IV (18:05)
[2020-11-04] MEDS: Acetaminophen 325 MG Tablet 650 MG PO ×2 (18:05→22:13)
[2020-11-04] MEDS: 0.45% Normal Saline 1,000 ML 100 ML IV (18:05)
--- NOTE | 2020-11-04 18:56 | PHA.PHARE_ITS ---
Consult Pharmacy has been consulted to manage selected antiobiotic: Vancomycin Type of Consult: New start Prior Doses of Antibiotics Received/Current Regimen: Received 750mg iv x 1 on 11.04.20. Labs: Sodium 144 mmol/L (136-145) 11/04/20 09:04 Potassium 3.5 mmol/L (3.5-5.1) 11/04/20 09:04 Chloride 112 mmol/L (98-107) H 11/04/20 09:04 Carbon Dioxide 26.0 mmol/L (21.0-32.0) 11/04/20 09:04 Anion Gap 6 (5-15) 11/04/20 09:04 BUN 23 mg/dL (7-18) H 11/04/20 09:04 Creatinine 0.92 mg/dL (0.70-1.30) 11/04/20 09:04 Est GFR (MDRD) Af Amer 105 mL/min (>60) 11/04/20 09:04 Est GFR (MDRD) Non-Af 87 mL/min (>60) 11/04/20 09:04 BUN/Creatinine Ratio 24.9 RATIO (10-20) H 11/04/20 09:04 Glucose 120 mg/dL (74-106) H 11/04/20 09:04 Microbiology: Microbiology 11/04/20 14:39 Mucosa - Nose SARS-CoV-2 Antigen (Rapid) - Final Weight used for dosin kg Estimated Creatinine Clearance: 54 ml/min Goal Trough: 15-20 mcg/mL Pharmacy Plan for Drug Dosing: Will start 500mg iv q12h per protocol. Trough level ordered for 11.06.20 before 4 th total dose. Pharmacy Service will continue to monitor and adjust dosing as required. Follow-Up Labs: Trough Vancomycin - 11.06.20@0530 before 0600 dose
[2020-11-04] MEDS: Ipratropium 0.5 MG/2.5 ML SOLUTION INHALATION (19:33)
[2020-11-04] MEDS: Docusate Sodium 100 MG Capsule PO (22:13)
[2020-11-04] MEDS: Atorvastatin Calcium 10 MG Tablet PO (22:15)
[2020-11-04] MEDS: Mirtazapine 30 MG Tablet PO (22:15)
--- NOTE | 2020-11-04 22:55 | NURSING ---
Patient's O2 sats were sitting in the 70s on 6L/NC. Patient didn't show any signs of SOB or distress. Respiratory came to bedside and placed patient on venti mask 50%. Patient's O2 sats came back up to above 90%. Patient tolerating mask well and appears to be resting comfortably at this time. Will continue to monitor.
[2020-11-05] VITALS (23 sets, daily range): BP systolic 94–118; BP diastolic 43–73; PULSE 71–82; RESP 12–23; TEMP 36.6–38.4; O2SAT 92–99
--- NOTE | 2020-11-05 | NURSING ---
Pain assessment not done at this time. Patient is resting comfortably in bed with eyes closed and call light within reach. All vitals are WNL. Will continue to monitor.
[2020-11-05] MEDS: Ipratropium 0.5 MG/2.5 ML SOLUTION INHALATION ×4 (01:48→19:32)
[2020-11-05 04:17] LABS: Absolute Neutrophil Count 0.5 X10^3/uL (2.0-7.7); Basophil# 0.01 X10^3/uL; Basophil% 1.4 % (0-1); Hematocrit 21.4 % (40-54); Hemoglobin 7.2 g/dL (13.0-16.5); Lymphocyte % 14.3 % (19-41); Mean Corp Hgb Conc 33.6 g/dL (32-36); Mean Corpuscular Hgb 35.3 pg (27.0-32.0); Mean Corpuscular Volume 104.9 fL (80-94); Mean Platelet Vol. 9.7 fl (6.2-12.0); Monocyte% 14.3 % (0-10); NRBC Flagged by Analyzer 0 % (0-5); Neutrophil # 0.49 X10^3/uL (2.7-7.7); POSITIVE COUNT YES; POSITIVE DIFFERENTIAL YES; POSITIVE MORPHOLOGY YES; RBC Distribution Width CV 14.5 % (11.6-14.6); RBC Distribution Width SD 53.7 fl (35.1-43.9); Red Blood Count 2.04 M/mm3 (4.6-6.2)
[2020-11-05 04:21] LABS: Differential Indicated SCAN CRITERIA MET
[2020-11-05 04:23] LABS: ALB/GLOB Ratio 0.7 RATIO (0.9-2.4); AST(SGOT) 11 U/L (15-37); Alanine Aminotransfer ALT/SGPT 14 U/L (16-61); Albumin, Serum 2.3 g/dL (3.2-5.0); Alkaline Phosphatase 51 U/L (45-117); Anion Gap 8 (5-15); BUN 15 mg/dL (7-18); BUN/Creat Ratio 20.9 RATIO (10-20); Calcium,Total 7.5 mg/dL (8.5-10.1); Chloride 112 mmol/L (98-107); Creatinine, Serum 0.72 mg/dL (0.70-1.30); EST Glomerular Filtration Rate 116 mL/min (>60); Est Glom Filt Rate - Afr Amer 141 mL/min (>60); Estimated Creatinine Clearance 50.69 ml/min; Globulin 3.2 g/dL (2.2-4.2); Glucose 94 mg/dL (74-106); Potassium 3.8 mmol/L (3.5-5.1); Protein, Total 5.5 g/dL (6.4-8.2); Sodium Level 142 mmol/L (136-145)
[2020-11-05 04:26] LABS: Platelet Count 49 K/mm3 (150-450); White Blood Count 0.7 K/mm3 (4.4-11.0)
[2020-11-05 04:28] LABS: Differential Comment SCANNED; Platelet Estimate MKD DEC (ADEQ)
[2020-11-05 04:29] LABS: Anisocytosis 1+; Macrocytosis 1+
[2020-11-05] MEDS: Vancomycin IV 500 MG/100 ML BAG 100 MG IV (05:06)
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
--- NOTE | 2020-11-05 08:52 | CASEMGMT ---
Patient has a legal guardian, sister Tati Miller. Guardianship paperwork in medical record. CLARIBEL Bowers
[2020-11-05] MEDS: FLUoxetine 20 MG Capsule 40 MG PO (09:23)
[2020-11-05] MEDS: Ondansetron 4 MG/2 ML Vial IV (09:23)
[2020-11-05] MEDS: Acetaminophen 325 MG Tablet 650 MG PO ×4 (09:23→22:37)
[2020-11-05] MEDS: Fluconazole 100 MG Tablet PO (09:23)
[2020-11-05] MEDS: Docusate Sodium 100 MG Capsule PO ×2 (09:24→22:25)
[2020-11-05] MEDS: TBO-FILGRASTIM 300 MCG/0.5 ML ML SC (09:25)
[2020-11-05] MEDS: Aspirin 325 MG Tablet PO (09:25)
[2020-11-05] MEDS: Multivitamins,Ther W-Minerals Tablet 1 TABLET PO (09:25)
[2020-11-05 11:56] LABS: Pathologist Review Reviewed
[2020-11-05 11:56] LABS: Pathologist Review Reviewed
--- NOTE | 2020-11-05 12:02 | CASEMGMT ---
Addendum entered by Janeen Jackson 11/05/20 12:25: VM left with Ebony Gunter, Business Support Associate at [facility] notifying of pt admission. CLARIBEL Bowers Original Note: Social Work Pt is admitted from TCU. Phone call to pt Guardian/Sister Tati Miller who is agreeable to talk with FARHANA. Tati states she is pt guardian (has been since 2011) and documents are on pt medical record. In the past pt has lived with another sister, then Tati for about 3 years and for the last 4-5 years he has lived at [facility]. In June 2020 pt was at [facility] and diagnosed with cancer. He discharged to [place] and was there until mid September when he returned to [facility]. Pt was receiving chemo and radiation treatments at that time. Last Sunday pt was admitted to TCU from [facility] due to sharp decline and physican's recommendations. PT was continuing to receive radiation in TCU. FARHANA discussed Discharge plans with Tati. Tati states that pt told her he does not want to continue with chemo or radiation treatments and she talked to other siblings and they have agreed to allow pt to make this decision and will support pt in decision made. FARHANA discussed return to TCU and that this would be short term for rehab. If pt would need longer term care, an outside facility may be more appropriate. FARHANA reviewed list of facilities in network with pt insurance and sister stating if needed, she would prefer [facility]. FARHANA also spoke with Tati about palliative medicine which has been discussed while in TCU. Tati is agreeable to palliative referral. Pt is not ready for discharge at this time. FARHANA informed Tati that SW will follow up on Sunday to continue with discharge planning. CLARIBEL Bowers
--- NOTE | 2020-11-05 13:33 | PCM.PN.HOSP ---
Patient Problems: Active and Suspected Problems (Last Reviewed 11/02/20 @ 14:59 by Annette Garzon) COPD exacerbation (Acute) Hypotension (Acute) Respiratory failure (Acute) Febrile neutropenia (Acute) Pancytopenia (Acute) Reason for Visit: COPD exacerbation Subjective: Breathing well currently. Vitals/I&O's: Vital Signs Temp Pulse Resp BP Pulse Ox 37.6 C H 74 18 99/47 L 94 11/05/20 12:00 11/05/20 13:21 11/05/20 13:21 11/05/20 13:00 11/05/20 13:00 Oxygen Flow Rate (L/min) 5 Oxygen Delivery Method Nasal Cannula Weight: 52.4 kg Body Mass Index (BMI) 16.2 Intake and Output for Last 24 Hours 11/03/20 11/04/20 11/05/20 23:59 23:59 23:59 Intake Total 3940.25 / 3940.25 340 / 340 Output Total 550 / 550 300 / 300 Balance 3390.25 / 3390.25 40 / 40 General: Alert, No apparent distress HEENT: Atraumatic, Normocephalic Oral: Moist Mucosa, No Gingival or Mucosal Lesions/ Ulcerations Neck: No Nodes, Thyroid Normal Size and Texture Lungs: Clear to auscultation, Normal air movement, No rhonchi, No wheeze, No rales, Diminished Cardiovascular: Regular rate, Regular Rhythm, Normal S1, Normal S2, No murmurs Abdomen: Bowel Sounds Present, Soft, Non Tender, Non-Distended, No Hepato-splenomegaly Extremities: No edema, No Calf Tenderness Skin: No rashes, No breakdown Psych/Mental Status: Normal Affect, Appropriate Microbiology Past 72 Hours 11/04/20 10:00 Interface Orders Urine Culture - Preliminary Culture exhibits no growth. 11/04/20 14:39 Mucosa - Nose SARS-CoV-2 Antigen (Rapid) - Final Laboratory Results 11/04/20 09:04: Diff Path Review Reviewed 11/05/20 04:00: WBC 0.7 L*, RBC 2.04 L, Hgb 7.2 L, Hct 21.4 L, MCV 104.9 H, MCH 35.3 H, MCHC 33.6, RDW Std Deviation 53.7 H, RDW Coeff of Bindu 14.5, Plt Count 49 L*, MPV 9.7, Immature Gran % (Auto) 0.000, Neut % (Auto) 70.0, Lymph % (Auto) 14.3 L, Towns % (Auto) 14.3 H, Eos % (Auto) 0.0, Baso % (Auto) 1.4 H, Absolute Neuts (auto) 0.5 L, Absolute Lymphs (auto) 0.10 L, Nucleated RBC % 0, Differential Comment SCANNED, Diff Path Review Reviewed, Platelet Estimate MKD DEC, Anisocytosis 1+, Macrocytosis 1+ 11/05/20 04:00: Sodium 142, Potassium 3.8, Chloride 112 H, Carbon Dioxide 22.0, Anion Gap 8, BUN 15, Creatinine 0.72, Estim Creat Clear Calc 50.69, Est GFR (MDRD) Af Amer 141, Est GFR (MDRD) Non-Af 116, BUN/Creatinine Ratio 20.9 H, Glucose 94, Calcium 7.5 L, Total Bilirubin 0.80, AST 11 L, ALT 14 L, Alkaline Phosphatase 51, Total Protein 5.5 L, Albumin 2.3 L, Globulin 3.2, Albumin/Globulin Ratio 0.7 L Current Medications Acetaminophen (Acetaminophen 325 Mg Tablet) 650 mg PO 4X/DAY [facility] Last Admin: 11/05/20 09:23 Dose: 650 mg Documented by: Albuterol Sulfate (Albuterol 2.5 Mg/3 Ml Vial.Neb.) 2.5 mg INHALATION Q2H PRN PRN PRN Reason: SOB/Wheezing Aspirin (Aspirin 325 Mg Tablet) 325 mg PO DAILYCM [facility] Last Admin: 11/05/20 09:25 Dose: 325 mg Documented by: Atorvastatin Calcium (Atorvastatin Calcium 10 Mg Tablet) 10 mg PO QHS [facility] Last Admin: 11/04/20 22:15 Dose: 10 mg Documented by: Cholecalciferol (Cholecalciferol (Vit D3) 1,000 Unit (25mcg)) 2,000 unit PO DAILY [facility] Last Admin: 11/05/20 09:24 Dose: 2,000 unit Documented by: Docusate Sodium (Docusate Sodium 100 Mg Capsule) 100 mg PO BID [facility] Last Admin: 11/05/20 09:24 Dose: 100 mg Documented by: Fluconazole (Fluconazole 100 Mg Tablet) 100 mg PO DAILY [facility] Last Admin: 11/05/20 09:23 Dose: 100 mg Documented by: Fluoxetine HCl (Fluoxetine 20 Mg Capsule) 40 mg PO DAILY [facility] Last Admin: 11/05/20 09:23 Dose: 40 mg Documented by: Heparin Sodium (Beef Lung) (Heparin Pf Lock 10 Units/Ml 50 Units/5 Ml Syringe) 50 units IV UD PRN PRN Reason: R Port Heparin Flush Meropenem 2 gm/ Sodium (Chloride) 140 mls @ 97 mls/hr IV Q8 [facility] Last Infusion: 11/05/20 07:47 Dose: Infused Documented by: Vancomycin IV Pharmacy to Dose (1 ea/ Sodium Chloride) 500 mls @ 250 mls/hr IV PRN PRN; Protocol PRN Reason: Rx to Dose Vancomycin HCl () 500 mg in 100 mls @ 100 mls/hr IV Q12H [facility] Last Infusion: 11/05/20 06:15 Dose: Infused Documented by: Ipratropium [place] (Ipratropium 0.5 Mg/2.5 Ml Solution) 0.5 mg INHALATION Q6H.RT [facility] Last Admin: 11/05/20 13:21 Dose: 0.5 mg Documented by: Methylprednisolone (Methylprednisolone 40 Mg/Ml Vial) 40 mg IV BID [facility] Last Admin: 11/05/20 09:25 Dose: 40 mg Documented by: Mirtazapine (Mirtazapine 30 Mg Tablet) 30 mg PO QHS [facility] Last Admin: 11/04/20 22:15 Dose: 30 mg Documented by: Multivitamins/Minerals (Multivitamins,Ther W-Minerals Tablet) 1 tablet PO DAILYCM [facility] Last Admin: 11/05/20 09:25 Dose: 1 tablet Documented by: Nutritional Formula (Lactose Free) (Ensure Enlive 120 Ml Liquid) 120 ml PO 4X/DAY [facility] Last Admin: 11/05/20 09:26 Dose: Not Given Documented by: Ondansetron HCl (Ondansetron 4 Mg/2 Ml Vial) 4 mg IV Q8H PRN PRN PRN Reason: NAUSEA/VOMITING Last Admin: 11/05/20 09:23 Dose: 4 mg Documented by: Oxycodone HCl (Oxycodone 5 Mg Tablet) 5 mg PO Q4H PRN PRN Reason: Pain Score 6-10 Senna/Docusate Sodium (Senna/Docusate Sodium 1 Tablet) 1 tablet PO Q12H PRN PRN Reason: Constipation Sodium Chloride (0.9% Saline Lock 10 Ml Syringe) 10 - 40 ml IV UD PRN PRN Reason: R Port Saline Flush Last Admin: 11/04/20 18:05 Dose: 10 ml Documented by: Sodium Chloride (0.9 % Nacl (Sterile) Posiflush 10 Ml) 10 - 40 ml IV UD PRN PRN Reason: Port access or dressing change Sodium Chloride (0.9% Saline Lock 10 Ml Syringe) 10 - 40 ml IV UD PRN PRN Reason: SALINE FLUSH Tbo-Filgrastim (Tbo-Filgrastim 300 Mcg/0.5 Ml Ml) 300 mcg SC DAILY [facility] Last Admin: 11/05/20 09:25 Dose: 300 mcg Documented by: STROKE Vital Signs/Narrative: Vital Signs Temp Pulse Resp BP BP Pulse Ox 11/05/20 13:21 74 18 11/05/20 13:00 77 21 H 99/47 L 94 11/05/20 12:00 37.6 C H 80 18 118/63 93 11/05/20 11:27 76 11/05/20 11:00 73 21 H 105/64 94 11/05/20 10:00 37.4 C H 75 19 H 101/67 95 Medical Necessity - Tobacco Use Smoking Status: Former smoker Tobacco Use: Non-smoker Assessment/Plan All Active Problems (Last Reviewed 11/02/20 @ 14:59 by Annette Garzon) COPD exacerbation (Acute) Encounter for education (Acute) Encounter for adjustment and management of vascular access device (Acute) Chemotherapy management, encounter for (Acute) Dehydration (Acute) Acute prerenal azotemia (Acute) Hypotension (Acute) Respiratory failure (Acute) Febrile neutropenia (Acute) Pancytopenia (Acute) Hx of gastrostomy (Resolved) History of tracheostomy (Resolved) 1. acute hypoxic respiratory failure 2/2 AECOPD oxygen weaned down to 5l from VM 2. AECOPD on methylpred and BDs pulm on consult 3. Neutropenic fever UA, UCx negative. COVID 19 negative. On meropenem and vanc. DC vanc as no clear GP organism. follow up cultures 4. Pancytopenia 2/2 chemotherapy per oncology: Neupogen 5 mcg/kg (rounded to 300 mcg) subcu daily starting today November 04, 2019 until absolute neutrophil count recovery to over 1000 per DL for 3 successive days no TF unless Hg less than 7 5. Squamous Cell CUP follow up with [facility] and radonc as outpt. 6. [facility] In[facility] E&M: 21509 Subs Hosp L2
[2020-11-05] MEDS: oxyCODONE 5 MG Tablet PO (21:47)
[2020-11-05] MEDS: 0.9% Saline Lock 10 ML Syringe IV ×3 (22:25→22:37)
[2020-11-05] MEDS: Atorvastatin Calcium 10 MG Tablet PO (22:25)
[2020-11-05] MEDS: Mirtazapine 30 MG Tablet PO (22:25)
[2020-11-06] VITALS (8 sets, daily range): BP systolic 113–143; BP diastolic 66–75; PULSE 64–84; RESP 16–20; TEMP 36.3–36.6; O2SAT 93–96
[2020-11-06] MEDS: Ipratropium 0.5 MG/2.5 ML SOLUTION INHALATION ×4 (01:24→20:28)
[2020-11-06 06:48] LABS: Absolute Lymphocyte Count 0.14 X10^3/uL (0.83-4.51); Absolute Neutrophil Count 0.7 X10^3/uL (2.0-7.7); Basophil# 0.01 X10^3/uL; Basophil% 0.7 % (0-1); Hematocrit 20.5 % (40-54); Hemoglobin 7.2 g/dL (13.0-16.5); Lymphocyte # 0.14 X10^3/ul (4.0); Lymphocyte % 10.4 % (19-41); Mean Corp Hgb Conc 35.1 g/dL (32-36); Mean Corpuscular Hgb 36.5 pg (27.0-32.0); Mean Corpuscular Volume 104.1 fL (80-94); Monocyte# 0.23 X10^3/uL; NRBC Flagged by Analyzer 0 % (0-5); Neutrophil # 0.72 X10^3/uL (2.7-7.7); Neutrophil % 53.4 % (47-70); POSITIVE COUNT YES; POSITIVE DIFFERENTIAL YES; POSITIVE MORPHOLOGY YES; Platelet Count 52 K/mm3 (150-450); RBC Distribution Width CV 14.7 % (11.6-14.6); RBC Distribution Width SD 53.1 fl (35.1-43.9); Red Blood Count 1.97 M/mm3 (4.6-6.2)
[2020-11-06 06:52] LABS: White Blood Count 1.4 K/mm3 (4.4-11.0)
[2020-11-06 07:00] LABS: Differential Indicated SCAN CRITERIA MET
[2020-11-06 07:02] LABS: Anisocytosis 1+; Macrocytosis 1+
[2020-11-06 07:03] LABS: Platelet Estimate MKD DEC (ADEQ)
[2020-11-06 07:05] LABS: Differential Comment SCANNED
[2020-11-06 07:08] LABS: ALB/GLOB Ratio 0.7 RATIO (0.9-2.4); AST(SGOT) 10 U/L (15-37); Alanine Aminotransfer ALT/SGPT 13 U/L (16-61); Albumin, Serum 2.3 g/dL (3.2-5.0); Alkaline Phosphatase 45 U/L (45-117); Anion Gap 5 (5-15); BUN 25 mg/dL (7-18); BUN/Creat Ratio 34.4 RATIO (10-20); Calcium,Total 7.6 mg/dL (8.5-10.1); Chloride 109 mmol/L (98-107); Creatinine, Serum 0.73 mg/dL (0.70-1.30); EST Glomerular Filtration Rate 114 mL/min (>60); Est Glom Filt Rate - Afr Amer 138 mL/min (>60); Globulin 3.3 g/dL (2.2-4.2); Glucose 131 mg/dL (74-106); Potassium 3.7 mmol/L (3.5-5.1); Protein, Total 5.6 g/dL (6.4-8.2); Sodium Level 139 mmol/L (136-145)
--- NOTE | 2020-11-06 07:49 | PCM.PN.INT ---
Subjective: Patient transferred out of the intensive care unit. No acute issues reported overnight. Patient has remained on nasal cannula oxygen, but no fevers have been reported. Patient reports he has had significant pain of his lower ribs that are worse with palpation. General: Alert, Oriented x3, Cooperative, No apparent distress, - - Much more interactive today HEENT: Atraumatic, PERRLA, EOMI, Normocephalic, - - No scleral icterus or injection noted Oral: Moist Mucosa, No Gingival or Mucosal Lesions/ Ulcerations Neck: Supple, No JVD, No Nodes, Trachea Midline Lungs: Clear to auscultation, No rhonchi, No wheeze, No rales, - - Pain with palpation of the inferior costochondral junction bilaterally Cardiovascular: Regular rate, Regular Rhythm, Normal S1, Normal S2, No murmurs, No rub noted, No Gallop Abdomen: Bowel Sounds Present, Soft, Non Tender, Non-Distended Extremities: No clubbing, No cyanosis, No edema Skin: No rashes, No breakdown Musculoskeletal: No Tenderness to Palpation of Joints or Extremities Lymphatic: No Cervical, Supraclavicular, or Inguinal Adenopathy Neurological: Cranial nerves II-XII grossly intact, Neuro grossly intact, Motor Exam 5/5 strength throughout Psych/Mental Status: Normal Affect, Appropriate Vital Signs Temp Pulse Resp BP Pulse Ox 36.5 C L 70 19 H 113/66 93 11/06/20 02:12 11/06/20 07:03 11/06/20 07:03 11/06/20 02:12 11/06/20 07:03 Oxygen Flow Rate (L/min) 4 Oxygen Delivery Method Nasal Cannula Weight: 51.982 kg Body Mass Index (BMI) 16.2 Intake and Output for Last 24 Hours 11/04/20 11/05/20 11/06/20 23:59 23:59 23:59 Intake Total 3940.25 / 3940.25 830 / 830 340 / 340 Output Total 550 / 550 550 / 550 200 / 200 Balance 3390.25 / 3390.25 280 / 280 140 / 140 Labs (Last 48 Hours) 11/04/20 11/04/20 11/04/20 09:04 09:04 09:04 WBC 1.0 L* RBC 2.33 L Hgb 8.2 L Hct 24.5 L MCV 105.2 H MCH 35.2 H MCHC 33.5 RDW Std Deviation 52.8 H RDW Coeff of Bindu 14.3 Plt Count 54 L MPV 9.7 Immature Gran % (Auto) 1.000 H Neut % (Auto) 41.8 L Lymph % (Auto) 48.0 H [place] % (Auto) 9.2 Eos % (Auto) 0.0 Baso % (Auto) 0.0 Absolute Neuts (auto) 0.4 L Absolute Lymphs (auto) 0.47 L Nucleated RBC % 0 Differential Comment SCANNED Diff Path Review Reviewed Platelet Estimate MKD DEC Anisocytosis Macrocytosis PT 16.2 H INR 1.4 APTT 41.0 H D-Dimer Quant (PE/DVT) 0.56 H* Sodium 144 Potassium 3.5 Chloride 112 H Carbon Dioxide 26.0 Anion Gap 6 BUN 23 H Creatinine 0.92 Estim Creat Clear Calc 53.99 Est GFR (MDRD) Af Amer 105 Est GFR (MDRD) Non-Af 87 BUN/Creatinine Ratio 24.9 H Glucose 120 H Lactic Acid Calcium 8.5 Total Bilirubin 1.00 AST 9 L ALT 16 Alkaline Phosphatase 52 Troponin I < 0.015 Total Protein 6.1 L Albumin 2.7 L Globulin 3.4 Albumin/Globulin Ratio 0.8 L Urine Color Urine Clarity Urine pH Ur Specific [place] Urine Protein Urine Glucose (UA) Urine Ketones Urine Occult Blood Urine Nitrite Urine Bilirubin Urine Urobilinogen Ur Leukocyte Esterase Urine RBC Urine WBC Ur Squamous Epith Cells Urine Bacteria Urine Mucus 11/04/20 11/04/20 11/05/20 09:04 10:00 04:00 WBC 0.7 L* RBC 2.04 L Hgb 7.2 L Hct 21.4 L MCV 104.9 H MCH 35.3 H MCHC 33.6 RDW Std Deviation 53.7 H RDW Coeff of Bindu 14.5 Plt Count 49 L* MPV 9.7 Immature Gran % (Auto) 0.000 Neut % (Auto) 70.0 Lymph % (Auto) 14.3 L [place] % (Auto) 14.3 H Eos % (Auto) 0.0 Baso % (Auto) 1.4 H Absolute Neuts (auto) 0.5 L Absolute Lymphs (auto) 0.10 L Nucleated RBC % 0 Differential Comment SCANNED Diff Path Review Reviewed Platelet Estimate MKD DEC Anisocytosis 1+ Macrocytosis 1+ PT INR APTT D-Dimer Quant (PE/DVT) Sodium Potassium Chloride Carbon Dioxide Anion Gap BUN Creatinine Estim Creat Clear Calc Est GFR (MDRD) Af Amer Est GFR (MDRD) Non-Af BUN/Creatinine Ratio Glucose Lactic Acid 1.9 Calcium Total Bilirubin AST ALT Alkaline Phosphatase Troponin I Total Protein Albumin Globulin Albumin/Globulin Ratio Urine Color Yellow Urine Clarity Clear Urine pH 6.0 Ur Specific [place] 1.015 Urine Protein 15 H Urine Glucose (UA) Normal Urine Ketones Negative Urine Occult Blood Negative Urine Nitrite Negative Urine Bilirubin Negative Urine Urobilinogen 1 H Ur Leukocyte Esterase 25 H Urine RBC 0 SEEN Urine WBC 0-5 SEEN Ur Squamous Epith Cells 0-5 SEEN Urine Bacteria 0 SEEN Urine Mucus 0 SEEN 11/05/20 11/06/20 11/06/20 04:00 06:14 06:14 WBC 1.4 L* RBC 1.97 L Hgb 7.2 L Hct 20.5 L MCV 104.1 H MCH 36.5 H MCHC 35.1 RDW Std Deviation 53.1 H RDW Coeff of Bidnu 14.7 H Plt Count 52 L MPV 10.0 Immature Gran % (Auto) 18.500 H Neut % (Auto) 53.4 Lymph % (Auto) 10.4 L [place] % (Auto) 17.0 H Eos % (Auto) 0.0 Baso % (Auto) 0.7 Absolute Neuts (auto) 0.7 L Absolute Lymphs (auto) 0.14 L Nucleated RBC % 0 Differential Comment SCANNED Diff Path Review May foll Platelet Estimate MKD DEC Anisocytosis 1+ Macrocytosis 1+ PT INR APTT D-Dimer Quant (PE/DVT) Sodium 142 139 Potassium 3.8 3.7 Chloride 112 H 109 H Carbon Dioxide 22.0 25.0 Anion Gap 8 5 BUN 15 25 H Creatinine 0.72 0.73 Estim Creat Clear Calc 50.69 52.70 Est GFR (MDRD) Af Amer 141 138 Est GFR (MDRD) Non-Af 116 114 BUN/Creatinine Ratio 20.9 H 34.4 H Glucose 94 131 H Lactic Acid Calcium 7.5 L 7.6 L Total Bilirubin 0.80 0.80 AST 11 L 10 L ALT 14 L 13 L Alkaline Phosphatase 51 45 Troponin I Total Protein 5.5 L 5.6 L Albumin 2.3 L 2.3 L Globulin 3.2 3.3 Albumin/Globulin Ratio 0.7 L 0.7 L Urine Color Urine Clarity Urine pH Ur Specific [place] Urine Protein Urine Glucose (UA) Urine Ketones Urine Occult Blood Urine Nitrite Urine Bilirubin Urine Urobilinogen Ur Leukocyte Esterase Urine RBC Urine WBC Ur Squamous Epith Cells Urine Bacteria Urine Mucus Microbiology 11/04/20 10:00 Interface Orders Urine Culture - Preliminary Culture exhibits no growth. 11/04/20 14:39 Mucosa - Nose SARS-CoV-2 Antigen (Rapid) - Final Medical Necessity - Tobacco Use Smoking Status: Former smoker Tobacco Use: Non-smoker Assessment/Plan All Active Problems (Last Reviewed 11/02/20 @ 14:59 by Annette Garzon) COPD exacerbation (Acute) Encounter for education (Acute) Encounter for adjustment and management of vascular access device (Acute) Chemotherapy management, encounter for (Acute) Dehydration (Acute) Acute prerenal azotemia (Acute) Hypotension (Acute) Respiratory failure (Acute) Febrile neutropenia (Acute) Pancytopenia (Acute) Hx of gastrostomy (Resolved) History of tracheostomy (Resolved) RECOMMENDATIONS: 1. Continue empiric antibiotics pending cultures 2. Agree with bronchodilators. Likely okay to transition to prednisone 3. Transfuse for hemoglobin less than 7 4. Use Tylenol for pain IMPRESSIONS: 1. Acute on chronic hypoxic respiratory failure secondary to probable COPD exacerbation Patient with increased FiO2 requirements. Patient is appropriately on antibiotics, steroids and bronchodilators. We will continue to monitor closely. Patient is very clear that he does not want to be intubated if this is necessary. Patient is not showing any respiratory muscle distress that would require an ABG at this time. Continue to monitor. Patient does have advanced lung disease at baseline. Patient still requiring supplemental oxygen, but appears comfortable. Patient does appear to have an element of costochondritis. Okay to continue with Tylenol for pain. Likely okay to transition to p.o. steroids and wean over the next 12 to 14 days. 2. Neutropenic fever and pancytopenia secondary to chemotherapy and radiation Patient is currently on broad-spectrum antibiotics. Unclear etiology at this time. Chest x-ray does not show any significant infiltrates. Patient is getting Neupogen per oncology. Await cultures. Blood pressures have been adequate at this time. Patient is clear that he does not want to have aggressive measures such as chemotherapy moving forward. If cultures negative at 48 hours, likely okay to transition to p.o. antibiotics. Patient is suggesting hospice measures on discharge. 3. Metastatic squamous cell carcinoma/dementia/osteoporosis/vitamin D deficiency/anxiety/depression/CODE STATUS Complicates care, management, recovery and prognosis. Did discuss with the patient and he is willing to get broad-spectrum antibiotics for a possible infection. However, patient does state that he does not want chemotherapy or aggressive interventions such as central lines or intubation. We will discussed with the POA, but more appropriate CODE STATUS would likely be DNR Comfort Care arrest. Inpatient E&M: 63014 Subs Hosp L2
[2020-11-06] MEDS: Multivitamins,Ther W-Minerals Tablet 1 TABLET PO (08:15)
[2020-11-06] MEDS: Acetaminophen 325 MG Tablet 650 MG PO ×4 (08:16→21:38)
[2020-11-06] MEDS: Docusate Sodium 100 MG Capsule PO ×2 (08:16→21:38)
[2020-11-06] MEDS: Aspirin 325 MG Tablet PO (08:16)
[2020-11-06] MEDS: FLUoxetine 20 MG Capsule 40 MG PO (08:16)
[2020-11-06] MEDS: TBO-FILGRASTIM 300 MCG/0.5 ML ML SC (11:12)
[2020-11-06] MEDS: 0.9% Saline Lock 10 ML Syringe IV (11:12)
--- NOTE | 2020-11-06 11:30 | NURSING ---
pharmacy notified to send diflucan to unit
--- NOTE | 2020-11-06 11:58 | PN_ITS ---
Patient Problems: Active and Suspected Problems (Last Reviewed 11/02/20 @ 14:59 by Annette Garzon) COPD exacerbation (Acute) Hypotension (Acute) Respiratory failure (Acute) Febrile neutropenia (Acute) Pancytopenia (Acute) Reason for Visit: hypotension Subjective: Breathing well. Discussed with Occupational Therapy and patient was having some issues in regards to sequencing, such as washing his hands and forgetting to turn the sink off when he is completed, not taking his oxygen tubing along with him when ambulating. Vitals/I&O's: Vital Signs Temp Pulse Resp BP Pulse Ox 36.3 C L 73 18 120/66 93 11/06/20 07:57 11/06/20 07:57 11/06/20 07:57 11/06/20 07:57 11/06/20 07:57 Oxygen Flow Rate (L/min) 5 Oxygen Delivery Method Nasal Cannula Weight: 51.982 kg Body Mass Index (BMI) 16.2 Intake and Output for Last 24 Hours 11/04/20 11/05/20 11/06/20 23:59 23:59 23:59 Intake Total 3940.25 / 3940.25 830 / 830 480 / 480 Output Total 550 / 550 550 / 550 200 / 200 Balance 3390.25 / 3390.25 280 / 280 280 / 280 General: Alert, No apparent distress HEENT: Atraumatic, Normocephalic Oral: Moist Mucosa, No Gingival or Mucosal Lesions/ Ulcerations Neck: No Nodes, Thyroid Normal Size and Texture Lungs: Clear to auscultation, Diminished Cardiovascular: Regular rate, Regular Rhythm, Normal S1, Normal S2, No murmurs Abdomen: Bowel Sounds Present, Soft, Non Tender, Non-Distended, No Hepato- splenomegaly Extremities: No edema, No Calf Tenderness Musculoskeletal: Cachexia, Muscle Wasting Psych/Mental Status: Normal Affect, Appropriate Microbiology Past 72 Hours 11/04/20 09:48 Blood Culture (Wb) - Anticubital Left Blood Culture - Preliminary No growth in 48 hours. 11/04/20 09:04 Blood Culture (Wb) - Chest Blood Culture - Preliminary No growth in 48 hours. 11/04/20 10:00 Interface Orders Urine Culture - Preliminary Culture exhibits no growth. 11/04/20 14:39 Mucosa - Nose SARS-CoV-2 Antigen (Rapid) - Final Laboratory Results 11/06/20 06:14: WBC 1.4 L*, RBC 1.97 L, Hgb 7.2 L, Hct 20.5 L, MCV 104.1 H, MCH 36.5 H, MCHC 35.1, RDW Std Deviation 53.1 H, RDW Coeff of Bindu 14.7 H, Plt Count 52 L, MPV 10.0, Immature Gran % (Auto) 18.500 H, Neut % (Auto) 53.4, Lymph % (Auto) 10.4 L, [place] % (Auto) 17.0 H, Eos % (Auto) 0.0, Baso % (Auto) 0.7, Absolute Neuts (auto) 0.7 L, Absolute Lymphs (auto) 0.14 L, Nucleated RBC % 0, Differential Comment SCANNED, Diff Path Review February, Platelet Estimate MKD DEC, Anisocytosis 1+, Macrocytosis 1+ 11/06/20 06:14: Sodium 139, Potassium 3.7, Chloride 109 H, Carbon Dioxide 25.0, Anion Gap 5, BUN 25 H, Creatinine 0.73, Estim Creat Clear Calc 52.70, Est GFR (MDRD) Af Amer 138, Est GFR (MDRD) Non-Af 114, BUN/Creatinine Ratio 34.4 H, Glucose 131 H, Calcium 7.6 L, Total Bilirubin 0.80, AST 10 L, ALT 13 L, Alkaline Phosphatase 45, Total Protein 5.6 L, Albumin 2.3 L, Globulin 3.3, Albumin/Globulin Ratio 0.7 L Current Medications Acetaminophen (Acetaminophen 325 Mg Tablet) 650 mg PO 4X/DAY [facility] Last Admin: 11/06/20 08:16 Dose: 650 mg Documented by: Albuterol Sulfate (Albuterol 2.5 Mg/3 Ml Vial.Neb.) 2.5 mg INHALATION Q2H PRN PRN PRN Reason: SOB/Wheezing Aspirin (Aspirin 325 Mg Tablet) [address] [facility] Last Admin: 11/06/20 08:16 Dose: 325 mg Documented by: Atorvastatin Calcium (Atorvastatin Calcium 10 Mg Tablet) 10 mg PO QHS [facility] Last Admin: 11/05/20 22:25 Dose: 10 mg Documented by: Cholecalciferol (Cholecalciferol (Vit D3) 1,000 Unit (25mcg)) 2,000 unit PO DAILY [facility] Last Admin: 11/06/20 08:15 Dose: 2,000 unit Documented by: Docusate Sodium (Docusate Sodium 100 Mg Capsule) 100 mg PO BID [facility] Last Admin: 11/06/20 08:16 Dose: 100 mg Documented by: Fluconazole (Fluconazole 100 Mg Tablet) 100 mg PO DAILY [facility] Last Admin: 11/05/20 09:23 Dose: 100 mg Documented by: Fluoxetine HCl (Fluoxetine 20 Mg Capsule) 40 mg PO DAILY [facility] Last Admin: 11/06/20 08:16 Dose: 40 mg Documented by: Heparin Sodium (Beef Lung) (Heparin Pf Lock 10 Units/Ml 50 Units/5 Ml Syringe) 50 units IV UD PRN PRN Reason: R Port Heparin Flush Meropenem 2 gm/ Sodium (Chloride) 140 mls @ 97 mls/hr IV Q8 [facility] Last Infusion: 11/06/20 07:33 Dose: Infused Documented by: Ipratropium [place] (Ipratropium 0.5 Mg/2.5 Ml Solution) 0.5 mg INHALATION Q6H.RT [facility] Last Admin: 11/06/20 07:03 Dose: 0.5 mg Documented by: Methylprednisolone (Methylprednisolone 40 Mg/Ml Vial) 40 mg IV BID [facility] Last Admin: 11/06/20 11:12 Dose: 40 mg Documented by: Mirtazapine (Mirtazapine 30 Mg Tablet) 30 mg PO QHS [facility] Last Admin: 11/05/20 22:25 Dose: 30 mg Documented by: Multivitamins/Minerals (Multivitamins,Ther W-Minerals Tablet) 1 tablet PO DAVID YCM [facility] Last Admin: 11/06/20 08:15 Dose: 1 tablet Documented by: Nutritional Formula (Lactose Free) (Ensure Enlive 120 Ml Liquid) 120 ml PO 4X/DAY [facility] Last Admin: 11/06/20 11:13 Dose: Not Given Documented by: Ondansetron HCl (Ondansetron 4 Mg/2 Ml Vial) 4 mg IV Q8H PRN PRN PRN Reason: NAUSEA/VOMITING Last Admin: 11/05/20 09:23 Dose: 4 mg Documented by: Oxycodone HCl (Oxycodone 5 Mg Tablet) 5 mg PO Q4H PRN PRN Reason: Pain Score 6-10 Last Admin: 11/05/20 21:47 Dose: 5 mg Documented by: Senna/Docusate Sodium (Senna/Docusate Sodium 1 Tablet) 1 tablet PO Q12H PRN PRN Reason: Constipation Sodium Chloride (0.9% Saline Lock 10 Ml Syringe) 10 - 40 ml IV UD PRN PRN Reason: R Port Saline Flush Last Admin: 11/06/20 11:12 Dose: 10 ml Documented by: Sodium Chloride (0.9 % Nacl (Sterile) Posiflush 10 Ml) 10 - 40 ml IV UD PRN PRN Reason: Port access or dressing change Sodium Chloride (0.9% Saline Lock 10 Ml Syringe) 10 - 40 ml IV UD PRN PRN Reason: SALINE FLUSH Tbo-Filgrastim (Tbo-Filgrastim 300 Mcg/0.5 Ml Ml) 300 mcg SC DAILY [facility] Last Admin: 11/06/20 11:12 Dose: 300 mcg Documented by: Medical Necessity - Tobacco Use Smoking Status: Former smoker Tobacco Use: Non-smoker Assessment/Plan All Active Problems (Last Reviewed 11/02/20 @ 14:59 by Annette Garzon) COPD exacerbation (Acute) Encounter for education (Acute) Encounter for adjustment and management of vascular access device (Acute) Chemotherapy management, encounter for (Acute) Dehydration (Acute) Acute prerenal azotemia (Acute) Hypotension (Acute) Respiratory failure (Acute) Febrile neutropenia (Acute) Pancytopenia (Acute) Hx of gastrostomy (Resolved) History of tracheostomy (Resolved) 1. acute hypoxic respiratory failure * 2/2 AECOPD * oxygen weaned down to 5l from VM 2. AECOPD * on methylpred and BDs * pulm on consult * Will initiate prednisone on the 3. Neutropenic fever * UA, UCx negative. COVID 19 negative. * On meropenem and vanc. DC vanc as no clear GP organism. * follow up cultures 4. Pancytopenia * 2/2 chemotherapy * per oncology: Neupogen 5 mcg/kg (rounded to 300 mcg) subcu daily starting today November 04, 2019 until absolute neutrophil count recovery to over 1000 per DL for 3 successive days * no TF unless Hg less than 7 * Patient still not at goal of absolute neutrophil count of 1000. 5. Squamous Cell CUP * follow up with medonc and radonc as outpt. 6. VTE prophylaxis: SCDs 7. Chronic malnutrition: Dietary recommending supplementation, however, the patient is refusing. Dietary recommending alternative forms of nutrition. I would not advise PEG tube's as it ultimately would not change patient's prognosis. Patient asked me to give his sister call. She called his sister, Ms. Miller, meeting with the voicemail and I left a message. Inpatient E&M: [id number] Subs Hosp L2
[2020-11-06] MEDS: Fluconazole 100 MG Tablet PO (12:38)
[2020-11-06] MEDS: oxyCODONE 5 MG Tablet PO (20:08)
[2020-11-06] MEDS: Mirtazapine 30 MG Tablet PO (21:38)
[2020-11-06] MEDS: Atorvastatin Calcium 10 MG Tablet PO (21:38)
[2020-11-07] VITALS (10 sets, daily range): BP systolic 107–128; BP diastolic 55–75; PULSE 53–70; RESP 16–18; TEMP 36.3–36.6; O2SAT 81–98
[2020-11-07 06:45] LABS: Absolute Lymphocyte Count 0.14 X10^3/uL (0.83-4.51); Absolute Neutrophil Count 3.1 X10^3/uL (2.0-7.7); Basophil# 0.05 X10^3/uL; Basophil% 1.3 % (0-1); Hematocrit 22.1 % (40-54); Hemoglobin 7.5 g/dL (13.0-16.5); Lymphocyte # 0.14 X10^3/ul (4.0); Lymphocyte % 3.6 % (19-41); Mean Corp Hgb Conc 33.9 g/dL (32-36); Mean Corpuscular Volume 103.3 fL (80-94); Mean Platelet Vol. 10.5 fl (6.2-12.0); Monocyte# 0.55 X10^3/uL; Monocyte% 14.1 % (0-10); NRBC Flagged by Analyzer 0.5 % (0-5); Neutrophil # 3.11 X10^3/uL (2.7-7.7); POSITIVE COUNT YES; POSITIVE DIFFERENTIAL YES; POSITIVE MORPHOLOGY YES; Platelet Count 60 K/mm3 (150-450); RBC Distribution Width CV 14.7 % (11.6-14.6); RBC Distribution Width SD 53.1 fl (35.1-43.9); Red Blood Count 2.14 M/mm3 (4.6-6.2); White Blood Count 3.9 K/mm3 (4.4-11.0)
[2020-11-07 06:54] LABS: Differential Indicated SCAN CRITERIA MET
[2020-11-07 07:00] LABS: Anion Gap 5 (5-15); BUN 28 mg/dL (7-18); BUN/Creat Ratio 40.4 RATIO (10-20); Calcium,Total 7.8 mg/dL (8.5-10.1); Chloride 112 mmol/L (98-107); Creatinine, Serum 0.69 mg/dL (0.70-1.30); EST Glomerular Filtration Rate 121 mL/min (>60); Est Glom Filt Rate - Afr Amer 146 mL/min (>60); Estimated Creatinine Clearance 50.49 ml/min; Glucose 120 mg/dL (74-106); Potassium 3.8 mmol/L (3.5-5.1); Sodium Level 142 mmol/L (136-145)
[2020-11-07 07:11] LABS: Anisocytosis RARE; Differential Comment SCANNED; Macrocytosis RARE
[2020-11-07] MEDS: Ipratropium 0.5 MG/2.5 ML SOLUTION INHALATION ×2 (07:25→13:24)
[2020-11-07] MEDS: Multivitamins,Ther W-Minerals Tablet 1 TABLET PO (08:01)
[2020-11-07] MEDS: Aspirin 325 MG Tablet PO (08:01)
[2020-11-07] MEDS: Furosemide 40 MG/4 ML Vial IV (08:01)
--- NOTE | 2020-11-07 08:01 | PN_ITS ---
Subjective: Patient did okay overnight. However, this morning patient was desaturating despite 6 L nasal cannula. Patient has been moved to high flow nasal cannula. Patient denies any sinus congestion, epistaxis or dyspnea at this time. Chest pain is slightly improved compared to previous. No productive cough has been reported. General: Alert, Oriented x3, Cooperative, No apparent distress, - - Cachectic. No conversational dyspnea. HEENT: Atraumatic, PERRLA, EOMI, Normocephalic, - - No scleral icterus or injection noted Oral: Moist Mucosa, No Gingival or Mucosal Lesions/ Ulcerations Neck: Supple, No JVD, No Nodes, Trachea Midline Lungs: No rhonchi, No wheeze, Rales - Right base, - - Symmetric expansion Cardiovascular: Regular rate, Regular Rhythm, Normal S1, Normal S2, Murmur, No rub noted, No Gallop, - - Chest port is clean, dry and intact Abdomen: Bowel Sounds Present, Soft, Non Tender, Non-Distended Extremities: No clubbing, No cyanosis, No edema Skin: - - No change compared to previous Musculoskeletal: No Tenderness to Palpation of Joints or Extremities Lymphatic: No Cervical, Supraclavicular, or Inguinal Adenopathy Neurological: Cranial nerves II-XII grossly intact, Neuro grossly intact, Motor Exam 5/5 strength throughout Psych/Mental Status: Normal Affect, Appropriate Vital Signs Temp Pulse Resp BP Pulse Ox 36.3 C L 60 16 107/55 L 94 11/07/20 02:06 11/07/20 02:06 11/07/20 02:06 11/07/20 02:06 11/07/20 02:06 Oxygen Flow Rate (L/min) 5 Oxygen Delivery Method Nasal Cannula Weight: 49.8 kg Body Mass Index (BMI) 16.2 Intake and Output for Last 24 Hours 11/05/20 11/06/20 11/07/20 23:59 23:59 23:59 Intake Total 830 / 830 1160 / 1160 280 / 280 Output Total 550 / 550 860 / 860 400 / 400 Balance 280 / 280 300 / 300 -120 / -120 Labs (Last 48 Hours) 11/04/20 11/05/20 11/06/20 09:04 04:00 06:14 WBC 1.4 L* RBC 1.97 L Hgb 7.2 L Hct 20.5 L MCV 104.1 H MCH 36.5 H MCHC 35.1 RDW Std Deviation 53.1 H RDW Coeff of Bindu 14.7 H Plt Count 52 L MPV 10.0 Immature Gran % (Auto) 18.500 H Neut % (Auto) 53.4 Lymph % (Auto) 10.4 L [place] % (Auto) 17.0 H Eos % (Auto) 0.0 Baso % (Auto) 0.7 Absolute Neuts (auto) 0.7 L Absolute Lymphs (auto) 0.14 L Nucleated RBC % 0 Differential Comment SCANNED Diff Path Review Reviewed Reviewed February foll Platelet Estimate MKD DEC Anisocytosis 1+ Macrocytosis 1+ Sodium Potassium Chloride Carbon Dioxide Anion Gap BUN Creatinine Estim Creat Clear Calc Est GFR (MDRD) Af Amer Est GFR (MDRD) Non-Af BUN/Creatinine Ratio Glucose Calcium Total Bilirubin AST ALT Alkaline Phosphatase Total Protein Albumin Globulin Albumin/Globulin Ratio 11/06/20 11/07/20 11/07/20 06:14 05:20 05:20 WBC 3.9 L RBC 2.14 L Hgb 7.5 L Hct 22.1 L MCV 103.3 H MCH 35.0 H MCHC 33.9 RDW Std Deviation 53.1 H RDW Coeff of Bindu 14.7 H Plt Count 60 L MPV 10.5 Immature Gran % (Auto) 1.000 H Neut % (Auto) 80.0 H Lymph % (Auto) 3.6 L [place] % (Auto) 14.1 H Eos % (Auto) 0.0 Baso % (Auto) 1.3 H Absolute Neuts (auto) 3.1 Absolute Lymphs (auto) 0.14 L Nucleated RBC % 0.5 Differential Comment SCANNED Diff Path Review Platelet Estimate Anisocytosis RARE Macrocytosis RARE Sodium 139 142 Potassium 3.7 3.8 Chloride 109 H 112 H Carbon Dioxide 25.0 25.0 Anion Gap 5 5 BUN 25 H 28 H Creatinine 0.73 0.69 L Estim Creat Clear Calc 52.70 50.49 Est GFR (MDRD) Af Amer 138 146 Est GFR (MDRD) Non-Af 114 121 BUN/Creatinine Ratio 34.4 H 40.4 H Glucose 131 H 120 H Calcium 7.6 L 7.8 L Total Bilirubin 0.80 AST 10 L ALT 13 L Alkaline Phosphatase 45 Total Protein 5.6 L Albumin 2.3 L Globulin 3.3 Albumin/Globulin Ratio 0.7 L Microbiology 11/04/20 09:48 Blood Culture (Wb) - Anticubital Left Blood Culture - Preliminary No growth in 48 hours. 11/04/20 09:04 Blood Culture (Wb) - Chest Blood Culture - Preliminary No growth in 48 hours. 11/04/20 10:00 Interface Orders Urine Culture - Preliminary Culture exhibits no growth. Medical Necessity - Tobacco Use Smoking Status: Former smoker Tobacco Use: Non-smoker Assessment/Plan All Active Problems (Last Reviewed 11/02/20 @ 14:59 by Annette Garzon) COPD exacerbation (Acute) Encounter for education (Acute) Encounter for adjustment and management of vascular access device (Acute) Chemotherapy management, encounter for (Acute) Dehydration (Acute) Acute prerenal azotemia (Acute) Hypotension (Acute) Respiratory failure (Acute) Febrile neutropenia (Acute) Pancytopenia (Acute) Hx of gastrostomy (Resolved) History of tracheostomy (Resolved) RECOMMENDATIONS: 1. Continue empiric antibiotics to complete 7-day course 2. Agree with bronchodilators. Likely okay to transition to prednisone 3. Transfuse for hemoglobin less than 7 4. Administer Lasix IMPRESSIONS: 1. Acute on chronic hypoxic respiratory failure secondary to probable COPD exacerbation Patient with increased FiO2 requirements. Patient is appropriately on antibiotics, steroids and bronchodilators. We will continue to monitor closely. Patient is very clear that he does not want to be intubated if this is necessary. Patient is not showing any respiratory muscle distress that would require an ABG at this time. Continue to monitor. Patient does have advanced lung disease at baseline. Patient still requiring supplemental oxygen, but appears comfortable. We will transition to prednisone therapy. Patient does have rales on exam. Atelectasis versus pulmonary edema is suspected. Will administer Lasix therapy. Wean oxygen as tolerated. May have to reevaluate timing of comfort measures if oxygenation continues to worsen. 2. Neutropenic fever and pancytopenia secondary to chemotherapy and radiation Patient is currently on broad-spectrum antibiotics. Unclear etiology at this time. Chest x-ray does not show any significant infiltrates. Patient is getting Neupogen per oncology. Cultures are negative, but fever did resolve with antibiotics. Blood pressures have been adequate at this time. Patient is clear that he does not want to have aggressive measures such as chemotherapy moving forward. Likely okay to transition to p.o. antibiotics to complete a 7- day course from my perspective given negative cultures. Patient is suggesting hospice measures on discharge. 3. Metastatic squamous cell carcinoma/dementia/osteoporosis/vitamin D deficiency/anxiety/depression/CODE STATUS Complicates care, management, recovery and prognosis. Did discuss with the patient and he is willing to get broad-spectrum antibiotics for a possible infection. However, patient does state that he does not want chemotherapy or a ggressive interventions such as central lines or intubation. We will discussed with the POA, but more appropriate CODE STATUS would likely be DNR Comfort Care arrest. Inpatient E&M: 79459 Subs Hosp L3
--- NOTE | 2020-11-07 08:10 | CPS ---
pt increased to 6lpm.
--- NOTE | 2020-11-07 08:12 | CPS ---
pt increased to 8lpm. Saturation 81%. Pt increased to 10lpm saturation 89%. Pt's nurse made aware and stated she has an order for lasix. Pt's nurse was informed that nasal cannula could go to 15lpm. Pt's nurse advised to increase flow if needed.
[2020-11-07] MEDS: predniSONE 20 MG Tablet 40 MG PO (09:22)
[2020-11-07] MEDS: Fluconazole 100 MG Tablet PO (09:22)
[2020-11-07] MEDS: Docusate Sodium 100 MG Capsule PO ×2 (10:23→21:21)
[2020-11-07] MEDS: FLUoxetine 20 MG Capsule 40 MG PO (10:23)
[2020-11-07] MEDS: TBO-FILGRASTIM 300 MCG/0.5 ML ML SC (10:32)
[2020-11-07] MEDS: Acetaminophen 325 MG Tablet 650 MG PO ×4 (10:32→21:23)
--- NOTE | 2020-11-07 10:48 | PN_ITS ---
Patient Problems: Active and Suspected Problems (Last Reviewed 11/02/20 @ 14:59 by Annette Garzon) COPD exacerbation (Acute) Hypotension (Acute) Respiratory failure (Acute) Febrile neutropenia (Acute) Pancytopenia (Acute) Subjective: Feeling well. Breathing well with high-flow oxygen. Vitals/I&O's: Vital Signs Temp Pulse Resp BP Pulse Ox 36.6 C 70 18 123/70 H 90 11/07/20 08:00 11/07/20 08:00 11/07/20 08:00 11/07/20 08:00 11/07/20 08:30 Oxygen Flow Rate (L/min) 14 Oxygen Delivery Method Nasal Cannula Weight: 49.8 kg Body Mass Index (BMI) 16.2 Intake and Output for Last 24 Hours 11/05/20 11/06/20 11/07/20 23:59 23:59 23:59 Intake Total 830 / 830 1160 / 1160 280 / 280 Output Total 550 / 550 860 / 860 400 / 400 Balance 280 / 280 300 / 300 -120 / -120 General: Alert, No apparent distress HEENT: Atraumatic, Normocephalic Oral: Moist Mucosa, No Gingival or Mucosal Lesions/ Ulcerations Neck: No Nodes, Thyroid Normal Size and Texture Lungs: Diminished, - - coarse breath sounds Cardiovascular: Regular rate, Regular Rhythm, Normal S1, Normal S2, No murmurs Abdomen: Bowel Sounds Present, Soft, Non Tender, Non-Distended, No Hepato- splenomegaly Extremities: No edema, No Calf Tenderness Musculoskeletal: Cachexia, Muscle Wasting Microbiology Past 72 Hours 11/04/20 10:00 Interface Orders Urine Culture - Final Culture exhibits no growth. 11/04/20 09:48 Blood Culture (Wb) - Anticubital Left Blood Culture - Preliminary No growth in 48 hours. 11/04/20 09:04 Blood Culture (Wb) - Chest Blood Culture - Preliminary No growth in 48 hours. 11/04/20 14:39 Mucosa - Nose SARS-CoV-2 Antigen (Rapid) - Final Laboratory Results 11/07/20 05:20: WBC 3.9 L, RBC 2.14 L, Hgb 7.5 L, Hct 22.1 L, MCV 103.3 H, MCH 35.0 H, MCHC 33.9, RDW Std Deviation 53.1 H, RDW Coeff of Bindu 14.7 H, Plt Count 60 L, MPV 10.5, Immature Gran % (Auto) 1.000 H, Neut % (Auto) 80.0 H, Lymph % (Auto) 3.6 L, [place] % (Auto) 14.1 H, Eos % (Auto) 0.0, Baso % (Auto) 1.3 H, Absolute Neuts (auto) 3.1, Absolute Lymphs (auto) 0.14 L, Nucleated RBC % 0.5, Differential Comment SCANNED, Anisocytosis RARE, Macrocytosis RARE 11/07/20 05:20: Sodium 142, Potassium 3.8, Chloride 112 H, Carbon Dioxide 25.0, Anion Gap 5, BUN 28 H, Creatinine 0.69 L, Estim Creat Clear Calc 50.49, Est GFR (MDRD) Af Amer 146, Est GFR (MDRD) Non-Af 121, BUN/Creatinine Ratio 40.4 H, Glucose 120 H, Calcium 7.8 L Current Medications Acetaminophen (Acetaminophen 325 Mg Tablet) 650 mg PO 4X/DAY [facility] Last Admin: 11/07/20 10:32 Dose: 650 mg Documented by: Albuterol Sulfate (Albuterol 2.5 Mg/3 Ml Vial.Neb.) 2.5 mg INHALATION Q2H PRN PRN PRN Reason: SOB/Wheezing Aspirin (Aspirin 325 Mg Tablet) 325 mg PO DAILYCM [facility] Last Admin: 11/07/20 08:01 Dose: 325 mg Documented by: Atorvastatin Calcium (Atorvastatin Calcium 10 Mg Tablet) 10 mg PO QHS [facility] Last Admin: 11/06/20 21:38 Dose: 10 mg Documented by: Cholecalciferol (Cholecalciferol (Vit D3) 1,000 Unit (25mcg)) 2,000 unit PO DAILY [facility] Last Admin: 11/07/20 10:23 Dose: 2,000 unit Documented by: Docusate Sodium (Docusate Sodium 100 Mg Capsule) 100 mg PO BID [facility] Last Admin: 11/07/20 10:23 Dose: 100 mg Documented by: Fluconazole (Fluconazole 100 Mg Tablet) 100 mg PO DAILY [facility] Last Admin: 11/07/20 09:22 Dose: 100 mg Documented by: Fluoxetine HCl (Fluoxetine 20 Mg Capsule) 40 mg PO DAILY [facility] Last Admin: 11/07/20 10:23 Dose: 40 mg Documented by: Heparin Sodium (Beef Lung) (Heparin Pf Lock 10 Units/Ml 50 Units/5 Ml Syringe) 50 units IV UD PRN PRN Reason: R Port Heparin Flush Meropenem 2 gm/ Sodium (Chloride) 140 mls @ 97 mls/hr IV Q8 [facility] Last Infusion: 11/07/20 07:04 Dose: Infused Documented by: Ipratropium [place] (Ipratropium 0.5 Mg/2.5 Ml Solution) 0.5 mg INHALATION Q6H.RT [facility] Last Admin: 11/07/20 07:25 Dose: 0.5 mg Documented by: Mirtazapine (Mirtazapine 30 Mg Tablet) 30 mg PO QHS [facility] Last Admin: 11/06/20 21:38 Dose: 30 mg Documented by: Multivitamins/Minerals (Multivitamins,Ther W-Minerals Tablet) 1 tablet PO DAILYCM [facility] Last Admin: 11/07/20 08:01 Dose: 1 tablet Documented by: Nutritional Formula (Lactose Free) (Ensure Enlive 120 Ml Liquid) 120 ml PO 4X/DAY [facility] Last Admin: 11/07/20 10:32 Dose: 120 ml Documented by: Ondansetron HCl (Ondansetron 4 Mg/2 Ml Vial) 4 mg IV Q8H PRN PRN PRN Reason: NAUSEA/VOMITING Last Admin: 11/05/20 09:23 Dose: 4 mg Documented by: Oxycodone HCl (Oxycodone 5 Mg Tablet) 5 mg PO Q4H PRN PRN Reason: Pain Score 6-10 Last Admin: 11/06/20 20:08 Dose: 5 mg Documented by: Prednisone (Prednisone 20 Mg Tablet) 40 mg PO DAILY@0800 [facility] Last Admin: 11/07/20 09:22 Dose: 40 mg Documented by: Senna/Docusate Sodium (Senna/Docusate Sodium 1 Tablet) 1 tablet PO Q12H PRN PRN Reason: Constipation Sodium Chloride (0.9% Saline Lock 10 Ml Syringe) 10 - 40 ml IV UD PRN PRN Reason: R Port Saline Flush Last Admin: 11/06/20 11:12 Dose: 10 ml Documented by: Sodium Chloride (0.9 % Nacl (Sterile) Posiflush 10 Ml) 10 - 40 ml IV UD PRN PRN Reason: Port access or dressing change Sodium Chloride (0.9% Saline Lock 10 Ml Syringe) 10 - 40 ml IV UD PRN PRN Reason: SALINE FLUSH Tbo-Filgrastim (Tbo-Filgrastim 300 Mcg/0.5 Ml Ml) 300 mcg SC DAILY [facility] Last Admin: 11/07/20 10:32 Dose: 300 mcg Documented by: JAVY Vital Signs/Narrative: Vital Signs Temp Pulse Resp BP Pulse Ox 11/07/20 08:30 90 11/07/20 08:00 36.6 C 70 18 123/70 H 88 11/07/20 07:35 81 11/07/20 07:25 69 16 83 Medical Necessity - Tobacco Use Smoking Status: Former smoker Tobacco Use: Non-smoker Assessment/Plan All Active Problems (Last Reviewed 11/02/20 @ 14:59 by Annette Garzon) COPD exacerbation (Acute) Encounter for education (Acute) Encounter for adjustment and management of vascular access device (Acute) Chemotherapy management, encounter for (Acute) Dehydration (Acute) Acute prerenal azotemia (Acute) Hypotension (Acute) Respiratory failure (Acute) Febrile neutropenia (Acute) Pancytopenia (Acute) Hx of gastrostomy (Resolved) History of tracheostomy (Resolved) 1. acute hypoxic respiratory failure * 2/2 AECOPD * oxygen requirements up again, now on high-flow oxygen. * 11/07: received 40mg IV x1. 2. AECOPD * on methylpred and BDs * pulm on consult * prednisone 3. Neutropenic fever * UA, UCx negative. COVID 19 negative. * On meropenem and vanc. DC vanc as no clear GP organism. * follow up cultures 4. Pancytopenia * 2/2 chemotherapy * per oncology: Neupogen 5 mcg/kg (rounded to 300 mcg) subcu daily starting today November 04, 2019 until absolute neutrophil count recovery to over 1000 per DL for 3 successive days * no TF unless Hg less than 7 * 11/07: ANC now 3100. Continue neupogen for now. Likely to continue through 11/09. 5. Squamous Cell CUP * follow up with medonc and radonc as outpt. 6. VTE prophylaxis: SCDs 7. Chronic malnutrition: Dietary recommending supplementation, however, the patient is refusing. Dietary recommending alternative forms of nutrition. I would not advise PEG tube's as it ultimately would not change patient's prognosis. Inpatient E&M: 00166 Subs Hosp L2
[2020-11-07] MEDS: Mirtazapine 30 MG Tablet PO (21:20)
[2020-11-07] MEDS: Atorvastatin Calcium 10 MG Tablet PO (21:21)
[2020-11-08] VITALS (8 sets, daily range): BP systolic 109–136; BP diastolic 64–74; PULSE 54–73; RESP 18–24; TEMP 36.5–37.3; O2SAT 90–98
[2020-11-08] MEDS: Ipratropium 0.5 MG/2.5 ML SOLUTION INHALATION ×2 (07:15→13:49)
--- NOTE | 2020-11-08 08:26 | NURSING ---
into room w/ primary RN for spo2 79% on c.spo2. pt states feels ok, no distress noted. repositioned higher in bed. CPS edilberto notified as NRB placed and spo2 maintained 79-81%, instructed to place patient on 15L high flow o2 as well as NRB. PRimary RN notified and assisted with this. Dr. Hauser and Dr. Fields (covering per Dr. Leigh) updated via text.
[2020-11-08 08:39] LABS: Absolute Lymphocyte Count 0.41 X10^3/uL (0.83-4.51); Absolute Neutrophil Count 8.1 X10^3/uL (2.0-7.7); Hematocrit 26.5 % (40-54); Hemoglobin 9.1 g/dL (13.0-16.5); Lymphocyte # 0.41 X10^3/ul (4.0); Lymphocyte % 4.3 % (19-41); Mean Corp Hgb Conc 34.3 g/dL (32-36); Mean Corpuscular Hgb 35.4 pg (27.0-32.0); Mean Corpuscular Volume 103.1 fL (80-94); Mean Platelet Vol. 9.8 fl (6.2-12.0); Monocyte# 0.81 X10^3/uL; Monocyte% 8.4 % (0-10); NRBC Flagged by Analyzer 0.8 % (0-5); Neutrophil # 8.11 X10^3/uL (2.7-7.7); Neutrophil % 84.3 % (47-70); POSITIVE COUNT YES; POSITIVE DIFFERENTIAL YES; POSITIVE MORPHOLOGY YES; Platelet Count 71 K/mm3 (150-450); RBC Distribution Width CV 14.9 % (11.6-14.6); RBC Distribution Width SD 54.7 fl (35.1-43.9); Red Blood Count 2.57 M/mm3 (4.6-6.2); White Blood Count 9.6 K/mm3 (4.4-11.0)
[2020-11-08 08:53] LABS: Differential Indicated SCAN CRITERIA MET
[2020-11-08 08:58] LABS: Anion Gap 7 (5-15); BUN 33 mg/dL (7-18); BUN/Creat Ratio 44.7 RATIO (10-20); Calcium,Total 7.8 mg/dL (8.5-10.1); Chloride 107 mmol/L (98-107); Creatinine, Serum 0.74 mg/dL (0.70-1.30); EST Glomerular Filtration Rate 112 mL/min (>60); Est Glom Filt Rate - Afr Amer 136 mL/min (>60); Estimated Creatinine Clearance 50.59 ml/min; Glucose 91 mg/dL (74-106); Potassium 3.4 mmol/L (3.5-5.1); Sodium Level 141 mmol/L (136-145)
[2020-11-08 09:12] LABS: Platelet Estimate MOD DEC (ADEQ)
[2020-11-08] MEDS: predniSONE 20 MG Tablet 40 MG PO (09:35)
[2020-11-08] MEDS: Aspirin 325 MG Tablet PO (09:36)
[2020-11-08] MEDS: Multivitamins,Ther W-Minerals Tablet 1 TABLET PO (09:36)
[2020-11-08] MEDS: Fluconazole 100 MG Tablet PO (09:37)
[2020-11-08] MEDS: Docusate Sodium 100 MG Capsule PO (09:37)
[2020-11-08] MEDS: FLUoxetine 20 MG Capsule 40 MG PO (09:39)
[2020-11-08] MEDS: TBO-FILGRASTIM 300 MCG/0.5 ML ML SC (09:42)
[2020-11-08] MEDS: Acetaminophen 325 MG Tablet 650 MG PO (09:55)
--- NOTE | 2020-11-08 11:18 | PCM.PN.PUL ---
Patient Problems: Active and Suspected Problems (Last Reviewed 11/02/20 @ 14:59 by Annette Garzon) COPD exacerbation (Acute) Hypotension (Acute) Respiratory failure (Acute) Febrile neutropenia (Acute) Pancytopenia (Acute) Subjective: The patient was seen and examined at the bedside this morning. Events from the last 24 hours have been reviewed. The patient is currently afebrile, hemodynamically stable and maintaining appropriate oxygen saturations on a nonrebreather mask. The patient's oxygen requirement has increased over the course of the night and morning. I did call and personally speak with the patient's legal guardian this morning and updated her on the patient's overall clinical state. She is requesting that a referral be made to hospice care services at this time. Objective: The patient's most recent lab work, culture data and imaging studies have all been personally reviewed. Coronavirus rapid antigen testing was negative on November 04. Blood and urine cultures have shown no growth to date. - Physical Exam Vitals/I&O's: Vital Signs Temp Pulse Resp BP Pulse Ox 99.0 F 70 20 H 109/65 95 11/08/20 10:33 11/08/20 10:33 11/08/20 10:33 11/08/20 10:33 11/08/20 10:33 Oxygen Flow Rate (L/min) 15 Oxygen Delivery Method Non-Rebreather Weight: 110 lb 0.171 oz Body Mass Index (BMI) 16.2 Intake and Output for Last 24 Hours 11/06/20 11/07/20 11/08/20 23:59 23:59 23:59 Intake Total 1160 / 1160 1040 / 1040 220 / 220 Output Total 860 / 860 2300 / 2300 500 / 500 Balance 300 / 300 -1260 / -1260 -280 / -280 General: Alert, Cooperative, - - Appear short of breath with nonrebreather in place. HEENT: Atraumatic, Normocephalic Oral: No Gingival or Mucosal Lesions/ Ulcerations Neck: Supple, No Nodes, Trachea Midline Lungs: Rales, Tachypneic Cardiovascular: Regular rate, Regular Rhythm, Murmur Abdomen: Bowel Sounds Present, Soft, Non Tender Extremities: No clubbing, No cyanosis, No edema Musculoskeletal: Cachexia, Muscle Wasting Lymphatic: No Cervical, Supraclavicular, or Inguinal Adenopathy Neurological: Cranial nerves II-XII grossly intact, Neuro grossly intact Psych/Mental Status: Normal Affect Labs (Last 48 Hours) 11/07/20 11/07/20 11/08/20 05:20 05:20 07:55 WBC 3.9 L 9.6 RBC 2.14 L 2.57 L Hgb 7.5 L 9.1 L Hct 22.1 L 26.5 L MCV 103.3 H 103.1 H MCH 35.0 H 35.4 H MCHC 33.9 34.3 RDW Std Deviation 53.1 H 54.7 H RDW Coeff of Bindu 14.7 H 14.9 H Plt Count 60 L 71 L MPV 10.5 9.8 Immature Gran % (Auto) 1.000 H 3.000 H Neut % (Auto) 80.0 H 84.3 H Lymph % (Auto) 3.6 L 4.3 L [place] % (Auto) 14.1 H 8.4 Eos % (Auto) 0.0 0.0 Baso % (Auto) 1.3 H 0.0 Absolute Neuts (auto) 3.1 8.1 H Absolute Lymphs (auto) 0.14 L 0.41 L Nucleated RBC % 0.5 0.8 Differential Comment SCANNED COMMENT Diff Path Review May foll Platelet Estimate MOD DEC Anisocytosis RARE Macrocytosis RARE Sodium 142 Potassium 3.8 Chloride 112 H Carbon Dioxide 25.0 Anion Gap 5 BUN 28 H Creatinine 0.69 L Estim Creat Clear Calc 50.49 Est GFR (MDRD) Af Amer 146 Est GFR (MDRD) Non-Af 121 BUN/Creatinine Ratio 40.4 H Glucose 120 H Calcium 7.8 L 11/08/20 07:55 WBC RBC Hgb Hct MCV MCH MCHC RDW Std Deviation RDW Coeff of Bindu Plt Count MPV Immature Gran % (Auto) Neut % (Auto) Lymph % (Auto) [place] % (Auto) Eos % (Auto) Baso % (Auto) Absolute Neuts (auto) Absolute Lymphs (auto) Nucleated RBC % Differential Comment Diff Path Review Platelet Estimate Anisocytosis Macrocytosis Sodium 141 Potassium 3.4 L Chloride 107 Carbon Dioxide 27.0 Anion Gap 7 BUN 33 H Creatinine 0.74 Estim Creat Clear Calc 50.59 Est GFR (MDRD) Af Amer 136 Est GFR (MDRD) Non-Af 112 BUN/Creatinine Ratio 44.7 H Glucose 91 Calcium 7.8 L Microbiology 11/04/20 10:00 Interface Orders Urine Culture - Final Culture exhibits no growth. 11/04/20 09:48 Blood Culture (Wb) - Anticubital Left Blood Culture - Preliminary No growth in 48 hours. 11/04/20 09:04 Blood Culture (Wb) - Chest Blood Culture - Preliminary No growth in 48 hours. Clinical Impression(s) from Imaging Studies Chest X-Ray 11/04/20 09:27 IMPRESSION: Mildly hyperexpanded lungs without a superimposed acute pulmonary process Electronically Signed: Pancho Proctor MD at 10:20 EST , Service support , Abdomen/Pelvis CT 11/04/20 09:34 IMPRESSION: No suspicious solid organ abnormality Retained stool throughout the colon which may be impacted Normal appendix visualized Diffuse atherosclerosis Degenerative bony changes, replaced right hip joint free of complication Electronically Signed: Pancho Proctor MD at 11:13 EST , Service support , Chest CTA 11/04/20 10:43 IMPRESSION: No demonstrated PE, or thoracic aortic aneurysm or dissection Severe underlying emphysema with bleb formation throughout both lung jarvis. Chronic interstitial changes in both lung jarvis. There is a concerning 1.06 cm pleural-based nodule in the posterior right upper lobe. Short-term follow-up recommended to assure stability. No organized infiltrate, bibasilar atelectasis Calcified coronary vessels Degenerative bony changes Electronically Signed: Pancho Proctor MD at 11:54 EST , Service support , Current Medications Acetaminophen (Acetaminophen 325 Mg Tablet) 650 mg PO 4X/DAY [facility] Last Admin: 11/08/20 09:55 Dose: 650 mg Documented by: Albuterol Sulfate (Albuterol 2.5 Mg/3 Ml Vial.Neb.) 2.5 mg INHALATION Q2H PRN PRN PRN Reason: SOB/Wheezing Aspirin (Aspirin 325 Mg Tablet) 325 mg PO DAILYCM [facility] Last Admin: 11/08/20 09:36 Dose: 325 mg Documented by: Atorvastatin Calcium (Atorvastatin Calcium 10 Mg Tablet) 10 mg PO QHS [facility] Last Admin: 11/07/20 21:21 Dose: 10 mg Documented by: Cholecalciferol (Cholecalciferol (Vit D3) 1,000 Unit (25mcg)) 2,000 unit PO DAILY [facility] Last Admin: 11/08/20 09:38 Dose: 2,000 unit Documented by: Docusate Sodium (Docusate Sodium 100 Mg Capsule) 100 mg PO BID [facility] Last Admin: 11/08/20 09:37 Dose: 100 mg Documented by: Fluconazole (Fluconazole 100 Mg Tablet) 100 mg PO DAILY [facility] Last Admin: 11/08/20 09:37 Dose: 100 mg Documented by: Fluoxetine HCl (Fluoxetine 20 Mg Capsule) 40 mg PO DAILY [facility] Last Admin: 11/08/20 09:39 Dose: 40 mg Documented by: Heparin Sodium (Beef Lung) (Heparin Pf Lock 10 Units/Ml 50 Units/5 Ml Syringe) 50 units IV UD PRN PRN Reason: R Port Heparin Flush Meropenem 2 gm/ Sodium (Chloride) 140 mls @ 97 mls/hr IV Q8 [facility] Last Infusion: 11/08/20 06:54 Dose: Infused Documented by: Ipratropium [place] (Ipratropium 0.5 Mg/2.5 Ml Solution) 0.5 mg INHALATION Q6H.RT [facility] Last Admin: 11/08/20 07:15 Dose: 0.5 mg Documented by: Mirtazapine (Mirtazapine 30 Mg Tablet) 30 mg PO QHS [facility] Last Admin: 11/07/20 21:20 Dose: 30 mg Documented by: Multivitamins/Minerals (Multivitamins,Ther W-Minerals Tablet) 1 tablet PO DAILYCM [facility] Last Admin: 11/08/20 09:36 Dose: 1 tablet Documented by: Nutritional Formula (Lactose Free) (Ensure Enlive 120 Ml Liquid) 120 ml PO 4X/DAY [facility] Last Admin: 11/08/20 09:38 Dose: Not Given Documented by: Ondansetron HCl (Ondansetron 4 Mg/2 Ml Vial) 4 mg IV Q8H PRN PRN PRN Reason: NAUSEA/VOMITING Last Admin: 11/05/20 09:23 Dose: 4 mg Documented by: Oxycodone HCl (Oxycodone 5 Mg Tablet) 5 mg PO Q4H PRN PRN Reason: Pain Score 6-10 Last Admin: 11/06/20 20:08 Dose: 5 mg Documented by: Prednisone (Prednisone 20 Mg Tablet) 40 mg PO DAILY@0800 VIMAL Last Admin: 11/08/20 09:35 Dose: 40 mg Documented by: Senna/Docusate Sodium (Senna/Docusate Sodium 1 Tablet) 1 tablet PO Q12H PRN PRN Reason: Constipation Sodium Chloride (0.9% Saline Lock 10 Ml Syringe) 10 - 40 ml IV UD PRN PRN Reason: R Port Saline Flush Last Admin: 11/06/20 11:12 Dose: 10 ml Documented by: Sodium Chloride (0.9 % Nacl (Sterile) Posiflush 10 Ml) 10 - 40 ml IV UD PRN PRN Reason: Port access or dressing change Sodium Chloride (0.9% Saline Lock 10 Ml Syringe) 10 - 40 ml IV UD PRN PRN Reason: SALINE FLUSH Medical Necessity - Tobacco Use Smoking Status: Former smoker Tobacco Use: Non-smoker Assessment/Plan All Active Problems (Last Reviewed 11/02/20 @ 14:59 by Annette Garzon) COPD exacerbation (Acute) Encounter for education (Acute) Encounter for adjustment and management of vascular access device (Acute) Chemotherapy management, encounter for (Acute) Dehydration (Acute) Acute prerenal azotemia (Acute) Hypotension (Acute) Respiratory failure (Acute) Febrile neutropenia (Acute) Pancytopenia (Acute) Hx of gastrostomy (Resolved) History of tracheostomy (Resolved) RECOMMENDATIONS: 1. Continue antimicrobials with plans to complete a 7-day treatment course. 2. Continue bronchodilators and steroids. 3. Continue to monitor H&H and transfuse if hemoglobin drops below 7 g/dL. 4. Potassium repletion. 5. Following goals of care discussion with the patient's legal guardian, plan to pursue hospice referral. library manager aware. IMPRESSIONS: 1. Acute on chronic hypoxic respiratory failure secondary to probable COPD exacerbation The patient has decompensated from a respiratory perspective over the last 24 hours, despite treatment with antibiotics, steroids and bronchodilators. Goals of care discussion was undertaken with the patient's legal guardian this morning. She is wishing to pursue hospice care referral. In the interim, the patient will be continued on antibiotics, bronchodilators and steroids. library manager aware of hospice referral decision. 2. Neutropenic fever and pancytopenia secondary to chemotherapy and radiation The patient is currently on broad-spectrum antibiotics. Unclear etiology at this time. Chest x-ray does not show any significant infiltrates. Cultures are negative, but fever did resolve with antibiotics. Blood pressures have been adequate at this time. Plan to continue antimicrobials for now, pending hospice disposition. 3. Metastatic squamous cell carcinoma/dementia/osteoporosis/vitamin D deficiency/anxiety/depression/CODE STATUS Complicates care, management, recovery and prognosis. Continue home medications. This note was generated with [employer] dictation software. It may contain incorrect words, spelling, and punctuation that were not noted in checking the note before signing. Inpatient E&M: 54268 Subs Hosp L2
--- NOTE | 2020-11-08 11:52 | CASEMGMT ---
Addendum entered by Petrona Bustamnate 11/08/20 13:27: NIRAV Kang from [facility] called this worker back stating Dr. Nunez would like physician's name and number and he will call physician. FARHANA updated physician, SW provided NIRAV Kang with physician number for Dr. Nunez. Dr. Nunez to call physician. Addendum entered by Petrona Bustamante 11/08/20 13:20: SW received message from Tati at [facility] stating she spoke with pt's sister Tati who is wanting pt to admit to inpatient hospice unit. Tati states doctor at [facility] will need to do doctor to doctor report if physician at [facility] feels pt is inpatient hospice appropriate. SW discussed with physician, physician agreeable to complete doctor to doctor with [facility]. FARHANA placed a call back to [facility] and spoke with NIRAV Kang. NIRAV Kang states she will need to make sure Dr. Nunez is aware of referral and then will call this worker back. Pearl then called again wanting to know pt's symptoms. FARHANA asked RN to speak with NIRAV Kang regarding pt's symptoms. NIRAV Kang state she will call this worker back again. Original Note: Social Work Note Pt has legal guardian Tati Miller, documents are on pt's chart. Per TCU notes, pt was deemed incompetent in 2011. FARHANA updated by physician, that pt's sister Tati, who is pt's legal guardian, is agreeable to Hospice referral. FARHANA placed a call to Tati. FARHANA introduced self and role at [facility]. Tati confirms is agreeable to Hospice referral. FARHANA explained different options of Hospice including inpatient Hospice unit (if pt qualifies), home with Hospice or to a ferry terminal agent ECF with Hospice. FARHANA informed Tati that this worker will make [facility] referral and then [facility] will call Tati to review options. Tati states understanding. FARHANA updated RN and Charge Nurse on Hospice referral. FARHANA placed a call to [facility] and spoke with Tati in admissions. FARHANA provided Hospice referral. Tati states she will call pt's sister. FARHANA faxed referral. Plan: Hospice referral made Petrona Bustamante HEEL LIFT GOUGER, CUSTOMER SUPPORT ADVISOR
[2020-11-08 13:26] LABS: Pathologist Review Reviewed
[2020-11-08 13:33] LABS: Pathologist Review Reviewed
--- NOTE | 2020-11-08 13:49 | CPS ---
Pt is on 15lpm via [place] plus 100% NRB. Sat is 94%.
--- NOTE | 2020-11-08 14:55 | CASEMGMT ---
Addendum entered by Petrona Bustamante 11/08/20 15:39: FARHANA placed a call to pt's CM Arelis Gunter and left message informing her pt will admit to inpatient hospice unit today. FARHANA faxed discharge summary to [facility]. Addendum entered by Petrona Bustamante 11/08/20 15:00: Tati confirms she is aware of [facility] address on [id number] Original Note: Social Work Note FARHANA received call from NIRAV Kang at [facility] stating pt has been accepted to [facility] inpatient Hospice Unit. NIRAV Kang states the sooner the better pt can admit to Inpatient Hospice, states transportation will be at [facility] around 3:15pm. Pearl states pt will also need DNR form completed for transportation. FARHANA updated physician, tubed DNR form for physician to sign. FARHANA placed a call to pt's sister and legal guardian Tati and updated her pt will admit to [facility] inpatient unit today at 3:15pm. Tati states understanding, agreeable to plan. FARHANA updated RN and Charge Nurse on discharge plan. Plan: [facility] Inpatient Unit today with Hospice transporting pt at 3:15pm Petrona Bustamante SOLE DYER, TUBE COVERER
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
--- NOTE | 2020-11-08 15:16 | NURSING ---
REPORT GIVEN TO [facility] IN FACILITY
== END 2020-11-08 15:33 | disposition hospice, inpatient (51) | DRG 871 ==
LOC: ED 14:16 → ICU 14:44 → MS3 11-05 15:33
PROVIDERS: Admitting Provider Internal Medicine; Emergency Provider Emergency Medicine; PCP Family Medicine; Visit Provider Student in an Organized Health Care Education/Training Program
DX: A41.9 Sepsis, unspecified organism (principal); R65.21 Severe sepsis with septic shock; J96.21 Acute and chronic respiratory failure with hypoxia; D61.810 Antineoplastic chemotherapy induced pancytopenia; C77.0 Secondary and unspecified malignant neoplasm of lymph nodes of head, face and neck; K50.90 Crohn's disease, unspecified, without complications; J43.9 Emphysema, unspecified; C80.1 Malignant (primary) neoplasm, unspecified; D70.9 Neutropenia, unspecified; R50.81 Fever presenting with conditions classified elsewhere; T45.1X5A Adverse effect of antineoplastic and immunosuppressive drugs, initial encounter; D63.8 Anemia in other chronic diseases classified elsewhere; Z20.822 Contact with and (suspected) exposure to COVID-19; E78.5 Hyperlipidemia, unspecified; K59.00 Constipation, unspecified; F03.90 Unspecified dementia, unspecified severity, without behavioral disturbance, psychotic disturbance, mood disturbance, and anxiety; K21.9 Gastro-esophageal reflux disease without esophagitis; M81.0 Age-related osteoporosis without current pathological fracture; F32.9 Major depressive disorder, single episode, unspecified; F41.9 Anxiety disorder, unspecified; F17.200 Nicotine dependence, unspecified, uncomplicated; Z79.82 Long term (current) use of aspirin; Z79.83 Long term (current) use of bisphosphonates; Z79.899 Other long term (current) drug therapy; Z86.73 Personal history of transient ischemic attack (TIA), and cerebral infarction without residual deficits; Z85.828 Personal history of other malignant neoplasm of skin; Z92.3 Personal history of irradiation; Z96.641 Presence of right artificial hip joint; Z96.651 Presence of right artificial knee joint; Z86.711 Personal history of pulmonary embolism
CPT/HCPCS: 36415; 36591; 51702; 71045; 71275; 74177; 80048; 80053; 81001; 83605; 84484; 85025; 85379; 85610; 85730; 87040; 87086; 87426; 92610; 93005; 94640; 97110; 97162; 97166; 97530; 97535; 97802; 99251; 99285; 99406; J2185; J7030; J7050; Q9967; U0005; A4216; G0463; J1447; J1940; J2405